=== PATIENT | male | born 1965 | race Caucasian/White ===

== ENCOUNTER 2016-10-11 07:23 | Inpatient (IN) ==
[2016-10-11] MEDS ORDERED: IOPAMIDOL 100 ML BOTTLE IV ONE (07:24)
[2016-10-11] MEDS ORDERED: PROCHLORPERAZINE 10 MG/2 ML VIAL IV ONE (07:51)
[2016-10-11] MEDS ORDERED: 0.9 % SODIUM CHLORIDE 1,000 ML IV ONE ×3 (07:51→12:50)
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
[2016-10-11] MEDS: HYDROmorphone 2 MG/ML SYRINGE IV PRN ×6 (08:05→19:59)
[2016-10-11 08:25] LABS: Basophils # (Auto) 0.1 K/mcL (0.0-0.3); Basophils % (Auto) 0.6 % (0.0-2.0); Eosinophils # (Auto) 0.2 K/mcL (0.0-0.7); Eosinophils % (Auto) 1.4 % (0.0-7.0); Granulocytes % (Auto) 80.7 % (38.0-78.0); Lymphocytes # (Auto) 1.9 K/mcL (1.5-4.8); Mean Cell Volume 94.9 fL (80.0-100.0); Mean Corpuscular HGB Conc 32.8 g/dL (31.0-36.0); Mean Corpuscular Hemoglobin 31.1 pg (26.0-34.0); Monocytes # (Auto) 1.1 K/mcL (0.1-0.9); Monocytes % (Auto) 6.3 % (1.0-12.0); Platelet Count 352 K/mcL (140-440); RBC 5.25 M/mcL (4.50-5.90); Red Cell Distribution Width 15.2 % (11.5-14.5)
[2016-10-11 08:56] LABS: ALT/SGPT 73 U/l (0-40); Albumin 3.7 gm/dL (3.2-5.2); Albumin/Globulin Ratio 0.9 (1.0-2.3); Alkaline Phosphatase 152 U/L (39-117); Amylase 18 U/L (28-100); Blood Urea Nitrogen 5 mg/dl (6-20); Lipase 14 U/L (7-60)
[2016-10-11] MEDS ORDERED: ceFAZolin 1 GM VIAL IV ONE (09:32)
--- NOTE | 2016-10-11 09:39 | Cat Scan Report ---
CLINICAL INFORMATION: Reason for Exam:severe epigastric pain COMPARISON: 12/21/07 TECHNIQUE: Following injection of intravenous contrast the patient was scanned during the portal venous phase from the diaphragm through the symphysis pubis. Sagittal and coronal reformats were created.. FINDINGS: The liver is normal in size. There is mild fatty infiltration. No mass is present. The gallbladder and bile ducts are normal. The spleen and pancreas are normal in size and homogeneous. The adrenals and kidneys are normal. There are few scattered plaques along the escalona of normal caliber abdominal aorta, renal arteries and iliac arteries. There are several scattered diverticula in the descending and sigmoid colon. In the midportion of the sigmoid colon there is an acute inflammation and perforation. There is extraluminal collection of gas anterior to the sigmoid colon surrounded by inflamed fat. No abscess is present and there is no free fluid within the peritoneum. The pocket of air measures 1.5 x 5.3 cm. The perforation is a new finding since 2007. There are few more diverticula in the colon today than there were previously. There is no evidence of bowel obstruction or ileus. The appendix is noninflamed. The urinary bladder and prostate appear normal. IMPRESSION: Perforated mid sigmoid colon. This is probably due to acute diverticulitis. Dr. Almodovar was called with results at 9:30 AM Interpreted and Authenticated by: Serg Merritt 10/11/16
[2016-10-11] MEDS ORDERED: ONDANSETRON 4 MG/2 ML VIAL IV PRN ×2 (09:40→16:33)
[2016-10-11] MEDS ORDERED: PROMETHAZINE 25 MG/ML VIAL IM PRN ×2 (09:40→16:33)
[2016-10-11] MEDS ORDERED: NALOXONE HCL 0.4 MG/ML VIAL IV PRN (09:40)
[2016-10-11] MEDS: 0.9 % SODIUM CHLORIDE 1,000 ML IV SCH ×2 (11:06→16:00)
[2016-10-11] MEDS ORDERED: metroNIDAZOLE 500 MG/100 ML BAG IV SCH ×2 (12:00→18:00)
[2016-10-11] MEDS ORDERED: PIPERACILLIN SODIUM/TAZOBACTAM 3.375 GM in DEXTROSE 5% IN WATER 50 ML IV SCH ×2 (13:00→18:00)
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
--- NOTE | 2016-10-11 13:15 | XRay Report ---
HISTORY: Reason for Exam:preop evaluation , perforated sigmoid colon FINDINGS: The lungs are clear. The heart, mediastinum, jordana and pleura are normal. No free intra-abdominal air is seen beneath the diaphragms IMPRESSION: Normal chest. Interpreted and Authenticated by: Serg Merritt 10/11/16
[2016-10-11] MEDS ORDERED: LIDOCAINE HCL/PF 100 MG/5 ML SYRINGE IV ONE (14:00)
[2016-10-11] MEDS ORDERED: PROPOFOL 200 MG/20 ML VIAL IV ONE (14:00)
[2016-10-11] MEDS ORDERED: ROCURONIUM 10 MG/ML ML IV ONE (14:00)
[2016-10-11] MEDS ORDERED: fentaNYL 250 MCG/5 ML VIAL IV ONE (14:00)
[2016-10-11] MEDS ORDERED: KETAMINE 100 MG/ML ML IV ONE (14:00)
[2016-10-11] MEDS ORDERED: MIDAZOLAM 5 MG/5 ML VIAL IV ONE (14:00)
[2016-10-11] MEDS ORDERED: HYDROmorphone 2 MG/ML SYRINGE IV ONE (14:00)
[2016-10-11] MEDS ORDERED: GLYCOPYRROLATE 0.2 MG/ML VIAL IV ONE (14:00)
--- NOTE | 2016-10-11 16:08 | Brief Operative Note ---
Date of procedure: 10/11/16 Pre-op diagnosis: perforated sigmoid colon with peritonitis Post-op diagnosis: other (severely ischemic small bowel and colon with perforated sigmoid colon and diffuse peritonitis) Procedure: damage control laparotomy with sigmoid resection ; peritoneal washout and 4 quadrant drainage;abdomen left open Grafts/Implants: No Anesthesia: GETA Findings: diffuse peritonitis with large sigmoid perforation; severely ischemic bowel with waite omentum,purplish waite distal small bowel and right colon and transverse colon; ischemic but viable distal jejunum extending to ileum;;stomach ,liver and gallbladder looked normal Complications: none Surgeon: Susanne Dang Estimated blood loss (cc): 25 Specimens Removed/Pathology: other (sigmoid colon) Condition: critical Disposition: ICU
[2016-10-11] MEDS ORDERED: 0.9 % SODIUM CHLORIDE 10 ML SYRINGE IV PRN (16:21)
[2016-10-11] MEDS ORDERED: PROPOFOL 1,000 MG in PREMIX 1 BAG IV ONE (16:21)
[2016-10-11] MEDS ORDERED: 0.9 % SODIUM CHLORIDE 1,000 ML IV SCH ×3 (16:33→18:30)
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
[2016-10-11] MEDS ORDERED: PANTOPRAZOLE 40 MG VIAL IV SCH ×2 (17:00)
--- NOTE | 2016-10-11 17:03 | XRay Report ---
HISTORY: Reason for Exam:Central Line Placement FINDINGS: Endotracheal tube is well-positioned. There is a right subclavian catheter with the tip in the right atrial of the heart. Nasogastric tube passes through the esophagus into the stomach. There is no pneumothorax or abnormal widening of the mediastinum. Patient has developed alveolar opacities throughout both lungs. These are new compared with the preoperative chest x-ray done on the same date. The heart is borderline enlarged but magnified by portable technique. The heart appears larger than on the preoperative x-ray. Right costophrenic sulcus is outside of the field of view. There is no evidence of a pleural effusion on either side. IMPRESSION: Well-positioned support tubes and no pneumothorax. Bilateral alveolar opacities which may be due to fluid overload, congestive heart failure with pulmonary edema or respiratory distress syndrome. Interpreted and Authenticated by: Serg Merritt 10/11/16
[2016-10-11] MEDS ORDERED: PIPERACILLIN SODIUM/TAZOBACTAM 3.375 GM VIAL IV ONE (17:04)
[2016-10-11 17:15] LABS: Mean Cell Volume 95.1 fL (80.0-100.0); Mean Corpuscular HGB Conc 31.9 g/dL (31.0-36.0); Mean Corpuscular Hemoglobin 30.3 pg (26.0-34.0); Platelet Count 316 K/mcL (140-440); RBC 4.84 M/mcL (4.50-5.90); Red Cell Distribution Width 15.8 % (11.5-14.5)
[2016-10-11 17:26] LABS: Blood Urea Nitrogen 6 mg/dl (6-20)
[2016-10-11] MEDS ORDERED: DILTIAZEM 25 MG/5 ML VIAL IV PRN (17:26)
[2016-10-11] MEDS ORDERED: ALBUTEROL SULFATE 2.5 MG/3 ML NEBULIZER NEB PRN (17:26)
[2016-10-11] MEDS ORDERED: LORazepam 2 MG/ML VIAL IV PRN (17:28)
[2016-10-11] MEDS ORDERED: HEPARIN/NS 500 ML IV SCH (17:30)
[2016-10-11] MEDS ORDERED: ACETAMINOPHEN 650 MG SUPP.RECT PR PRN (17:36)
[2016-10-11] MEDS ORDERED: METOPROLOL TARTRATE 5 MG/5 ML VIAL IV PRN (17:38)
[2016-10-11] MEDS ORDERED: DEXTROSE 50% 50 ML VIAL IV PRN (17:41)
[2016-10-11] MEDS ORDERED: ACETAMINOPHEN 1,000 MG/100 ML BOTTLE IV PRN (17:56)
[2016-10-11 17:57] LABS: Band Neutrophils % 29 % (0-10); Lymphocytes % 13 % (15-49); Monocytes % (Manual) 3 % (1-12); Platelet Estimate NORMAL (NORMAL); RBC Morphology NORMAL (NORMAL); Segmented Neutrophils % 52 % (38-78)
[2016-10-11] MEDS ORDERED: INSULIN LISPRO 1 UNIT/0.01 ML UNIT SQ SCH (18:00)
[2016-10-11] MEDS ORDERED: CALCIUM GLUCONATE 4.65 MEQ in DEXTROSE 5% IN WATER 50 ML IV ONE (18:00)
[2016-10-11] MEDS ORDERED: PROPOFOL 100 ML IV ONE (18:17)
[2016-10-11 18:34] LABS: Ionized Calcium 0.99 mmol/L (1.16-1.32)
--- NOTE | 2016-10-11 18:50 | Discharge Summary ---
Providers - Providers Patient information: Note initiated : 10/11/16 at 6:40 pm Service Date, if different from initiated Date: [] Patient: Earle Magdaleno 51 y/o M admitted on 10/11/16 for Abd Pain. Chief Complaint: [] Date of admission: 10/11/16 Discharge date: 10/11/16 Attending physician: Susanne Dang hospitalist Hospitalization Hospital course: 51-year-old male admitted early this morning with acute abdominal pain with nausea and vomitiing.. The patient has been symptomatic for at least 3 days with severe pain. He finally came to the emergency room where he was noted to have a rigid abdomen with hypoactive bowel sounds. He also had leukocytosis. CT of the abdomen revealed perforated sigmoid colon with free air and associated fluid but no formed abscess. The patient was taken to the operating room where he was noted to have diffuse peritonitis with evidence of ischemic bowel and omentum. While he was being explored the small bowel regained good vascularity. The liver stomach duodenum and proximal jejunum had normal vascularity.a segmental sigmoidectomy was done and the bowel was left in discontinuity. Because of the difficulty with diffuse ischemia it was decided that he would need a second look procedure and if this bowel is viable a stoma could be done at that time. Thorough washout was done and the abdomen was drained and bilateral subphrenic areas and bilateral pelvis. The bowel was covered with moist towels and then they were covered with large sterile Vi- Drape. The patient was left paralyzed and transferred to the ICU in critical condition. In discussion with the radioogist there is concern about the ostium of the SMA. His AMAN is very small. This CT study however was suboptimal. It is felt that he needs to have more aggressive therapy and interventional radiology or vascular surgery to do a study of his mesenteric vesselsto determine if his bowel is going to be salvageable. None of this can be done at our facility and we are presently trying to transfer him to a higher level of care. This was discussed with his girlfriend who is his closest mash filter cloth changer. He gave us permission to discuss this with her. His vital signs are stablt the present time but he is in critical condition. Discharge diagnosis: perforated sigmoid colon with peritonitis Secondary discharge diagnosis: mesenteric ischemia with midgut hypoperfusion Reason for admission: recurrent abdominal pain nausea and vomiting Procedures: exploratory laparotomy with segmental sigmoid colectomy with bowel left in discontinuity Thorough peritoneal washout and drainage Pertinent studies/significant findings: contrast CT of abdomen and pelvis Complications: none Exam Temp Pulse Resp BP Pulse Ox 101.7 F H 132 H 12 162/83 100 10/11/16 17:29 10/11/16 18:32 10/11/16 17:04 10/11/16 18:31 10/11/16 18:32 - General physical appearance well developed, well nourished, severe distress, other (patient is ventila paralyzed) - Eyes PERRL, normal ocular movement - ENT normal pinna, normal nares, normal mucosa, no hearing loss, no congestion - Head Head exam IM: Present: atraumatic, normocephalic - Neck no masses, no bruits, trachea midline, no lymphadectomy, no venous distension - Cardiovascular Cardiovascular exam IM: Present: normal rate and rhythm - Respiratory normal expansion, other (ventilated with decreased breath sounds bilaterally) - Abdomen Abdomen: Present: distended (open abdomen with temporary occlusive dressing; left colon in discontinuity) Hernia: Present: none - Genitourinary Present: normal penis with no external lesions, other (Cook catheter in place) - Rectum Rectum: Present: no tenderness - Integumentary Present: no rash, no growths, no abnormal pigmentation - Neurologic Present: other (sedated and paralyzed) - Musculoskeletal Present: normal posture - Psychiatric Present: other (sedated on ventilator) Discharge Plan - Patient/Caregiver Discharge Instructions Activity: other (ventilated) Diet: NPO (nasogastric tube) - Follow up Plan Follow up with: Susanne Dang MD [Physician] - Kerry Williamson MD [Primary Care Provider] - Disposition: Xfer Other Prognosis: Critical Rehab Potential: Critical I certify that the patient requires SNF services.: No Overall status at discharge: patient is not back to baseline Pending Studies Resuscitation Status Full Code Diet NPO Diet (NOW) Start MonOctober 11 Breakfast Diagnostic Test (Pha) (Accu-Chek) 1 each FS Q6 [facility] Last Admin: 10/11/16 18:19 Dose: Hydromorphone HCl (Dilaudid) 1 mg IV Q2HP PRN PRN Reason: Pain Last Admin: 10/11/16 18:20 Dose: 1 mg Metronidazole (Flagyl) 500 mg in 100 mls @ 100 mls/hr IV Q6H [facility] Last Admin: 10/11/16 17:30 Dose: 100 mls/hr Piperacillin Sod/Tazobactam (Sod 3.375 gm/ Dextrose) 50 mls @ 100 mls/hr IV Q6H [facility] Last Admin: 10/11/16 18:20 Dose: Pantoprazole Sodium (Protonix) 40 mg IV BIDAC [facility] Last Admin: 10/11/16 17:00 Dose: 40 mg Shift Summary 10/11/16 15:07 Shift Summary by Smitha Benavidez pt was admitted with a ruptured sigmoid colon. Pt went to surgery around 1330 should be a two hour surgery. optical instrument assembly supervisor was called by anesthesia at 1430 , pt is worse than expected there is some necrotic bowel, a significant amount of infection and irritation. Pt will be intubated when her returns from surgery. Prior to surgery Dr. Dang spoke with the patient informed him that he most likely will have a temporary colostomy that might be reversed in six to eight weeks. Then Marisela Keller the anesthesiologist spoke with the patient also talked about a colostomy and that it might even have to be permanent. Dr. Flores also talked to the patient about having to stay sedated and on the ventilator for a day or more to allow the bowels to heal up some. The patient is a daily smoker , he has bad lungs and Dr. Flores just stated that he just might need more time on the vent than other patients do. Per the patient his last surgery he had to be on the ventilator a little longer than most people. Patient is aware of all of the risks and complications and is agreeable. Dr. Dang explained that this is a life saving surgery. Pt verbalizes that he understands. asked the patient who could have information. he stated his Aunt Cinthia and his girlfriend Liza Taveras could have any information they wanted. His daughters would also know that he is here and he is sick. Pt's older daughter lamar called and knows that her father is here he is having bowel surgery and he is sick and it is serious. the younger daughter is 11 and in elementary school. This engineering technical writer recommended that the younger daughter not come in to see the patient until he is off the ventilator. will update verbally as more information is available. Initialized on 10/11/16 15:07 - END OF NOTE
[2016-10-11 18:53] LABS: Magnesium 1.3 mg/dL (1.6-2.5)
[2016-10-11] MEDS ORDERED: IPRATROPIUM/ALBUTEROL 3 ML AMPUL.NEB NEB SCH (19:00)
[2016-10-11] MEDS ORDERED: PROPOFOL 1,000 MG in PREMIX 1 BAG IV SCH (19:15)
--- NOTE | 2016-10-11 19:20 | Procedure Note ---
Procedures - Central Line Placement Right SC Consent obtained: written consent (global surgery/anesthesia consent) Time out performed: Yes Patient placed on monitor/pulse ox: Yes (during anesthesia following surgery in OR) MD prep: mask, sterile gown, sterile gloves, cap Central line prep: 2% Chlorhexidine scrub, large sterile drapes applied, proper hand hygiene Local anesthesia used: other anesthetic Ultrasound used for placement: No Central line lumen inserted: quad, 20 cm Post procedure: sutured in place, good blood return, all ports aspirated, flushed, capped, sterile dressing applied Post procedure x-ray: tip of catheter in good position, no pneumothorax seen Patient tolerated procedure: well, no complications Complications: none Additional comments: ex lap abort completion for damage control procedure, pt left open in discontinuity CVC medically necessary, placed without problem.
[2016-10-11] MEDS ORDERED: CHLORHEXIDINE GLUCONATE 1 ML ORAL.SOL SWABMOUTH SCH (21:00)
[2016-10-11] MEDS ORDERED: FAMOTIDINE/PF 20 MG/2 ML VIAL IV SCH (21:00)
[2016-10-11] MEDS ORDERED: 0.9 % SODIUM CHLORIDE 10 ML SYRINGE IV SCH ×2 (22:00)
--- NOTE | 2016-10-12 09:07 | Operative Note ---
DATE OF OPERATION: 10/11/2016 PREOPERATIVE DIAGNOSIS: Perforated sigmoid colon with peritonitis. POSTOPERATIVE DIAGNOSIS: Severely ischemic small bowel and colon with perforated sigmoid colon and diffuse peritonitis. PROCEDURE: Damage control laparotomy with sigmoid resection, peritoneal washout and four-quadrant drainage, peritoneal and abdominal wall left open and covered. SURGEON: Susanne Dang MD. FINDINGS: Diffuse peritonitis with a large sigmoid perforation with fecal drainage in the pelvis. Severely ischemic bowel with waite omentum. A purplish-waite distal small bowel, right colon and transverse colon extending to the descending colon. Viable descending and sigmoid colon. Normal proximal jejunum with ischemic small bowel extending from mid jejunum to the terminal ileum with the most ischemia being prominent in the terminal ileum. Liver and stomach appeared to be unremarkable. Spleen appeared to be unremarkable. DESCRIPTION OF PROCEDURE: Under general anesthesia, the patient's abdomen was prepped and draped in the sterile field. A timeout procedure was carried out as per protocol. Midline incision was made. Upon entering the abdomen, there was free exudation of a large volume of pus. This was cultured and irrigated. The incision was extended, and it was unfortunately apparent that his omentum was very, very waite. The bowel was pulled from the peritoneal cavity. The proximal jejunum appeared to be unremarkable. However, from distal jejunum down to the terminal ileum the bowel was very ischemic, almost flaccid, but it appeared that it became more viable as the procedure progressed. The terminal ileum was dark and thickened. The cecum was reddish-waite, as well as the ascending and transverse colon. The descending colon appeared to be viable though it too appeared to be ischemic. The area of the perforation appeared to be viable as was the rectal sigmoid. Copious irrigation was carried out, after which the sigmoid colon was divided proximal and distal to the perforation with a Contour stapler. The mesocolon was serially clamped and that segment of bowel was removed. No attempt was made to try to bring out a stoma because of the severity of his condition. Further irrigation was carried out, after which СВЕТЛАНА drains were placed in each quadrant. The bowel was then covered with two moist sponges and the subcutaneous fat was closed with moist sponge. His abdomen was covered with two large Vi-drapes. The СВЕТЛАНА drains were hooked to suction. After this was completed, the drains were secured with 2-[address] Ly, the anesthesiologist, placed a central line. The patient was left intubated and transferred to the intensive care unit in critical condition. LCS:august Job ID: [id number] Doc ID: [id number] Susanne Dang M.D.
--- NOTE | 2016-10-13 12:06 | Surgical Pathology Report ---
HISTOLOGY SPECIMEN MICROSCOPIC DIAGNOSIS COLON, SIGMOID, SEGMENTAL RESECTION: -- MARKED DIVERTICULAR DISEASE WITH ACUTE/CHRONIC DIVERTICULITIS, COLONIC PERFORATION, PARACOLONIC ABSCESS AND ACUTE PERITONITIS. -- SURGICAL MARGINS APPEAR VIABLE. -- NO NEOPLASIA OR MALIGNANCY IDENTIFIED. (ACP:irina) PROCEDURAL IMPRESSION Perforated sigmoid. GROSS DESCRIPTION Received in formalin labeled sigmoid colon section, is a segmental resection of large intestine which measures 14.0 cm long with a mid point diameter of 3.7 cm. Attached fat is up to 6.0 cm wide. Both margins are stapled. There is indurated fat in the mid point portion of the specimen with a small, thin layer of waite-avina exudate. Cut sections show a perforation into a necrotic cavity which is irregular in shape and measures 1.5 x 4.2 x 1.5 cm. This cavity appears to be entirely contained within the attached adipose tissue. Several unremarkable diverticula are also identified within the specimen. Lymph nodes are not found in the attached fat. Sections submitted: A1 - margins; A2 - area of perforation; A3 - apparent hemorrhagic diverticulium; A4 - additional diverticulum; A5 - necrotic cavity. (RAD:sln) Electronically Signed by: Pedro Merritt M.D.
== END 2016-10-11 20:10 | disposition other institution (70) | DRG 329 ==
LOC: ED 07:23 → ICU 10:35 → UNDODISIN 20:10
PROVIDERS: ADMIT Family Medicine Adult Medicine; ATTEND Family Medicine Adult Medicine

== ENCOUNTER 2016-12-06 08:33 | Inpatient (IN) ==
[2016-12-06] MEDS ORDERED: ONDANSETRON 4 MG/2 ML VIAL IV ONE (08:54)
[2016-12-06] MEDS: HYDROmorphone 2 MG/ML SYRINGE IV PRN ×8 (09:08→23:21)
--- NOTE | 2016-12-06 09:31 | Emergency Department Note ---
Abdominal Pain HPI - General Chief Complaint: Abdominal Pain Stated Complaint: Abd pain, nausea and vomiting Time Seen by Provider: 12/06/16 09:12 Source: patient Mode of arrival: ambulatory - History of Present Illness HPI Narrative: Patient complains of abdominal pain off and on for the last week. He is Very little down as far as food, fluids he's been sipping on water, sipping on Gatorade and any little bit of seems to come up. Water also tends to come up if he drinks too much. He states anytime he eats or drinks something it immediately goes through to the ostomy bag in. Denies any fever denies any chills, did have major bowel surgery about 2 months ago and is still recovering from that. Had ischemic bowel and lost a large part of his colon he cannot recall how much. History of cryo-globulin anemia, history of hepatitis C, smoke or use one half to one pack a day but he denies any chest pain denies any shortness of breath, he does tell me that they're planning on doing some stenting to his bowel arteries, has a history of ischemic bowel. Pain is mainly in the right upper quadrant of the abdomen, also left lower quadrant, exacerbated by food. MD Complaint: abdominal pain - Related Data Home Medications Medication Instructions Recorded Confirmed HYDROmorphone HCL [Hydromorphone 4 mg PO Q4H PRN 11/04/16 11/04/16 HCl] Lisinopril [Zestril] 10 mg PO DAILY 11/04/16 11/04/16 Previous Rx's Medication Instructions Recorded amlodipine 5 mg tablet 5 mg PO QDAY #180 tab 10/21/16 amoxicillin 875 mg-potassium 1 tab PO BID #20 tab 10/21/16 clavulanate 125 mg tablet Wound vac dressing change #1 each 10/25/16 ostomy supplies powder See Dose Instructions .ROUTE 10/25/16 .MEDSUPPLY #28.3 g hydromorphone 2 mg tablet 2 mg PO Q4H PRN #50 tab 11/11/16 Allergies Allergy/AdvReac Type Severity Reaction Status Date / Time topiramate Allergy Mild Rash Verified 12/06/16 08:38 hydrocodone AdvReac Severe Rash Verified 12/06/16 08:38 gabapentin AdvReac Intermediate Dizziness Verified 12/06/16 08:38 morphine AdvReac Intermediate Rash Verified 12/06/16 08:38 Oxycodone AdvReac Intermediate leg hives Verified 12/06/16 08:38 tramadol AdvReac Mild Unknown Verified 12/06/16 08:38 Review of Systems Constitutional: Denies: fever, chills Eyes: Denies: eye pain ENT ED: Denies: throat pain Cardiovascular: Reports: dyspnea on exertion. Denies: chest pain Respiratory: Denies: cough Gastrointestinal: Reports: abdominal pain, nausea, vomiting, other (small amount of liquid in the ostomy bagin the last 24 hours.) Genitourinary: Reports: other (Positive urinary output this morning). Denies: dysuria Musculoskeletal: Denies: back pain Integumentary: Denies: rash Neurological: Reports: weakness. Denies: headache Endocrine: Reports: fatigue Hematological/Lymphatic: Denies: easy bleeding Allergic/Immunologic: Denies: facial swelling, urticaria Abdominal Pain PMH - Past Medical History Attestation: Yes: The following information was validated with the patient. Medical history: Reports: arthritis, hypertension, other (rare form of anemia, RA, Hepatitis C, ischemic bowel/perforated bowel) Surgical history ED: Reports: colectomy, colostomy Family history: Reports: other (both parents young, unknown cause) - Social History Smoking status: Current every day smoker Alcohol use: Reports: Unknown Drug use: Reports: marijuana Physical Exam - General Limitations: no limitations General appearance: alert, in no apparent distress - Head Head exam: atraumatic, normocephalic, normal inspection - Eye Eye exam: Present: normal appearance, PERRL, EOMI. Absent: conjunctival injection - ENT ENT exam: normal exam, normal oropharynx, mucous membranes moist, TM's normal bilaterally, normal external ear exam, other (Few carious teeth) - Neck Neck exam: Present: normal inspection, full ROM, trachea midline. Absent: tenderness, meningismus, lymphadenopathy, thyromegaly - Chest Chest inspection: Present: normal inspection, symmetric chest wall rise - Respiratory Respiratory exam: Present: wheezes, prolonged expiratory phase. Absent: respiratory distress, accessory muscle use - Cardiovascular Cardiovascular exam: Present: regular rate, normal rhythm, tachycardia, normal heart sounds - Abdominal Exam Abdominal exam: Present: soft, distention, tenderness, guarding, rebound, hypoactive bowel sounds. Absent: rigidity Abdominal tenderness: Present: RUQ, epigastrium, moderate - Rectal Exam Rectal exam: Present: deferred, other (Green and yellow fluid in the ostomy bag. ) - exam: Present: normal inspection, normal testicular lie - Extremities Exam Extremities exam: Present: normal inspection, full ROM, normal capillary refill. Absent: tenderness - Back Exam Back exam: Present: normal inspection, full ROM. Absent: tenderness, CVA tenderness (R), CVA tenderness (L), vertebral tenderness - Neurological Exam Neurological exam: Present: alert, oriented X3, CN II-XII intact. Absent: motor sensory deficit - Psychiatric Psychiatric exam: Present: normal affect - Skin Skin exam: Present: warm, dry, intact, normal color. Absent: rash Course Vital Signs Temperature 97.5 F 12/06/16 08:34 Pulse Rate 122 H 12/06/16 08:34 Respiratory Rate 16 12/06/16 08:34 Blood Pressure 135/97 12/06/16 08:34 Pulse Oximetry (%) 100 12/06/16 08:34 Temperature 97.5 F 12/06/16 08:34 Pulse Rate 117 H 12/06/16 10:30 Respiratory Rate 23 H 12/06/16 11:01 Blood Pressure 176/87 12/06/16 11:01 Pulse Oximetry (%) 87 L 12/06/16 10:30 Abdominal Pain - MDM Narrative Medical decision making narrative: his CBC was normal, however his potassium was low at this point I spoke with Dr. Dang, he will be admitted for abdominal pain, nausea and vomiting of undetermined etiology, hypokalemia. - Lab Data Result diagrams: 12/06/16 09:40 12/06/16 09:40 Lab Results 12/06/16 12/06/16 12/06/16 Range/Units 09:40 09:40 09:40 WBC 10.5 (4.5-11.0) K/mcL RBC 4.34 L (4.50-5.90) M/mcL Hgb 12.7 L (13.5-16.5) g/dL Hct 38.0 L (41.0-55.0) % MCV 87.5 (80.0-100.0) fL MCH 29.4 (26.0-34.0) pg MCHC 33.5 (31.0-36.0) g/dL RDW 15.8 H (11.5-14.5) % Plt Count 448 H (140-440) K/mcL MPV 7.4 (7.4-10.4) fL Gran % 82.8 H (38.0-78.0) % Lymph % (Auto) 11.5 L (15.5-49.0) % [place] % (Auto) 5.0 (1.0-12.0) % Eos % (Auto) 0.2 (0.0-7.0) % Baso % (Auto) 0.5 (0.0-2.0) % Gran # 8.7 H (1.8-8.0) K/mcL Lymph # (Auto) 1.2 L (1.5-4.8) K/mcL [place] # (Auto) 0.5 (0.1-0.9) K/mcL Eos # (Auto) 0 (0.0-0.7) K/mcL Baso # (Auto) 0.1 (0.0-0.3) K/mcL ESR 105 H (0-15) mm/hr VBG Lactic Acid 2.4 H (0.5-2.2) mmol/L Sodium 122 L (133-145) mmol/L Potassium 2.9 L* (3.3-5.1) mmol/L Chloride 69 L (96-108) mmol/L Carbon Dioxide 37 H (22-30) mmol/L Anion Gap 16.0 (8-16) BUN 26 H (6-20) mg/dl Creatinine 1.9 H (0.7-1.2) mg/dl GFR Calculation 40 Glucose 126 H (70-105) mg/dL Calcium 11.3 H (8.6-10.4) mg/dl Total Bilirubin 1.1 H (0.0-1.0) mg/dL AST 14 (0-37) U/l ALT 17 (0-40) U/l Alkaline Phosphatase 110 (39-117) U/L C-Reactive Protein 21.8 H (0.0-0.8) mg/dl Total Protein 8.5 H (5.9-8.4) gm/dL Albumin 3.9 (3.2-5.2) gm/dL Globulin 4.6 H (2.2-3.7) gm/dL Albumin/Globulin Ratio 0.8 L (1.0-2.3) Disposition Pt seen by PROPERTY CLAIMS MANAGER/PA only: No Clinical Impression: Abdominal pain, Abdominal pain Disposition: Xfer As Inpt ([facility]) Condition: Undetermined Referrals: Kerry Williamson MD [Primary Care Provider] -
[2016-12-06] MEDS ORDERED: LACTATED RINGERS 1,000 ML IV ONE (09:36)
[2016-12-06 10:11] LABS: Basophils # (Auto) 0.1 K/mcL (0.0-0.3); Basophils % (Auto) 0.5 % (0.0-2.0); Eosinophils # (Auto) 0 K/mcL (0.0-0.7); Eosinophils % (Auto) 0.2 % (0.0-7.0); Granulocytes % (Auto) 82.8 % (38.0-78.0); Lymphocytes # (Auto) 1.2 K/mcL (1.5-4.8); Lymphocytes % (Auto) 11.5 % (15.5-49.0); Mean Cell Volume 87.5 fL (80.0-100.0); Mean Corpuscular HGB Conc 33.5 g/dL (31.0-36.0); Mean Corpuscular Hemoglobin 29.4 pg (26.0-34.0); Monocytes # (Auto) 0.5 K/mcL (0.1-0.9); Platelet Count 448 K/mcL (140-440); RBC 4.34 M/mcL (4.50-5.90); Red Cell Distribution Width 15.8 % (11.5-14.5)
--- NOTE | 2016-12-06 10:17 | XRay Report ---
HISTORY: Reason for Exam:vomiting FINDINGS: The stomach is decompressed. The large and small bowel are also decompressed and there are no air-fluid levels or free intra-abdominal air. No mass is identified. There are vascular calcifications in the pelvis. IMPRESSION: Normal exam Interpreted and Authenticated by: Serg Merritt 12/06/16
[2016-12-06] MEDS ORDERED: PROMETHAZINE 50 MG/ML AMPUL IM ONE ×3 (10:26→12:54)
[2016-12-06] MEDS ORDERED: IPRATROPIUM/ALBUTEROL 3 ML AMPUL.NEB NEB ONE (10:27)
[2016-12-06 10:34] LABS: ALT/SGPT 17 U/l (0-40); Albumin 3.9 gm/dL (3.2-5.2); Albumin/Globulin Ratio 0.8 (1.0-2.3); Alkaline Phosphatase 110 U/L (39-117); Blood Urea Nitrogen 26 mg/dl (6-20); C-Reactive Protein 21.8 mg/dl (0.0-0.8)
[2016-12-06] MEDS ORDERED: POTASSIUM CHLORIDE 20 MEQ in DEXTROSE 5% IN WATER 250 ML IV ONE (10:34)
[2016-12-06 10:57] LABS: Erythrocyte Sedimentation Rate 105 mm/hr (0-15)
[2016-12-06] MEDS ORDERED: ONDANSETRON 4 MG/2 ML VIAL IV PRN ×2 (12:41→12:54)
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
[2016-12-06 13:14] LABS: Amylase 16 U/L (28-100); Lipase 13 U/L (7-60)
--- NOTE | 2016-12-06 13:25 | XRay Report ---
HISTORY: Reason for Exam:hypoxemia FINDINGS: The lungs are clear and well expanded. The heart size is normal. The cardiomegaly and congestive heart failure seen on 10/11/16 have resolved. There is no pleural effusion or adenopathy. IMPRESSION: Normal chest Interpreted and Authenticated by: Serg Merritt 12/06/16
[2016-12-06] MEDS: IPRATROPIUM/ALBUTEROL 3 ML AMPUL.NEB NEB SCH ×2 (13:53→19:05)
[2016-12-06] MEDS: PIPERACILLIN SODIUM/TAZOBACTAM 3.375 GM in DEXTROSE 5% IN WATER 50 ML IV SCH ×2 (14:16→19:22)
[2016-12-06] MEDS: 0.9 % SODIUM CHLORIDE 1,000 ML IV SCH ×2 (14:16→21:13)
[2016-12-06] MEDS: metroNIDAZOLE 500 MG/100 ML BAG IV SCH ×3 (14:20→23:51)
[2016-12-06 14:29] LABS: ALT/SGPT 21 U/l (0-40); Albumin 3.9 gm/dL (3.2-5.2); Albumin/Globulin Ratio 0.8 (1.0-2.3); Alkaline Phosphatase 110 U/L (39-117); Bilirubin,Direct < 0.2 mg/dL (0.0-0.3); Blood Urea Nitrogen 26 mg/dl (6-20); Gamma Glutamyl Transpeptidase 51 U/L (8-61); Magnesium 1.2 mg/dL (1.6-2.5)
[2016-12-06] MEDS: 0.9 % SODIUM CHLORIDE 10 ML SYRINGE IV SCH ×2 (14:51→22:55)
[2016-12-06] MEDS: ONDANSETRON 4 MG/2 ML VIAL IV PRN ×2 (14:56→19:09)
--- NOTE | 2016-12-06 15:00 | Ultrasound Report ---
History: Hepatitis C with Right upper quadrant pain, nausea and vomiting Findings: The liver is normal in size and homogeneous. There is no evidence of cirrhosis or malignancy. Doppler shows normal blood flow in the hepatic and portal veins. The gallbladder contains no stones or sludge. The wall is 3 mm in thickness which is upper limits of normal. No para cholecystic fluid collection is present. The common bile duct is 4.7 mm which is borderline dilated. The pancreas is normal in size and homogeneous. Patient is extremely tender in the midline extending to the right side of the abdomen. In this region there is a large fluid-filled loop of bowel. I cannot identify if this is large or small intestine. This loop of bowel had no air within it on the preceding abdominal x-ray and therefore could not be seen. No ascites is present Impression: Normal liver Dilated fluid-filled loop of bowel in the right mid abdomen where the patient complains of pain. This could be due to a bowel obstruction. Borderline dilated common bile duct and borderline thickened wall of the gallbladder but with no gallstones Interpreted and Authenticated by: Serg Merritt 12/06/16
[2016-12-06] MEDS ORDERED: POTASSIUM CHLORIDE 40 MEQ in DEXTROSE 5% IN WATER 500 ML IV ONE (18:06)
[2016-12-06] MEDS ORDERED: POTASSIUM CHLORIDE 20 MEQ/10 ML VIAL IV ONE ×2 (19:08)
[2016-12-06] MEDS ORDERED: MAGNESIUM SULFATE 8.12 MEQ/2 ML VIAL ONE (19:47)
[2016-12-06] MEDS: MAGNESIUM SULFATE 32.48 MEQ in DEXTROSE 5% IN WATER 50 ML IV SCH (19:53)
[2016-12-06 23:40] LABS: ALT/SGPT 14 U/l (0-40); Albumin 3.2 gm/dL (3.2-5.2); Albumin/Globulin Ratio 0.9 (1.0-2.3); Alkaline Phosphatase 85 U/L (39-117); Bilirubin,Direct 0.5 mg/dL (0.0-0.3); Blood Urea Nitrogen 30 mg/dl (6-20); Gamma Glutamyl Transpeptidase 38 U/L (8-61); Magnesium 2.2 mg/dL (1.6-2.5); Uric Acid 10.2 mg/dL (2.5-8.0)
[2016-12-07] MEDS: MAGNESIUM SULFATE 32.48 MEQ in DEXTROSE 5% IN WATER 50 ML IV SCH (00:09)
[2016-12-07] MEDS ORDERED: PIPERACILLIN SODIUM/TAZOBACTAM 3.375 GM VIAL IV ONE (00:50)
[2016-12-07] MEDS: PIPERACILLIN SODIUM/TAZOBACTAM 3.375 GM in DEXTROSE 5% IN WATER 50 ML IV SCH ×4 (00:53→20:39)
[2016-12-07] MEDS: IPRATROPIUM/ALBUTEROL 3 ML AMPUL.NEB NEB SCH ×4 (00:55→19:09)
[2016-12-07] MEDS: ONDANSETRON 4 MG/2 ML VIAL IV PRN ×2 (01:50→05:59)
[2016-12-07] MEDS: HYDROmorphone 2 MG/ML SYRINGE IV PRN ×5 (01:51→08:37)
[2016-12-07] MEDS ORDERED: ACETAMINOPHEN 1,000 MG/100 ML BOTTLE IV PRN ×2 (02:17→15:49)
[2016-12-07] MEDS: 0.9 % SODIUM CHLORIDE 1,000 ML IV SCH ×6 (03:52→22:08)
[2016-12-07 05:04] LABS: Mean Cell Volume 89.1 fL (80.0-100.0); Mean Corpuscular HGB Conc 33.4 g/dL (31.0-36.0); Mean Corpuscular Hemoglobin 29.7 pg (26.0-34.0); Platelet Count 385 K/mcL (140-440); RBC 3.82 M/mcL (4.50-5.90)
[2016-12-07 05:23] LABS: ALT/SGPT 13 U/l (0-40); Albumin 2.9 gm/dL (3.2-5.2); Albumin/Globulin Ratio 0.8 (1.0-2.3); Alkaline Phosphatase 86 U/L (39-117); Bilirubin,Direct 0.9 mg/dL (0.0-0.3); Blood Urea Nitrogen 30 mg/dl (6-20); Gamma Glutamyl Transpeptidase 38 U/L (8-61); Magnesium 1.9 mg/dL (1.6-2.5); Uric Acid 9.2 mg/dL (2.5-8.0)
[2016-12-07] MEDS: metroNIDAZOLE 500 MG/100 ML BAG IV SCH ×3 (05:26→16:25)
[2016-12-07] MEDS: 0.9 % SODIUM CHLORIDE 10 ML SYRINGE IV SCH ×3 (05:26→22:09)
--- NOTE | 2016-12-07 07:52 | Cat Scan Report ---
CLINICAL INFORMATION: Reason for Exam:RUQ pain , nausea, vomiting and prior partial colectomy with creation of an ileostomy COMPARISON: 11/04/16 TECHNIQUE: The abdomen was imaged without oral or IV contrast, scanning from the diaphragm to the symphysis pubis. Sagittal and coronal reformats were created. FINDINGS: Mild dependent atelectasis is present in the posterior basal segments of both lower lobes. No pleural effusion is present. Evaluation of the abdominal organs without contrast is limited. No abnormality is seen within the liver, spleen, gallbladder, pancreas or adrenals. Anteriorly in the middle third of the right kidney there is a 2.5 mm calcification. This could be a calcified plaque in the interlobar renal artery or a cortical calculus. There are several atherosclerotic calcified plaques in the interlobar arteries in both kidneys and in the main renal arteries. There is no hydronephrosis in either kidney. Patient has an ileostomy in the right anterior mid abdomen, lateral to the umbilicus. This contains loops of nondistended and noninflamed ilium. The proximal third of the sigmoid colon is surgically absent. There are surgical clips and sutures at both ends of the resection. Proximal to the resection, the remaining colon is distended with fluid. It measures up to 7.6 cm. There is moderate inflammation of the pericolonic fat at the hepatic flexure. At this level there is also small amount of free fluid along the undersurface of the right lobe of the liver. No free intraperitoneal air is present and there is no evidence of an abscess. Comparison with the prior exam shows increased distention of the colon and the inflammation around the hepatic flexure is new. The small bowel is nondilated on the current exam. Urinary bladder is decompressed by Cook catheter. IMPRESSION: Increasing distention of the colon with fluid. This is probably due to bypass of intestinal contents, beyond the ileostomy and through the terminal ileum into the colon. Moderate inflammation around the hepatic flexure Dr. Dang was called with results Interpreted and Authenticated by: Serg Merritt 12/07/16
[2016-12-07 08:22] LABS: Anisocytosis 1+ (NONE SEEN); Band Neutrophils % 54 % (0-10); Lymphocytes % 8 % (15-49); Monocytes % (Manual) 2 % (1-12); Platelet Estimate NORMAL (NORMAL); RBC Morphology ABNORM (NORMAL); Segmented Neutrophils % 36 % (38-78)
[2016-12-07] MEDS ORDERED: ENOXAPARIN 30 MG/0.3 ML SYRINGE SQ SCH (09:00)
[2016-12-07] MEDS ORDERED: ROCURONIUM 10 MG/ML ML IV ONE (09:45)
[2016-12-07] MEDS ORDERED: DEXAMETHASONE 10 MG/ML VIAL IV ONE (09:45)
[2016-12-07] MEDS ORDERED: KETAMINE 100 MG/ML ML IV ONE (09:45)
[2016-12-07] MEDS ORDERED: LIDOCAINE HCL/PF 100 MG/5 ML SYRINGE IV ONE (09:45)
[2016-12-07] MEDS ORDERED: ALBUMIN HUMAN 25 GM/100 ML BAG IV ONE ×3 (09:45→15:49)
[2016-12-07] MEDS ORDERED: METOPROLOL TARTRATE 5 MG/5 ML VIAL IV ONE (09:45)
[2016-12-07] MEDS ORDERED: MIDAZOLAM 5 MG/5 ML VIAL IV ONE (09:45)
[2016-12-07] MEDS ORDERED: PROPOFOL 200 MG/20 ML VIAL IV ONE (09:45)
[2016-12-07] MEDS ORDERED: fentaNYL 250 MCG/5 ML VIAL IV ONE (09:45)
[2016-12-07] MEDS ORDERED: HYDROmorphone 2 MG/ML SYRINGE IV ONE (09:45)
[2016-12-07] MEDS ORDERED: PHENYLEPHRINE 10 MG/ML VIAL IV ONE (09:45)
[2016-12-07] MEDS ORDERED: HEPARIN/NS 500 ML IV ONE (11:24)
[2016-12-07] MEDS ORDERED: BACITRACIN 50,000 UNIT VIAL IR ONE (13:55)
--- NOTE | 2016-12-07 15:44 | XRay Report ---
HISTORY: Reason for Exam:for central line position FINDINGS: The endotracheal tube is well-positioned with the tip at the level of the top of the manubrium. There is a right internal jugular catheter with the tip in the upper third of the right atrium. A nasogastric tube passes through the esophagus into the stomach. There is no pneumothorax, widening in the mediastinum or pleural effusion. There are small bibasilar infiltrates. The heart size is within normal limits. The infiltrates are new since 12/06/16. IMPRESSION: No complication following intubation and insertion of a central venous line. New onset bibasilar infiltrates The ICU was called with results Interpreted and Authenticated by: Serg Merritt 12/07/16
[2016-12-07] MEDS ORDERED: ONDANSETRON 4 MG/2 ML VIAL IV PRN (15:49)
--- NOTE | 2016-12-07 16:37 | Brief Operative Note ---
Date of procedure: 12/07/16 Pre-op diagnosis: acute abdomen with free fluid Post-op diagnosis: other (severe ischemic necrosis of colonand terminal ileum) Procedure: total colectomy with ileostomy Grafts/Implants: No Anesthesia: GETA Findings: flaccid ischemic necrosis of right ,transverse and descending colon with perforation of cecum,ascending and proximal transverse colon; ischemia of terminal ileum Complications: none Surgeon: Susanne Dang Estimated blood loss (cc): 50 Specimens Removed/Pathology: other (terminal ileum;with loop ileostomy;cecum, ascending,transversedescending and sigmoid colon) Condition: critical Disposition: ICU
[2016-12-07] MEDS ORDERED: 0.9 % SODIUM CHLORIDE 1,000 ML IV ONE ×3 (16:41→21:49)
[2016-12-07] MEDS ORDERED: VANCOMYCIN PER PHARMACY IV SCH (16:42)
[2016-12-07 16:47] LABS: Basophils # (Auto) 0 K/mcL (0.0-0.3); Basophils % (Auto) 0 % (0.0-2.0); Eosinophils # (Auto) 0 K/mcL (0.0-0.7); Eosinophils % (Auto) 0.1 % (0.0-7.0); Granulocytes % (Auto) 94.3 % (38.0-78.0); Lymphocytes # (Auto) 0.5 K/mcL (1.5-4.8); Lymphocytes % (Auto) 4.9 % (15.5-49.0); Mean Cell Volume 89.7 fL (80.0-100.0); Mean Corpuscular HGB Conc 33.2 g/dL (31.0-36.0); Mean Corpuscular Hemoglobin 29.8 pg (26.0-34.0); Monocytes # (Auto) 0.1 K/mcL (0.1-0.9); Monocytes % (Auto) 0.7 % (1.0-12.0); Platelet Count 266 K/mcL (140-440); RBC 3.42 M/mcL (4.50-5.90); Red Cell Distribution Width 16.1 % (11.5-14.5)
[2016-12-07] MEDS: 0.9 % SODIUM CHLORIDE 1,000 ML IV ONE ×2 (17:03→17:32)
--- NOTE | 2016-12-07 17:10 | Internal Medicine Consult Note ---
Medical - CN: HPI - Data of Consult Requesting Physician: Susanne Dang MD Primary Care Provider: Kerry Williamson [facility] Provider: Kerry Williamson - Consult Narrative Reason for consult: Acute hypoxic Respiratory Failure, Severe sepsis, Renal Failure. History of present illness: Mr. 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 In the ER he was noted to be dehydrated, hyponatremic, hypokalemic and in renal failure. He also had belly pain. He was admitted by surgery. USG GB was negative. CT Scan showed dilated colon distal to the ileostomy. The patient was taken to the OR today and he underwent a total colectomy. The patient in the post op remains intubated and sedated. Medicine was consulted for vent management and management of sepsis and other medical issues. Patient has had h/o bowel resection done recently, had a loop ileostomy done in [facility]. CT angio there showed significant narrowing of the blood vessels in the mesenteric and renal vessels. No stenting was done. see surgery HPI for details on surgery procedures. The patient is sedated and ventilated via ET tube, unable to provide history, history was through chart review. 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) Inflammatory arthritis (Chronic) Rash (Chronic) Right arm cellulitis (Chronic) Hepatitis C (Chronic) Numbness in feet (Chronic) Arthritis (Chronic) History of MRSA infection (Chronic) Radiculopathy, cervical region (Chronic) Radiculopathy of lumbar region (Chronic) Extrinsic asthma (Chronic) Hepatitis C, acute (Chronic) Essential hypertension (Chronic) Cryofibrinogenemia (Chronic) Raynaud's syndrome (Chronic) Surgical history: Past Surgical History (Last Reviewed 10/27/16 @ 11:05 by Lizette Estes CMA) H/O exploratory laparotomy (Chronic) Status post scar revision (Chronic) History of liver biopsy (Chronic) History of brain surgery (Chronic) History of arthroscopy of knee (Chronic) History of ileostomy (Acute) Pertinent family history: Family History (Last Reviewed 10/27/16 @ 11:05 by Lizette Estes CMA) Mother Cardiac disease Malignant neoplasm Myocardial Infarction Coronary artery disease Medical - CN: Meds Home Medications Medication Instructions Recorded Confirmed Type amlodipine 5 mg tablet 5 mg PO QDAY #180 tab 10/21/16 10/27/16 Rx amoxicillin 875 mg-potassium 1 tab PO BID #20 tab 10/21/16 10/27/16 Rx clavulanate 125 mg tablet Wound vac dressing change #1 each 10/25/16 10/27/16 Rx ostomy supplies powder See Dose Instructions .ROUTE 10/25/16 10/27/16 Rx .MEDSUPPLY #28.3 g HYDROmorphone HCL [Hydromorphone 4 mg PO Q4H PRN 11/04/16 11/04/16 History HCl] Lisinopril [Zestril] 10 mg PO DAILY 11/04/16 11/04/16 History hydromorphone 2 mg tablet 2 mg PO Q4H PRN #50 tab 11/11/16 Rx Allergies Allergy/AdvReac Type Severity Reaction Status Date / Time topiramate Allergy Mild Rash Verified 12/06/16 08:38 hydrocodone AdvReac Severe Rash Verified 12/06/16 08:38 gabapentin AdvReac Intermediate Dizziness Verified 12/06/16 08:38 morphine AdvReac Intermediate Rash Verified 12/06/16 08:38 Oxycodone AdvReac Intermediate leg hives Verified 12/06/16 08:38 tramadol AdvReac Mild Unknown Verified 12/06/16 08:38 Medical - CN: Exam - Constitutional Vitals: Temp Pulse Resp BP Pulse Ox 98.0 F 102 H 14 108/61 97 12/07/16 07:02 12/07/16 17:02 12/07/16 17:02 12/07/16 16:12/07/16 17:02 Exam: GENERAL: The patient is a well-developed, well-nourished in no apparent distress. Is drowys, but opens eyes to verbal commands. VITAL SIGNS: Reviewed and as noted elsewhere. HEENT: Head is normocephalic and atraumatic. Extraocular muscles are intact. Pupils are equal, round, and reactive to light. Nares appeared normal. Mouth appears any without lesions. Mucous membranes are moist. ET tube in place. NECK: Normal to inspection, Supple, No lymphadenopathy or thyromegaly. LUNGS: Air entry equal on both sides, no wheezing, crackles or rhonchi noted. No accessory muscles of respiration, alexandro conducted sounds. HEART: Regular rate tachycardic and rhythm is regular, S1 and S2 heard, no Gallop, S3 or Rub Noted, No Gross murmur heard. ABDOMEN:long midline incision noted, ileostomy in place. EXTREMITIES: No cyanosis, clubbing, rash, lesions or edema. Pedal pulses present. NEUROLOGIC: Cranial nerves II through XII are grossly intact. does move his hands PSYCHIATRIC: unable to assess. SKIN: No jaundice, No rash noted. Medical - CN: Result - Labs CBC & Chem 7: 12/07/16 15:55 12/07/16 03:51 Labs: Short CBC 12/07/16 12/07/16 Range/Units 03:51 15:55 WBC 17.6 H 9.8 (4.5-11.0) K/mcL Hgb 11.4 L 10.2 L (13.5-16.5) g/dL Hct 34.0 L 30.7 L (41.0-55.0) % Plt Count 385 266 (140-440) K/mcL [facility] 12/06/16 12/07/16 22:30 03:51 Sodium 123 L 125 L Potassium 3.2 L 3.2 L Chloride 75 L 78 L Carbon Dioxide 33 H 30 BUN 30 H 30 H Creatinine 2.1 H 2.2 H Glucose 135 H 147 H Calcium 9.4 9.0 Liver Function 12/06/16 12/07/16 Range/Units 22:30 03:51 Total Bilirubin 1.3 H 1.8 H (0.0-1.0) mg/dL Direct Bilirubin 0.5 H 0.9 H (0.0-0.3) mg/dL GGT 38 38 (8-61) U/L AST 10 11 (0-37) U/l ALT 14 13 (0-40) U/l Alkaline Phosphatase 85 86 (39-117) U/L Albumin 3.2 2.9 L (3.2-5.2) gm/dL - ABG Interpretation Interpretation: respiratory acidosis, metabolic acidosis, metabolic alkalosis Medical - CN: A/P - Narrative A/P Narrative: A/P Bowel Ischemia/ perforation: s/p total colectomy by surgery, they are following , Surgery done today. Severe Sepsis: due to GI source as well as pna, IV fluids, antibiotics. manage as per protocol Acute hypoxic Respiratory failure: On Vent post op, TV 550, RR 16, PEEP 5 AC mode, Fio2 50%, PPeak 17, Pplat 15, ABG on present settings 7.39/42/93, Pt was significantly alkalotic on previous ABG. Continue vent support NPO status for now Fentanyl drip for sedation. HCAP Pna: Noted on CXR, on zosyn and flagyl by surgery for abdominal issues, Add vancomycin, cultures pending Acute renal failure: Patient making some urine, Creatinine worsening, likely due to dehydration, workup sent, CT does not show any obstruction. MOnitor Urine output. If urine output decline, will consult nephrology. High anion gap acidosis/ lactic acidosis: Due to bowel ischemia, poor perfusion , renal failure, Aggresive fluids for now, bp is stiable, A line in place. Monitor urine output and trend lactic acid Metabolic alkalosis: due to volume deplection. IV fluids Hep C with cryoglobulin: h/o untreated hep c, Check viscosity, cryoglobulins ,c3 , c4, DVT enoxaparin. Diet npo Full code I spent > 75 mins critical care time, reviewing chart, managing vent, coordinating care for this patient. Social History - Social History marital status: occupational status: employed - Exercise physical activity: none - Tobacco smoking status: Current every day smoker - Tobacco Type tobacco type: cigarettes - Cigarette Details per day: 20 - Alcohol alcohol intake frequency: 2+ drinks per day - Substance use substance use type: marijuana
[2016-12-07 17:25] LABS: ALT/SGPT 17 U/l (0-40); Albumin 2.1 gm/dL (3.2-5.2); Albumin/Globulin Ratio 0.6 (1.0-2.3); Alkaline Phosphatase 55 U/L (39-117); Blood Urea Nitrogen 31 mg/dl (6-20)
[2016-12-07] MEDS: fentaNYL 2,500 MCG in 0.9 % SODIUM CHLORIDE 200 ML IV SCH (17:47)
[2016-12-07 18:00] LABS: Appearance,Urine HAZY; Bacteria,Urine FEW /hpf (0); Bilirubin,Urine NEG (NEG); Color,Urine AMBER; Glucose,Urine (UA) NEGATIVE (NEG); Leukocyte Esterase,Urine 25 /uL (NEG); Mucus,Urine FEW /hpf (0); Nitrate,Urine NEG (NEG); Protein,Urine 30 mg/dL (NEG); Specific Gravity,Urine 1.016 (1.000-1.035); Urine Blood 0.2 mg/dL (<0.03); Urine Granular Cast 7 /lpf (0); Urine Hyaline Cast 13 /lpf (0-2); Urine RBC 8 /hpf (0-1); Urine Squamous Epithelial Cell 0 /hpf (0-4); Urine Transitional Epi Cells < 1 /hpf (0-2); Urine WBC 3 /hpf (0-4); Urobilinogen,Urine NEG (NEG)
[2016-12-07] MEDS: VANCOMYCIN 1,500 MG in 0.9 % SODIUM CHLORIDE 500 ML IV SCH (19:00)
[2016-12-07 21:27] LABS: Blood Urea Nitrogen 28 mg/dl (6-20)
[2016-12-07] MEDS ORDERED: POTASSIUM CHLORIDE 40 MEQ in DEXTROSE 5% IN WATER 250 ML IV ONE (21:53)
[2016-12-07] MEDS ORDERED: POTASSIUM CHLORIDE 20 MEQ/10 ML VIAL IV ONE (22:35)
[2016-12-08] MEDS: metroNIDAZOLE 500 MG/100 ML BAG IV SCH ×4 (00:30→17:48)
[2016-12-08] MEDS: 0.9 % SODIUM CHLORIDE 1,000 ML IV SCH ×7 (00:31→21:16)
[2016-12-08] MEDS: IPRATROPIUM/ALBUTEROL 3 ML AMPUL.NEB NEB SCH ×4 (01:03→19:29)
[2016-12-08] MEDS: PIPERACILLIN SODIUM/TAZOBACTAM 3.375 GM in DEXTROSE 5% IN WATER 50 ML IV SCH ×4 (01:46→19:17)
[2016-12-08] MEDS ORDERED: ALBUMIN HUMAN 25 GM/100 ML BAG IV ONE (05:35)
[2016-12-08] MEDS: ALBUMIN HUMAN 25 GM/100 ML BAG IV SCH ×3 (05:43→21:54)
[2016-12-08 05:48] LABS: Mean Cell Volume 90.3 fL (80.0-100.0); Mean Corpuscular HGB Conc 32.7 g/dL (31.0-36.0); Mean Corpuscular Hemoglobin 29.5 pg (26.0-34.0); Platelet Count 226 K/mcL (140-440); RBC 2.79 M/mcL (4.50-5.90); Red Cell Distribution Width 16.1 % (11.5-14.5)
[2016-12-08] MEDS: 0.9 % SODIUM CHLORIDE 10 ML SYRINGE IV SCH ×3 (05:58→21:54)
[2016-12-08 06:39] LABS: ALT/SGPT 17 U/l (0-40); Albumin 1.7 gm/dL (3.2-5.2); Albumin/Globulin Ratio 0.6 (1.0-2.3); Alkaline Phosphatase 58 U/L (39-117); Bilirubin,Direct 0.5 mg/dL (0.0-0.3); Blood Urea Nitrogen 26 mg/dl (6-20); Gamma Glutamyl Transpeptidase 22 U/L (8-61); Magnesium 1.7 mg/dL (1.6-2.5); Uric Acid 5.4 mg/dL (2.5-8.0)
[2016-12-08 06:49] LABS: Complement C3 77.5 mg/dl (90-180)
[2016-12-08] MEDS: ENOXAPARIN 30 MG/0.3 ML SYRINGE SQ SCH (07:27)
[2016-12-08] MEDS ORDERED: POTASSIUM CHLORIDE 40 MEQ in DEXTROSE 5% IN WATER 250 ML IV ONE (07:42)
[2016-12-08] MEDS ORDERED: POTASSIUM PHOSPHATE 20 MEQ in DEXTROSE 5% IN WATER 250 ML IV ONE (07:42)
[2016-12-08 08:02] LABS: Anisocytosis 1+ (NONE SEEN); Band Neutrophils % 34 % (0-10); Lymphocytes % 8 % (15-49); Monocytes % (Manual) 5 % (1-12); Platelet Estimate NORMAL (NORMAL); RBC Morphology ABNORM (NORMAL); Segmented Neutrophils % 53 % (38-78)
--- NOTE | 2016-12-08 08:24 | XRay Report ---
HISTORY: Reason for Exam:Respiratory failure FINDINGS: Small infiltrate is present at the left lung base with superimposed bands of discoid atelectasis. This has remained stable since 12/07/16. The small infiltrate seen above the right diaphragm on the prior exam has now nearly but not completely resolved. The upper lung martinez are clear. The heart size and pulmonary vasculature are normal. The endotracheal tube, right internal jugular catheter and nasogastric tubes are well-positioned. There is no pneumothorax. IMPRESSION: Small bibasilar infiltrates with improvement on the right side Interpreted and Authenticated by: Serg Merritt 12/08/16
[2016-12-08] MEDS: HYDROmorphone 2 MG/ML SYRINGE IV PRN ×4 (08:35→21:26)
[2016-12-08] MEDS: VANCOMYCIN 1,500 MG in 0.9 % SODIUM CHLORIDE 500 ML IV SCH ×2 (08:53→21:16)
[2016-12-08] MEDS ORDERED: IPRATROPIUM/ALBUTEROL 3 ML AMPUL.NEB NEB ONE (09:42)
--- NOTE | 2016-12-08 10:28 | Internal Med Progress Note ---
Medical - PN: Subj Patient information: Note initiated : 12/08/16 at 10:15 am Service Date, if different from initiated Date: [] Patient: Earle Magdaleno a 51 y/o M admitted on 12/06/16 for Abd Pain, N/V, Sepsis , Dehydration. Chief Complaint: [] Interval history: Mr. 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 In the ER he was noted to be dehydrated, hyponatremic, hypokalemic and in renal failure. He also had belly pain. He was admitted by surgery. USG GB was negative. CT Scan showed dilated colon distal to the ileostomy. The patient was taken to the OR today and he underwent a total colectomy. The patient in the post op remains intubated and sedated. Medicine was consulted for vent management and management of sepsis and other medical issues. Patient has had h/o bowel resection done recently, had a loop ileostomy done in [facility]. CT angio there showed significant narrowing of the blood vessels in the mesenteric and renal vessels. No stenting was done. see surgery HPI for details on surgery procedures. 12/07: Pt seen examined, overnight issues reviewed, he was awake last night, wanting the ET tube to come out, it seems the RT / Nurse thought he would be extubated yesterday. It was around 9PM, patient CXR had shown a new alexandro infiltrate, and the patient had worsening lactic acidosis. I did not believe it was safe for the patient to be extubated under such conditions. This AM the patient lactic acidosis is resolved, CXR is better. Patients ABG was reviewed, hew as on PS all night with 30% fiow saturation 100%, He wake and cooperative. RSBI 45 Decision was made to extubated the patient. Air leak was present, and patient successfully extubated to nasal canula. Pertinent ROS: Denies headache, dizziness Denies chest pain, palpitations some cough present, no sob. prsent abdominal pain, no nausea or vomiting. - Constitutional Vitals: Vital Signs Temp Pulse Resp BP Pulse Ox 89.0 F L 95 H 25 H 103/43 98 12/08/16 08:20 07/27/17 09:59 12/08/16 09:59 12/08/16 07:21 12/08/16 09:16 Period Temp Pulse Resp BP Sys/[place] Pulse Ox Last 24 Hr 89.0 F 95-110 0-35 103-129/35-64 91-100 Intake and Output 12/07/16 12/08/16 12/08/16 21:59 05:59 13:59 Intake Total 1159 / 1159 4706 / 4706 50 / 50 Output Total 460 / 460 1960 / 1960 260 / 260 Balance 699 / 699 2746 / 2746 -210 / -210 Weight 255 lb 8 oz Intake & Output: Intake & Output 12/07/16 12/08/16 12/08/16 21:59 05:59 13:59 Intake Total 1159 / 1159 4706 / 4706 50 / 50 Output Total 460 / 460 1960 / 1960 260 / 260 Balance 699 / 699 2746 / 2746 -210 / -210 Weight 255 lb 8 oz Intake: IV 1159 / 1159 4706 / 4706 50 / 50 Sodium Chloride 0.9% 1, 1000 / 1000 3000 / 3000 000 ml @ 250 mls/hr IV . Q4H [facility] Rx#:[id number] Zosyn 3.375 gm In 50 / 50 50 / 50 50 / 50 Dextrose 5% in Water 50 ml @ 100 mls/hr IV Q6H [facility] Rx#:[id number] Vancomycin 1,500 mg In 500 / 500 Sodium Chloride 0.9% 500 ml @ 333.3 mls/hr IV Q12H [facility] Rx#:[id number] fentaNYL 2,500 MCG In 56 / 56 Sodium Chloride 0.9% 200 ml @ 25 MCG/HR 2.5 mls/hr IV Q24H [facility] Rx#: [id number] Output: Gastric Drainage 500 / 500 Right Nare 500 / 500 Urine Catheter Amount 460 / 460 1360 / 1360 170 / 170 Void Amount 90 / 90 Other 100 / 100 Exam: Constitutional; Afebrile, cooperative, alert, not in distress. Eyes- No icterus, , No periorbital swelling Ears- Ext ear normal, hearing normal to conversation. Neck- Midline trachea, supple Respiratory system: Air Entry equal on both sides, No crackles or wheezing, no rhonchi. CVS- Rate rhythm regular, S1,S2 heard, no gallop, no rub. Abdomen- midline incision made, savannah in place, ileostomy draining. [employer]- AOOx3, moving all extremities, no gross focal deficit noted. Medical - PN: Obj Da - Labs CBC & Chem 7: 12/08/16 03:53 12/08/16 03:54 Labs: Abnormal Lab Results 12/08/16 12/08/16 12/08/16 03:54 03:53 03:53 WBC RBC 2.79 L Hgb 8.3 L Hct 25.2 L RDW 16.1 H Gran % Lymph % (Auto) [place] % (Auto) Gran # Lymph # (Auto) Seg Neutrophils % Band Neutrophils % 34 H Lymphocytes % 8 L RBC Morphology Abnorm A Anisocytosis 1+ A VBG Lactic Acid Sodium Potassium Chloride Carbon Dioxide Anion Gap BUN 26 H Creatinine 1.5 H Glucose 126 H Uric Acid Calcium 7.0 L Phosphorus 1.8 L Total Bilirubin Direct Bilirubin 0.5 H Total Protein 4.7 L Albumin 1.7 L Globulin Albumin/Globulin Ratio 0.6 L Urine Protein Urine Occult Blood Ur Leukocyte Esterase Urine RBC Urine Bacteria Hyaline Casts Granular Casts U [place] Prot/Creat Ratio Complement C3 77.5 L Complement C4 13.8 L 12/08/16 12/07/16 12/07/16 03:52 20:23 20:23 WBC RBC Hgb Hct RDW Gran % Lymph % (Auto) [place] % (Auto) Gran # Lymph # (Auto) Seg Neutrophils % Band Neutrophils % Lymphocytes % RBC Morphology Anisocytosis VBG Lactic Acid 2.6 H 5.6 H* Sodium 131 L Potassium Chloride 92 L Carbon Dioxide Anion Gap 17.0 H BUN 28 H Creatinine 1.8 H Glucose 154 H Uric Acid Calcium 7.1 L Phosphorus Total Bilirubin Direct Bilirubin Total Protein Albumin Globulin Albumin/Globulin Ratio Urine Protein Urine Occult Blood Ur Leukocyte Esterase Urine RBC Urine Bacteria Hyaline Casts Granular Casts U [place] Prot/Creat Ratio Complement C3 Complement C4 12/07/16 12/07/16 12/07/16 17:25 17:24 15:55 WBC RBC Hgb Hct RDW Gran % Lymph % (Auto) [place] % (Auto) Gran # Lymph # (Auto) Seg Neutrophils % Band Neutrophils % Lymphocytes % RBC Morphology Anisocytosis VBG Lactic Acid 5.9 H* Sodium Potassium Chloride Carbon Dioxide Anion Gap BUN Creatinine Glucose Uric Acid Calcium Phosphorus Total Bilirubin Direct Bilirubin Total Protein Albumin Globulin Albumin/Globulin Ratio Urine Protein 30 A Urine Occult Blood 0.2 A Ur Leukocyte Esterase 25 A Urine RBC 8 H Urine Bacteria Few A Hyaline Casts 13 H Granular Casts 7 H U [place] Prot/Creat Ratio 0.74 H Complement C3 Complement C4 12/07/16 12/07/16 12/07/16 15:55 15:55 03:51 WBC RBC 3.42 L Hgb 10.2 L Hct 30.7 L RDW 16.1 H Gran % 94.3 H Lymph % (Auto) 4.9 L [place] % (Auto) 0.7 L Gran # 9.2 H Lymph # (Auto) 0.5 L Seg Neutrophils % Band Neutrophils % Lymphocytes % RBC Morphology Anisocytosis VBG Lactic Acid Sodium 130 L 125 L Potassium 3.2 L Chloride 88 L 78 L Carbon Dioxide 21 L Anion Gap 21.0 H 17.0 H BUN 31 H 30 H Creatinine 2.1 H 2.2 H Glucose 144 H 147 H Uric Acid 9.2 H Calcium 7.6 L Phosphorus Total Bilirubin 2.2 H 1.8 H Direct Bilirubin 0.9 H Total Protein 5.4 L Albumin 2.1 L 2.9 L Globulin 3.8 H Albumin/Globulin Ratio 0.6 L 0.8 L Urine Protein Urine Occult Blood Ur Leukocyte Esterase Urine RBC Urine Bacteria Hyaline Casts Granular Casts U [place] Prot/Creat Ratio Complement C3 Complement C4 12/07/16 12/07/16 12/06/16 03:51 03:51 22:30 WBC 17.6 H RBC 3.82 L Hgb 11.4 L Hct 34.0 L RDW 16.0 H Gran % Lymph % (Auto) [place] % (Auto) Gran # Lymph # (Auto) Seg Neutrophils % 36 L Band Neutrophils % 54 H Lymphocytes % 8 L RBC Morphology Abnorm A Anisocytosis 1+ A VBG Lactic Acid 4.1 H* Sodium 123 L Potassium 3.2 L Chloride 75 L Carbon Dioxide 33 H Anion Gap BUN 30 H Creatinine 2.1 H Glucose 135 H Uric Acid 10.2 H Calcium Phosphorus 4.8 H Total Bilirubin 1.3 H Direct Bilirubin 0.5 H Total Protein Albumin Globulin Albumin/Globulin Ratio 0.9 L Urine Protein Urine Occult Blood Ur Leukocyte Esterase Urine RBC Urine Bacteria Hyaline Casts Granular Casts U [place] Prot/Creat Ratio Complement C3 Complement C4 Meds: Medications Albuterol/Ipratropium (Duoneb) 3 ml NEB Q6HRT [facility] Last Admin: 12/08/16 06:56 Dose: 3 ml Enoxaparin Sodium (Lovenox) 30 mg SQ DAILY [facility] Last Admin: 12/08/16 07:27 Dose: 30 mg Hydromorphone HCl (Dilaudid) 1 mg IV Q2HP PRN PRN Reason: Pain Last Admin: 12/08/16 08:35 Dose: 1 gm Sodium Chloride (Sodium Chloride 0.9%) 1,000 mls @ 250 mls/hr IV .Q4H [facility] Last Admin: 12/08/16 07:29 Dose: 250 mls/hr Acetaminophen (Ofirmev) 1,000 mg in 100 mls @ 200 mls/hr IV Q6HP PRN PRN Reason: PAIN/FEVER > 101 Metronidazole (Flagyl) 500 mg in 100 mls @ 100 mls/hr IV Q6H [facility] Last Admin: 12/08/16 05:44 Dose: 100 mls/hr Piperacillin Sod/Tazobactam (Sod 3.375 gm/ Dextrose) 50 mls @ 100 mls/hr IV Q6H [facility] Last Infusion: 12/08/16 08:55 Dose: Infused Fentanyl 2,500 mcg/ Sodium (Chloride) 250 mls @ 2.5 mls/hr IV Q24H [facility]; 25 MCG/ HR PRN Reason: Protocol Last Titration: 12/08/16 03:09 Dose: 100 mcg/hr, 10 mls/hr Vancomycin HCl 1,500 mg/ (Sodium Chloride) 500 mls @ 333.3 mls/hr IV Q12H [facility] Last Admin: 12/08/16 08:53 Dose: 333.3 mls/hr Albumin Human (Buminate) 25 gm in 100 mls @ 200 mls/hr IV Q8 [facility] Last Admin: 12/08/16 05:43 Dose: Not Given Potassium Chloride 40 meq/ (Dextrose) 270 mls @ 67.5 mls/hr IV ONCE ONE Stop: 12/08/16 11:41 Last Admin: 12/08/16 08:53 Dose: 67.5 mls/hr Ondansetron HCl (Zofran) 4 mg IV Q4HP PRN PRN Reason: Nausea And Vomiting Sodium Chloride (Saline Flush) 10 ml IV Q8 [facility] Last Admin: 12/08/16 05:58 Dose: 10 ml Vancomycin HCl (Vancomycin Per Pharmacy) 1 order IV UD [facility] Medical - PN: A/P - Time Spent With Patient Total time spent is greater than 50% in coordination of care (as documented) at patient's floor/unit and/or counseling patient: - Narrative A/P Narrative: A/P Bowel Ischemia/ perforation: s/p total colectomy by surgery, they are following , post op day 1 Severe Sepsis: much improved. due to GI source as well as pna, IV fluids, antibiotics. manage as per protocol Acute hypoxic Respiratory failure: successfully extubated today. On nasal canula for now. HCAP Pna: Noted on CXR, on zosyn and flagyl by surgery for abdominal issues, Plus vancomycin day2. Continue Same, repeat CXR shows improvement. Acute renal failure: due to volume depletion, pre renal. IV fluids ongoing, Renal function improving Creat 1.5 today, patient makeing adequate urine Hypokalemia_ replace IV Hypophosphatemia: replace IV High anion gap acidosis/ lactic acidosis: resolved, was multifactorial, bowel ischemia, bowel infection, PNA., renal failure. Metabolic alkalosis: due to volume deplection. IV fluids Hep C with cryoglobulin: low c3, and c4 in presence of low albumin indicated poor liver synthetic function, will consider consulting rheumatology to evaluate if cryoglobulins is positive. DVT enoxaparin. Diet npo Full code d/c A line today I spent > 60 mins critical care time for the patient, managing vent, fluids, gabby review and care coordination. Medical - PN: Qual - VTE Deep Vein Thrombosis/Pulmonary Embolism Present on Admission: No
--- NOTE | 2016-12-08 12:15 | General Surgery Progress Note ---
Subjective Patient reports: feels better, flatus, bowel movement, afebrile Narrative: Note initiated : 12/08/16 at 12:10 pm Service Date, if different from initiated Date: [] Patient: Earle Magdaleno 51 y/o M admitted on 12/06/16 for Abd Pain, N/V, Sepsis , Dehydration. Chief Complaint: [Patient has done remarkably well. He was easily weaned from the ventilator and has been extubated without any respiratory distress. His oxygen saturations are very good. He has no labored respirations. His vital signs have gradually returned to normal and he is clinically stable with regards to his sepsis. His abdominal exam is benign and his ileostomy is functioning nicely for the first postoperative day. His ileostomy is pink and viable.] Objective Temp Pulse Resp BP Pulse Ox 89.0 F L 101 H 12 103/43 100 12/08/16 08:20 12/08/16 10:27 12/08/16 11:12 12/08/16 07:21 12/08/16 10:27 - Additional Data Intake & Output - Last 24 hours: Intake & Output 12/06/16 12/07/16 12/08/16 12/09/16 05:59 05:59 05:59 05:59 Intake Total 2726 / 3928 6065 / 6065 50 / 50 Output Total 1020 / 1020 2650 / 2650 520 / 520 Balance 1706 / 2908 3415 / 3415 -470 / -470 Weight 253 lb 9.6 oz 255 lb 8 oz - General physical appearance moderate distress, moderate pain, chronically ill - Eyes PERRL - ENT no congestion - Neck no venous distension - Respiratory clear to auscultation, other (No rales rhonchi or wheezes) - Cardiovascular Cardiovascular exam: Present: normal rate and rhythm, RRR, +S1, +S2. Absent: JVD - Abdomen soft, tender, bowel sounds (Hypoactive bowel sounds without major distention; stoma is pink and functioning; incision looks good.) - Genitourinary normal penis with no external lesions - Integumentary no rash, no growths, no abnormal pigmentation - Neurologic normal coordination, normal sensation - Musculoskeletal normal gait, normal posture - Psychiatric oriented to time, oriented to person, oriented to place, speech is normal, memory intact - Labs 12/08/16 03:53 12/08/16 03:54 Diabetes panel 12/07/16 12/07/16 12/08/16 Range/Units 15:55 20:23 03:54 Sodium 130 L 131 L 135 (133-145) mmol/L Potassium 3.9 3.7 3.4 (3.3-5.1) mmol/L Chloride 88 L 92 L 97 (96-108) mmol/L Carbon Dioxide 21 L 22 23 (22-30) mmol/L BUN 31 H 28 H 26 H (6-20) mg/dl Creatinine 2.1 H 1.8 H 1.5 H (0.7-1.2) mg/dl Glucose 144 H 154 H 126 H (70-105) mg/dL Calcium 7.6 L 7.1 L 7.0 L (8.6-10.4) mg/dl AST 24 34 (0-37) U/l ALT 17 17 (0-40) U/l Alkaline Phosphatase 55 58 (39-117) U/L Total Protein 5.4 L 4.7 L (5.9-8.4) gm/dL Albumin 2.1 L 1.7 L (3.2-5.2) gm/dL Triglycerides 82 (<150) mg/dl Calcium panel 12/07/16 12/07/16 12/08/16 Range/Units 15:55 20:23 03:54 Calcium 7.6 L 7.1 L 7.0 L (8.6-10.4) mg/dl Phosphorus 1.8 L (2.7-4.5) mg/dL Albumin 2.1 L 1.7 L (3.2-5.2) gm/dL Pituitary panel 12/07/16 12/07/16 12/08/16 Range/Units 15:55 20:23 03:54 Sodium 130 L 131 L 135 (133-145) mmol/L Potassium 3.9 3.7 3.4 (3.3-5.1) mmol/L Chloride 88 L 92 L 97 (96-108) mmol/L Carbon Dioxide 21 L 22 23 (22-30) mmol/L BUN 31 H 28 H 26 H (6-20) mg/dl Creatinine 2.1 H 1.8 H 1.5 H (0.7-1.2) mg/dl Glucose 144 H 154 H 126 H (70-105) mg/dL Calcium 7.6 L 7.1 L 7.0 L (8.6-10.4) mg/dl Adrenal panel 12/07/16 12/07/16 12/08/16 Range/Units 15:55 20:23 03:54 Sodium 130 L 131 L 135 (133-145) mmol/L Potassium 3.9 3.7 3.4 (3.3-5.1) mmol/L Chloride 88 L 92 L 97 (96-108) mmol/L Carbon Dioxide 21 L 22 23 (22-30) mmol/L BUN 31 H 28 H 26 H (6-20) mg/dl Creatinine 2.1 H 1.8 H 1.5 H (0.7-1.2) mg/dl Glucose 144 H 154 H 126 H (70-105) mg/dL Calcium 7.6 L 7.1 L 7.0 L (8.6-10.4) mg/dl Total Bilirubin 2.2 H 1.0 (0.0-1.0) mg/dL AST 24 34 (0-37) U/l ALT 17 17 (0-40) U/l Alkaline Phosphatase 55 58 (39-117) U/L Total Protein 5.4 L 4.7 L (5.9-8.4) gm/dL Albumin 2.1 L 1.7 L (3.2-5.2) gm/dL Assessment and Plan (1) Acute abdominal pain in right upper quadrant Status: Resolved Current Visit: Yes (2) Sepsis syndrome Status: Acute Assessment and plan: Significantly improved overnight with near complete resolution of lactic acid elevation. Tachycardia and hypotension is resolving Current Visit: Yes (3) Dehydration Status: Resolved Current Visit: No (4) Hyponatremia Status: Acute Current Visit: No (5) COPD (chronic obstructive pulmonary disease) Status: Chronic Current Visit: No (6) Essential hypertension Status: Chronic Current Visit: No (7) Hepatitis C Problem details: from tattoos in half-way [id number] Status: Chronic Current Visit: No (8) Inflammatory arthritis Status: Chronic Current Visit: No (9) Raynaud's syndrome Status: Chronic Current Visit: No - Time Spent With Patient Total time spent is greater than 50% in coordination of care (as documented) at patient's floor/unit and/or counseling patient:
[2016-12-08] MEDS: 0.9 % SODIUM CHLORIDE 250 ML IV SCH ×2 (14:47→15:19)
[2016-12-08] MEDS: fentaNYL 2,500 MCG in 0.9 % SODIUM CHLORIDE 200 ML IV SCH (18:10)
[2016-12-09] MEDS: 0.9 % SODIUM CHLORIDE 1,000 ML IV SCH ×6 (00:27→18:41)
[2016-12-09] MEDS: HYDROmorphone 2 MG/ML SYRINGE IV PRN ×8 (00:33→21:50)
[2016-12-09] MEDS: metroNIDAZOLE 500 MG/100 ML BAG IV SCH ×4 (00:33→16:52)
[2016-12-09] MEDS: IPRATROPIUM/ALBUTEROL 3 ML AMPUL.NEB NEB SCH ×4 (01:06→19:46)
[2016-12-09] MEDS: PIPERACILLIN SODIUM/TAZOBACTAM 3.375 GM in DEXTROSE 5% IN WATER 50 ML IV SCH ×4 (01:07→19:38)
[2016-12-09] MEDS: ALBUMIN HUMAN 25 GM/100 ML BAG IV SCH ×3 (05:39→21:53)
[2016-12-09] MEDS: 0.9 % SODIUM CHLORIDE 10 ML SYRINGE IV SCH ×3 (05:40→22:01)
[2016-12-09 05:44] LABS: Mean Cell Volume 90.4 fL (80.0-100.0); Mean Corpuscular HGB Conc 33.9 g/dL (31.0-36.0); Mean Corpuscular Hemoglobin 30.7 pg (26.0-34.0); Platelet Count 232 K/mcL (140-440); RBC 2.86 M/mcL (4.50-5.90); Red Cell Distribution Width 15.7 % (11.5-14.5)
[2016-12-09 06:12] LABS: Band Neutrophils % 17 % (0-10); Lymphocytes % 7 % (15-49); Monocytes % (Manual) 3 % (1-12); Myelocytes % 2 % (0-0); Platelet Estimate NORMAL (NORMAL); RBC Morphology ABNORM (NORMAL); Segmented Neutrophils % 71 % (38-78)
[2016-12-09 06:24] LABS: ALT/SGPT 15 U/l (0-40); Albumin 2.6 gm/dL (3.2-5.2); Alkaline Phosphatase 56 U/L (39-117); Bilirubin,Direct 0.7 mg/dL (0.0-0.3); Blood Urea Nitrogen 16 mg/dl (6-20); Gamma Glutamyl Transpeptidase 27 U/L (8-61); Magnesium 1.8 mg/dL (1.6-2.5); Uric Acid 3.5 mg/dL (2.5-8.0)
[2016-12-09] MEDS: ENOXAPARIN 30 MG/0.3 ML SYRINGE SQ SCH (09:40)
--- NOTE | 2016-12-09 10:09 | General Surgery Progress Note ---
Subjective Patient reports: feels better, pain is less, flatus, bowel movement, diarrhea, afebrile Narrative: Note initiated : 12/09/16 at 10:04 am Service Date, if different from initiated Date: [] Patient: Earle Magdaleno 51 y/o M admitted on 12/06/16 for Abd Pain, N/V, Sepsis , Dehydration. Chief Complaint: [Patient is doing well. He has had an uneventful night and morning. He has stable vital signs with minimal tachycardia. He denies chest pain or shortness of breath. He denies nausea. His stoma is working nicely with good output throughout the night. There is no difficulty with his incision. His acidosis has resolved.] Objective Temp Pulse Resp BP Pulse Ox 98.2 F 95 H 15 122/90 95 12/09/16 08:01 12/09/16 07:29 12/09/16 08:01 12/09/16 08:01 12/09/16 07:29 - Additional Data Intake & Output - Last 24 hours: Intake & Output 12/07/16 12/08/16 12/09/16 12/10/16 05:59 05:59 05:59 05:59 Intake Total 2726 / 3928 6065 / 6065 5866 / 5866 1105 / 1105 Output Total 1020 / 1020 2650 / 2650 5400 / 5400 120 / 120 Balance 1706 / 2908 3415 / 3415 466 / 466 985 / 985 Weight 253 lb 9.6 oz 255 lb 8 oz 268 lb 11.2 oz - General physical appearance no distress, moderate pain - Eyes PERRL - ENT no congestion - Neck no venous distension - Respiratory normal expansion, normal respiratory effort, clear to auscultation - Cardiovascular Cardiovascular exam: Present: normal rate and rhythm, RRR, +S1, +S2. Absent: JVD - Abdomen soft, tender, bowel sounds (Minimal abdominal distention with good active bowel sounds incision looks good. Stoma is pink and functioning appropriately) - Genitourinary normal penis with no external lesions - Integumentary no rash, no growths, no abnormal pigmentation - Musculoskeletal normal posture - Psychiatric oriented to time, oriented to person, oriented to place, speech is normal, memory intact - Labs 12/09/16 04:02 12/09/16 04:00 Diabetes panel 12/09/16 Range/Units 04:00 Sodium 137 (133-145) mmol/L Potassium 3.3 (3.3-5.1) mmol/L Chloride 101 (96-108) mmol/L Carbon Dioxide 24 (22-30) mmol/L BUN 16 (6-20) mg/dl Creatinine 1.1 (0.7-1.2) mg/dl Glucose 94 (70-105) mg/dL Calcium 7.1 L (8.6-10.4) mg/dl AST 27 (0-37) U/l ALT 15 (0-40) U/l Alkaline Phosphatase 56 (39-117) U/L Total Protein 5.2 L (5.9-8.4) gm/dL Albumin 2.6 L (3.2-5.2) gm/dL Triglycerides 118 (<150) mg/dl Calcium panel 12/09/16 Range/Units 04:00 Calcium 7.1 L (8.6-10.4) mg/dl Phosphorus 2.1 L (2.7-4.5) mg/dL Albumin 2.6 L (3.2-5.2) gm/dL Pituitary panel 12/09/16 Range/Units 04:00 Sodium 137 (133-145) mmol/L Potassium 3.3 (3.3-5.1) mmol/L Chloride 101 (96-108) mmol/L Carbon Dioxide 24 (22-30) mmol/L BUN 16 (6-20) mg/dl Creatinine 1.1 (0.7-1.2) mg/dl Glucose 94 (70-105) mg/dL Calcium 7.1 L (8.6-10.4) mg/dl Adrenal panel 12/09/16 Range/Units 04:00 Sodium 137 (133-145) mmol/L Potassium 3.3 (3.3-5.1) mmol/L Chloride 101 (96-108) mmol/L Carbon Dioxide 24 (22-30) mmol/L BUN 16 (6-20) mg/dl Creatinine 1.1 (0.7-1.2) mg/dl Glucose 94 (70-105) mg/dL Calcium 7.1 L (8.6-10.4) mg/dl Total Bilirubin 1.4 H (0.0-1.0) mg/dL AST 27 (0-37) U/l ALT 15 (0-40) U/l Alkaline Phosphatase 56 (39-117) U/L Total Protein 5.2 L (5.9-8.4) gm/dL Albumin 2.6 L (3.2-5.2) gm/dL Assessment and Plan (1) Acute abdominal pain in right upper quadrant Status: Resolved Current Visit: Yes (2) Sepsis syndrome Status: Acute Assessment and plan: Major improvement with stable vital signs, afebrile, resolved leukocytosis, resolved acidosis, resolved tachycardia. Current Visit: Yes (3) Hyponatremia Status: Resolved Current Visit: No (4) COPD (chronic obstructive pulmonary disease) Status: Chronic Current Visit: No (5) Essential hypertension Status: Chronic Current Visit: No (6) Hepatitis C Problem details: from tattoos in [facility] [id number] Status: Chronic Current Visit: No (7) Inflammatory arthritis Status: Chronic Current Visit: No (8) Raynaud's syndrome Status: Chronic Current Visit: No - Time Spent With Patient Total time spent is greater than 50% in coordination of care (as documented) at patient's floor/unit and/or counseling patient:
[2016-12-09] MEDS ORDERED: VANCOMYCIN PER PHARMACY IV SCH (10:22)
[2016-12-09] MEDS ORDERED: ACETAMINOPHEN 1,000 MG/100 ML BOTTLE IV PRN (10:22)
[2016-12-09] MEDS: METOPROLOL TARTRATE 5 MG/5 ML VIAL IV SCH (11:20)
--- NOTE | 2016-12-09 13:51 | Internal Med Progress Note ---
Medical - PN: Subj Patient information: Note initiated : 12/09/16 at 1:51 pm Service Date, if different from initiated Date: [] Patient: Earle Magdaleno a 51 y/o M admitted on 12/06/16 for Abd Pain, N/V, Sepsis , Dehydration. Chief Complaint: [] Interval history: December 07, 2016: History of present illness: Mr. 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 In the ER he was noted to be dehydrated, hyponatremic, hypokalemic and in renal failure. He also had belly pain. He was admitted by surgery. USG GB was negative. CT Scan showed dilated colon distal to the ileostomy. The patient was taken to the OR today and he underwent a total colectomy. The patient in the post op remains intubated and sedated. Medicine was consulted for vent management and management of sepsis and other medical issues. Patient has had h/o bowel resection done recently, had a loop ileostomy done in [facility]. CT angio there showed significant narrowing of the blood vessels in the mesenteric and renal vessels. No stenting was done. see surgery HPI for details on surgery procedures. 12/08: Pt seen examined, overnight issues reviewed, he was awake last night, wanting the ET tube to come out, it seems the RT / Nurse thought he would be extubated yesterday. It was around 9PM, patient CXR had shown a new alexandro infiltrate, and the patient had worsening lactic acidosis. I did not believe it was safe for the patient to be extubated under such conditions. This AM the patient lactic acidosis is resolved, CXR is better. Patients ABG was reviewed, hew as on PS all night with 30% fiow saturation 100%, He wake and cooperative. RSBI 45 Decision was made to extubated the patient. Air leak was present, and patient successfully extubated to nasal canula. December 09: Today, the patient reports he is feeling pretty well. He is very much wanting to eat. Dr. Dang pulled his NG tube this morning. He is having some output through his ileostomy. Signs of sepsis have resolved. He denies significant pain, fever chills, chest pain or shortness of breath, nausea or vomiting, dysuria. -The patient admits he had resumed smoking as an outpatient. He says he understands that he absolutely should not anymore, regarding his diffuse vascular disease and bowel ischemia. -He denies significant cough or shortness of breath or other signs of pneumonia. He has done well since extubation. - Constitutional Vitals: Vital Signs Temp Pulse Resp BP Pulse Ox 97.6 F 85 22 156/81 100 12/09/16 12:00 12/09/16 12:00 12/09/16 12:00 12/09/16 12:00 12/09/16 12:00 Period Temp Pulse Resp BP Sys/Lovlel Pulse Ox Last 24 Hr 97.6 F-98.2 F 85-104 11-31 87-157/45-107 93-100 Intake and Output 12/08/16 12/09/16 12/09/16 21:59 05:59 13:59 Intake Total 3116 / 3116 1600 / 1600 1482 / 1482 Output Total 1870 / 1870 2750 / 2750 1120 / 1120 Balance 1246 / 1246 -1150 / -1150 362 / 362 Weight 268 lb 11.2 oz Intake & Output: Intake & Output 12/08/16 12/09/16 12/09/16 21:59 05:59 13:59 Intake Total 3116 / 3116 1600 / 1600 1482 / 1482 Output Total 1870 / 1870 2750 / 2750 1120 / 1120 Balance 1246 / 1246 -1150 / -1150 362 / 362 Weight 268 lb 11.2 oz Intake: IV 2069 / 2069 1200 / 1200 1002 / 1002 Sodium Chloride 0.9% 1, 1000 / 1000 1000 / 1000 195 / 195 000 ml @ 250 mls/hr IV . Q4H [facility] Rx#:[id number] Sodium Chloride 0.9% 250 11 / 11 ml @ 20 mls/hr IV . [id number] [facility] Rx#:[id number] Zosyn 3.375 gm In 100 / 100 50 / 50 Dextrose 5% in Water 50 ml @ 100 mls/hr IV Q6H [facility] Rx#:[id number] Vancomycin 1,500 mg In 500 / 500 500 / 500 Sodium Chloride 0.9% 500 ml @ 333.3 mls/hr IV Q12H [facility] Rx#:[id number] fentaNYL 2,500 MCG In 158 / 158 Sodium Chloride 0.9% 200 ml @ 25 MCG/HR 2.5 mls/hr IV Q24H [facility] Rx#: [id number] Oral 400 / 400 480 / 480 Blood Product 686 / 686 Packed Cells 361 / 361 Output: Gastric Drainage 950 / 950 1700 / 1700 800 / 800 Right Nare 950 / 950 1700 / 1700 800 / 800 Urine Catheter Amount 920 / 920 1050 / 1050 320 / 320 Other: Meal popscicle Percent of Meal Consumed 100% Feeding Ability Independent On intake and output, he is about 7 L ahead on fluids. On exam, he is awake and alert, lying in bed. He is using swabs to moisturize his mouth. He appears comfortable. Neck is supple without obvious lymphadenopathy or JVD. Cardiac exam shows regular rate and rhythm. Lungs are essentially clear to auscultation. There is no accessory muscle use. Abdomen: He has a large midline incision that is healing very nicely. There is a left-sided ostomy that appears pink and healthy, and there is a small amount of brownish liquid stool in the bag. There is no significant tenderness. Bowel sounds are active. Extremities: Show mild pitting edema of the lower extremities. Medical - PN: Obj Da - Labs CBC & Chem 7: 12/09/16 04:02 12/09/16 04:00 Labs: Abnormal Lab Results 12/09/16 12/09/16 12/09/16 08:05 04:02 04:00 WBC RBC 2.86 L Hgb 8.8 L Hct 25.8 L RDW 15.7 H MPV 7.2 L Gran % Lymph % (Auto) [place] % (Auto) Gran # Lymph # (Auto) Seg Neutrophils % Band Neutrophils % 17 H Lymphocytes % 7 L Myelocytes % 2 H Nucleated RBCs 1 H RBC Morphology Abnorm A Poikilocytosis 2+ A Anisocytosis VBG Lactic Acid Sodium Potassium Chloride Carbon Dioxide Anion Gap BUN Creatinine Glucose Uric Acid Calcium 7.1 L Phosphorus 2.1 L Total Bilirubin 1.4 H Direct Bilirubin 0.7 H Total Protein 5.2 L Albumin 2.6 L Globulin Albumin/Globulin Ratio Urine Protein Urine Occult Blood Ur Leukocyte Esterase Urine RBC Urine Bacteria Hyaline Casts Granular Casts U [place] Prot/Creat Ratio Vancomycin Trough 19.8 H Complement C3 Complement C4 12/08/16 12/08/16 12/08/16 03:54 03:53 03:53 WBC RBC 2.79 L Hgb 8.3 L Hct 25.2 L RDW 16.1 H MPV Gran % Lymph % (Auto) [place] % (Auto) Gran # Lymph # (Auto) Seg Neutrophils % Band Neutrophils % 34 H Lymphocytes % 8 L Myelocytes % Nucleated RBCs RBC Morphology Abnorm A Poikilocytosis Anisocytosis 1+ A VBG Lactic Acid Sodium Potassium Chloride Carbon Dioxide Anion Gap BUN 26 H Creatinine 1.5 H Glucose 126 H Uric Acid Calcium 7.0 L Phosphorus 1.8 L Total Bilirubin Direct Bilirubin 0.5 H Total Protein 4.7 L Albumin 1.7 L Globulin Albumin/Globulin Ratio 0.6 L Urine Protein Urine Occult Blood Ur Leukocyte Esterase Urine RBC Urine Bacteria Hyaline Casts Granular Casts U [place] Prot/Creat Ratio Vancomycin Trough Complement C3 77.5 L Complement C4 13.8 L 12/08/16 12/07/16 12/07/16 03:52 20:23 20:23 WBC RBC Hgb Hct RDW MPV Gran % Lymph % (Auto) [place] % (Auto) Gran # Lymph # (Auto) Seg Neutrophils % Band Neutrophils % Lymphocytes % Myelocytes % Nucleated RBCs RBC Morphology Poikilocytosis Anisocytosis VBG Lactic Acid 2.6 H 5.6 H* Sodium 131 L Potassium Chloride 92 L Carbon Dioxide Anion Gap 17.0 H BUN 28 H Creatinine 1.8 H Glucose 154 H Uric Acid Calcium 7.1 L Phosphorus Total Bilirubin Direct Bilirubin Total Protein Albumin Globulin Albumin/Globulin Ratio Urine Protein Urine Occult Blood Ur Leukocyte Esterase Urine RBC Urine Bacteria Hyaline Casts Granular Casts U [place] Prot/Creat Ratio Vancomycin Trough Complement C3 Complement C4 12/07/16 12/07/16 12/07/16 17:25 17:24 15:55 WBC RBC Hgb Hct RDW MPV Gran % Lymph % (Auto) [place] % (Auto) Gran # Lymph # (Auto) Seg Neutrophils % Band Neutrophils % Lymphocytes % Myelocytes % Nucleated RBCs RBC Morphology Poikilocytosis Anisocytosis VBG Lactic Acid 5.9 H* Sodium Potassium Chloride Carbon Dioxide Anion Gap BUN Creatinine Glucose Uric Acid Calcium Phosphorus Total Bilirubin Direct Bilirubin Total Protein Albumin Globulin Albumin/Globulin Ratio Urine Protein 30 A Urine Occult Blood 0.2 A Ur Leukocyte Esterase 25 A Urine RBC 8 H Urine Bacteria Few A Hyaline Casts 13 H Granular Casts 7 H U [place] Prot/Creat Ratio 0.74 H Vancomycin Trough Complement C3 Complement C4 12/07/16 12/07/16 12/07/16 15:55 15:55 03:51 WBC RBC 3.42 L Hgb 10.2 L Hct 30.7 L RDW 16.1 H MPV Gran % 94.3 H Lymph % (Auto) 4.9 L [place] % (Auto) 0.7 L Gran # 9.2 H Lymph # (Auto) 0.5 L Seg Neutrophils % Band Neutrophils % Lymphocytes % Myelocytes % Nucleated RBCs RBC Morphology Poikilocytosis Anisocytosis VBG Lactic Acid Sodium 130 L 125 L Potassium 3.2 L Chloride 88 L 78 L Carbon Dioxide 21 L Anion Gap 21.0 H 17.0 H BUN 31 H 30 H Creatinine 2.1 H 2.2 H Glucose 144 H 147 H Uric Acid 9.2 H Calcium 7.6 L Phosphorus Total Bilirubin 2.2 H 1.8 H Direct Bilirubin 0.9 H Total Protein 5.4 L Albumin 2.1 L 2.9 L Globulin 3.8 H Albumin/Globulin Ratio 0.6 L 0.8 L Urine Protein Urine Occult Blood Ur Leukocyte Esterase Urine RBC Urine Bacteria Hyaline Casts Granular Casts U [place] Prot/Creat Ratio Vancomycin Trough Complement C3 Complement C4 12/07/16 12/07/16 12/06/16 03:51 03:51 22:30 WBC 17.6 H RBC 3.82 L Hgb 11.4 L Hct 34.0 L RDW 16.0 H MPV Gran % Lymph % (Auto) [place] % (Auto) Gran # Lymph # (Auto) Seg Neutrophils % 36 L Band Neutrophils % 54 H Lymphocytes % 8 L Myelocytes % Nucleated RBCs RBC Morphology Abnorm A Poikilocytosis Anisocytosis 1+ A VBG Lactic Acid 4.1 H* Sodium 123 L Potassium 3.2 L Chloride 75 L Carbon Dioxide 33 H Anion Gap BUN 30 H Creatinine 2.1 H Glucose 135 H Uric Acid 10.2 H Calcium Phosphorus 4.8 H Total Bilirubin 1.3 H Direct Bilirubin 0.5 H Total Protein Albumin Globulin Albumin/Globulin Ratio 0.9 L Urine Protein Urine Occult Blood Ur Leukocyte Esterase Urine RBC Urine Bacteria Hyaline Casts Granular Casts U [place] Prot/Creat Ratio Vancomycin Trough Complement C3 Complement C4 December 08: ABG on the ventilator, FiO2 30%: PH 7.49, PCO2 38, PO2 71, bicarb 29, O2 saturation 99% Chest x-ray: Small bibasilar infiltrates with improvement on the right side. December 07: Urine culture negative so far Peritoneal fluid culture: Is growing E. coli, 2 strains. Stream #1 has intermediate resistance to cefoxitin, and is otherwise pansensitive. Strain #2 is pansensitive. Next Blood cultures are negative so far December 06: CT of the abdomen: Is increasing distention of the colon with fluid, moderate inflammation around the hepatic flexure. Ileostomy in the right anterior mid abdomen. Several atherosclerotic plaques are noted in the renal arteries. Meds: Medications Albuterol/Ipratropium (Duoneb) 3 ml NEB Q6HRT [facility] Enoxaparin Sodium (Lovenox) 30 mg SQ DAILY [facility] Hydromorphone HCl (Dilaudid) 1 mg IV Q2HP PRN PRN Reason: Pain Last Admin: 12/09/16 11:55 Dose: 1 mg Albumin Human (Buminate) 25 gm in 100 mls @ 200 mls/hr IV Q8 [facility] Stop: 12/10/16 22:29 Fentanyl 2,500 mcg/ Sodium (Chloride) 250 mls @ 2.5 mls/hr IV Q24H [facility]; 25 MCG/ HR PRN Reason: Protocol Metronidazole (Flagyl) 500 mg in 100 mls @ 100 mls/hr IV Q6H [facility] Last Infusion: 12/09/16 12:03 Dose: 0 mls/hr Sodium Chloride (Sodium Chloride 0.9%) 1,000 mls @ 250 mls/hr IV .Q4H [facility] Last Admin: 12/09/16 12:41 Dose: Not Given Acetaminophen (Ofirmev) 1,000 mg in 100 mls @ 200 mls/hr IV Q6HP PRN PRN Reason: PAIN/FEVER > 101 Piperacillin Sod/Tazobactam (Sod 3.375 gm/ Dextrose) 50 mls @ 100 mls/hr IV Q6H [facility] Last Admin: 12/09/16 11:53 Dose: 100 mls/hr Vancomycin HCl 1,000 mg/ (Sodium Chloride) 250 mls @ 250 mls/hr IV Q12H [facility] Ondansetron HCl (Zofran) 4 mg IV Q4HP PRN PRN Reason: Nausea And Vomiting Sodium Chloride (Saline Flush) 10 ml IV Q8 [facility] Vancomycin HCl (Vancomycin Per Pharmacy) 1 order IV UD [facility] Medical - PN: A/P - Time Spent With Patient Total time spent is greater than 50% in coordination of care (as documented) at patient's floor/unit and/or counseling patient: 25 - 35 minutes - Narrative A/P Narrative: A/P #1. GI. - Bowel Ischemia/ perforation: s/p total colectomy by surgery, they are following, post op day 2. He appears to be doing very well, and NG tube was pulled today. -N.p.o. except ice chips #2. Severe Sepsis: much improved. due to GI source as well as pna, -IV fluids, antibiotics. manage as per protocol #3. Pulmonary. -Acute hypoxic Respiratory failure: successfully extubated . On nasal canula for now. -HCAP Pna: Noted on CXR, on zosyn and flagyl by surgery for abdominal issues, Plus vancomycin day 3. Continue Same, repeat CXR shows improvement. #4. Renal. Acute renal failure: due to volume depletion, -Improved with hydration. -Hypokalemia_ replace IV -Hypophosphatemia: replace IV -High anion gap acidosis/ lactic acidosis: resolved, was multifactorial, bowel ischemia, bowel infection, PNA., renal failure. #5. Infectious disease. - Hep C with cryoglobulin: low c3, and c4 in presence of low albumin indicated poor liver synthetic function, will consider consulting rheumatology to evaluate if cryoglobulins is positive. #6. DVT enoxaparin. #7. Full code 8. History of tobacco abuse. I reiterated to him today that he absolutely needs to stop smoking, due to his underlying vascular disease. 9. History of hypertension. Blood pressure somewhat labile, but within reasonable range. Approximately 35 minutes was spent today, reviewing the patient's chart and test results, reviewing his case with staff, as well as Dr. Dang, interviewing and examining the patient, and writing orders. Medical - PN: Qual - VTE Deep Vein Thrombosis/Pulmonary Embolism Present on Admission: No
[2016-12-09] MEDS: ONDANSETRON 4 MG/2 ML VIAL IV PRN (15:34)
[2016-12-09] MEDS ORDERED: fentaNYL 2,500 MCG in 0.9 % SODIUM CHLORIDE 200 ML IV SCH (17:00)
[2016-12-09] MEDS ORDERED: POTASSIUM PHOSPHATE 40 MEQ in DEXTROSE 5% IN WATER 500 ML IV ONE (19:15)
[2016-12-09] MEDS ORDERED: VANCOMYCIN 1,000 MG in 0.9 % SODIUM CHLORIDE 250 ML IV SCH (21:00)
[2016-12-09] MEDS: VANCOMYCIN 1,000 MG in 0.9 % SODIUM CHLORIDE 250 ML IV SCH (21:05)
[2016-12-09] MEDS ORDERED: POTASSIUM PHOSPHATE 66 MEQ/15 ML VIAL IV ONE (21:19)
[2016-12-09] MEDS ORDERED: ALBUMIN HUMAN 25 GM/100 ML BAG IV ONE (21:29)
[2016-12-10] MEDS: metroNIDAZOLE 500 MG/100 ML BAG IV SCH ×2 (00:39→05:36)
[2016-12-10] MEDS: HYDROmorphone 2 MG/ML SYRINGE IV PRN ×4 (00:47→10:36)
[2016-12-10] MEDS: IPRATROPIUM/ALBUTEROL 3 ML AMPUL.NEB NEB SCH ×2 (01:54→07:50)
[2016-12-10] MEDS: PIPERACILLIN SODIUM/TAZOBACTAM 3.375 GM in DEXTROSE 5% IN WATER 50 ML IV SCH ×2 (01:54→06:57)
[2016-12-10] MEDS: 0.9 % SODIUM CHLORIDE 1,000 ML IV SCH ×4 (01:55→09:33)
[2016-12-10] MEDS: ONDANSETRON 4 MG/2 ML VIAL IV PRN ×2 (04:52→10:55)
[2016-12-10] MEDS: 0.9 % SODIUM CHLORIDE 10 ML SYRINGE IV SCH ×3 (05:36→12:06)
[2016-12-10] MEDS ORDERED: ALBUMIN HUMAN 25 GM/100 ML BAG IV ONE (05:40)
[2016-12-10] MEDS: ALBUMIN HUMAN 25 GM/100 ML BAG IV SCH (05:53)
[2016-12-10 07:01] LABS: Mean Cell Volume 90.7 fL (80.0-100.0); Mean Corpuscular HGB Conc 32.7 g/dL (31.0-36.0); Mean Corpuscular Hemoglobin 29.6 pg (26.0-34.0); Platelet Count 271 K/mcL (140-440); RBC 3.21 M/mcL (4.50-5.90); Red Cell Distribution Width 16.2 % (11.5-14.5)
[2016-12-10] MEDS ORDERED: FUROSEMIDE 40 MG/4 ML VIAL IV ONE (07:14)
[2016-12-10 07:41] LABS: ALT/SGPT 14 U/l (0-40); Albumin 3.1 gm/dL (3.2-5.2); Albumin/Globulin Ratio 1.1 (1.0-2.3); Alkaline Phosphatase 110 U/L (39-117); Bilirubin,Direct 0.8 mg/dL (0.0-0.3); Blood Urea Nitrogen 9 mg/dl (6-20); Gamma Glutamyl Transpeptidase 72 U/L (8-61); Magnesium 1.7 mg/dL (1.6-2.5); Uric Acid 2.7 mg/dL (2.5-8.0)
[2016-12-10 08:09] LABS: Anisocytosis 1+ (NONE SEEN); Band Neutrophils % 7 % (0-10); Lymphocytes % 11 % (15-49); Monocytes % (Manual) 11 % (1-12); Platelet Estimate NORMAL (NORMAL); RBC Morphology ABNORM (NORMAL); Segmented Neutrophils % 71 % (38-78)
--- NOTE | 2016-12-10 08:23 | XRay Report ---
HISTORY: Reason for Exam:desaturation, increased heartrate , sepsis and pulmonary infiltrates FINDINGS: Patient is developing bilateral alveolar infiltrates. They are surrounding both jordana and extend inferiorly into both lower lobes. The right side is worse than the left. These infiltrates have become significantly worse since 12/08/16. There is a tiny right-sided pleural effusion. The heart size is normal. Endotracheal tube and nasogastric tube have been removed. Right internal jugular catheter is in the right atrium. IMPRESSION: Worsening bilateral pneumonia Interpreted and Authenticated by: Serg Merritt 12/10/16
[2016-12-10] MEDS ORDERED: ENOXAPARIN 30 MG/0.3 ML SYRINGE SQ SCH (09:00)
--- NOTE | 2016-12-10 09:01 | XRay Report ---
HISTORY: Reason for Exam:abdominal pain FINDINGS: The patient is very large which makes penetration limited. There are multiple surgical skin [place] in the abdomen. There are several loops of dilated small intestine in the midabdomen which measure up to 4.3 cm. No gross free intra-abdominal air seen on this supine study. There is relatively little air and stool in the colon. There is some air in nondistended stomach. IMPRESSION: Dilated small intestine which could be a postoperative ileus or small bowel obstruction. Interpreted and Authenticated by: Serg Merritt 12/10/16
[2016-12-10] MEDS ORDERED: POTASSIUM CHLORIDE 40 MEQ in DEXTROSE 5% IN WATER 250 ML IV ONE (09:15)
[2016-12-10] MEDS: VANCOMYCIN 1,000 MG in 0.9 % SODIUM CHLORIDE 250 ML IV SCH (09:24)
[2016-12-10] MEDS ORDERED: NITROGLYCERIN 0.4 MG/HR PATCH TD ONE (09:32)
[2016-12-10] MEDS ORDERED: METOPROLOL TARTRATE 25 MG TABLET PO ONE (09:45)
[2016-12-10] MEDS ORDERED: ASPIRIN 325 MG ENTERIC COATED TABLET PO ONE (09:45)
[2016-12-10] MEDS ORDERED: DEXTROSE 5%-1/2NS W/40MEQ KCL 1,000 ML IV SCH ×3 (10:30→11:03)
[2016-12-10] MEDS ORDERED: ALBUTEROL SULFATE 2.5 MG/3 ML NEBULIZER NEB PRN ×2 (10:43→11:03)
[2016-12-10] MEDS ORDERED: ALBUTEROL SULFATE 2.5 MG/3 ML NEBULIZER NEB SCH ×2 (10:45→18:45)
[2016-12-10] MEDS ORDERED: ONDANSETRON 4 MG/2 ML VIAL IV PRN (11:03)
[2016-12-10] MEDS ORDERED: ACETAMINOPHEN 1,000 MG/100 ML BOTTLE IV PRN (11:03)
[2016-12-10] MEDS ORDERED: VANCOMYCIN PER PHARMACY IV SCH (11:03)
[2016-12-10] MEDS ORDERED: HYDROmorphone 2 MG/ML SYRINGE IV PRN (11:03)
[2016-12-10] MEDS: METOPROLOL TARTRATE 5 MG/5 ML VIAL IV SCH ×4 (11:46→17:14)
[2016-12-10] MEDS ORDERED: ENALAPRILAT 1.25 MG/ML VIAL IV SCH ×2 (12:00)
[2016-12-10] MEDS ORDERED: METOCLOPRAMIDE 10 MG/2 ML VIAL IV SCH (12:00)
[2016-12-10] MEDS ORDERED: metroNIDAZOLE 500 MG/100 ML BAG IV SCH (12:00)
--- NOTE | 2016-12-10 12:09 | General Surgery Progress Note ---
Subjective Patient reports: pain is less, flatus, bowel movement, nausea, vomiting, shortness of breath, afebrile Narrative: Note initiated : 12/10/16 at 12:04 pm Service Date, if different from initiated Date: [] Patient: Earle Magdaleno 51 y/o M admitted on 12/06/16 for Abd Pain, N/V, Sepsis , Dehydration. Chief Complaint: [Patient developed shortness of breath with irritability and hypoxemia earlier this morning. He was started on 5 L of O2 and PaO2 was only 56. Labs were drawn and he was given 40 of Lasix IV. His troponin is 0.11 and his proBNP is elevated above 16,000. EKG shows ST-T wave changes and echocardiogram preliminary report suggests ejection fraction about 35% with wall abnormalities. Dr. Jones has discussed evaluation with his mixing pan tender who will not accept him in transfer until we verify worsening cardiac function. The patient has extreme risk for major cardiac event and it is anticipated that he should be either accepted at [facility] for cardiac cath or transferred to a tertiary center for more aggressive cardiac evaluation. This was discussed with the patient and his father and he is agreeable. The patient has developed some nausea with retching and vomiting. His abdominal exam is unchanged but abdominal x-ray shows dilated loops of small bowel compatible with ileus. He continues to put out moderate volume of liquid small bowel contents. His white blood count is elevated and this may be related to a stress reaction. His chest x-ray shows infiltrates but his fluffy pattern is more compatible with interstitial edema. He remains on appropriate antibiotics at this time.] Objective Temp Pulse Resp BP Pulse Ox 98.9 F 124 H 22 175/104 94 12/10/16 07:10 12/10/16 10:11 12/10/16 09:35 12/10/16 10:11 12/10/16 10:11 - Additional Data Intake & Output - Last 24 hours: Intake & Output 12/08/16 12/09/16 12/10/16 12/11/16 05:59 05:59 05:59 05:59 Intake Total 6065 / 6065 5866 / 5866 3512 / 3512 400 / 400 Output Total 2650 / 2650 5400 / 5400 2620 / 2620 2750 / 2750 Balance 3415 / 3415 466 / 466 892 / 892 -2350 / -2350 Weight 255 lb 8 oz 268 lb 11.2 oz 277 lb 8 oz - General physical appearance moderate distress, no pain - Eyes PERRL - ENT no congestion - Neck no venous distension - Respiratory other (Diminished breath sounds bilaterally with rhonchi on deep inspiration) - Cardiovascular Cardiovascular exam: Present: irregular rhythm, +S1, +S2, tachycardia - Abdomen soft, tender, bowel sounds (Active bowel sounds with mild distention; incision looks good and stoma in left lower quadrant looks good) - Integumentary no rash, no growths, no abnormal pigmentation - Neurologic normal coordination, normal sensation - Psychiatric oriented to time, oriented to person, oriented to place, speech is normal, memory intact - Labs 12/10/16 04:40 12/10/16 04:40 Diabetes panel 12/10/16 Range/Units 04:40 Sodium 140 (133-145) mmol/L Potassium 3.1 L (3.3-5.1) mmol/L Chloride 100 (96-108) mmol/L Carbon Dioxide 23 (22-30) mmol/L BUN 9 (6-20) mg/dl Creatinine 0.9 (0.7-1.2) mg/dl Glucose 96 (70-105) mg/dL Calcium 7.9 L (8.6-10.4) mg/dl AST 18 (0-37) U/l ALT 14 (0-40) U/l Alkaline Phosphatase 110 (39-117) U/L Total Protein 5.9 (5.9-8.4) gm/dL Albumin 3.1 L (3.2-5.2) gm/dL Triglycerides 96 (<150) mg/dl Calcium panel 12/10/16 Range/Units 04:40 Calcium 7.9 L (8.6-10.4) mg/dl Phosphorus 2.3 L (2.7-4.5) mg/dL Albumin 3.1 L (3.2-5.2) gm/dL Pituitary panel 12/10/16 Range/Units 04:40 Sodium 140 (133-145) mmol/L Potassium 3.1 L (3.3-5.1) mmol/L Chloride 100 (96-108) mmol/L Carbon Dioxide 23 (22-30) mmol/L BUN 9 (6-20) mg/dl Creatinine 0.9 (0.7-1.2) mg/dl Glucose 96 (70-105) mg/dL Calcium 7.9 L (8.6-10.4) mg/dl Adrenal panel 12/10/16 Range/Units 04:40 Sodium 140 (133-145) mmol/L Potassium 3.1 L (3.3-5.1) mmol/L Chloride 100 (96-108) mmol/L Carbon Dioxide 23 (22-30) mmol/L BUN 9 (6-20) mg/dl Creatinine 0.9 (0.7-1.2) mg/dl Glucose 96 (70-105) mg/dL Calcium 7.9 L (8.6-10.4) mg/dl Total Bilirubin 1.6 H (0.0-1.0) mg/dL AST 18 (0-37) U/l ALT 14 (0-40) U/l Alkaline Phosphatase 110 (39-117) U/L Total Protein 5.9 (5.9-8.4) gm/dL Albumin 3.1 L (3.2-5.2) gm/dL Assessment and Plan (1) Acute abdominal pain in right upper quadrant Status: Resolved Current Visit: Yes (2) Sepsis syndrome Status: Acute Assessment and plan: Major improvement with stable vital signs, afebrile, resolved leukocytosis, resolved acidosis, resolved tachycardia. Current Visit: Yes (3) Hyponatremia Status: Resolved Current Visit: No (4) COPD (chronic obstructive pulmonary disease) Status: Chronic Current Visit: No (5) Essential hypertension Status: Chronic Current Visit: No (6) Hepatitis C Problem details: from tattoos in [facility] [id number] Status: Chronic Current Visit: No (7) Inflammatory arthritis Status: Chronic Current Visit: No (8) Raynaud's syndrome Status: Chronic Current Visit: No (9) At risk for acute ischemic cardiac event Status: Acute Assessment and plan: Patient is on Lovenox, metoprolol, aspirin and will be started on Plavix. Based on preliminary echocardiogram results he needs to have major cardiac intervention. Current Visit: Yes - Time Spent With Patient Total time spent is greater than 50% in coordination of care (as documented) at patient's floor/unit and/or counseling patient:
[2016-12-10] MEDS ORDERED: MAGNESIUM SULFATE 2 GM/50 ML BAG IV ONE (12:16)
[2016-12-10] MEDS ORDERED: PIPERACILLIN SODIUM/TAZOBACTAM 3.375 GM in DEXTROSE 5% IN WATER 50 ML IV SCH (13:00)
[2016-12-10] MEDS ORDERED: ALBUMIN HUMAN 25 GM/100 ML BAG IV SCH (14:00)
[2016-12-10] MEDS ORDERED: LORazepam 2 MG/ML VIAL ONE (15:14)
[2016-12-10] MEDS ORDERED: LORazepam 2 MG/ML VIAL IV ONE (15:25)
--- NOTE | 2016-12-10 15:35 | Discharge Summary ---
Medical - DS: Prov Patient information: Note initiated : 12/10/16 at 3:32 pm Service Date, if different from initiated Date: [] Patient: Earle Magdaleno 51 y/o M admitted on 12/06/16 for Abd Pain, N/V, Sepsis , Dehydration. Chief Complaint: [] Date of admission: 12/06/16 12:51 Discharge date: 12/10/16 Primary care physician: Kerry Williamson, phone number [phone] formerly [facility], [facility] Local general surgeon: Dr. Susanne Dang, phone #[phone] Admitting clinician: Susanne Dang Consults: 12/07/16 14:51 Consult to Physician [CONS] Stat Comment: Consulting Provider: Mariajose Bledsoe Reason For Exam: Physician to Consult Haven Partida, hospitalist Attending physician on discharge: Susanne Dang Discharging clinician: Haven Vitale Medical - DS: Meds - Discharge Medications Prescriptions: LORazepam [Ativan] 0.5 mg IV Q1-2HP PRN #1 vial PRN Reason: Anxiety Active and Home Medications: Discharge medications: Albumin 25 g IV every 8 hours 5 doses, last dose today. Albuterol nebulizers every 8 hours, plus every 3 hours as needed Aspirin 325 mg p.o. once, today. Aspirin 81 mg p.o. daily Lipitor 20 mg p.o. nightly IV fluids D5 half-normal saline +40 mEq of potassium chloride, at 50 mL/h Enalapril 1.25 mg IV every 6 hours Lovenox 40 mg subcu every morning Famotidine 20 mg IV every 12 hours Lasix 20 mg IV daily Heparin drip, to start at 14 U/kg/h Dilaudid 1 mg IV every 2 hours as needed Lorazepam 0.5 mg IV every 1-2 hours as needed anxiety, regarding PTSD Magnesium 2 g IV 1 Reglan 10 mg IV every 6 hours, for postop ileus Metoprolol 5 mg IV every 6 hours Flagyl 500 mg IV every 6 hours Nitroglycerin patch 0.4 mg topically every morning Tylenol 1000 mg IV every 6 hours as needed Zofran 4 mg IV every 4 hours as needed Zosyn 3.375 g IV every 6 hours Vancomycin 1000 mg IV every 12 hours, per pharmacy Previous home Medications: amlodipine 5 mg tablet 5 mg PO QDAY #180 tab 10/21/16 [Rx Confirmed 10/27/16 Last Taken Unknown] amoxicillin 875 mg-potassium clavulanate 125 mg tablet 1 tab PO BID #20 tab 01/29 [Rx Confirmed 10/27/16 Last Taken Unknown] Wound vac dressing change #1 each 10/25/16 [Rx Confirmed 10/27/16 Last Taken Unknown] ostomy supplies powder See Dose Instructions .ROUTE .MEDSUPPLY #28.3 g 10/25/16 [Rx Confirmed 10/27/16 Last Taken Unknown] HYDROmorphone HCL [Hydromorphone HCl] 4 mg PO Q4H PRN 11/04/16 [History Confirmed 11/04/16 Last Taken Unknown] Lisinopril [Zestril] 10 mg PO DAILY 11/04/16 [History Confirmed 11/04/16 Last Taken Unknown] hydromorphone 2 mg tablet 2 mg PO Q4H PRN #50 tab 11/11/16 [Rx Last Taken Unknown] Medical - DS: Hosp Hospital course: Mr. Magdaleno is a 51 year old M December 07, 2016: History of present illness: Mr. 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 In the ER he was noted to be dehydrated, hyponatremic, hypokalemic and in renal failure. He also had belly pain. He was admitted by surgery. USG GB was negative. CT Scan showed dilated colon distal to the ileostomy. The patient was taken to the OR today and he underwent a total colectomy. The patient in the post op remains intubated and sedated. Medicine was consulted for vent management and management of sepsis and other medical issues. Patient has had h/o bowel resection done recently, had a loop ileostomy done in [facility]. CT angio there showed significant narrowing of the blood vessels in the mesenteric and renal vessels. No stenting was done. see surgery HPI for details on surgery procedures. 12/08: Pt seen examined, overnight issues reviewed, he was awake last night, wanting the ET tube to come out, it seems the RT / Nurse thought he would be extubated yesterday. It was around 9PM, patient CXR had shown a new alexandro infiltrate, and the patient had worsening lactic acidosis. I did not believe it was safe for the patient to be extubated under such conditions. This AM the patient lactic acidosis is resolved, CXR is better. Patients ABG was reviewed, hew as on PS all night with 30% fiow saturation 100%, He wake and cooperative. RSBI 45 Decision was made to extubated the patient. Air leak was present, and patient successfully extubated to nasal canula. December 09: Today, the patient reports he is feeling pretty well. He is very much wanting to eat. Dr. Dang pulled his NG tube this morning. He is having some output through his ileostomy. Signs of sepsis have resolved. He denies significant pain, fever chills, chest pain or shortness of breath, nausea or vomiting, dysuria. -The patient admits he had resumed smoking as an outpatient. He says he understands that he absolutely should not anymore, regarding his diffuse vascular disease and bowel ischemia. -He denies significant cough or shortness of breath or other signs of pneumonia. He has done well since extubation. December 10: Hospital course: This patient is a 51-year-old man with a known history of ischemic bowel disease , who initially presented in September 2016 with abdominal pain, perforated sigmoid colon, and sepsis. At that time he had a partial sigmoid resection, and then was sent to [facility] for further care, regarding his diffuse vascular disease. CT angiography reportedly showed diffuse atherosclerosis involving the celiac axis, superior mesenteric and inferior mesenteric arteries, bilateral renal arteries, bilateral iliac arteries. The patient subsequently had a follow-up exploration with loop ileostomy and placement of a wound VAC after closure of his fascia. In October he presented with recurrent abdominal pain and sepsis. On December 06, he presented back to the emergency room with several days of ongoing abdominal pain, and was found to have a beer dehydration, sepsis, electrolyte abnormalities and acute renal failure. He was ultimately taken to the OR for exploratory laparotomy, and found to have severe ischemic necrosis of the colon and terminal ileum. He underwent a total colectomy with ileostomy. His postop recovery was uneventful until today. This morning, he reported to the nurses that he had been having abdominal bloating and discomfort during the night. They found his O2 saturations to be in the 70s. Workup this morning showed chest x-ray consistent with bilateral infiltrates, pneumonia with or without CHF. Troponin had bumped to 0.11. BNP was greater than 16,000. EKG showed minimal ST depression in leads V5 V6. Stat echocardiogram was done, which shows mild septal wall hypokinesis, ejection fraction 50%, mildly dilated left ventricle and concentric LVH. Left atrium is mildly dilated. Dilated inferior vena cava suggests increased right atrial pressure. Small pericardial effusion was noted along the posterior surface. Study was considered technically difficult. The patient was given topical nitroglycerin, IV Lasix, and has diuresed over 2 L. He continues to have mild shortness of breath. He has become quite anxious. We discussed transfer back to [facility] with him, regarding his very high risk for coronary ischemia. Initially he declined saying he really wanted to stay local, as it is so hard and his family to go to [place]. However after discussing his case with both cardiology and the clerical administrator over at [facility] in [place], we all agreed that it would be safer to send him back to [facility]. He is now agreeable to transfer. Currently, he denies chest pain or palpitations. He does feel mildly short of breath, but is also very anxious about being transferred again. He has had some abdominal bloating, but denies overt pain. He currently has a Cook catheter in place, at his request. Exam: Temperature is 98.9, heart rate 111, blood pressure 153/106, O2 saturation 93% on 5 L nasal cannula, respiratory rate 22 The patient is awake and alert. Does appear anxious. Neck is supple without obvious lymphadenopathy or JVD. Cardiac exam shows regular rate and rhythm with normal S1 and S2. Lungs: Have generally decreased breath sounds, with crackles at the bases. Abdomen: He has a large midline incision that is healing very nicely. There is a left-sided ostomy that appears pink and healthy, and there is a small amount of brownish liquid stool in the bag. There is no significant tenderness. Bowel sounds are active. Extremities: Show mild pitting edema of the lower extremities. Neurologic exam: The patient is alert and oriented, but quite anxious. Motor exam is grossly nonfocal. A/P #1. Cardiac. This patient with known severe peripheral vascular disease, developed shortness of breath, CHF, elevated troponin and BNP today. Echocardiogram is suspicious for septal wall ischemia. He also has risk factors of tobacco use and obesity. -His case was reviewed with cardiology, Dr. Martinez, at [facility], as well as their internal medicine hospitalist. His case was then reviewed with Dr. Lincoln, from [facility] in [place]. We all agree, that the patient would be better served to be at a larger center where he has access to interventional cardiology, in case he does develop ST elevation PR. Dr. Lincoln has graciously accepted him in transfer, to [facility] in [place]. -The patient was given Lasix and topical nitrates this morning. He has diuresed over 2 L. -Oxygen is being titrated to keep saturations above 94%. -Heparin drip is being started. -Patient was given aspirin p.o. this morning. -He is being loaded with both IV Lopressor and IV Enalapril. -Lipitor p.o. was ordered for tonight. He has not yet been taking nutrition by mouth, but surgery says he can take medications by mouth at this time. #1.5 GI. - Bowel Ischemia/ perforation: s/p total colectomy by surgery, they are following, post op day 2. He has in general done quite well postop. Abdominal x-ray today did show probable ileus. -N.p.o. except ice chips . After Dang added IV Reglan today. -History of chronic hepatitis C and cryoglobulinemia. #2. Infectious disease. Severe Sepsis: much improved. due to GI source as well as pna, -IV fluids, antibiotics. manage as per protocol Hep C with cryoglobulin: low c3, and c4 in presence of low albumin indicated poor liver synthetic function, will consider consulting rheumatology to evaluate if cryoglobulins is positive. #3. Pulmonary. -Acute hypoxic Respiratory failure: successfully extubated December 08.. On nasal canula for now. -HCAP Pna: Noted on CXR, on zosyn and flagyl by surgery for abdominal issues, Plus vancomycin day 4. Continue Same, repeat CXR shows improvement. #4. Renal. Acute renal failure: due to volume depletion, -Improved with hydration. -Hypokalemia_ replace IV -Hypophosphatemia: replace IV -High anion gap acidosis/ lactic acidosis: resolved, was multifactorial, bowel ischemia, bowel infection, PNA., renal failure. #6. DVT prophylaxis--enoxaparin. #7. Full code 8. History of tobacco abuse. I reiterated to him that he absolutely needs to stop smoking, due to his underlying vascular disease. 9. History of hypertension. Blood pressure somewhat labile, but within reasonable range. #10. Psychiatric. This is a very anxious patient, with a reported history of PTSD and traumatic brain injury. IV Ativan was ordered as needed, for both here and for during transport. Because he is postop, rather uncomfortable, and quite anxious, we have elected to transport him via air, rather than ground. Certainly getting him to his destination hospital would be safer for him overall. #11. Rheumatology. Reported history of inflammatory arthritis, Raynaud's syndrome. Approximately 40 minutes was spent today reviewing patient's test results, and examining him. Approximately an additional 70 minutes was spent in prolonged service, providing acute care for CHF, managing transferred to the ICU, reviewing his case with cardiology and internal medicine at [facility], and then again with internal medicine at [facility], and writing orders. Discharge diagnosis: Ischemic colon, status post colectomy. Elevated troponin, acute CHF. PVD - Time Spent with Patient Total time spent providing and/or coordinating discharge services: Greater than 30 minutes Medical - DS: Exam - Constitutional Vitals: Vital Signs Temp Pulse Pulse Resp BP BP BP 12/10/16 14:33 111 H 12/10/16 14:01 153/106 12/10/16 13:30 156/101 12/10/16 13:29 154/96 12/10/16 13:01 160/96 12/10/16 12:19 160/101 12/10/16 12:00 99 H 144/81 12/10/16 11:33 103 H 137/85 12/10/16 11:01 167/99 12/10/16 10:11 124 H 175/104 12/10/16 09:35 117 H 22 12/10/16 08:43 12/10/16 07:15 120 H 20 12/10/16 07:10 98.9 F 127 H 28 H 180/100 12/10/16 04:00 98.6 F 110 H 20 173/82 12/10/16 00:00 97.6 F 90 20 155/62 12/09/16 19:47 90 20 12/09/16 19:26 97.5 F 97 H 20 177/60 12/09/16 16:00 98.5 F 18 159/64 Pulse Ox 12/10/16 14:33 93 12/10/16 14:01 12/10/16 13:30 12/10/16 13:29 12/10/16 13:01 12/10/16 12:19 12/10/16 12:00 92 12/10/16 11:33 93 12/10/16 11:01 12/10/16 10:11 94 12/10/16 09:35 96 12/10/16 08:43 92 12/10/16 07:15 95 12/10/16 07:10 78 L 12/10/16 04:00 90 12/10/16 00:00 94 12/09/16 19:47 12/09/16 19:26 93 12/09/16 16:00 99 Intake and Output 12/10/16 12/10/16 12/10/16 05:59 13:59 21:59 Intake Total 1470 / 1470 3011.5455 / 3011.5455 2300 / 2300 Output Total 650 / 650 2750 / 2750 Balance 820 / 549 522.0262 / 261.5455 2300 / 2300 Intake: IV 1400 / 1400 3011.5455 / 3011.5455 2300 / 2300 Sodium Chloride 0.9% 1, 1000 / 1000 000 ml @ 250 mls/hr IV . Q4H [facility] Rx#:[id number] Zosyn 3.375 gm In 50 / 50 87 / 87 Dextrose 5% in Water 50 ml @ 100 mls/hr IV Q6H [facility] Rx#:[id number] Vancomycin 1,000 mg In 250 / 250 250 / 250 Sodium Chloride 0.9% 250 ml @ 250 mls/hr IV Q12H [facility] Rx#:[id number] Oral 70 / 70 Output: Void Amount 650 / 650 1925 / 1925 Stool 825 / 825 Other: # Voids 1 Weight 277 lb 8 oz Patient Weight 12/11/16 05:59 Weight 277 lb 8 oz Medical - DS: Data Labs on day of discharge: Labs from last 24 hours 12/10/16 12/10/16 12/10/16 12:29 07:57 07:57 WBC RBC Hgb Hct MCV MCH MCHC RDW Plt Count MPV Total Counted Seg Neutrophils % Band Neutrophils % Lymphocytes % Monocytes % (Manual) Platelet Estimate RBC Morphology Anisocytosis D-Dimer 5.85 H Sodium Potassium Chloride Carbon Dioxide Anion Gap BUN Creatinine GFR Calculation Glucose Uric Acid Calcium Phosphorus Magnesium Total Bilirubin Direct Bilirubin GGT AST ALT Alkaline Phosphatase Lactate Dehydrogenase Troponin T 0.17 H* NT-Pro-B Natriuret Pep 23050.0 H Total Protein Albumin Globulin Albumin/Globulin Ratio Triglycerides 12/10/16 12/10/16 12/10/16 07:56 04:40 04:40 WBC 13.8 H RBC 3.21 L Hgb 9.5 L Hct 29.1 L MCV 90.7 MCH 29.6 MCHC 32.7 RDW 16.2 H Plt Count 271 MPV 7.2 L Total Counted 100 Seg Neutrophils % 71 Band Neutrophils % 7 Lymphocytes % 11 L Monocytes % (Manual) 11 Platelet Estimate Normal RBC Morphology Abnorm A Anisocytosis 1+ A D-Dimer Sodium 140 Potassium 3.1 L Chloride 100 Carbon Dioxide 23 Anion Gap 17.0 H BUN 9 Creatinine 0.9 GFR Calculation 100 Glucose 96 Uric Acid 2.7 Calcium 7.9 L Phosphorus 2.3 L Magnesium 1.7 Total Bilirubin 1.6 H Direct Bilirubin 0.8 H GGT 72 H AST 18 ALT 14 Alkaline Phosphatase 110 Lactate Dehydrogenase 201 Troponin T 0.11 H* NT-Pro-B Natriuret Pep Total Protein 5.9 Albumin 3.1 L Globulin 2.8 Albumin/Globulin Ratio 1.1 Triglycerides 96 Preliminary micro results at discharge 12/06/16 14:13 Blood Culture - Preliminary Blood 12/06/16 14:20 Blood Culture - Preliminary Blood 12/07/16 15:07 Anaerobic Culture - Preliminary Abdominal Fluid December 10: Echocardiogram: Mildly dilated left atrium. Mild concentric LVH. Ejection fraction 50%. Septal wall hypokinesis. Mildly dilated left atrium. Dilated inferior vena cava, suggestive of increased right atrial pressure. Small pericardial effusion posterior surface. Difficult study. ABG, on 5 L mask: PH 7.46, PCO2 39, PO2 56, bicarb 27, 90% saturated EKG shows sinus tachycardia, with minimal ST depression noted in leads V5 V6. Abdominal x-ray: Shows dilated small intestine consistent with possible postop ileus. Chest x-ray: Shows bilateral developing alveolar infiltrates, in both jordana and extending into both lower lobes. Worsened December 08. Small right-sided pleural effusion. Right IJ catheter in place. Consistent with possible bilateral pneumonia. December 08: ABG on the ventilator, FiO2 30%: PH 7.49, PCO2 38, PO2 71, bicarb 29, O2 saturation 99% Chest x-ray: Small bibasilar infiltrates with improvement on the right side. December 07: Urine culture negative so far Peritoneal fluid culture: Is growing E. coli, 2 strains. Strain #1 has intermediate resistance to cefoxitin, and is otherwise pansensitive. Strain #2 is pansensitive. Blood cultures are negative so far December 06: CT of the abdomen: Is increasing distention of the colon with fluid, moderate inflammation around the hepatic flexure. Ileostomy in the right anterior mid abdomen. Several atherosclerotic plaques are noted in the renal arteries. Medical - DS: A/P - Patient/Caregiver Discharge Instructions Diet: NPO Prescriptions: LORazepam [Ativan] 0.5 mg IV Q1-2HP PRN #1 vial PRN Reason: Anxiety - Follow up Plan Follow up with: Kerry Williamson MD [Primary Care Provider] - Disposition: [facility] Prognosis: Serious Rehab Potential: Serious I certify that the patient requires SNF services: No Overall status at discharge: patient is not back to baseline Medical - DS: Qual - VTE Deep Vein Thrombosis/Pulmonary Embolism Present on Admission: No
[2016-12-10] MEDS ORDERED: HEPARIN/D5W 25,000 UNIT in PREMIX 1 BAG IV SCH (15:45)
--- NOTE | 2016-12-10 16:22 | Discharge Summary ---
Providers - Providers Patient information: Note initiated : 12/10/16 at 4:11 pm Service Date, if different from initiated Date: [] Patient: Earle Magdaleno 51 y/o M admitted on 12/06/16 for Abd Pain, N/V, Sepsis , Dehydration. Chief Complaint: [] Date of admission: 12/06/16 Discharge date: 12/10/16 Attending physician: Susanne JHA --HOSPITALIST Hospitalization Hospital course: For more detailed note see history and physical dated 06 December 2016 51-year-old male admitted on 06 December 2016 with severe metabolic acidosis and alkalosis with an acute abdomen and pain in the right upper quadrant and epigastrium. He had mild leukocytosis but serum lactate above 3. CT of the abdomen revealed a fluid collection in the right upper quadrant but no free air. He was also moderately severely dehydrated. He was rehydrated, stabilized and taken to the OR on 07 December. He was noted to have ischemic necrosis of his entire right and proximal transverse colon. He had 3 punctate perforations in the ascending colon the proximal transverse and mid transverse colon. There was 450 cc of measured pus collected from 2 major areas of perforation. He had extensive adhesions from his previous surgery. He will underwent a 5 hour operative procedure which included extensive adhesiolysis and removal of the terminal ileum, and all of his residual COLON down to the mid sigmoid where it was stapled off. The rectal stump was unremarkable. The ischemia stopped at the different loOP of the loop ileostomy. A new ileostomy was created in the left lower quadrant and copious irrigation of the peritoneal cavity was carried out. The stomach, liver, pancreas, spleen and residual small bowel were all viable. And cutting across the mesentery of the colon there were many vessels which were densely calcified with old clot noted on the venous end. He tolerated the operative procedure well and cleared his severe acidosis within 24 hours. He did require short-term vasopressors but did not need it after about 12 hours. He had function of his ileostomy within the first 18 hours and it has continued to function well since then. He does have mild ileus but has been able to tolerate some clear liquids. It was noted earlier this morning that he was hypoxic and his SaO2 was as low as 70%. He was given supplemental oxygen, chest x-ray was ordered and labs were ordered. His serum troponin was 0.11 and his pro BNP was over 16,000. He was diuresed and has had a vigorous diuresis since about 8 AM. Echocardiogram was done and it showed ejection fraction about 50% with septal wall Abnormalities. Follow- up troponin has increased to 0.17. The patient is at extreme risk for major cardiac event and we try to make arrangements to have him seen by cardiology at [facility] but they refused to accept him. He is therefore being transferred to a tertiary center for probable cardiac intervention. Since it is known that he has major celiac and SMA stenosis it would be prudent for the interventionalists to consider stenting of these vessels if possible. This will potentially delay him from having the necessity of having a repeat procedure in the near future. At the present time his GI tract is stable. Discharge diagnosis: Severe mesenteric ischemia with total colon ischemia with necrosis Secondary discharge diagnosis: Perforated right and proximal transverse colon with peritonitis Cryoglobulinemia Hepatitis C Inflammatory arthritis Hypertension Raynaud's syndrome Posttraumatic stress disorder Acute septicemia with dehydration and severe acidosis Reason for admission: Acute abdomen with metabolic acidosis and dehydration Procedures: Exploratory laparotomy with extensive total peritoneal adhesio lysis Total colectomy with end ileostomy left lower quadrant Pertinent studies/significant findings: CT of abdomen and pelvis without contrast Complications: Postoperative myocardial ischemia with elevated troponins and decreased left ventricular ejection fraction with wall abnormalities Congestive heart failure postoperative related to ischemia and volume overload Exam Temp Pulse Resp BP Pulse Ox 98.9 F 111 H 22 157/100 93 12/10/16 07:10 12/10/16 14:33 12/10/16 09:35 12/10/16 15:01 12/10/16 14:33 - General physical appearance well developed, well nourished, moderate distress, moderate pain, chronically ill - Eyes PERRL, normal ocular movement - ENT normal pinna, normal nares, normal mucosa, no hearing loss, no congestion - Head Head exam IM: Present: atraumatic, normocephalic - Neck no masses, no bruits, trachea midline, no lymphadectomy, no venous distension - Cardiovascular Cardiovascular exam IM: Present: normal rate and rhythm, +S1, +S2, tachycardia - Respiratory normal expansion, normal respiratory effort, other (Decreased breath sounds bilaterally with coarse rhonchi and scattered wheezes; positive for rales) - Abdomen Abdomen: Present: soft, tender, bowel sounds, distended (Mild distention with active bowel sounds; healing midline incision; viable pink stoma in left lower quadrant) Hernia: Present: none - Genitourinary Present: normal penis with no external lesions - Integumentary Present: no rash, no growths, other (Chronic stasis changes of both lower extremities) - Neurologic Present: normal coordination, normal sensation - Musculoskeletal Present: normal gait, normal posture - Psychiatric Present: oriented to time, oriented to person, oriented to place, speech is normal, memory intact, other (Mild situational depression with flat affect) Discharge Plan - Patient/Caregiver Discharge Instructions Activity: other (Patient is being transferred to [facility] in [facility] for cardiac evaluation and intervention) Diet: NPO Prescriptions: LORazepam [Ativan] 0.5 mg IV Q1-2HP PRN #1 vial PRN Reason: Anxiety - Follow up Plan Follow up with: Kerry Williamson MD [Primary Care Provider] - Disposition: [facility] Prognosis: Critical Rehab Potential: Critical I certify that the patient requires SNF services.: No Overall status at discharge: patient is not back to baseline Pending Studies Resuscitation Status Full Code Diet NPO Diet (NOW) Start MonDec 08 Dinner Enalaprilat (Vasotec) 1.25 mg IV Q6 [facility] Last Admin: 12/10/16 13:20 Dose: 1.25 mg Hydromorphone HCl (Dilaudid) 1 mg IV Q2HP PRN PRN Reason: Pain Last Admin: 12/10/16 15:30 Dose: 1 mg Albumin Human (Buminate) 25 gm in 100 mls @ 200 mls/hr IV Q8 [facility] Stop: 12/10/16 22:29 Last Infusion: 12/10/16 14:40 Dose: 0 mls/hr Admin: 12/10/16 14:08 Dose: 200 mls/hr Potassium Chloride/Dextrose/Sod Cl (Dextrose 5%-1/2ns W/40meq Kcl) 1,000 mls @ 50 mls/hr IV .Q20H [facility] Last Admin: 12/10/16 15:31 Dose: 50 mls/hr Metronidazole (Flagyl) 500 mg in 100 mls @ 100 mls/hr IV Q6H [facility] Last Infusion: 12/10/16 13:21 Dose: 0 mls/hr Admin: 12/10/16 12:08 Dose: 100 mls/hr Piperacillin Sod/Tazobactam (Sod 3.375 gm/ Dextrose) 50 mls @ 100 mls/hr IV Q6H [facility] Last Infusion: 12/10/16 15:44 Dose: 0 mls/hr Infusion: 12/10/16 13:38 Dose: 0 mls/hr Admin: 12/10/16 13:16 Dose: 100 mls/hr Heparin Sodium/Dextrose 25,000 (unit/ Premix) 500 mls @ 35.24 mls/hr IV .[id number] [facility]; 14 UNIT/KG/HR PRN Reason: Protocol Last Admin: 12/10/16 15:44 Dose: 14 unit/kg/hr, 35.24 mls/hr Metoclopramide HCl (Reglan) 10 mg IV Q6 [facility] Last Admin: 12/10/16 12:00 Dose: 10 mg Metoprolol Tartrate (Lopressor) 5 mg IV Q6H [facility] Last Admin: 12/10/16 11:57 Dose: Sodium Chloride (Saline Flush) 10 ml IV Q8 [facility] Last Admin: 12/10/16 12:06 Dose: 10 ml Admin: 12/10/16 11:46 Dose: 10 ml Shift Summary 12/10/16 03:16 Shift Summary by Regla Vines Patient is A&Ox4. VSS. NPO with ice chips and popsicles. Central line to Right IJ. [address], but one is not working and is taped off. NS is running at 150/hr. Controlling pain with 1mg IV Dilaudid. Dressing was changed in ICU yesterday. Midline incision to abdomen with savannah and Tegaderm in place. Gauze and adhesive dressing to lower abdomen with shadow drainage present. Patient has permanent ileostomy to left side of abdomen that is putting out dark brown, liquid stool. Ileostomy bag was changed this evening. Bowel tones are active and patient is now passing gas and his pain is decreasing. Patient has an appointment with Dr. Hummel on Monday at 0900. He has expressed that he has to make it to this appointment. Initialized on 12/10/16 03:16 - END OF NOTE
--- NOTE | 2016-12-10 16:25 | Discharge Summary ---
Providers - Providers Patient information: Note initiated : 12/10/16 at 3:41 pm Service Date, if different from initiated Date: [] Patient: Earle Magdaleno 51 y/o M admitted on 12/06/16 for Abd Pain, N/V, Sepsis , Dehydration. Chief Complaint: [] Date of admission: 12/06/16 Discharge date: 12/10/16 Attending physician: Susanne Dang hospitalist for medical management and critical care Exam Temp Pulse Resp BP Pulse Ox 98.9 F 111 H 22 153/106 93 12/10/16 07:10 12/10/16 14:33 12/10/16 09:35 12/10/16 14:01 12/10/16 14:33 Discharge Plan - Patient/Caregiver Discharge Instructions Prescriptions: LORazepam [Ativan] 0.5 mg IV Q1-2HP PRN #1 vial PRN Reason: Anxiety - Follow up Plan Follow up with: Kerry Williamson MD [Primary Care Provider] - Prognosis: Undetermined Pending Studies Resuscitation Status Full Code Diet NPO Diet (NOW) Start MonDec 08 Dinner Enalaprilat (Vasotec) 1.25 mg IV Q6 [facility] Last Admin: 12/10/16 13:20 Dose: 1.25 mg Hydromorphone HCl (Dilaudid) 1 mg IV Q2HP PRN PRN Reason: Pain Last Admin: 12/10/16 15:30 Dose: 1 mg Albumin Human (Buminate) 25 gm in 100 mls @ 200 mls/hr IV Q8 [facility] Stop: 12/10/16 22:29 Last Admin: 12/10/16 14:08 Dose: 200 mls/hr Potassium Chloride/Dextrose/Sod Cl (Dextrose 5%-1/2ns W/40meq Kcl) 1,000 mls @ 50 mls/hr IV .Q20H [facility] Last Admin: 12/10/16 15:31 Dose: 50 mls/hr Metronidazole (Flagyl) 500 mg in 100 mls @ 100 mls/hr IV Q6H [facility] Last Infusion: 12/10/16 13:21 Dose: 0 mls/hr Admin: 12/10/16 12:08 Dose: 100 mls/hr Piperacillin Sod/Tazobactam (Sod 3.375 gm/ Dextrose) 50 mls @ 100 mls/hr IV Q6H [facility] Last Infusion: 12/10/16 13:38 Dose: 0 mls/hr Admin: 12/10/16 13:16 Dose: 100 mls/hr Metoclopramide HCl (Reglan) 10 mg IV Q6 [facility] Last Admin: 12/10/16 12:00 Dose: 10 mg Metoprolol Tartrate (Lopressor) 5 mg IV Q6H [facility] Last Admin: 12/10/16 11:57 Dose: Sodium Chloride (Saline Flush) 10 ml IV Q8 [facility] Last Admin: 12/10/16 12:06 Dose: 10 ml Admin: 12/10/16 11:46 Dose: 10 ml Shift Summary 12/10/16 03:16 Shift Summary by Regla Vines Patient is A&Ox4. VSS. NPO with ice chips and popsicles. Central line to Right IJ. [address], but one is not working and is taped off. NS is running at 150/hr. Controlling pain with 1mg IV Dilaudid. Dressing was changed in ICU yesterday. Midline incision to abdomen with savannah and Tegaderm in place. Gauze and adhesive dressing to lower abdomen with shadow drainage present. Patient has permanent ileostomy to left side of abdomen that is putting out dark brown, liquid stool. Ileostomy bag was changed this evening. Bowel tones are active and patient is now passing gas and his pain is decreasing. Patient has an appointment with Dr. Hummel on Monday at 0900. He has expressed that he has to make it to this appointment. Initialized on 12/10/16 03:16 - END OF NOTE
--- NOTE | 2016-12-10 16:37 | Discharge Summary ---
Providers - Providers Patient information: Note initiated : 12/10/16 at 4:10 pm Service Date, if different from initiated Date: [] Patient: Earle Magdaleno 51 y/o M admitted on 12/06/16 for Abd Pain, N/V, Sepsis , Dehydration. Chief Complaint: [] Date of admission: 12/06/16 Discharge date: 12/10/16 Exam Temp Pulse Resp BP Pulse Ox 98.9 F 111 H 22 157/100 93 12/10/16 07:10 12/10/16 14:33 12/10/16 09:35 12/10/16 15:01 12/10/16 14:33 Discharge Plan - Patient/Caregiver Discharge Instructions Prescriptions: LORazepam [Ativan] 0.5 mg IV Q1-2HP PRN #1 vial PRN Reason: Anxiety - Follow up Plan Follow up with: Kerry Williamson MD [Primary Care Provider] - Prognosis: Undetermined Pending Studies Resuscitation Status Full Code Diet NPO Diet (NOW) Start MonDec 08 Dinner Enalaprilat (Vasotec) 1.25 mg IV Q6 [facility] Last Admin: 12/10/16 13:20 Dose: 1.25 mg Hydromorphone HCl (Dilaudid) 1 mg IV Q2HP PRN PRN Reason: Pain Last Admin: 12/10/16 15:30 Dose: 1 mg Albumin Human (Buminate) 25 gm in 100 mls @ 200 mls/hr IV Q8 [facility] Stop: 12/10/16 22:29 Last Infusion: 12/10/16 14:40 Dose: 0 mls/hr Admin: 12/10/16 14:08 Dose: 200 mls/hr Potassium Chloride/Dextrose/Sod Cl (Dextrose 5%-1/2ns W/40meq Kcl) 1,000 mls @ 50 mls/hr IV .Q20H [facility] Last Admin: 12/10/16 15:31 Dose: 50 mls/hr Metronidazole (Flagyl) 500 mg in 100 mls @ 100 mls/hr IV Q6H [facility] Last Infusion: 12/10/16 13:21 Dose: 0 mls/hr Admin: 12/10/16 12:08 Dose: 100 mls/hr Piperacillin Sod/Tazobactam (Sod 3.375 gm/ Dextrose) 50 mls @ 100 mls/hr IV Q6H [facility] Last Infusion: 12/10/16 15:44 Dose: 0 mls/hr Infusion: 12/10/16 13:38 Dose: 0 mls/hr Admin: 12/10/16 13:16 Dose: 100 mls/hr Heparin Sodium/Dextrose 25,000 (unit/ Premix) 500 mls @ 35.24 mls/hr IV .[id number] [facility]; 14 UNIT/KG/HR PRN Reason: Protocol Last Admin: 12/10/16 15:44 Dose: 14 unit/kg/hr, 35.24 mls/hr Metoclopramide HCl (Reglan) 10 mg IV Q6 [facility] Last Admin: 12/10/16 12:00 Dose: 10 mg Metoprolol Tartrate (Lopressor) 5 mg IV Q6H [facility] Last Admin: 12/10/16 11:57 Dose: Sodium Chloride (Saline Flush) 10 ml IV Q8 [facility] Last Admin: 12/10/16 12:06 Dose: 10 ml Admin: 12/10/16 11:46 Dose: 10 ml Shift Summary 12/10/16 03:16 Shift Summary by Regla Vines Patient is A&Ox4. VSS. NPO with ice chips and popsicles. Central line to Right IJ. [address], but one is not working and is taped off. NS is running at 150/hr. Controlling pain with 1mg IV Dilaudid. Dressing was changed in ICU yesterday. Midline incision to abdomen with savannah and Tegaderm in place. Gauze and adhesive dressing to lower abdomen with shadow drainage present. Patient has permanent ileostomy to left side of abdomen that is putting out dark brown, liquid stool. Ileostomy bag was changed this evening. Bowel tones are active and patient is now passing gas and his pain is decreasing. Patient has an appointment with Dr. Hummel on Monday at 0900. He has expressed that he has to make it to this appointment. Initialized on 12/10/16 03:16 - END OF NOTE
[2016-12-10] MEDS ORDERED: fentaNYL 2,500 MCG in 0.9 % SODIUM CHLORIDE 200 ML IV SCH (17:00)
[2016-12-10] MEDS ORDERED: FAMOTIDINE/PF 20 MG/2 ML VIAL IV SCH ×2 (21:00)
[2016-12-10] MEDS ORDERED: VANCOMYCIN 1,000 MG in 0.9 % SODIUM CHLORIDE 250 ML IV SCH (21:00)
[2016-12-10] MEDS ORDERED: ATORVASTATIN 20 MG TABLET PO SCH ×2 (21:00)
[2016-12-11 08:25] LABS: Cryoglobulin NEGATIVE (NEGATIVE)
[2016-12-11] MEDS ORDERED: FUROSEMIDE 20 MG/2 ML VIAL IV SCH ×2 (09:00)
[2016-12-11] MEDS ORDERED: ASPIRIN 81 MG TAB.CHEW PO SCH ×2 (09:00)
[2016-12-11] MEDS ORDERED: ENOXAPARIN 30 MG/0.3 ML SYRINGE SQ SCH (09:00)
--- NOTE | 2016-12-14 14:22 | Surgical Pathology Report ---
HISTOLOGY SPECIMEN MICROSCOPIC DIAGNOSIS COLON AND ILEUM, TOTAL COLECTOMY WITH ILEOSTOMY TAKEDOWN AND REVISION: -- COLON WITH FEATURES OF ISCHEMIC INJURY INCLUDING: - PATCHY MUCOSAL ULCERATION AND NECROSIS. - MUCOSAL AND SUBMUCOSAL VESSELS WITH FIBRIN THROMBI. - SUBMUCOSAL FIBROSIS AND EDEMA. - MUCOSAL HEMORRHAGE AND VASCULAR CONGESTION. - CECUM WITH FOCAL TRANSMURAL INFLAMMATION AND NECROSIS CONSISTENT WITH PERFORATION. -- ACUTE APPENDICITIS. -- MESENTERIC ADIPOSE TISSUE WITH EXTENSIVE FAT NECROSIS, VASCULAR THROMBOSIS WITH RECANALIZATION, AND FIBROSIS. -- ILEOSTOMY WITH FOCAL ACUTE ABSCESS, FIBROSIS, AND FOREIGN BODY GIANT CELL REACTION. -- SEROSAL ADHESIONS AND ACUTE SEROSITIS/PERITONITIS. -- TWO REACTIVE PERICOLONIC LYMPH NODES. -- VIABLE MUCOSAL MARGINS. -- NO EVIDENCE OF DYSPLASIA OR MALIGNANCY. (SE;) CLINICAL HISTORY Abdominal pain; nausea/vomiting. PROCEDURAL IMPRESSION Acute sepsis, evaluate vascular supply. GROSS DESCRIPTION Received in formalin labeled with the patient information, is a resection of terminal ileum and colon which extends from the cecum to the sigmoid. The terminal ileum segment is 23.0 cm long with an average diameter of 2.8 cm. The appendix is crescent and enveloped in fat and is 5.0 cm long and up to 1.0 cm in diameter. The cecum to the sigmoid measures 102.0 cm. The proximal ascending colon is up to 7.0 cm in diameter. The transverse colon is up to 5.5 cm in diameter and the sigmoid colon narrows down to 3.8 cm in diameter. An irregularly shaped flap of omentum is attached. This is up to 21.5 cm wide and 58.0 cm long with some areas of 2.5 cm thick. On the anterior side of the cecum is a suture incision which is 4.5 cm long. On the serosa underlying this sutured area is a waite-avina ischemic appearing mucosa. The ileal and sigmoid margins are stapled. There are multiple areas of dark red-brown mucosa with an ischemic appearance. There are also multiple irregularly shaped, shallow apparent ulcers on the mucosa. No macroscopic perforations identified. The ischemic/ulcerative area is within the cecum and measures approximately 4.0 x 4.0 cm and is in the mid to distal portion of the ascending colon and extends most of the length of the transverse colon, with an estimated overall length of 50.0 cm. There are several areas of thickened fat which on cross section are suspicious for fat necrosis. Some these areas have waite-avina exudate on the surface. The attached fat and omentum are examined. Most of the vessels encountered are very tiny. No macroscopic thrombi are identified. Also within the container is a loop ileostomy takedown specimen. The ileum portion measures 20.0 cm long with a diameter of 2.5 cm. The loop is connected together in the middle with some membranous tissue. There is skin which is sutured closed, and when closed together measures 1.2 x 7.5 cm. Both margins are stapled. No masses or other lesions are identified in this ileostomy portion. Sections submitted: A1 - ileosigmoid margins of large specimen; A2 - appendix; A3 - cecum at the sutured area; A4 - ascending colon; A5-A6 - transverse colon; A7 - ileocecal valve; A8 - sigmoid colon; A9 - fat at cecum; A10 - fat at mid transverse; A11-A16 - fat with blood vessels; A17 - ileostomy margins; A18 - ileostomy skin at ileum; A19 - random sections from each side of loop of ileum; A20-A22 - remaining appendix; A23 - transvere ulcers; A24-A25 - cecal ulcer and perforation site. (RAD:[id number]) Electronically Signed by: Angeline Masterson D.O.
== END 2016-12-10 17:15 | disposition short-term general hospital (02) | DRG 853 ==
LOC: ED 08:33 → SUATTDRO 12:51 → ICU 12:51 → MEDSUR 12-09 15:15 → ICU 12-10 10:45
PROVIDERS: ADMIT Family Medicine Adult Medicine; ATTEND Internal Medicine

== ENCOUNTER 2016-12-26 11:01 | Inpatient (IN) ==
[2016-12-26] MEDS ORDERED: ONDANSETRON 4 MG/2 ML VIAL IV ONE (11:28)
--- NOTE | 2016-12-26 11:50 | Emergency Department Note ---
Recheck HPI - General Chief Complaint: Recheck/Abnormal Lab/Rx Stated Complaint: Told to come in per lab results Time Seen by Provider: 12/26/16 11:06 Source: patient Mode of arrival: ambulatory Limitations: no limitations - History of Present Illness HPI Narrative: 51-year-old male presents with nausea and some vomiting. He has had surgery at the end on November for mesenteric ischemia. He has had bowel removed. He has a colostomy bag. He also had an NE while recovering from the surgery and congestive heart failure. He states last night he vomited and has increasing back pain and RLQ pain. No swelling in the feet. Some shortness of breath. No fever or chills. He is still smoking. He states he has a lot of heart burn and it nauseated from it. He has decreased renal function and is suppose to follow up about that. He does not know much about his healthcare or what has happened. Dr. Dang's office states he called saying he was nauseated and vomiting and having increasing pain so they told him to come here. - Related Data Home Medications Medication Instructions Recorded Confirmed Lisinopril [Zestril] 10 mg PO DAILY 11/04/16 12/22/16 Previous Rx's Medication Instructions Recorded Wound vac dressing change #1 each 10/25/16 ostomy supplies powder See Dose Instructions .ROUTE 10/25/16 .MEDSUPPLY #28.3 g 0.9 % Sodium Chloride [Saline 10 ml IV Q8 12/10/16 Flush] Albuterol Sulfate [Ventolin] 2.5 mg NEB Q3HP PRN 12/10/16 Albuterol Sulfate [Ventolin] 2.5 mg NEB Q8H 12/10/16 Aspirin 81 mg PO DAILY 12/10/16 Atorvastatin [Lipitor] 20 mg PO HS tab 12/10/16 Famotidine/Pf [Pepcid] 20 mg IV Q12 vial 12/10/16 Furosemide [Lasix] 20 mg IV DAILY vial 12/10/16 HYDROmorphone [Dilaudid] 1 mg IV Q2HP PRN 12/10/16 Heparin/D5w 25,000 unit IV .Q0M bag 12/10/16 LORazepam [Ativan] 0.5 mg IV Q1-2HP PRN #1 vial 12/10/16 Metoclopramide [Reglan] 10 mg IV Q6 vial 12/10/16 Metoprolol Tartrate [Lopressor] 5 mg IV Q6H vial 12/10/16 Ondansetron [Zofran] 4 mg IV Q4HP PRN vial 12/10/16 Piperacillin Sodium/Tazobactam 3.375 gm IV Q6H vial 12/10/16 [Zosyn] Vancomycin 1,000 mg IV Q12H vial 12/10/16 amoxicillin 875 mg-potassium 1 tab PO BID #20 tab 12/22/16 clavulanate 125 mg tablet loperamide 2 mg capsule 2 mg PO Q2-4H PRN #100 cap 12/22/16 Allergies Allergy/AdvReac Type Severity Reaction Status Date / Time topiramate Allergy Mild Rash Verified 12/22/16 08:30 hydrocodone AdvReac Severe Rash Verified 12/22/16 08:30 gabapentin AdvReac Intermediate Dizziness Verified 12/22/16 08:30 morphine AdvReac Intermediate Rash Verified 12/22/16 08:30 Oxycodone AdvReac Intermediate leg hives Verified 12/22/16 08:30 tramadol AdvReac Mild Unknown Verified 12/22/16 08:30 Review of Systems All systems ED: reviewed and negative except as stated. Past Medical History - Past Medical History Medical history: Reports: arthritis, CHF, hypertension, myocardial infarction, other (rare form of anemia, RA, Hepatitis C, ischemic bowel/perforated bowel) Surgical history ED: Reports: other (bowel resection due to mesenteric ischemia) Family history: Reports: no significant family history - Social History smoking status: Current every day smoker Alcohol use: Reports: Unknown Drug use: Reports: marijuana Physical Exam - General Limitations: no limitations General appearance: alert, in no apparent distress - Head Head exam: atraumatic - Eye Eye exam: Present: normal appearance. Absent: conjunctival injection - Neck Neck exam: Present: normal inspection, full ROM - Chest Chest inspection: Present: normal inspection, symmetric chest wall rise - Respiratory Respiratory exam: Present: normal lung sounds bilaterally - Cardiovascular Cardiovascular exam: Present: regular rate, normal heart sounds - Abdominal Exam Abdominal exam: Present: soft, tenderness, normal bowel sounds, incision ( vertical incision with steri strips, LLQ incision is horizontal with mild serosanguinous discharge. [place] in that incision. LLQ shows colostopmy bag with dark liquid stool. ). Absent: distention, guarding, rebound, rigidity Abdominal tenderness: Present: RLQ, moderate - Extremities Exam Extremities exam: Present: normal inspection, full ROM, normal capillary refill. Absent: pedal edema - Neurological Exam Neurological exam: Present: alert, oriented X3 - Psychiatric Psychiatric exam: Present: normal affect, normal mood - Skin Skin exam: Present: warm, dry, intact Course Vital Signs Temperature 97.2 F 12/26/16 11:02 Pulse Rate 82 12/26/16 11:02 Respiratory Rate 16 12/26/16 11:02 Blood Pressure 140/90 12/26/16 11:02 Pulse Oximetry (%) 100 12/26/16 11:02 Temperature 97.2 F 12/26/16 11:02 Pulse Rate 103 H 12/26/16 14:46 Respiratory Rate 17 12/26/16 15:02 Blood Pressure 131/82 12/26/16 15:02 Pulse Oximetry (%) 100 12/26/16 14:46 Recheck/Abnormal Lab/Rx - MDM Narrative Medical decision making narrative: Creatinine was 3.5 which is significantly elevated from 2 weeks ago. He is also acidotic. He will be kept inpatient and Dr. Nettles will continue care - Lab Data Lab results reviewed: Yes I reviewed the patient's lab results. Result diagrams: 12/26/16 11:41 12/26/16 11:41 Lab Results 12/26/16 12/26/16 12/26/16 Range/Units 11:41 11:41 11:41 WBC 12.0 H (4.5-11.0) K/mcL RBC 3.94 L (4.50-5.90) M/mcL Hgb 11.2 L (13.5-16.5) g/dL Hct 33.8 L (41.0-55.0) % MCV 85.8 (80.0-100.0) fL MCH 28.5 (26.0-34.0) pg MCHC 33.2 (31.0-36.0) g/dL RDW 16.1 H (11.5-14.5) % Plt Count 654 H (140-440) K/mcL MPV 7.9 (7.4-10.4) fL Gran % 73.4 (38.0-78.0) % Lymph % (Auto) 20.2 (15.5-49.0) % Door % (Auto) 4.5 (1.0-12.0) % Eos % (Auto) 1.2 (0.0-7.0) % Baso % (Auto) 0.7 (0.0-2.0) % Gran # 8.8 H (1.8-8.0) K/mcL Lymph # (Auto) 2.4 (1.5-4.8) K/mcL Door # (Auto) 0.5 (0.1-0.9) K/mcL Eos # (Auto) 0.1 (0.0-0.7) K/mcL Baso # (Auto) 0.1 (0.0-0.3) K/mcL PT 14.0 (11.9-14.5) sec INR 1.1 (0.9-1.1) VBG Lactic Acid (0.5-2.2) mmol/L Sodium 126 L (133-145) mmol/L Potassium 4.6 (3.3-5.1) mmol/L Chloride 83 L (96-108) mmol/L Carbon Dioxide 19 L (22-30) mmol/L Anion Gap 24.0 H (8-16) BUN 59 H (6-20) mg/dl Creatinine 3.5 H (0.7-1.2) mg/dl GFR Calculation 19 Glucose 106 H (70-105) mg/dL Calcium 10.1 (8.6-10.4) mg/dl Magnesium 1.2 L (1.6-2.5) mg/dL Total Bilirubin 0.5 (0.0-1.0) mg/dL AST 84 H (0-37) U/l ALT 92 H (0-40) U/l Alkaline Phosphatase 215 H (39-117) U/L Total Protein 9.7 H (5.9-8.4) gm/dL Albumin 4.0 (3.2-5.2) gm/dL Globulin 5.7 H (2.2-3.7) gm/dL Albumin/Globulin Ratio 0.7 L (1.0-2.3) Prealbumin 23.9 (20-40) mg/dl 12/26/16 Range/Units 11:41 WBC (4.5-11.0) K/mcL RBC (4.50-5.90) M/mcL Hgb (13.5-16.5) g/dL Hct (41.0-55.0) % MCV (80.0-100.0) fL MCH (26.0-34.0) pg MCHC (31.0-36.0) g/dL RDW (11.5-14.5) % Plt Count (140-440) K/mcL MPV (7.4-10.4) fL Gran % (38.0-78.0) % Lymph % (Auto) (15.5-49.0) % Door % (Auto) (1.0-12.0) % Eos % (Auto) (0.0-7.0) % Baso % (Auto) (0.0-2.0) % Gran # (1.8-8.0) K/mcL Lymph # (Auto) (1.5-4.8) K/mcL Door # (Auto) (0.1-0.9) K/mcL Eos # (Auto) (0.0-0.7) K/mcL Baso # (Auto) (0.0-0.3) K/mcL PT (11.9-14.5) sec INR (0.9-1.1) VBG Lactic Acid 2.0 (0.5-2.2) mmol/L Sodium (133-145) mmol/L Potassium (3.3-5.1) mmol/L Chloride (96-108) mmol/L Carbon Dioxide (22-30) mmol/L Anion Gap (8-16) BUN (6-20) mg/dl Creatinine (0.7-1.2) mg/dl GFR Calculation Glucose (70-105) mg/dL Calcium (8.6-10.4) mg/dl Magnesium (1.6-2.5) mg/dL Total Bilirubin (0.0-1.0) mg/dL AST (0-37) U/l ALT (0-40) U/l Alkaline Phosphatase (39-117) U/L Total Protein (5.9-8.4) gm/dL Albumin (3.2-5.2) gm/dL Globulin (2.2-3.7) gm/dL Albumin/Globulin Ratio (1.0-2.3) Prealbumin (20-40) mg/dl - Radiology Data Radiology results reviewed: Yes I reviewed the patient's radiology results. Disposition Pt seen by CRACK OFF PERSON/PA only: No Clinical Impression: Renal failure Disposition: Xfer As Inpt ([facility]) Condition: Fair Referrals: Kerry Williamson MD [Primary Care Provider] -
[2016-12-26] MEDS ORDERED: MAG HYDROX/AL HYDROX/SIMETH 30 ML ORAL.SUSP PO ONE (11:53)
[2016-12-26] MEDS ORDERED: FAMOTIDINE/PF 20 MG/2 ML VIAL IV ONE (11:55)
[2016-12-26 12:26] LABS: Basophils # (Auto) 0.1 K/mcL (0.0-0.3); Basophils % (Auto) 0.7 % (0.0-2.0); Eosinophils # (Auto) 0.1 K/mcL (0.0-0.7); Eosinophils % (Auto) 1.2 % (0.0-7.0); Granulocytes % (Auto) 73.4 % (38.0-78.0); Lymphocytes # (Auto) 2.4 K/mcL (1.5-4.8); Lymphocytes % (Auto) 20.2 % (15.5-49.0); Mean Cell Volume 85.8 fL (80.0-100.0); Mean Corpuscular HGB Conc 33.2 g/dL (31.0-36.0); Mean Corpuscular Hemoglobin 28.5 pg (26.0-34.0); Monocytes # (Auto) 0.5 K/mcL (0.1-0.9); Monocytes % (Auto) 4.5 % (1.0-12.0); Platelet Count 654 K/mcL (140-440); RBC 3.94 M/mcL (4.50-5.90); Red Cell Distribution Width 16.1 % (11.5-14.5)
[2016-12-26 12:49] LABS: ALT/SGPT 92 U/l (0-40); Albumin/Globulin Ratio 0.7 (1.0-2.3); Alkaline Phosphatase 215 U/L (39-117); Blood Urea Nitrogen 59 mg/dl (6-20); Magnesium 1.2 mg/dL (1.6-2.5); Prealbumin 23.9 mg/dl (20-40)
[2016-12-26] MEDS ORDERED: HYDROmorphone 2 MG/ML SYRINGE IV PRN ×2 (13:16→16:33)
[2016-12-26] MEDS ORDERED: HYDROmorphone 2 MG/ML SYRINGE ONE (13:23)
[2016-12-26] MEDS ORDERED: 0.9 % SODIUM CHLORIDE 1,000 ML IV SCH (14:15)
--- NOTE | 2016-12-26 14:36 | Cat Scan Report ---
CLINICAL INFORMATION: Reason for Exam:possible peritoneal abscess COMPARISON: 12/06/16 TECHNIQUE: The abdomen was imaged without oral or IV contrast, scanning from the diaphragm to the symphysis pubis. Sagittal and coronal reformats were created. FINDINGS: Postoperative changes are present following a recent partial colectomy. The descending, transverse and descending colon as well as the proximal sigmoid have been resected. The distal sigmoid and rectum are still present and contains some residual dense barium. There is an ileostomy in the left mid abdominal wall. The ostomy site appears normal without evidence of inflammation, hemorrhage or hernia. There are loculated pockets of fluid in the lateral gutters on each side. The left side measures 3.8 x 7.2 x 10.2 cm and the one on the right is 3.7 x 4.0 x 9.8 cm. These fluid collections were not present preoperatively. Without the use of IV contrast I cannot determine whether not there are enhancing capsules around them. There is some stranding of the adjacent fat inferior to the left side fluid collection. There are loops of adjacent normal small intestine. There is no evidence of ileus or small bowel obstruction. There is significant stranding of the subcutaneous fat anteriorly in the right mid abdomen and to lesser extent around the umbilicus consistent with recent laparoscopic surgery. No clearly defined abscess is seen within the abdomen or pelvis. There is no free intra-abdominal air. No abnormality is seen within the liver, spleen, pancreas or adrenals. The gallbladder is contracted but there are no stones. There are couple small calcifications in both kidneys. Most of these appear to be vascular. There may be a nonobstructing calyceal stone in the right kidney. There is no hydronephrosis in either kidney. IMPRESSION: Moderate size loculated fluid collections in the lateral gutters in the midabdomen bilaterally. These could be postoperative seromas or hematomas. However, an infected seroma or hematoma cannot be excluded. Normal postoperative changes following partial colectomy with an ileostomy Interpreted and Authenticated by: Serg Merritt 12/26/16
[2016-12-26] MEDS: 0.9 % SODIUM CHLORIDE 1,000 ML IV SCH ×3 (14:45→23:03)
[2016-12-26] MEDS ORDERED: ACETAMINOPHEN 325 MG TABLET PO PRN (16:21)
[2016-12-26] MEDS ORDERED: ALBUTEROL SULFATE 2.5 MG/3 ML NEBULIZER NEB PRN (16:21)
[2016-12-26] MEDS ORDERED: ONDANSETRON 4 MG/2 ML VIAL IV PRN (16:32)
[2016-12-26] MEDS ORDERED: MAGNESIUM SULFATE 32.48 MEQ in DEXTROSE 5% IN WATER 50 ML IV ONE (16:32)
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
[2016-12-26 17:46] LABS: Blood Urea Nitrogen 59 mg/dl (6-20)
[2016-12-26] MEDS: HYDROmorphone 2 MG/ML SYRINGE IV PRN ×2 (18:32→22:34)
[2016-12-26 19:57] LABS: Appearance,Urine HAZY; Bacteria,Urine 0 /hpf (0); Bilirubin,Urine NEG (NEG); Color,Urine YELLOW; Glucose,Urine (UA) NEGATIVE (NEG); Leukocyte Esterase,Urine NEG /uL (NEG); Mucus,Urine FEW /hpf (0); Nitrate,Urine NEG (NEG); Protein,Urine 30 mg/dL (NEG); Specific Gravity,Urine 1.014 (1.000-1.035); Urine Blood NEG mg/dL (<0.03); Urine Hyaline Cast 4 /lpf (0-2); Urine RBC 3 /hpf (0-1); Urine Squamous Epithelial Cell 0 /hpf (0-4); Urine WBC 13 /hpf (0-4); Urobilinogen,Urine NEG (NEG)
[2016-12-26] MEDS ORDERED: LOPERAMIDE 2 MG CAPSULE PO PRN (20:08)
[2016-12-26] MEDS ORDERED: ATORVASTATIN 20 MG TABLET PO SCH (21:00)
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
[2016-12-26] MEDS: METOPROLOL TARTRATE 50 MG TABLET PO SCH (22:34)
[2016-12-26] MEDS: FAMOTIDINE/PF 20 MG/2 ML VIAL IV SCH (22:34)
[2016-12-26 23:22] LABS: Blood Urea Nitrogen 62 mg/dl (6-20)
[2016-12-27] MEDS: HYDROmorphone 2 MG/ML SYRINGE IV PRN ×9 (02:16→23:37)
[2016-12-27] MEDS: 0.9 % SODIUM CHLORIDE 1,000 ML IV SCH ×5 (02:46→20:10)
[2016-12-27 06:49] LABS: ALT/SGPT 65 U/l (0-40); Albumin 3.4 gm/dL (3.2-5.2); Albumin/Globulin Ratio 0.7 (1.0-2.3); Alkaline Phosphatase 170 U/L (39-117); Bilirubin,Direct < 0.2 mg/dL (0.0-0.3); Blood Urea Nitrogen 64 mg/dl (6-20); Gamma Glutamyl Transpeptidase 76 U/L (8-61); Magnesium 2.4 mg/dL (1.6-2.5)
[2016-12-27] MEDS: PANTOPRAZOLE 40 MG TABLET PO SCH (06:58)
[2016-12-27] MEDS: HYDROmorphone 2 MG TABLET PO PRN ×2 (06:59→20:34)
[2016-12-27] MEDS: ASPIRIN 81 MG TAB.CHEW PO SCH (10:00)
[2016-12-27 10:01] LABS: Mean Cell Volume 85.4 fL (80.0-100.0); Mean Corpuscular HGB Conc 33.7 g/dL (31.0-36.0); Mean Corpuscular Hemoglobin 28.8 pg (26.0-34.0); Platelet Count 450 K/mcL (140-440); RBC 3.03 M/mcL (4.50-5.90); Red Cell Distribution Width 16.2 % (11.5-14.5)
[2016-12-27] MEDS: ENOXAPARIN 40 MG/0.4 ML SYRINGE SQ SCH (10:01)
[2016-12-27] MEDS: METOPROLOL TARTRATE 50 MG TABLET PO SCH ×2 (10:01→20:34)
[2016-12-27 10:54] LABS: Anisocytosis 1+ (NONE SEEN); Band Neutrophils % 3 % (0-10); Eosinophils % (Manual) 2 % (0-7); Lymphocytes % 24 % (15-49); Metamyelocytes % 1 % (0-0); Monocytes % (Manual) 3 % (1-12); Myelocytes % 4 % (0-0); Platelet Estimate NORMAL (NORMAL); RBC Morphology ABNORM (NORMAL); Segmented Neutrophils % 63 % (38-78)
[2016-12-27] MEDS: OCTREOTIDE ACETATE 100 MCG/ML VIAL SQ SCH ×2 (17:15→20:36)
--- NOTE | 2016-12-27 17:56 | Internal Med Progress Note ---
Medical - PN: Subj Patient information: Note initiated : 12/27/16 at 5:53 pm Service Date, if different from initiated Date: [] Patient: Earle Magdaleno 51 y/o M admitted on 12/26/16 for Told to come in per lab results/Renal Failure. Chief Complaint: [f/u ARF] Interval history: 12/27: Feeling better today. No nausea. Appetite is better. Notes ostomy output seems to be firming up some. No fevers chills. No dyspnea, no orthopnea , no edema. Tolerating IV fluids. Case discussed with nephrology. - Constitutional Vitals: Vital Signs Temp Pulse Resp BP Pulse Ox 98.0 F 73 20 126/62 99 12/27/16 16:00 12/27/16 04:00 12/27/16 16:00 12/27/16 16:00 12/27/16 16:00 Period Temp Pulse Resp BP Sys/Lovell Pulse Ox Last 24 Hr 97.2 F-98.1 F 73-88 16-22 117-140/44-71 95-100 Intake and Output 12/27/16 12/27/16 12/27/16 05:59 13:59 21:59 Intake Total 1000 / 1000 2975 / 2975 1300 / 1300 Output Total 350 / 350 1200 / 1200 400 / 400 Balance 650 / 650 1775 / 1775 900 / 900 Weight 230 lb Patient Weight 12/28/16 05:59 Weight 230 lb Intake & Output: Intake & Output 12/27/16 12/27/16 12/27/16 05:59 13:59 21:59 Intake Total 1000 / 1000 2975 / 2975 1300 / 1300 Output Total 350 / 350 1200 / 1200 400 / 400 Balance 650 / 650 1775 / 1775 900 / 900 Weight 230 lb Intake: IV 1000 / 1000 2000 / 2000 1000 / 1000 Sodium Chloride 0.9% 1, 1000 / 1000 2000 / 2000 1000 / 1000 000 ml @ 250 mls/hr IV . Q4H [facility] Rx#:[id number] Oral 975 / 975 300 / 300 Output: Void Amount 900 / 900 200 / 200 Stool 350 / 350 300 / 300 200 / 200 Other: Meal Lunch Percent of Meal Consumed 75% Feeding Ability Independent - Additional findings Additional findings: General: Awake, no distress Chest: Clear to auscultation no rales, respirations are unlabored Cardiovascular: Regular, no peripheral edema Abdomen: Soft, some serosanguineous drainage from midline wound, some yellowish drainage from right lower quadrant wound, dressings in place. Ostomy output are slightly thicker. Active bowel sounds. Neuro: Alert, oriented 3, moves all extremities, nonfocal Medical - PN: Obj Da - Labs CBC & Chem 7: 12/27/16 08:45 12/27/16 03:45 Labs: Abnormal Lab Results 12/27/16 12/27/16 12/26/16 08:45 03:45 21:55 RBC 3.03 L Hgb 8.7 L Hct 25.9 L RDW 16.2 H Plt Count 450 H Metamyelocytes % 1 H Myelocytes % 4 H RBC Morphology Abnorm A Anisocytosis 1+ A Sodium 127 L 127 L Chloride 87 L 84 L Carbon Dioxide 21 L 21 L Anion Gap 19.0 H 22.0 H BUN 64 H 62 H Creatinine 3.8 H 3.9 H Uric Acid 10.0 H Phosphorus 7.3 H* GGT 76 H AST 49 H ALT 65 H Alkaline Phosphatase 170 H Globulin 4.7 H Albumin/Globulin Ratio 0.7 L Triglycerides 176 H Urine Protein Urine RBC Urine WBC Hyaline Casts 12/26/16 12/26/16 12/26/16 18:57 16:43 16:43 RBC Hgb Hct RDW Plt Count Metamyelocytes % Myelocytes % RBC Morphology Anisocytosis Sodium 128 L Chloride 85 L Carbon Dioxide Anion Gap 21.0 H BUN 59 H Creatinine 3.6 H Uric Acid Phosphorus 6.6 H* GGT AST ALT Alkaline Phosphatase Globulin Albumin/Globulin Ratio Triglycerides Urine Protein 30 A Urine RBC 3 H Urine WBC 13 H Hyaline Casts 4 H Meds: Medications Acetaminophen (Tylenol) 650 mg PO Q6HP PRN PRN Reason: PAIN/FEVER > 101 Albuterol Sulfate (Ventolin) 2.5 mg NEB Q2HP PRN PRN Reason: Dyspnea Aspirin (Aspirin) 81 mg PO DAILY [facility] Last Admin: 12/27/16 10:00 Dose: 81 mg Atorvastatin Calcium (Lipitor) 80 mg PO HS [facility] Enoxaparin Sodium (Lovenox) 40 mg SQ DAILY [facility] Last Admin: 12/27/16 10:01 Dose: 40 mg Famotidine (Pepcid) 20 mg IV HS [facility] Last Admin: 12/26/16 22:34 Dose: 20 mg Hydromorphone HCl (Dilaudid) 2 mg IV Q2HP PRN PRN Reason: Pain Last Admin: 12/27/16 15:49 Dose: 2 mg Hydromorphone HCl (Dilaudid) 2 mg PO Q4HP PRN PRN Reason: Pain Last Admin: 12/27/16 06:59 Dose: 2 mg Sodium Chloride (Sodium Chloride 0.9%) 1,000 mls @ 250 mls/hr IV .Q4H [facility] Last Admin: 12/27/16 15:49 Dose: 250 mls/hr Loperamide HCl (Imodium) 2 mg PO Q2-4H PRN PRN Reason: loose stool Metoprolol Tartrate (Lopressor) 50 mg PO BID [facility] Last Admin: 12/27/16 10:01 Dose: 50 mg Octreotide Acetate (Sandostatin) 100 mcg SQ BID [facility] Last Admin: 12/27/16 17:15 Dose: 100 mcg Ondansetron HCl (Zofran) 4 mg IV Q4HP PRN PRN Reason: Nausea And Vomiting Pantoprazole Sodium (Protonix) 40 mg PO QAMAC [facility] Last Admin: 12/27/16 06:58 Dose: 40 mg Medical - PN: A/P - Time Spent With Patient Total time spent is greater than 50% in coordination of care (as documented) at patient's floor/unit and/or counseling patient: Greater than 35 minutes - Narrative A/P Narrative: 51-year-old male with history of extensive peripheral vascular disease, including mesenteric stenoses that led to mesenteric ischemia, bouts of perforation and abdominal sepsis, 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 Acute renal failure. Creatinine essentailly stable. FeNa 0.5%, suggesting pre- renal causes with high ostomy output, nausea and vomiting. DDx also includes ATN or renovascular causes. ACEi may have worsened renal function as well. Tolerating fluids w/o volume overload. -Continue with IVF -Appreciate nephrology input -No hyperkalemia, no volume overload, no indication for dialysis -Avoid nephrotoxins, renally dose any needed medications as appropriate High olstomy output. Output firming up today. Will try octreotide to see if it slows down ostomy output. Plan: Trial of octreotide 100 mcg SQ BID Peripheral vascular disease with celiac stenosis, renovascular stenoses. If the patient were to have further mesenteric ischemia due to compromise of the celiac axis, likely would not survive such an insult to the remainder of his gut. The goal would be to optimize renal function so that he might be able to have an intervention. -Continue with aspirin -Intensify statin-increase atorvastatin to 80 mg at HS Coronary artery disease, status post NSTEMI. Currently no chest symptoms, EKG without injury -Continue aspirin and statin Hypertension, possible renovascular component. BP controlled currently. -Continue metoprolol. Holding MARIA L inhibitor due to renal function. Hyponatremia, likely secondary to renal failure. Not critical. Stable. -Continue to monitor with fluid resuscitation Anion gap acidosis. Likely related to renal failure. Slowly improving. -Continue to monitor labs with recovery of renal function Diet: Cardiac/renal DVT prophylaxis: Subcutaneous unfractionated heparin CODE STATUS is full code Medical - PN: Qual - Stroke Symptom Onset Unknown: No - VTE Deep Vein Thrombosis/Pulmonary Embolism Present on Admission: No
--- NOTE | 2016-12-27 19:06 | Nephrology Progress Note ---
Subjective Patient information: Note initiated : 12/27/16 at 7:02 pm Service Date, if different from initiated Date: [] Patient: Earle Magdaleno 51 y/o M admitted on 12/26/16 for Told to come in per lab results/Renal Failure. Chief Complaint: [] Principal diagnosis: FRAN /ARF Interval history: Earle reported feeling better. Reports improved urine output, better tolerance of oral fluid intake and decreased secretions through ostomy. Objective - Vital Signs Vital signs: Vital Signs Temp Pulse Resp BP Pulse Ox 12/27/16 16:00 98.0 F 20 126/62 99 12/27/16 12:00 98.0 F 20 127/44 97 12/27/16 07:00 97.8 F 16 140/71 100 12/27/16 04:00 97.2 F 73 18 125/60 100 12/27/16 00:00 88 22 95 12/26/16 20:00 98 12/26/16 19:39 98.1 F 20 117/48 98 Intake and Output 12/27/16 12/27/16 12/27/16 05:59 13:59 21:59 Intake Total 1000 / 1000 2975 / 2975 1300 / 1300 Output Total 350 / 350 1200 / 1200 900 / 900 Balance 650 / 650 1775 / 1775 400 / 400 Intake: IV 1000 / 1000 2000 / 2000 1000 / 1000 Sodium Chloride 0.9% 1, 1000 / 1000 2000 / 2000 1000 / 1000 000 ml @ 250 mls/hr IV . Q4H [facility] Rx#:[id number] Oral 975 / 975 300 / 300 Output: Void Amount 900 / 900 500 / 500 Stool 350 / 350 300 / 300 400 / 400 Other: Meal Lunch Percent of Meal Consumed 75% Feeding Ability Independent Weight 230 lb Patient Weight 12/28/16 05:59 Weight 230 lb Intake & Output: Intake & Output 12/27/16 12/27/16 12/27/16 05:59 13:59 21:59 Intake Total 1000 / 1000 2975 / 2975 1300 / 1300 Output Total 350 / 350 1200 / 1200 900 / 900 Balance 650 / 650 1775 / 1775 400 / 400 Weight 230 lb Intake: IV 1000 / 1000 2000 / 2000 1000 / 1000 Sodium Chloride 0.9% 1, 1000 / 1000 2000 / 2000 1000 / 1000 000 ml @ 250 mls/hr IV . Q4H [facility] Rx#:[id number] Oral 975 / 975 300 / 300 Output: Void Amount 900 / 900 500 / 500 Stool 350 / 350 300 / 300 400 / 400 Other: Meal Lunch Percent of Meal Consumed 75% Feeding Ability Independent - Lab 12/27/16 08:45 12/27/16 03:45 Most recent lab results Calcium 9.0 mg/dl (8.6-10.4) 12/27/16 03:45 Phosphorus 7.3 mg/dL (2.7-4.5) H* 12/27/16 03:45 Magnesium 2.4 mg/dL (1.6-2.5) 12/27/16 03:45 Assessment and Plan (1) ARF (acute renal failure) SCr has stabilized around 3.9 (12/26/16) and 3.8 today. Improved urine output is encouraging sign. Continues to receive iv NS infusion. Hyperphosphatemia due to renal failure - hold off on phos binders at present. Moderate hyponatremia likely dilutional. Follow intake / output, BMP. At present, no indication for dialysis Status: Acute Qualifiers: Acute renal failure type: unspecified Qualified Code(s): N17.9 - Acute kidney failure, unspecified
[2016-12-27] MEDS: FAMOTIDINE/PF 20 MG/2 ML VIAL IV SCH (20:35)
[2016-12-27] MEDS: ATORVASTATIN 20 MG TABLET PO SCH (20:38)
[2016-12-28] MEDS: 0.9 % SODIUM CHLORIDE 1,000 ML IV SCH ×6 (00:09→22:53)
[2016-12-28] MEDS: HYDROmorphone 2 MG/ML SYRINGE IV PRN ×9 (01:59→19:18)
[2016-12-28 06:48] LABS: Mean Cell Volume 87.4 fL (80.0-100.0); Mean Corpuscular HGB Conc 32.6 g/dL (31.0-36.0); Mean Corpuscular Hemoglobin 28.5 pg (26.0-34.0); Platelet Count 450 K/mcL (140-440); RBC 3.24 M/mcL (4.50-5.90); Red Cell Distribution Width 16.5 % (11.5-14.5)
[2016-12-28 07:20] LABS: ALT/SGPT 44 U/l (0-40); Albumin 2.9 gm/dL (3.2-5.2); Albumin/Globulin Ratio 0.6 (1.0-2.3); Alkaline Phosphatase 131 U/L (39-117); Bilirubin,Direct < 0.2 mg/dL (0.0-0.3); Blood Urea Nitrogen 53 mg/dl (6-20); Gamma Glutamyl Transpeptidase 61 U/L (8-61); Magnesium 1.9 mg/dL (1.6-2.5)
[2016-12-28] MEDS: PANTOPRAZOLE 40 MG TABLET PO SCH (07:56)
[2016-12-28] MEDS: ASPIRIN 81 MG TAB.CHEW PO SCH (08:11)
[2016-12-28] MEDS: OCTREOTIDE ACETATE 100 MCG/ML VIAL SQ SCH ×2 (08:11→21:17)
[2016-12-28] MEDS: ENOXAPARIN 40 MG/0.4 ML SYRINGE SQ SCH (08:11)
[2016-12-28] MEDS: METOPROLOL TARTRATE 50 MG TABLET PO SCH ×2 (08:12→21:18)
[2016-12-28 08:59] LABS: Anisocytosis 1+ (NONE SEEN); Band Neutrophils % 7 % (0-10); Basophils % (Manual) 1 % (0-2); Eosinophils % (Manual) 3 % (0-7); Lymphocytes % 27 % (15-49); Metamyelocytes % 1 % (0-0); Monocytes % (Manual) 5 % (1-12); Myelocytes % 1 % (0-0); Platelet Estimate INCREASED (NORMAL); RBC Morphology ABNORM (NORMAL); Segmented Neutrophils % 54 % (38-78)
[2016-12-28] MEDS ORDERED: 0.9 % SODIUM CHLORIDE 1,000 ML BAG IV SCH (14:15)
--- NOTE | 2016-12-28 14:26 | Internal Med Progress Note ---
Medical - PN: Subj Patient information: Note initiated : 12/28/16 at 2:23 pm Service Date, if different from initiated Date: [] Patient: Earle Magdaleno 51 y/o M admitted on 12/26/16 for Told to come in per lab results/Renal Failure. Chief Complaint: [f/u ARF] Interval history: 12/27: Feeling better today. No nausea. Appetite is better. Notes ostomy output seems to be firming up some. No fevers chills. No dyspnea, no orthopnea , no edema. Tolerating IV fluids. Case discussed with nephrology. 12/28: Started octreotide yesterday, to see if that would decrease ostomy output , it does seem to be decreasing. Also notes that when he has good by mouth intake, ostomy output is not as loose. Became quite stressed his afternoon, has history of PTSD, was feeling confined in hospital room. Had urticaria breakout on his lower extremities, which happens with stress at times. Tolerating fluids, no dyspnea, no evidence of volume overload. Good urine output. Creatinine improved to 2.7. - Constitutional Vitals: Vital Signs Temp Pulse Resp BP Pulse Ox 98.3 F 67 18 138/59 100 12/28/16 12:00 12/28/16 12:00 12/28/16 12:00 12/28/16 12:00 12/28/16 12:00 Period Temp Pulse Resp BP Sys/Lovell Pulse Ox Last 24 Hr 96.6 F-98.3 F 67-80 16-20 125-156/59-80 93-100 Intake and Output 12/28/16 12/28/16 12/28/16 05:59 13:59 21:59 Intake Total 2392 / 2392 2019 1000 / 1000 Output Total 1800 / 1800 1875 / 1875 Balance 592 / 592 145 / 145 1000 / 1000 Intake & Output: Intake & Output 12/28/16 12/28/16 12/28/16 05:59 13:59 21:59 Intake Total 2392 / 2392 2019 1000 / 1000 Output Total 1800 / 1800 1875 / 1875 Balance 592 / 592 145 / 145 1000 / 1000 Intake: IV 1941 1000 / 1000 1000 / 1000 Sodium Chloride 0.9% , 1941 1000 / 1000 1000 / 1000 000 ml @ 250 mls/hr IV . Q4H [facility] Rx#:[id number] Oral 450 / 450 1020 / 1020 Output: Void Amount 1500 / 1500 1725 / 1725 Stool 300 / 300 150 / 150 Other: Meal Breakfast Percent of Meal Consumed 75% # Voids 1 - Additional findings Additional findings: General: Laying in bed, a bit anxious Chest: Clear, no rales, nonlabored Cardiovascular: Regular, no murmur, no edema Abdomen: Soft, diminished bowel sounds of my exam. Wounds similar Skin: Patchy areas of urticarial reaction on bilateral eyes and proximal legs. Neuro: Alert, oriented, nonfocal Medical - PN: Obj Da - Labs CBC & Chem 7: 12/28/16 03:54 12/28/16 03:54 Labs: Abnormal Lab Results 12/28/16 12/28/16 12/27/16 03:54 03:54 08:45 RBC 3.24 L 3.03 L Hgb 9.2 L 8.7 L Hct 28.3 L 25.9 L RDW 16.5 H 16.2 H Plt Count 450 H 450 H Metamyelocytes % 1 H 1 H Myelocytes % 1 H 4 H Platelet Estimate Increased A RBC Morphology Abnorm A Abnorm A Anisocytosis 1+ A 1+ A Sodium 131 L Potassium 5.4 H Chloride Carbon Dioxide 19 L Anion Gap BUN 53 H Creatinine 2.7 H Uric Acid Calcium 8.3 L Phosphorus 6.1 H* GGT AST ALT 44 H Alkaline Phosphatase 131 H Albumin 2.9 L Globulin 4.5 H Albumin/Globulin Ratio 0.6 L Triglycerides 166 H Urine Protein Urine RBC Urine WBC Hyaline Casts 12/27/16 12/26/16 12/26/16 03:45 21:55 18:57 RBC Hgb Hct RDW Plt Count Metamyelocytes % Myelocytes % Platelet Estimate RBC Morphology Anisocytosis Sodium 127 L 127 L Potassium Chloride 87 L 84 L Carbon Dioxide 21 L 21 L Anion Gap 19.0 H 22.0 H BUN 64 H 62 H Creatinine 3.8 H 3.9 H Uric Acid 10.0 H Calcium Phosphorus 7.3 H* GGT 76 H AST 49 H ALT 65 H Alkaline Phosphatase 170 H Albumin Globulin 4.7 H Albumin/Globulin Ratio 0.7 L Triglycerides 176 H Urine Protein 30 A Urine RBC 3 H Urine WBC 13 H Hyaline Casts 4 H 12/26/16 12/26/16 16:43 16:43 RBC Hgb Hct RDW Plt Count Metamyelocytes % Myelocytes % Platelet Estimate RBC Morphology Anisocytosis Sodium 128 L Potassium Chloride 85 L Carbon Dioxide Anion Gap 21.0 H BUN 59 H Creatinine 3.6 H Uric Acid Calcium Phosphorus 6.6 H* GGT AST ALT Alkaline Phosphatase Albumin Globulin Albumin/Globulin Ratio Triglycerides Urine Protein Urine RBC Urine WBC Hyaline Casts Microbiology 12/26/16 18:57 Urine Culture - Final Urine - Clean Void Mid-Stream Yeast 12/26/16 11:41 Blood Culture - Preliminary Blood 12/26/16 11:50 Blood Culture - Preliminary Blood Meds: Medications Acetaminophen (Tylenol) 650 mg PO Q6HP PRN PRN Reason: PAIN/FEVER > 101 Albuterol Sulfate (Ventolin) 2.5 mg NEB Q2HP PRN PRN Reason: Dyspnea Aspirin (Aspirin) 81 mg PO DAILY [facility] Last Admin: 12/28/16 08:11 Dose: 81 mg Atorvastatin Calcium (Lipitor) 80 mg PO HS [facility] Last Admin: 12/27/16 20:38 Dose: 80 mg Enoxaparin Sodium (Lovenox) 40 mg SQ DAILY [facility] Last Admin: 12/28/16 08:11 Dose: 40 mg Famotidine (Pepcid) 20 mg IV HS [facility] Last Admin: 12/27/16 20:35 Dose: 20 mg Hydromorphone HCl (Dilaudid) 2 mg IV Q2HP PRN PRN Reason: Pain Last Admin: 12/28/16 13:25 Dose: 2 mg Hydromorphone HCl (Dilaudid) 2 mg PO Q4HP PRN PRN Reason: Pain Last Admin: 12/27/16 06:59 Dose: 2 mg Sodium Chloride (Sodium Chloride 0.9%) 1,000 mls @ 125 mls/hr IV .Q8H [facility] Last Admin: 12/28/16 14:12 Dose: 125 mls/hr Loperamide HCl (Imodium) 2 mg PO Q2-4H PRN PRN Reason: loose stool Metoprolol Tartrate (Lopressor) 50 mg PO BID [facility] Last Admin: 12/28/16 08:12 Dose: 50 mg Octreotide Acetate (Sandostatin) 100 mcg SQ BID [facility] Last Admin: 12/28/16 08:11 Dose: 100 mcg Ondansetron HCl (Zofran) 4 mg IV Q4HP PRN PRN Reason: Nausea And Vomiting Pantoprazole Sodium (Protonix) 40 mg PO QAMAC [facility] Last Admin: 12/28/16 07:56 Dose: 40 mg Medical - PN: A/P - Time Spent With Patient Total time spent is greater than 50% in coordination of care (as documented) at patient's floor/unit and/or counseling patient: - Narrative A/P Narrative: 51-year-old male with history of extensive peripheral vascular disease, including mesenteric stenoses that led to mesenteric ischemia, bouts of perforation and abdominal sepsis, 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 Acute renal failure. Creatinine improved today, fluids at 125 ml/hr. Good urine output. Probable pre-renal causes with high ostomy output, nausea and vomiting, thought those are improving. DDx also includes ATN or renovascular causes. ACEi may have worsened renal function as well. K 5.4 this am, but no volume overload. Hyperphosphatemia, improved, no need for HD or binders currently. -Continue with IVF at 125/hr -Recheck K+ this afternoon -No indication for dialysis -Avoid nephrotoxins, renally dose any needed medications as appropriate High olstomy output. Output firming up/decreased in past 24 hrs; octreotide seemed to help. Plan: Continue trial of octreotide 100 mcg SQ BID Peripheral vascular disease with celiac stenosis, renovascular stenoses. If the patient were to have further mesenteric ischemia due to compromise of the celiac axis, likely would not survive such an insult to the remainder of his gut. The goal would be to optimize renal function so that he might be able to have an intervention. -Continue with aspirin -Continue increased dose atorvastatin at 80 mg QHS Coronary artery disease, status post NSTEMI. Currently no chest symptoms, EKG without injury -Continue aspirin and statin Hypertension, possible renovascular component. BP controlled currently. -Continue metoprolol. Holding MARIA L inhibitor due to renal function. Hyponatremia, likely secondary to renal failure. Not critical. Improved. -Continue to monitor with fluid resuscitation Anion gap acidosis. Likely related to renal failure. Stable. -Continue to monitor labs with recovery of renal function Diet: Cardiac/renal DVT prophylaxis: Subcutaneous unfractionated heparin CODE STATUS is full code Medical - PN: Qual - Stroke Symptom Onset Unknown: No - VTE Deep Vein Thrombosis/Pulmonary Embolism Present on Admission: No
[2016-12-28 14:58] LABS: Blood Urea Nitrogen 48 mg/dl (6-20)
--- NOTE | 2016-12-28 15:51 | Nephrology Progress Note ---
Subjective Patient information: Note initiated : 12/28/16 at 3:47 pm Service Date, if different from initiated Date: [] Patient: Earle Magdaleno 51 y/o M admitted on 12/26/16 for Told to come in per lab results/Renal Failure. Chief Complaint: [] Principal diagnosis: FRAN /ARF Interval history: Earle reported feeling better. No c/o dyspnea, notes increased urine out put. Less output through ostomy. Objective - Vital Signs Vital signs: Vital Signs Temp Pulse Pulse Resp BP Pulse Ox 12/28/16 12:00 98.3 F 67 18 138/59 100 12/28/16 08:00 97.3 F 16 156/66 93 12/28/16 07:25 99 12/28/16 07:24 77 19 12/28/16 04:00 96.6 F L 80 18 128/80 100 12/28/16 00:00 96.8 F L 72 18 100 12/27/16 20:00 100 12/27/16 19:53 97.2 F 20 125/72 99 12/27/16 16:00 98.0 F 20 126/62 99 Intake and Output 12/28/16 12/28/16 12/28/16 05:59 13:59 21:59 Intake Total 2392 / 2392 2019 1000 / 1000 Output Total 1800 / 1800 1874 / 1874 Balance 592 / 592 145 / 145 1000 / 1000 Intake: IV 1941 1000 / 1000 1000 / 1000 Sodium Chloride 0.9% 1941 1000 / 1000 1000 / 1000 000 ml @ 250 mls/hr IV . Q4H [facility] Rx#:[id number] Oral 450 / 450 1020 / 1020 Output: Void Amount 1500 / 1500 1725 / 1725 Stool 300 / 300 150 / 150 Other: Meal Breakfast Percent of Meal Consumed 75% # Voids 1 Intake & Output: Intake & Output 12/28/16 12/28/16 12/28/16 05:59 13:59 21:59 Intake Total 2392 / 2392 2019 1000 / 1000 Output Total 1800 / 1800 187 / 1875 Balance 592 / 592 145 / 145 1000 / 1000 Intake: IV 1941 1000 / 1000 1000 / 1000 Sodium Chloride 0.9% 1941 1000 / 1000 1000 / 1000 000 ml @ 250 mls/hr IV . Q4H [facility] Rx#:[id number] Oral 450 / 450 1020 / 1020 Output: Void Amount 1500 / 1500 1725 / 1725 Stool 300 / 300 150 / 150 Other: Meal Breakfast Percent of Meal Consumed 75% # Voids 1 - Lab 12/28/16 03:54 12/28/16 14:02 Most recent lab results Calcium 8.7 mg/dl (8.6-10.4) 12/28/16 14:02 Phosphorus 6.1 mg/dL (2.7-4.5) H* 12/28/16 03:54 Magnesium 1.9 mg/dL (1.6-2.5) 12/28/16 03:54 Assessment and Plan (1) ARF (acute renal failure) FRAN / ARF - likely pre renal, renal function is improving, high urine out put likely driven by high iv NS infusion rate, decrease to 125 ml/hr, encouraged po fluid / water intake, mild hyperkalemia expect to improve as renal function improves, hyponatremia is mild as well, hyperphosphatemia should resolve with improvement in renal function, follow I/O, BMP. Maintain renal diet Status: Acute Qualifiers: Acute renal failure type: unspecified Qualified Code(s): N17.9 - Acute kidney failure, unspecified
[2016-12-28] MEDS: FAMOTIDINE/PF 20 MG/2 ML VIAL IV SCH (21:18)
[2016-12-28] MEDS: ATORVASTATIN 20 MG TABLET PO SCH (21:18)
[2016-12-29] MEDS: HYDROmorphone 2 MG/ML SYRINGE IV PRN ×4 (04:25→20:28)
[2016-12-29 05:16] LABS: Mean Cell Volume 86.6 fL (80.0-100.0); Mean Corpuscular HGB Conc 33.7 g/dL (31.0-36.0); Mean Corpuscular Hemoglobin 29.2 pg (26.0-34.0); Platelet Count 397 K/mcL (140-440); RBC 2.98 M/mcL (4.50-5.90); Red Cell Distribution Width 16.2 % (11.5-14.5)
[2016-12-29 05:37] LABS: ALT/SGPT 33 U/l (0-40); Albumin 2.9 gm/dL (3.2-5.2); Albumin/Globulin Ratio 0.7 (1.0-2.3); Alkaline Phosphatase 117 U/L (39-117); Bilirubin,Direct < 0.2 mg/dL (0.0-0.3); Blood Urea Nitrogen 41 mg/dl (6-20); Gamma Glutamyl Transpeptidase 52 U/L (8-61); Magnesium 1.6 mg/dL (1.6-2.5)
[2016-12-29 06:19] LABS: Anisocytosis 1+ (NONE SEEN); Band Neutrophils % 6 % (0-10); Eosinophils % (Manual) 2 % (0-7); Lymphocytes % 19 % (15-49); Metamyelocytes % 4 % (0-0); Monocytes % (Manual) 4 % (1-12); Myelocytes % 2 % (0-0); Platelet Estimate NORMAL (NORMAL); RBC Morphology ABNORM (NORMAL); Rouleaux PRESENT (NONE SEEN); Segmented Neutrophils % 63 % (38-78)
[2016-12-29] MEDS: 0.9 % SODIUM CHLORIDE 1,000 ML IV SCH ×4 (07:05→23:28)
[2016-12-29] MEDS: PANTOPRAZOLE 40 MG TABLET PO SCH (07:06)
[2016-12-29] MEDS ORDERED: LOPERAMIDE 2 MG CAPSULE PO PRN (08:13)
[2016-12-29] MEDS ORDERED: HYDROmorphone 2 MG TABLET PO PRN (08:13)
[2016-12-29] MEDS ORDERED: ACETAMINOPHEN 325 MG TABLET PO PRN (08:13)
[2016-12-29] MEDS ORDERED: ONDANSETRON 4 MG/2 ML VIAL IV PRN (08:13)
[2016-12-29] MEDS: METOPROLOL TARTRATE 50 MG TABLET PO SCH ×2 (09:14→20:14)
[2016-12-29] MEDS: ENOXAPARIN 40 MG/0.4 ML SYRINGE SQ SCH (09:14)
[2016-12-29] MEDS: ASPIRIN 81 MG TAB.CHEW PO SCH (09:14)
[2016-12-29] MEDS: amLODIPine 5 MG TABLET PO SCH (09:15)
[2016-12-29] MEDS: OCTREOTIDE ACETATE 100 MCG/ML VIAL SQ SCH ×2 (09:15→20:27)
--- NOTE | 2016-12-29 09:35 | Internal Med Progress Note ---
Medical - PN: Subj Patient information: Note initiated : 12/29/16 at 9:33 am Service Date, if different from initiated Date: [] Patient: Earle Magdaleno 51 y/o M admitted on 12/26/16 for Told to come in per lab results/Renal Failure. Chief Complaint: [f/u ARF] Interval history: 12/27: Feeling better today. No nausea. Appetite is better. Notes ostomy output seems to be firming up some. No fevers chills. No dyspnea, no orthopnea , no edema. Tolerating IV fluids. Case discussed with nephrology. 12/28: Started octreotide yesterday, to see if that would decrease ostomy output , it does seem to be decreasing. Also notes that when he has good by mouth intake, ostomy output is not as loose. Became quite stressed his afternoon, has history of PTSD, was feeling confined in hospital room. Had urticaria breakout on his lower extremities, which happens with stress at times. Tolerating fluids, no dyspnea, no evidence of volume overload. Good urine output. Creatinine improved to 2.7. 12/29: Bit of a bad mood this morning, wanting regular milk (had to explain he could not have milk due to potassium and phosphorous issues). Wanting IV Dilaudid not PO Dilaudid for abdominal pain. States does not take the by mouth he has at home, just lives with abdominal discomfort, and that oral Dilaudid causes a rash. Has been tolerating the IV however.. Discussed with him the life-threatening nature of his renal failure as well as his vascular disease, the need to follow renal diet, maintain hydration. Explained that he is continuing to improve. He is wondering when he will be able to get out of the hospital. Explained that it would be a day by day decision based on his renal function. Does have PTSD related to his illnesses. Ostomy output has decreased in the last day and a half. - Constitutional Vitals: Vital Signs Temp Pulse Resp BP Pulse Ox 98.4 F 80 16 178/68 94 12/29/16 06:52 12/29/16 07:15 12/29/16 07:15 12/29/16 06:52 12/29/16 07:16 Period Temp Pulse Resp BP Sys/Lovell Pulse Ox Last 24 Hr 97.0 F-98.4 F 67-84 16-20 130-178/55-73 94-100 Intake and Output 12/28/16 12/29/16 12/29/16 21:59 05:59 13:59 Intake Total 1839 / 1839 Output Total 1175 / 1175 1800 / 1800 100 / 100 Balance 665 / 665 210 / 210 1860 / 1860 Weight 245 lb Intake & Output: Intake & Output 12/28/16 12/29/16 12/29/16 21:59 05:59 13:59 Intake Total 0 / 1839 Output Total 1175 / 1175 1800 / 1800 100 / 100 Balance 665 / 665 210 / 210 1860 / 1860 Weight 245 lb Intake: IV 1000 / 1000 1000 / 1000 1000 / 1000 Sodium Chloride 0.9% 1, 1000 / 1000 1000 / 1000 1000 / 1000 000 ml @ 125 mls/hr IV . Q8H [facility] Rx#:[id number] Oral 840 / 840 1010 / 1010 960 / 960 Output: Void Amount 800 / 800 1500 / 1500 100 / 100 Stool 375 / 375 300 / 300 Other: Meal Dinner Percent of Meal Consumed 100% Feeding Ability Independent - Additional findings Additional findings: General: Sitting in bed, frustrated Chest: Clear, no rales Cardio vascular: Regular, no edema Abdomen: Active bowel sounds, ostomy with firmer output. Skin: Urticarial reaction lower extremities about the same as yesterday Neuro: Alert, oriented, nonfocal Medical - PN: Obj Da - Labs CBC & Chem 7: 12/29/16 03:45 12/29/16 03:45 Labs: Abnormal Lab Results 12/29/16 12/29/16 12/28/16 03:45 03:45 14:02 RBC 2.98 L Hgb 8.7 L Hct 25.8 L RDW 16.2 H Plt Count Metamyelocytes % 4 H Myelocytes % 2 H Platelet Estimate RBC Morphology Abnorm A Anisocytosis 1+ A Rouleaux Present A Sodium 131 L Potassium 5.2 H 5.2 H Chloride Carbon Dioxide 18 L 17 L Anion Gap BUN 41 H 48 H Creatinine 2.2 H 2.4 H Glucose 111 H Uric Acid Calcium Phosphorus 5.0 H GGT AST ALT Alkaline Phosphatase Albumin 2.9 L Globulin 3.9 H Albumin/Globulin Ratio 0.7 L Triglycerides 158 H Urine Protein Urine RBC Urine WBC Hyaline Casts 12/28/16 12/28/16 12/27/16 03:54 03:54 08:45 RBC 3.24 L 3.03 L Hgb 9.2 L 8.7 L Hct 28.3 L 25.9 L RDW 16.5 H 16.2 H Plt Count 450 H 450 H Metamyelocytes % 1 H 1 H Myelocytes % 1 H 4 H Platelet Estimate Increased A RBC Morphology Abnorm A Abnorm A Anisocytosis 1+ A 1+ A Rouleaux Sodium 131 L Potassium 5.4 H Chloride Carbon Dioxide 19 L Anion Gap BUN 53 H Creatinine 2.7 H Glucose Uric Acid Calcium 8.3 L Phosphorus 6.1 H* GGT AST ALT 44 H Alkaline Phosphatase 131 H Albumin 2.9 L Globulin 4.5 H Albumin/Globulin Ratio 0.6 L Triglycerides 166 H Urine Protein Urine RBC Urine WBC Hyaline Casts 12/27/16 12/26/16 12/26/16 03:45 21:55 18:57 RBC Hgb Hct RDW Plt Count Metamyelocytes % Myelocytes % Platelet Estimate RBC Morphology Anisocytosis Rouleaux Sodium 127 L 127 L Potassium Chloride 87 L 84 L Carbon Dioxide 21 L 21 L Anion Gap 19.0 H 22.0 H BUN 64 H 62 H Creatinine 3.8 H 3.9 H Glucose Uric Acid 10.0 H Calcium Phosphorus 7.3 H* GGT 76 H AST 49 H ALT 65 H Alkaline Phosphatase 170 H Albumin Globulin 4.7 H Albumin/Globulin Ratio 0.7 L Triglycerides 176 H Urine Protein 30 A Urine RBC 3 H Urine WBC 13 H Hyaline Casts 4 H 12/26/16 12/26/16 16:43 16:43 RBC Hgb Hct RDW Plt Count Metamyelocytes % Myelocytes % Platelet Estimate RBC Morphology Anisocytosis Rouleaux Sodium 128 L Potassium Chloride 85 L Carbon Dioxide Anion Gap 21.0 H BUN 59 H Creatinine 3.6 H Glucose Uric Acid Calcium Phosphorus 6.6 H* GGT AST ALT Alkaline Phosphatase Albumin Globulin Albumin/Globulin Ratio Triglycerides Urine Protein Urine RBC Urine WBC Hyaline Casts Meds: Medications Acetaminophen (Tylenol) 650 mg PO Q6HP PRN PRN Reason: PAIN/FEVER > 101 Amlodipine Besylate (Norvasc) 2.5 mg PO DAILY [facility] Last Admin: 12/29/16 09:15 Dose: 2.5 mg Aspirin (Aspirin) 81 mg PO DAILY [facility] Last Admin: 12/29/16 09:14 Dose: 81 mg Atorvastatin Calcium (Lipitor) 80 mg PO HS [facility] Enoxaparin Sodium (Lovenox) 40 mg SQ DAILY [facility] Last Admin: 12/29/16 09:14 Dose: 40 mg Famotidine (Pepcid) 20 mg IV HS [facility] Hydromorphone HCl (Dilaudid) 2 mg IV Q2HP PRN PRN Reason: Pain Hydromorphone HCl (Dilaudid) 2 mg PO Q4HP PRN PRN Reason: Pain Sodium Chloride (Sodium Chloride 0.9%) 1,000 mls @ 125 mls/hr IV .Q8H [facility] Last Admin: 12/29/16 08:24 Dose: 125 mls/hr Loperamide HCl (Imodium) 2 mg PO Q2-4H PRN PRN Reason: loose stool Metoprolol Tartrate (Lopressor) 50 mg PO BID [facility] Last Admin: 12/29/16 09:14 Dose: 50 mg Octreotide Acetate (Sandostatin) 100 mcg SQ BID [facility] Last Admin: 12/29/16 09:15 Dose: 100 mcg Ondansetron HCl (Zofran) 4 mg IV Q4HP PRN PRN Reason: Nausea And Vomiting Pantoprazole Sodium (Protonix) 40 mg PO QAMAC [facility] Medical - PN: A/P - Narrative A/P Narrative: 51-year-old male with history of extensive peripheral vascular disease, including mesenteric stenoses that led to mesenteric ischemia, bouts of perforation and abdominal sepsis, 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 Acute renal failure. Creatinine continues to improve, continues on fluids at 125 ml/hr. Good urine output. Probable pre-renal causes with high ostomy output, nausea and vomiting, thought those are improving/resolved. DDx also includes ATN or renovascular causes. ACEi may have worsened renal function as well. K 5.2, but no volume overload. Hyperphosphatemia, improved, no need for HD or binders currently. -Continue with IVF at 125/hr, consider stopping fluids and monitoring renal function on oral intake in the next day. -No indication for dialysis -Avoid nephrotoxins, renally dose any needed medications as appropriate High olstomy output. Output firming up/decreased in past 24 hrs; octreotide seemed to help. Plan: Continue trial of octreotide 100 mcg SQ BID Peripheral vascular disease with celiac stenosis, renovascular stenoses. If the patient were to have further mesenteric ischemia due to compromise of the celiac axis, likely would not survive such an insult to the remainder of his gut. The goal would be to optimize renal function so that he might be able to have an intervention. Patient was contacted by interventional radiology at [facility], they are aware he is in the hospital, but were calling to try to arrange intervention. Given his renal function this may not be the optimal time. -Continue with aspirin -Continue increased dose atorvastatin at 80 mg QHS -As renal function improves, we'll need to coordinate with Dr. Dang and Dr. Lara as to timing of any intervention on the celiac artery. Coronary artery disease, status post NSTEMI. Currently no chest symptoms, EKG without injury -Continue aspirin and statin Hypertension, possible renovascular component. BP controlled currently. -Continue metoprolol. Holding MARIA L inhibitor due to renal function. Hyponatremia, likely secondary to renal failure. Not critical. Improved. -Continue to monitor with fluid resuscitation Anion gap acidosis. Likely related to renal failure. Stable. -Continue to monitor labs with recovery of renal function Urticaria, bilateral lower extremities. Patient states he gets this reaction at times of stress. Started yesterday afternoon, appears bit improved today. -Monitor History of hepatitis C with cryoglobulinemia Diet: Cardiac/renal DVT prophylaxis: Subcutaneous unfractionated heparin CODE STATUS is full code Medical - PN: Qual - Stroke Symptom Onset Unknown: No - VTE Deep Vein Thrombosis/Pulmonary Embolism Present on Admission: No
--- NOTE | 2016-12-29 12:51 | Nephrology Progress Note ---
Subjective Patient information: Note initiated : 12/29/16 at 12:49 pm Service Date, if different from initiated Date: [] Patient: Earle Magdaleno a 51 y/o M admitted on 12/26/16 for Told to come in per lab results/Renal Failure. Chief Complaint: [] Principal diagnosis: FRAN /ARF Interval history: Earle reported feeling well. He wanted to know if he can have coffee with milk. No c/o dyspnea, reports increased urine output, semi-solid discharge via ostomy. Objective - Vital Signs Vital signs: Vital Signs Temp Pulse Pulse Pulse Resp BP Pulse Ox 12/29/16 11:48 98.3 F 73 18 141/66 100 12/29/16 07:16 94 12/29/16 07:15 80 16 12/29/16 06:52 98.4 F 84 16 178/68 98 12/29/16 04:00 97.6 F 18 163/71 100 12/28/16 23:00 97.5 F 18 136/70 99 12/28/16 20:00 97.0 F 82 18 148/73 100 12/28/16 15:59 97.6 F 76 20 130/55 99 Intake and Output 12/28/16 12/29/16 12/29/16 21:59 05:59 13:59 Intake Total 1839 2500 / 2500 Output Total 1175 / 1175 1800 / 1800 350 / 350 Balance 665 / 665 210 / 210 2150 / 2150 Intake: IV 1000 / 1000 1000 / 1000 1000 / 1000 Sodium Chloride 0.9% 1, 1000 / 1000 1000 / 1000 1000 / 1000 000 ml @ 125 mls/hr IV . Q8H [facility] Rx#:[id number] Oral 840 / 840 1010 / 1010 1500 / 1500 Output: Void Amount 800 / 800 1500 / 1500 350 / 350 Stool 375 / 375 300 / 300 Other: Meal Dinner Nourishment/Supplement Percent of Meal Consumed 100% 100% Feeding Ability Independent Independent Weight 245 lb Intake & Output: Intake & Output 12/28/16 12/29/16 12/29/16 21:59 05:59 13:59 Intake Total 1839 2500 / 2500 Output Total 1175 / 1175 1800 / 1800 350 / 350 Balance 665 / 665 210 / 210 2150 / 2150 Weight 245 lb Intake: IV 1000 / 1000 1000 / 1000 1000 / 1000 Sodium Chloride 0.9% 1, 1000 / 1000 1000 / 1000 1000 / 1000 000 ml @ 125 mls/hr IV . Q8H [facility] Rx#:[id number] Oral 840 / 840 1010 / 1010 1500 / 1500 Output: Void Amount 800 / 800 1500 / 1500 350 / 350 Stool 375 / 375 300 / 300 Other: Meal Dinner Nourishment/Supplement Percent of Meal Consumed 100% 100% Feeding Ability Independent Independent - Lab 12/29/16 03:45 12/29/16 03:45 Most recent lab results Calcium 8.6 mg/dl (8.6-10.4) 12/29/16 03:45 Phosphorus 5.0 mg/dL (2.7-4.5) H 12/29/16 03:45 Magnesium 1.6 mg/dL (1.6-2.5) 12/29/16 03:45 Assessment and Plan (1) ARF (acute renal failure) FRAN / ARF - likely pre renal, renal function is improving, high urine out put likely driven by high iv NS infusion rate, decreased to 125 ml/hr, encouraged po fluid / water intake, mild hyperkalemia expect to improve as renal function improves, hyponatremia resolved. SCr improved to 2.2 today Start low dose Amlodipine 2.5 mg po daily for uncontrolled hypertension, continue Metoprolol. Follow BMP. Maintain renal diet Baseline SCr 0.9 on 12-10-16 Status: Acute Qualifiers: Acute renal failure type: unspecified Qualified Code(s): N17.9 - Acute kidney failure, unspecified
[2016-12-29] MEDS ORDERED: ATORVASTATIN 20 MG TABLET PO SCH (21:00)
[2016-12-29] MEDS ORDERED: FAMOTIDINE/PF 20 MG/2 ML VIAL IV SCH (21:00)
[2016-12-30] MEDS: HYDROmorphone 2 MG/ML SYRINGE IV PRN ×4 (01:05→12:46)
[2016-12-30 05:43] LABS: Mean Cell Volume 87.3 fL (80.0-100.0); Mean Corpuscular HGB Conc 32.8 g/dL (31.0-36.0); Mean Corpuscular Hemoglobin 28.6 pg (26.0-34.0); Platelet Count 390 K/mcL (140-440); RBC 2.91 M/mcL (4.50-5.90); Red Cell Distribution Width 15.9 % (11.5-14.5)
[2016-12-30 06:04] LABS: ALT/SGPT 31 U/l (0-40); Albumin/Globulin Ratio 0.8 (1.0-2.3); Alkaline Phosphatase 126 U/L (39-117); Bilirubin,Direct < 0.2 mg/dL (0.0-0.3); Blood Urea Nitrogen 29 mg/dl (6-20); Gamma Glutamyl Transpeptidase 50 U/L (8-61); Magnesium 1.4 mg/dL (1.6-2.5); Uric Acid 7.3 mg/dL (2.5-8.0)
[2016-12-30] MEDS ORDERED: PANTOPRAZOLE 40 MG TABLET PO SCH (07:30)
[2016-12-30] MEDS: ENOXAPARIN 40 MG/0.4 ML SYRINGE SQ SCH (09:41)
[2016-12-30] MEDS: METOPROLOL TARTRATE 50 MG TABLET PO SCH (09:41)
[2016-12-30] MEDS: ASPIRIN 81 MG TAB.CHEW PO SCH (09:41)
[2016-12-30] MEDS: amLODIPine 5 MG TABLET PO SCH (09:42)
[2016-12-30] MEDS: OCTREOTIDE ACETATE 100 MCG/ML VIAL SQ SCH (10:00)
--- NOTE | 2016-12-30 10:16 | Discharge Summary ---
Medical - DS: Prov Patient information: Note initiated : 12/30/16 at 10:12 am Patient: Earle Magdaleno 51 y/o M admitted on 12/26/16 for Told to come in per lab results/Renal Failure. Date of admission: 12/26/16 15:36 Discharge date: 12/30/16 Primary care physician: Kerry Williamson Admitting clinician: Patsy Georges Consults: Dr. Hunt, nephrology. Dr. Hummel, interventional radiology Dr. Dang, general surgery Attending physician on discharge: Haven Vitale Medical - DS: Meds - Discharge Medications Prescriptions: Octreotide Acetate [Sandostatin] 100 mcg SQ BID #60 vial Active and Home Medications: Discharge medications: Tylenol 650 mg every 6 hours as needed Amlodipine 2.5 mg daily Aspirin 81 mg daily Lipitor 80 mg nightly Dilaudid 2 mg every 4 hours p.o. as needed uncontrolled back or abdominal pain Imodium 2 mg every 2-4 hours as needed diarrhea Metoprolol 50 mg p.o. twice daily Octreotide 100 mcg subcu twice daily Omeprazole 20 mg daily Zofran as needed Previous home Medications: ostomy supplies powder See Dose Instructions .ROUTE .MEDSUPPLY #28.3 g 10/25/16 [Rx Confirmed 12/22/16 Last Taken Unknown] Lisinopril [Zestril] 10 mg PO DAILY 11/04/16 [History Confirmed 12/22/16 Last Taken Unknown] Aspirin 81 mg PO DAILY 12/10/16 [Rx Confirmed 12/26/16 Last Taken 12/25/16] amoxicillin 875 mg-potassium clavulanate 125 mg tablet 1 tab PO BID #20 tab 02/28 [Rx Confirmed 12/26/16 Last Taken 12/25/16] loperamide 2 mg capsule 2 mg PO Q2-4H PRN #100 cap 12/22/16 [Rx Confirmed Last Taken 12/25/16] Atorvastatin [Lipitor] 40 mg PO HS 12/26/16 [History Confirmed 12/26/16 Last Taken 12/25/16] Furosemide [Lasix] 20 mg PO DAILY 12/26/16 [History Confirmed 12/26/16 Last Taken 12/25/16] HYDROmorphone HCL [Dilaudid] 2 mg PO PRN PRN 12/26/16 [History Confirmed Last Taken 12/25/16] Metoprolol Tartrate 50 mg PO BID 12/26/16 [History Confirmed 12/26/16 Last Taken 12/25/16] Omeprazole [Omeprazole] 20 mg PO DAILY 12/26/16 [History Confirmed 12/26/16 Last Taken 12/25/16] Potassium Chloride [Klor-Con Sprinkle] 10 meq PO DAILY 12/26/16 [History Confirmed 12/26/16 Last Taken 12/25/16] Medical - DS: Hosp Hospital course: Mr. Magdaleno is a 51 year old M December 26, 2016: History of present illness: Mr. Magdaleno is a 51 year old M with an extensive past medical history including acute renal failure, severe mesenteric ischemia, now status post colectomy and distal ileectomy, hepatitis C with history of cryoglobulinemia, hypertension, coronary disease who presents to the emergency department with complaints of abdominal pain and laboratory abnormalities. Patient's abdominal history dates back to September 2016 when he presented with peritonitis and sepsis. Renal functin was normal, with creatnine 0.9-1.2. He was found to have diffuse bowel ischemia as well as calcific mesenteric arteries on exploratory laparotomy. He also had ischemic perforation in the sigmoid which was resected. Patient was stabilized, subsequently transferred to [facility] in [place]. He had a loop ileostomy placed at that time. Imaging revealed significant calcific stenosis of the celiac, SMA and AMAN trunks. Notation of renal artery stenosis was also made. The patient suffered from high ostomy output, presented here in October with acute kidney injury, and significant electrolyte abnormalities, presented with a serum sodium of 111, BP 153 and creatinine 3.2. He was also hypotensive at that time. He received initial resuscitation in the emergency department, was transferred to [facility]. I do not believe he received any surgical intervention, and was treated medically. On December 06 he re-presented to this facility with abdominal pain. Electrolyte abnormalities included sodium of 122, potassium of 2.9, the UN 26 and creatinine 1.9. Creatinine peaked at 2.2 the following day. He is found to have peritonitis with intra-abdominal sepsis from 3 different perforations of the colon, underwent total colectomy with distal ileal resection proximal to the loop ileostomy. He subsequently developed chest pain during that hospitalization, was ruled in for non-ST elevation FL and transferred to [facility]. Apparently he had no intervention, either to his coronaries or to his mesenteric arteries. Subsequent to that he has been followed by Dr. Dang for his postoperative course here locally. His wounds up and healing. He has significant ostomy output constantly, does struggle to maintain fluid balance. On December 10, he did have labs checked, his creatinine was 0.9 at that time. He had labs done last Monday, I do not have those results immediately available however. Over the weekend he became quite nauseated, was unable to keep down any food or any of his medications. He had persistent emesis, without hematemesis. He continued to have significant ostomy output, the volume not changing. He noticed decreased urine output. Last night he also felt like something "ripped" in his abdomen. Because of this , as well as a call with abnormal lab results he presents emergency department. In the ED is found to have recurrent acute renal failure with BUNs and 59 and creatinine 3.5. Mild acidosis with a bicarbonate 19, negative lactate. December 30, 2016: Hospital course: The patient's renal function has continued to gradually improve. We believe that he had acute renal failure due to dehydration caused by high colostomy output. This has continued to improve with IV hydration and slowing down of the ostomy output. He was started on subcu twice daily octreotide, and this has been effective. -The patient continues to have ongoing vascular disease, with severe mesenteric ischemia. Dr. Dang has been in touch with Dr. Hummel of interventional radiology, and Dr. Hummel was willing to proceed with mesenteric artery stents, once the creatinine was less than 2.0. However, Dr. Hunt, of nephrology, would like to see the patient's renal function back to normal, prior to proceeding with a procedure which involves IV dye. The patient is really not willing to stay in the hospital, as he is feeling very anxious and claustrophobic here. He even snuck outside yesterday to smoke a cigarette. He continues to have some chronic low back pain and occasional abdominal discomfort. Otherwise, he denies fever chills, chest pain or shortness of breath, abdominal pain, nausea or vomiting, diarrhea or constipation. On physical exam, he is in no acute distress. Cardiac exam shows regular rate and rhythm. Lungs are clear to auscultation. Abdomen is soft and nontender. Left lower quadrant colostomy is draining semisolid stool. Extremities: Show minimal edema. He does have a moderately pink splotchy rash covering both legs below the knees, which she blames on the oral Dilaudid. Neurologic exam is grossly nonfocal. A/P Narrative: 51-year-old male with history of extensive peripheral vascular disease, including mesenteric stenoses that led to mesenteric ischemia, bouts of perforation and abdominal sepsis, 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 1. Acute renal failure. Creatinine continues to improve. Patient is refusing to stay in the hospital any longer, but he and his friend that is in the room, agreed that he will push fluids very strongly over the next 2 days. He will report to his primary care doctor's office on Monday to have labs rechecked. , #2. GI. High ostomy output. Output firming up/decreased in past 24 hrs; octreotide seemed to help. Plan: Continue trial of octreotide 100 mcg SQ BID #3. Peripheral vascular disease with celiac stenosis, renovascular stenoses. If the patient were to have further mesenteric ischemia due to compromise of the celiac axis, likely would not survive such an insult to the remainder of his gut. The goal would be to optimize renal function so that he might be able to have an intervention. -Once his creatinine is back to normal, he should be referred back to Dr. Hummel immediately to pursue vascular intervention. I did review his case and the plan with Dr. Hummel today, as well as Dr. Hunt of nephrology. -Continue with aspirin -Continue increased dose atorvastatin at 80 mg QHS #4. Coronary artery disease, status post NSTEMI. Currently no chest symptoms, EKG without injury -Continue aspirin and statin #5. Hypertension, possible renovascular component. BP controlled currently. -Continue metoprolol. Holding MARIA L inhibitor due to renal function. 6. Hyponatremia, likely secondary to renal failure. Not critical. Improved. #7. Urticaria, bilateral lower extremities. Patient states he gets this reaction at times of stress. Started yesterday afternoon, appears bit improved today. Also appears linked to oral Dilaudid. Patient limits his intake of Dilaudid because of this. I discussed with him that he could add an oral antihistamine to help blunt this reaction. -Monitor #8. History of hepatitis C with cryoglobulinemia #9. Diet: Cardiac/renal #10. DVT prophylaxis: Subcutaneous unfractionated heparin 11. CODE STATUS is full code Discharge diagnosis: Acute renal failure due to hypovolemia secondary to high ostomy output. Secondary discharge diagnosis: Diffuse vascular disease, with mesenteric ischemia. Ongoing tobacco abuse. History of coronary artery disease. History of PTSD and traumatic brain injury. - Time Spent with Patient Total time spent providing and/or coordinating discharge services: Greater than 30 minutes Medical - DS: Exam - Constitutional Vitals: Vital Signs Temp Pulse Pulse Pulse Pulse Resp BP 12/30/16 08:00 97.9 F 18 152/90 12/30/16 07:14 84 12/30/16 04:00 97.3 F 76 16 158/84 12/30/16 00:00 97.9 F 73 16 144/80 12/29/16 20:00 98.2 F 70 18 142/82 12/29/16 15:43 98.0 F 74 18 12/29/16 11:48 98.3 F 73 18 BP Pulse Ox 12/30/16 08:00 98 12/30/16 07:14 12/30/16 04:00 96 12/30/16 00:00 12/29/16 20:00 94 12/29/16 15:43 151/61 100 12/29/16 11:48 141/66 100 Intake and Output 12/29/16 12/30/16 12/30/16 21:59 05:59 13:59 Intake Total 3097 / 3097 2267 / 2267 480 / 480 Output Total 1250 / 1250 1500 / 1500 Balance 1847 / 1847 767 / 767 480 / 480 Intake: IV 1917 / 1917 967 / 967 Sodium Chloride 0.9% 1, 917 / 917 967 / 967 000 ml @ 125 mls/hr IV . Q8H [facility] Rx#:[id number] Oral 1180 / 1180 1300 / 1300 480 / 480 Output: Void Amount 1050 / 1050 950 / 950 Stool 200 / 200 550 / 550 Other: Meal Dinner Percent of Meal Consumed 100% Feeding Ability Independent Weight 242 lb 8 oz Medical - DS: Data Labs on day of discharge: Labs from last 24 hours 12/30/16 12/30/16 04:12 04:12 WBC 6.1 RBC 2.91 L Hgb 8.3 L Hct 25.4 L MCV 87.3 MCH 28.6 MCHC 32.8 RDW 15.9 H Plt Count 390 MPV 8.0 Sodium 137 Potassium 5.0 Chloride 108 Carbon Dioxide 18 L Anion Gap 11.0 BUN 29 H Creatinine 1.8 H GFR Calculation 43 Glucose 99 Uric Acid 7.3 Calcium 8.7 Phosphorus 3.9 Magnesium 1.4 L Total Bilirubin 0.3 Direct Bilirubin < 0.2 GGT 50 AST 26 ALT 31 Alkaline Phosphatase 126 H Lactate Dehydrogenase 213 Total Protein 7.0 Albumin 3.0 L Globulin 4.0 H Albumin/Globulin Ratio 0.8 L Triglycerides 120 December 26: Urine culture grew less than 10,000 yeast. Blood cultures are negative so far. Next EKG: Shows sinus tachycardia at a rate of 104, with no obvious ischemic changes , and no significant change from December 11, 2016: CT: Moderate sized loculated fluid collections in the lateral colic gutters in the mid abdomen bilaterally, possibly postoperative seromas or hematomas. Normal postop changes following partial colectomy with ileostomy. Medical - DS: A/P - Patient/Caregiver Discharge Instructions Activity: increase activity as tolerated Diet: Low Sodium (2gm), Renal Additional Instructions: 1. Kidney function. Please drink lots of fluids, at least 8 glasses a day, to help your kidney function improved. -Please have your blood drawn on Monday, January 02, to reevaluate the kidney function. If creatinine is back to normal, you can be referred over to Dr. Hummel' s office, to have your stent placed. Dr. Williamson may be out of the office on Monday, but someone else at the office can review the labs. If for some reason she is not available, someone can call me at the hospital with the test results, and then we can call Dr. Hummel to let him know to schedule the procedure. #2. He will be started on a new medication, octreotide injections, to help slow down the diarrhea. This was the underlying cause of your severe dehydration and kidney dysfunction. #3. It is very important that you do not smoke cigarettes. This can stricture blood vessels, and causes your organs to not get enough blood and oxygen, which increases your risk for more bowel ischemia, and also for heart attack and stroke. #4. If you need to take the Dilaudid for pain, I would recommend also taking it with Claritin or Zyrtec, to cut down on the rash that it gives you. Your diet is low sodium (2 gram) renal diet. Increase your activity as tolerated. Return to the Emergency Room if you start a fever greater than 100.5, increase in diarrhea or other symptoms. Prescriptions: Octreotide Acetate [Sandostatin] 100 mcg SQ BID #60 vial - Follow up Plan Follow up with: Kerry Williamson MD [Primary Care Provider] - 01/10/17 12:45 pm (Continue with your previously scheduled follow up appt.) Disposition: Home, Self-Care Prognosis: Fair Rehab Potential: Fair I certify that the patient requires SNF services: No Overall status at discharge: patient is progressing back to baseline Medical - DS: Qual - VTE Deep Vein Thrombosis/Pulmonary Embolism Present on Admission: No
[2016-12-30] MEDS ORDERED: MAGNESIUM SULFATE 8.12 MEQ/2 ML VIAL IV ONE (11:18)
--- NOTE | 2016-12-30 11:37 | Nephrology Progress Note ---
Subjective Patient information: Note initiated : 12/30/16 at 11:33 am Service Date, if different from initiated Date: [] Patient: Earle Magdaleno a 51 y/o M admitted on 12/26/16 for Told to come in per lab results/Renal Failure. Chief Complaint: [] Principal diagnosis: FRAN /ARF Interval history: Earle reported feeling well. No c/o dyspnea, notes good urine output. Says he wants to go home. SCr 1.8 today. BP is better on Amlodipine 2.[address] Hummel at [facility] is planning for celiac angiogram. Objective - Vital Signs Vital signs: Vital Signs Temp Pulse Pulse Pulse Pulse Resp BP 12/30/16 08:00 97.9 F 18 152/90 12/30/16 07:14 84 12/30/16 04:00 97.3 F 76 16 158/84 12/30/16 00:00 97.9 F 73 16 144/80 12/29/16 20:00 98.2 F 70 18 142/82 12/29/16 15:43 98.0 F 74 18 12/29/16 11:48 98.3 F 73 18 BP Pulse Ox 12/30/16 08:00 98 12/30/16 07:14 12/30/16 04:00 96 12/30/16 00:00 12/29/16 20:00 94 12/29/16 15:43 151/61 100 12/29/16 11:48 141/66 100 Intake and Output 12/29/16 12/30/16 12/30/16 21:59 05:59 13:59 Intake Total 3097 / 3097 2267 / 2267 960 / 960 Output Total 1250 / 1250 1500 / 1500 825 / 825 Balance 1847 / 1847 767 / 767 135 / 135 Intake: IV 1917 / 1917 967 / 967 Sodium Chloride 0.9% 1, 917 / 917 967 / 967 000 ml @ 125 mls/hr IV . Q8H [facility] Rx#:[id number] Oral 1180 / 1180 1300 / 1300 960 / 960 Output: Void Amount 1050 / 1050 950 / 950 450 / 450 Stool 200 / 200 550 / 550 375 / 375 Other: Meal Dinner Percent of Meal Consumed 100% Feeding Ability Independent # Voids 1 # Bowel Movements 1 Weight 242 lb 8 oz Intake & Output: Intake & Output 12/29/16 12/30/16 12/30/16 21:59 05:59 13:59 Intake Total 3097 / 3097 2267 / 2267 960 / 960 Output Total 1250 / 1250 1500 / 1500 825 / 825 Balance 1847 / 1847 767 / 767 135 / 135 Weight 242 lb 8 oz Intake: IV 1917 / 1917 967 / 967 Sodium Chloride 0.9% 1, 917 / 917 967 / 967 000 ml @ 125 mls/hr IV . Q8H [facility] Rx#:[id number] Oral 1180 / 1180 1300 / 1300 960 / 960 Output: Void Amount 1050 / 1050 950 / 950 450 / 450 Stool 200 / 200 550 / 550 375 / 375 Other: Meal Dinner Percent of Meal Consumed 100% Feeding Ability Independent # Voids 1 # Bowel Movements 1 - Lab 12/30/16 04:12 12/30/16 04:12 Most recent lab results Calcium 8.7 mg/dl (8.6-10.4) 12/30/16 04:12 Phosphorus 3.9 mg/dL (2.7-4.5) 12/30/16 04:12 Magnesium 1.4 mg/dL (1.6-2.5) L 12/30/16 04:12 Assessment and Plan (1) ARF (acute renal failure) FRAN / ARF - likely pre renal, renal function is improving. Discharged planned today. He should not be ACEI/ARB or diuretics. Preferably, angiogram should be done when his serum creatinine is back to his normal baseline (noted below). I have discussed this with hospitalist Dr. Garg Plan is for him to have BMP next week, he will follow with his PCP. If need arises, he can be referred for out patient nephrology evaluation Continue Amlodipine and Metoprolol as out patient Baseline SCr 0.9 on 12-10-16 Status: Acute Qualifiers: Acute renal failure type: unspecified Qualified Code(s): N17.9 - Acute kidney failure, unspecified
[2016-12-30] MEDS ORDERED: MAGNESIUM SULFATE 8.12 MEQ in DEXTROSE 5% IN WATER 50 ML IV ONE (12:00)
[2016-12-30] MEDS ORDERED: MAGNESIUM SULFATE 2 GM/50 ML BAG IV ONE (12:00)
== END 2016-12-30 13:50 | disposition home or self-care (01) | DRG 683 ==
LOC: ED 11:01 → ICU 15:36 → SUATTDRO 15:36 → ICU 15:40 → MEDSUR 12-29 19:29
PROVIDERS: ADMIT Internal Medicine; ATTEND Internal Medicine

== ENCOUNTER 2017-01-03 11:42 | Inpatient (IN) ==
[2017-01-03] MEDS ORDERED: PROCHLORPERAZINE 10 MG/2 ML VIAL IV ONE (12:00)
--- NOTE | 2017-01-03 12:04 | Emergency Department Note ---
General Adult HPI - General Chief complaint: Nausea/Vomiting/Diarrhea Stated complaint: weakness, vomiting Time Seen by Provider: 01/03/17 11:54 Source: patient Mode of arrival: ambulatory Limitations: no limitations - History of Present Illness HPI Narrative: Patient presents emergently. Brought in by ambulance, nausea vomiting postoperatively. States liquid stool continuously in the ostomy site. Feeling generally weak and diaphoretic. Diffuse abdominal pain. Waves and hot flashes but no clear fever. discharge from December 30 reviewed, extensive history since September of this year due to ongoing ischemic gut with perforations. Developed a high output ostomy, has been admitted twice over with profound volume depletion, hypo-natremia - Related Data Home Medications Medication Instructions Recorded Confirmed Atorvastatin [Lipitor] 40 mg PO HS 12/26/16 12/26/16 HYDROmorphone HCL [Dilaudid] 2 mg PO PRN PRN 12/26/16 12/26/16 Metoprolol Tartrate 50 mg PO BID 12/26/16 12/26/16 Omeprazole 20 mg PO DAILY 12/26/16 12/26/16 Previous Rx's Medication Instructions Recorded ostomy supplies powder See Dose Instructions .ROUTE 10/25/16 .MEDSUPPLY #28.3 g Aspirin 81 mg PO DAILY 12/10/16 loperamide 2 mg capsule 2 mg PO Q2-4H PRN #100 cap 12/22/16 Acetaminophen [Tylenol] 650 mg PO Q6HP PRN tablet 12/30/16 Octreotide Acetate [Sandostatin] 100 mcg SQ BID #60 vial 12/30/16 amLODIPine [Norvasc] 2.5 mg PO DAILY tablet 12/30/16 Allergies Allergy/AdvReac Type Severity Reaction Status Date / Time topiramate Allergy Mild Rash Verified 12/22/16 08:30 hydrocodone AdvReac Severe Rash Verified 12/22/16 08:30 gabapentin AdvReac Intermediate Dizziness Verified 12/22/16 08:30 morphine AdvReac Intermediate Rash Verified 12/22/16 08:30 Oxycodone AdvReac Intermediate leg hives Verified 12/22/16 08:30 tramadol AdvReac Mild Unknown Verified 12/22/16 08:30 Review of Systems Constitutional: Reports: chills, weakness, night sweats ENT ED: Denies: ear pain, throat pain Cardiovascular: Reports: palpitations, syncope. Denies: chest pain Respiratory: Denies: cough, dyspnea Gastrointestinal: Reports: abdominal pain, nausea, vomiting, diarrhea Past Medical History - Past Medical History Attestation: Yes: The following information was validated with the patient. Medical history: Reports: arthritis, CHF, hypertension, myocardial infarction, other (rare form of anemia, RA, Hepatitis C, ischemic bowel/perforated bowel) Surgical history ED: Reports: other (bowel resection due to mesenteric ischemia) Family history: Reports: CAD/SC - Social History smoking status: Former smoker Alcohol use: Reports: Unknown Drug use: Reports: marijuana Physical Exam - General Limitations: no limitations General appearance: alert, in distress - Head Head exam: atraumatic, normocephalic - Eye Eye exam: Present: normal appearance - ENT ENT exam: mucous membranes dry, other (arge-volume retching) - Neck Neck exam: Present: normal inspection - Chest Chest inspection: Present: normal inspection - Respiratory Respiratory exam: Present: normal lung sounds bilaterally. Absent: respiratory distress - Cardiovascular Cardiovascular exam: Present: tachycardia. Absent: systolic murmur - Abdominal Exam Abdominal exam: Present: soft, other (ostomy with very thin liquid, slight red tinge brown; diffuse tendernessbut actively retching; no rebound; healed midline ) - Extremities Exam Extremities exam: Present: normal inspection - Back Exam Back exam: Present: normal inspection - Neurological Exam Neurological exam: Present: alert, oriented X3 - Psychiatric Psychiatric exam: Present: anxious - Skin Skin exam: Present: diaphoresis Course - Reevaluation(s) Reevaluation #1: patient feeling better, no further retching, but anterior abdominal discomfort near the rectus vitals improved, no longer hypotenive less tachycardic discussed with Dr. Dang, surgery; advised octreotide, admission for support Time: 14:09 Vital Signs Temperature 97.2 F 01/03/17 11:43 Respiratory Rate 18 01/03/17 11:43 Blood Pressure 60/47 01/03/17 11:43 Pulse Oximetry (%) 100 01/03/17 11:43 Temperature 97.2 F 01/03/17 11:43 Pulse Rate 108 H 01/03/17 13:31 Respiratory Rate 14 01/03/17 13:31 Blood Pressure 127/93 01/03/17 13:31 Pulse Oximetry (%) 100 01/03/17 13:31 Medical Decision Making - Medical Records Medical records reviewed: Yes I reviewed the patient's medical records. - Lab Data Lab results reviewed: Yes I reviewed the patient's lab results. Result diagrams: 01/03/17 11:55 01/03/17 11:55 Lab Results 01/03/17 01/03/17 01/03/17 Range/Units 11:55 11:55 11:55 WBC 20.8 H (4.5-11.0) K/mcL RBC 4.43 L (4.50-5.90) M/mcL Hgb 12.4 L (13.5-16.5) g/dL Hct 38.0 L (41.0-55.0) % POC Hct 41.0 (41.0-55.0) % MCV 85.8 (80.0-100.0) fL MCH 28.1 (26.0-34.0) pg MCHC 32.7 (31.0-36.0) g/dL RDW 16.7 H (11.5-14.5) % Plt Count 675 H (140-440) K/mcL MPV 8.3 (7.4-10.4) fL Gran % 78.4 H (38.0-78.0) % Lymph % (Auto) 16.5 (15.5-49.0) % [place] % (Auto) 4.3 (1.0-12.0) % Eos % (Auto) 0.5 (0.0-7.0) % Baso % (Auto) 0.3 (0.0-2.0) % Gran # 16.3 H (1.8-8.0) K/mcL Lymph # (Auto) 3.4 (1.5-4.8) K/mcL [place] # (Auto) 0.9 (0.1-0.9) K/mcL Eos # (Auto) 0.1 (0.0-0.7) K/mcL Baso # (Auto) 0.1 (0.0-0.3) K/mcL ABG Methemoglobin (0.4-1.5) % VBG pH (7.32-7.42) U VBG pCO2 (41.0-51.0) mmHg VBG pO2 (25-40) mmHg VBG HCO3 (24.0-28.0) mmol/L VBG Total CO2 (25.0-29.0) mmol/L VBG O2 Saturation (40.0-70.0) % VBG Base Excess (-2.0-2.0) VBG Lactic Acid 4.4 H* (0.5-2.2) mmol/L Carboxyhemoglobin (0.0-1.5) % THgb Total Hemoglobin (13.5-16.5) gm/dL O2 Delivery Level POC Sodium 129 L (133-145) mmol/L Sodium 128 L (133-145) mmol/L POC Potassium 4.2 (3.3-5.1) mmol/L Potassium 4.4 (3.3-5.1) mmol/L POC Chloride 92 L (96-108) mmol/L Chloride 85 L (96-108) mmol/L Carbon Dioxide 18 L (22-30) mmol/L POC Total CO2 23 (22-30) mmol/L Anion Gap 25.0 H (8-16) POC BUN 29 H (6-20) mg/dl BUN 23 H (6-20) mg/dl Creatinine 2.7 H (0.7-1.2) mg/dl POC Creatinine 2.8 H (0.7-1.2) mg/dl GFR Calculation 26 Glucose 127 H (70-105) mg/dL POC Glucose 139 H (70-105) mg/dL Calcium 11.1 H (8.6-10.4) mg/dl POC WB Ioniz Calcium 1.16 (1.16-1.32) mmol/L Total Bilirubin 0.7 (0.0-1.0) mg/dL AST 62 H (0-37) U/l ALT 72 H (0-40) U/l Alkaline Phosphatase 159 H (39-117) U/L Troponin T (0-0.03) ng/ml Total Protein 10.1 H (5.9-8.4) gm/dL Albumin 4.5 (3.2-5.2) gm/dL Globulin 5.6 H (2.2-3.7) gm/dL Albumin/Globulin Ratio 0.8 L (1.0-2.3) Amylase 69 (28-100) U/L 01/03/17 01/03/17 Range/Units 11:55 11:55 WBC (4.5-11.0) K/mcL RBC (4.50-5.90) M/mcL Hgb (13.5-16.5) g/dL Hct (41.0-55.0) % POC Hct (41.0-55.0) % MCV (80.0-100.0) fL MCH (26.0-34.0) pg MCHC (31.0-36.0) g/dL RDW (11.5-14.5) % Plt Count (140-440) K/mcL MPV (7.4-10.4) fL Gran % (38.0-78.0) % Lymph % (Auto) (15.5-49.0) % [place] % (Auto) (1.0-12.0) % Eos % (Auto) (0.0-7.0) % Baso % (Auto) (0.0-2.0) % Gran # (1.8-8.0) K/mcL Lymph # (Auto) (1.5-4.8) K/mcL [place] # (Auto) (0.1-0.9) K/mcL Eos # (Auto) (0.0-0.7) K/mcL Baso # (Auto) (0.0-0.3) K/mcL ABG Methemoglobin 0.3 L (0.4-1.5) % VBG pH 7.44 H (7.32-7.42) U VBG pCO2 28.5 L (41.0-51.0) mmHg VBG pO2 106 H (25-40) mmHg VBG HCO3 18.7 L (24.0-28.0) mmol/L VBG Total CO2 19.6 L (25.0-29.0) mmol/L VBG O2 Saturation 91.8 H (40.0-70.0) % VBG Base Excess -4.3 L (-2.0-2.0) VBG Lactic Acid (0.5-2.2) mmol/L Carboxyhemoglobin 6.2 H (0.0-1.5) % THgb Total Hemoglobin 12.2 L (13.5-16.5) gm/dL O2 Delivery Level Not Reportable POC Sodium (133-145) mmol/L Sodium (133-145) mmol/L POC Potassium (3.3-5.1) mmol/L Potassium (3.3-5.1) mmol/L POC Chloride (96-108) mmol/L Chloride (96-108) mmol/L Carbon Dioxide (22-30) mmol/L POC Total CO2 (22-30) mmol/L Anion Gap (8-16) POC BUN (6-20) mg/dl BUN (6-20) mg/dl Creatinine (0.7-1.2) mg/dl POC Creatinine (0.7-1.2) mg/dl GFR Calculation Glucose (70-105) mg/dL POC Glucose (70-105) mg/dL Calcium (8.6-10.4) mg/dl POC WB Ioniz Calcium (1.16-1.32) mmol/L Total Bilirubin (0.0-1.0) mg/dL AST (0-37) U/l ALT (0-40) U/l Alkaline Phosphatase (39-117) U/L Troponin T 0.07 H* (0-0.03) ng/ml Total Protein (5.9-8.4) gm/dL Albumin (3.2-5.2) gm/dL Globulin (2.2-3.7) gm/dL Albumin/Globulin Ratio (1.0-2.3) Amylase (28-100) U/L - Radiology Data Radiology results reviewed: Yes I reviewed the patient's radiology results. imaging suggests complete GI collapse, nothing in the tract; no free air Critical Care Time Critical Care Time: Yes Total Critical Care Time: 30 Attestation: ypotensive, systolic 60s Disposition Pt seen by HAND I TUBE BENDER/PA only: No Clinical Impression: Complication of ostomy, Hypovolemic shock, Nausea vomiting and diarrhea, Acute kidney injury superimposed on chronic kidney disease Disposition: Xfer As Inpt ([facility]) Condition: Fair Referrals: Kerry Williamson MD [Primary Care Provider] -
[2017-01-03] MEDS: HYDROmorphone 2 MG/ML SYRINGE IV PRN ×5 (12:20→22:39)
--- NOTE | 2017-01-03 12:27 | XRay Report ---
CLINICAL INFORMATION: Abdominal pain - postop COMPARISON: 12/10/2016 preoperative abdomen film FINDINGS: The GI tract is gasless typically seen with decreased oral intake and/or diarrhea. There is no free air, soft tissue mass or pathologic calcification IMPRESSION: Gasless abdomen typically indicative of severely decompressed GI tract. Interpreted and Authenticated by: Carl Quinn 01/03/17
[2017-01-03] MEDS ORDERED: PHENobarb/HYOSCY/ATROPINE/SCOP 1 DOSE BOTTLE PO ONE (12:36)
[2017-01-03 12:54] LABS: ABG Methemoglobin 0.3 % (0.4-1.5); VBG Base Excess -4.3 (-2.0-2.0); VBG HCO3 18.7 mmol/L (24.0-28.0); VBG Oxygen Saturation 91.8 % (40.0-70.0); VBG PCO2 28.5 mmHg (41.0-51.0); VBG PH 7.44 U (7.32-7.42); VBG PO2 106 mmHg (25-40); VBG Total CO2 19.6 mmol/L (25.0-29.0)
[2017-01-03 13:01] LABS: Basophils # (Auto) 0.1 K/mcL (0.0-0.3); Basophils % (Auto) 0.3 % (0.0-2.0); Eosinophils # (Auto) 0.1 K/mcL (0.0-0.7); Eosinophils % (Auto) 0.5 % (0.0-7.0); Granulocytes % (Auto) 78.4 % (38.0-78.0); Lymphocytes # (Auto) 3.4 K/mcL (1.5-4.8); Lymphocytes % (Auto) 16.5 % (15.5-49.0); Mean Cell Volume 85.8 fL (80.0-100.0); Mean Corpuscular HGB Conc 32.7 g/dL (31.0-36.0); Mean Corpuscular Hemoglobin 28.1 pg (26.0-34.0); Monocytes # (Auto) 0.9 K/mcL (0.1-0.9); Monocytes % (Auto) 4.3 % (1.0-12.0); Platelet Count 675 K/mcL (140-440); RBC 4.43 M/mcL (4.50-5.90); Red Cell Distribution Width 16.7 % (11.5-14.5)
[2017-01-03 13:20] LABS: ALT/SGPT 72 U/l (0-40); Albumin 4.5 gm/dL (3.2-5.2); Albumin/Globulin Ratio 0.8 (1.0-2.3); Alkaline Phosphatase 159 U/L (39-117); Amylase 69 U/L (28-100); Blood Urea Nitrogen 23 mg/dl (6-20)
[2017-01-03] MEDS ORDERED: OCTREOTIDE ACETATE 1,000 MCG/ML VIAL IV ONE (14:08)
[2017-01-03] MEDS ORDERED: DIPHENOXYLATE HCL/ATROPINE 1 TABLET PO ONE (14:10)
[2017-01-03] MEDS ORDERED: ACETAMINOPHEN 325 MG TABLET PO PRN (16:10)
[2017-01-03] MEDS ORDERED: ALBUTEROL SULFATE 2.5 MG/3 ML NEBULIZER NEB PRN (16:10)
[2017-01-03] MEDS ORDERED: ONDANSETRON 4 MG/2 ML VIAL IV PRN (16:10)
[2017-01-03] MEDS ORDERED: NALOXONE HCL 0.4 MG/ML VIAL IV PRN (16:10)
[2017-01-03] MEDS: NACL 0.9% W/KCL 20MEQ 1,000 ML IV SCH ×2 (16:17→22:39)
[2017-01-03] MEDS: NICOTINE 14 MG PATCH TOPICAL SCH (16:34)
[2017-01-03] MEDS ORDERED: HYDROmorphone 2 MG TABLET PO PRN (18:50)
[2017-01-03] MEDS ORDERED: LOPERAMIDE 2 MG CAPSULE PO PRN (18:50)
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
[2017-01-03] MEDS ORDERED: LORazepam 2 MG/ML VIAL IV PRN (19:07)
[2017-01-03] MEDS: ATORVASTATIN 20 MG TABLET PO SCH (21:02)
[2017-01-03] MEDS: METOPROLOL TARTRATE 50 MG TABLET PO SCH (21:03)
[2017-01-03] MEDS: OCTREOTIDE ACETATE 100 MCG/ML VIAL SQ SCH (21:03)
[2017-01-04] MEDS: HYDROmorphone 2 MG/ML SYRINGE IV PRN ×7 (02:00→21:11)
[2017-01-04] MEDS: NACL 0.9% W/KCL 20MEQ 1,000 ML IV SCH (05:13)
[2017-01-04 06:03] LABS: Basophils # (Auto) 0 K/mcL (0.0-0.3); Basophils % (Auto) 0.4 % (0.0-2.0); Eosinophils # (Auto) 0.3 K/mcL (0.0-0.7); Eosinophils % (Auto) 2.2 % (0.0-7.0); Granulocytes % (Auto) 68.2 % (38.0-78.0); Lymphocytes # (Auto) 2.8 K/mcL (1.5-4.8); Lymphocytes % (Auto) 24.2 % (15.5-49.0); Mean Cell Volume 86.5 fL (80.0-100.0); Mean Corpuscular HGB Conc 32.7 g/dL (31.0-36.0); Mean Corpuscular Hemoglobin 28.3 pg (26.0-34.0); Monocytes # (Auto) 0.6 K/mcL (0.1-0.9); Platelet Count 408 K/mcL (140-440); RBC 3.38 M/mcL (4.50-5.90); Red Cell Distribution Width 16.6 % (11.5-14.5)
[2017-01-04 06:26] LABS: ALT/SGPT 44 U/l (0-40); Albumin 3.3 gm/dL (3.2-5.2); Albumin/Globulin Ratio 0.8 (1.0-2.3); Alkaline Phosphatase 111 U/L (39-117); Bilirubin,Direct < 0.2 mg/dL (0.0-0.3); Blood Urea Nitrogen 27 mg/dl (6-20); Gamma Glutamyl Transpeptidase 49 U/L (8-61); Magnesium 1.1 mg/dL (1.6-2.5); Uric Acid 7.8 mg/dL (2.5-8.0)
[2017-01-04] MEDS: ASPIRIN 81 MG TAB.CHEW PO SCH (07:32)
[2017-01-04] MEDS: OCTREOTIDE ACETATE 100 MCG/ML VIAL SQ SCH ×2 (07:33→21:10)
[2017-01-04] MEDS: METOPROLOL TARTRATE 50 MG TABLET PO SCH ×2 (07:33→21:10)
[2017-01-04] MEDS: amLODIPine 5 MG TABLET PO SCH (07:33)
[2017-01-04] MEDS: OMEPRAZOLE 20 MG CAPSULE PO SCH (07:33)
[2017-01-04] MEDS: PANTOPRAZOLE 40 MG TABLET PO SCH (07:35)
[2017-01-04] MEDS: ENOXAPARIN 40 MG/0.4 ML SYRINGE SQ SCH (07:35)
[2017-01-04] MEDS ORDERED: MAGNESIUM SULFATE 32.48 MEQ in DEXTROSE 5% IN WATER 50 ML IV ONE (07:49)
[2017-01-04] MEDS: NICOTINE 14 MG PATCH TOPICAL SCH (12:10)
[2017-01-04] MEDS: 0.9 % SODIUM CHLORIDE 1,000 ML IV SCH ×2 (12:51→22:05)
--- NOTE | 2017-01-04 16:58 | Internal Med Progress Note ---
Medical - PN: Subj Patient information: Note initiated : 01/04/17 at 4:56 pm Patient: Earle Magdaleno 51 y/o M admitted on 01/03/17 for Weakness, Vomiting/ Hypovolemic Shock. Interval history: January 03, 2017: History of present illness: Mr. Magdaleno is a 51 year old who was just discharged from here on December 30, 2016, after admission for acute renal failure due to dehydration, due to severely high ostomy output. Renal failure gradually improved with IV fluid rehydration. The patient has severe mesenteric ischemia, and the plan was to have him see Dr. Hummel yesterday, after his renal function was documented to have returned to normal. The patient demanded to leave the hospital last Monday, as he was feeling a little stir crazy being stuck in the hospital. He was doing well when he left the hospital, as his frequent loose stools were controlled with subcu octreotide and p.o. loperamide. Unfortunately, when he left the hospital, he was unable to get the octreotide at his pharmacy. Apparently he had to go through a preauthorization process, and that has not yet been accomplished. Over the weekend, he started to have severely high ostomy output , associated with nausea and vomiting. He says anything he ate seem to come back up and he was having profuse watery diarrhea and his ostomy bag. He has had some mild abdominal pain along his abdominal incision and around the ostomy site, but this has not been severe. He was hoping that he could hold out until the medication would be okayed today, but this morning felt quite dizzy. When his father arrived to check on him, he appeared to be having shaking chills, so his father called 911. In the ER, he was found to have a systolic blood pressure in the 60s, and lactic acid elevated to greater than 4. Sodium was low at 129, creatinine was back up to 2.8. Blood cell count is elevated at 20,000. Otherwise, he denies recent fever chills, headache, new eye or ear symptoms, sore throat or cough, chest pain or palpitations, shortness of breath or wheezing. He has not seen any blood in his vomitus or in his stool. He has noticed some decreased urine output. January 04: Today, the patient notes he is feeling much better. He is no longer having dizziness. He has decreased pain in his abdomen around the ostomy site and his midline incision. He has not had further nausea or vomiting. He denies fever chills, chest pain or shortness of breath. His stool is just a little bit more formed this morning, and much less in volume. He denies dysuria. - Constitutional Vitals: Vital Signs Temp Pulse Resp BP Pulse Ox 97.0 F 75 18 133/72 95 01/04/17 16:00 01/04/17 04:00 01/04/17 16:00 01/04/17 16:00 01/04/17 16:00 Period Temp Pulse Resp BP Sys/Lovell Pulse Ox Last 24 Hr 96.8 F-98.6 F 75-82 16-20 116-133/37-76 95-100 Intake and Output 01/04/17 01/04/17 01/04/17 05:59 13:59 21:59 Intake Total 2360 / 2360 1138 / 1138 Output Total 750 / 750 1575 / 1575 700 / 700 Balance 1610 / 1610 -437 / -437 -700 / -700 Intake & Output: Intake & Output 01/04/17 01/04/17 01/04/17 05:59 13:59 21:59 Intake Total 2360 / 2360 1138 / 1138 Output Total 750 / 750 1575 / 1575 700 / 700 Balance 1610 / 1610 -437 / -437 -700 / -700 Intake: IV 1940 / 1940 58 / 58 NaCl 0.9% W/KCl 20Meq 194 / 1940 1000ML 1,000 ml @ 150 mls /hr IV .Q6H40M [facility] Rx#: [id number] Oral 420 / 420 1080 / 1080 Output: Void Amount 1300 / 1300 600 / 600 Stool 750 / 750 275 / 275 100 / 100 Other: Meal Lunch Percent of Meal Consumed 100% Feeding Ability Independent On exam, he is awake and alert, and smiling. He is sitting on the side of his bed without problems. Neck shows no obvious lymphadenopathy or JVD. Cardiac exam shows regular rate and rhythm. Lungs are clear to auscultation. Abdomen is soft and only minimally tender around the ostomy site. Ostomy bag has loose, almost formed stool. Extremities show no edema. Neurologic exam is grossly nonfocal Medical - PN: Obj Da - Labs CBC & Chem 7: 01/04/17 04:03 01/04/17 04:03 Labs: Abnormal Lab Results 01/04/17 01/04/17 04:03 04:03 WBC 11.5 H RBC 3.38 L Hgb 9.6 L Hct 29.3 L RDW 16.6 H Sodium 127 L Potassium 5.8 H Chloride 90 L BUN 27 H Creatinine 2.8 H Phosphorus 5.1 H Magnesium 1.1 L ALT 44 H Globulin 4.3 H Albumin/Globulin Ratio 0.8 L Triglycerides 204 H Labs: January 03: CBC shows white blood cell count of 20,800, hemoglobin 12, hematocrit 38, platelets 675,000 differential shows granulocyte count of 16,300 Chemistry panel shows sodium 128, potassium 4.2, chloride 92, CO2 18, anion gap 25, BUN 23, creatinine 2.7, glucose 127 Calcium 11.1, AST 62, ALT 72, alk phos 159 Venous blood gas shows a pH of 7.44, CO2 28, PO2 106 next Lactic acid is elevated at 4.4, follow-up lactic acid is normal at 1.3 Calcium is elevated at 11.1, AST elevated at 62, ALT 72, alk phos 159 Troponin T is elevated at 0.07 (this was 0.17 on December 10, 2016) Abdominal x-ray shows no gas in the GI tract. Decompressed. Meds: Medications Acetaminophen (Tylenol) 650 mg PO Q6HP PRN PRN Reason: PAIN/FEVER > 101 Albuterol Sulfate (Ventolin) 2.5 mg NEB Q4HRT PRN PRN Reason: Shortness Of Breath Or Wheezing Amlodipine Besylate (Norvasc) 2.5 mg PO DAILY [facility] Last Admin: 01/04/17 07:33 Dose: 2.5 mg Aspirin (Aspirin) 81 mg PO DAILY [facility] Last Admin: 01/04/17 07:32 Dose: 81 mg Atorvastatin Calcium (Lipitor) 40 mg PO HS [facility] Last Admin: 01/03/17 21:02 Dose: 40 mg Enoxaparin Sodium (Lovenox) 40 mg SQ DAILY [facility] Last Admin: 01/04/17 07:35 Dose: 40 mg Hydromorphone HCl (Dilaudid) 2 mg PO Q4 PRN PRN Reason: Pain Hydromorphone HCl (Dilaudid) 2 mg IV Q2HP PRN PRN Reason: Pain Last Admin: 01/04/17 12:52 Dose: 2 mg Sodium Chloride (Sodium Chloride 0.9%) 1,000 mls @ 100 mls/hr IV .Q10H [facility] Last Admin: 01/04/17 12:51 Dose: 100 mls/hr Loperamide HCl (Imodium) 2 mg PO Q2-4H PRN PRN Reason: loose stool Lorazepam (Ativan) 0.5 mg IV Q2-4HP PRN PRN Reason: ANXIETY/SEDATION Metoprolol Tartrate (Lopressor) 50 mg PO BID [facility] Last Admin: 01/04/17 07:33 Dose: 50 mg Naloxone HCl (Narcan) 0.1 mg IV Q2MIN PRN PRN Reason: Opiate Reversal Nicotine (Nicoderm) 14 mg TOPICAL DAILY@1000 [facility] Last Admin: 01/04/17 12:10 Dose: 14 mg Octreotide Acetate (Sandostatin) 100 mcg SQ BID [facility] Last Admin: 01/04/17 07:33 Dose: 100 mcg Omeprazole (Prilosec) 20 mg PO ACB [facility] Last Admin: 01/04/17 07:33 Dose: 20 mg Ondansetron HCl (Zofran) 4 mg IV Q4HP PRN PRN Reason: Nausea And Vomiting Pantoprazole Sodium (Protonix) 40 mg PO QAMAC [facility] Last Admin: 01/04/17 07:35 Dose: 40 mg Medical - PN: A/P - Time Spent With Patient Total time spent is greater than 50% in coordination of care (as documented) at patient's floor/unit and/or counseling patient: 25 - 35 minutes (1) Acute kidney injury superimposed on chronic kidney disease Status: Acute Current Visit: Yes (2) Hypovolemic shock Status: Acute Current Visit: Yes (3) Nausea vomiting and diarrhea Status: Acute Current Visit: Yes (4) COPD (chronic obstructive pulmonary disease) Status: Chronic Current Visit: No - Narrative A/P Narrative: #1. Hypovolemic shock. This patient has very high ostomy output, which is caused subacute hypovolemia, leading to aggravation of previous acute renal failure. He presented with the same thing last week, and volume loss was controlled with subcu octreotide. Unfortunately he was unable to get this when he left here on Monday, so is back with the same problem. -Monitored on telemetry overnight, without incident. He is much better hydrated , and is feeling much better this morning. Lactic acidosis has resolved. Continue twice daily octreotide to decrease ostomy output. 2. Renal. Acute renal failure. Patient presents with recurrent acute renal failure, again due to hypotension. -Improving. Continue aggressive rehydration. Potassium is elevated today, so IV fluids were changed. Creatinine is a bit higher today at 2.8. Continue to monitor closely. Magnesium was low, and this was replaced IV. 3. Vascular. Severe mesenteric ischemia. History of celiac stenosis, renovascular stenoses. We are awaiting return of normal renal function, so that he can be referred over to Dr. Hummel to complete likely mesenteric artery stents. Continue aspirin, statin. 4. History of tobacco abuse. Patient is trying very hard to quit smoking. NicoDerm patch 5. CODE STATUS:: Full code. #6. GI. Patient with high ostomy output. Resume octreotide. Asked casework supervisor to work on getting this prescription filled for him . History of hepatitis C with cryoglobulinemia. 7. Cardiac. History of coronary disease, status post non-ST segment elevation [place]. Troponin is mildly elevated today, but it is unclear how to interpret that in view of his renal failure. Continue to follow. Monitor on telemetry. 8. History of hypertension. continue metoprolol as tolerated. 9. History of urticaria in response to oral, but not IV, Dilaudid. Resume IV Dilaudid for now. 10. DVT prophylaxis: Subcu heparin. 11. Neurologic. History of traumatic brain injury. This does seem to affect his overall judgment. Approximately 30 minutes was spent today, reviewing patient's test results, interviewing and examining the patient, reviewing plan of care with our multidisciplinary team, and writing orders. Medical - PN: Qual - Stroke Symptom Onset Unknown: No - VTE Deep Vein Thrombosis/Pulmonary Embolism Present on Admission: No
[2017-01-04] MEDS: ATORVASTATIN 20 MG TABLET PO SCH (21:13)
[2017-01-05] MEDS: HYDROmorphone 2 MG/ML SYRINGE IV PRN ×6 (00:12→12:38)
[2017-01-05] MEDS: 0.9 % SODIUM CHLORIDE 1,000 ML IV SCH (04:25)
[2017-01-05 05:02] LABS: Basophils # (Auto) 0 K/mcL (0.0-0.3); Basophils % (Auto) 0.4 % (0.0-2.0); Eosinophils # (Auto) 0.2 K/mcL (0.0-0.7); Eosinophils % (Auto) 2.4 % (0.0-7.0); Granulocytes % (Auto) 70.8 % (38.0-78.0); Lymphocytes # (Auto) 2.3 K/mcL (1.5-4.8); Lymphocytes % (Auto) 23.3 % (15.5-49.0); Mean Cell Volume 86.6 fL (80.0-100.0); Mean Corpuscular HGB Conc 32.4 g/dL (31.0-36.0); Monocytes # (Auto) 0.3 K/mcL (0.1-0.9); Monocytes % (Auto) 3.1 % (1.0-12.0); Platelet Count 415 K/mcL (140-440); RBC 3.46 M/mcL (4.50-5.90); Red Cell Distribution Width 16.7 % (11.5-14.5)
[2017-01-05 05:24] LABS: ALT/SGPT 36 U/l (0-40); Albumin 3.5 gm/dL (3.2-5.2); Albumin/Globulin Ratio 0.9 (1.0-2.3); Alkaline Phosphatase 103 U/L (39-117); Bilirubin,Direct < 0.2 mg/dL (0.0-0.3); Blood Urea Nitrogen 26 mg/dl (6-20); Gamma Glutamyl Transpeptidase 45 U/L (8-61); Magnesium 1.7 mg/dL (1.6-2.5); Uric Acid 6.7 mg/dL (2.5-8.0)
[2017-01-05] MEDS: PANTOPRAZOLE 40 MG TABLET PO SCH (07:02)
[2017-01-05] MEDS: OMEPRAZOLE 20 MG CAPSULE PO SCH (07:02)
[2017-01-05] MEDS ORDERED: 0.9 % SODIUM CHLORIDE 1,000 ML IV SCH (07:58)
[2017-01-05] MEDS: OCTREOTIDE ACETATE 100 MCG/ML VIAL SQ SCH (08:46)
[2017-01-05] MEDS: ASPIRIN 81 MG TAB.CHEW PO SCH (08:46)
[2017-01-05] MEDS: METOPROLOL TARTRATE 50 MG TABLET PO SCH (08:46)
[2017-01-05] MEDS: amLODIPine 5 MG TABLET PO SCH (08:47)
[2017-01-05] MEDS: NICOTINE 14 MG PATCH TOPICAL SCH (08:48)
[2017-01-05] MEDS: ENOXAPARIN 40 MG/0.4 ML SYRINGE SQ SCH (08:48)
--- NOTE | 2017-01-05 10:57 | Discharge Summary ---
Medical - DS: Prov Patient information: Note initiated : 01/05/17 at 10:57 am Patient: Earle Magdaleno 51 y/o M admitted on 01/03/17 for Weakness, Vomiting/ Hypovolemic Shock. Date of admission: 01/03/17 15:55 Discharge date: 01/05/17 Primary care physician: Kerry Williamson, phone number [phone] Admitting clinician: Haven Vitale Attending physician on discharge: Haven Vitale Medical - DS: Meds - Discharge Medications Prescriptions: Octreotide Acetate 100 mcg IJ BID #60 ampul Active and Home Medications: Discharge medications: Please hold furosemide/Lasix for now, until blood pressure is running greater than 140/80. Tylenol 650 mg Octreotide 100 mcg subcu twice a day Amlodipine 2.5 mg daily Aspirin 81 mg daily Lipitor 40 mg nightly Dilaudid 2 mg every 4 hours as needed uncontrolled pain Imodium/loperamide 2 mg every 2-4 hours as needed diarrhea or loose stools Metoprolol 50 mg every 12 hours Nicotine patch 14 mg topically daily, and remain abstinent from smoking Omeprazole 20 mg daily p.o. Previous home Medications: ostomy supplies powder See Dose Instructions .ROUTE .MEDSUPPLY #28.3 g 10/25/16 [Rx Confirmed 12/22/16 Last Taken Unknown] Aspirin 81 mg PO DAILY 12/10/16 [Rx Confirmed 01/03/17 Last Taken 12/25/16] loperamide 2 mg capsule 2 mg PO Q2-4H PRN #100 cap MDD 8 caps 12/22/16 [Rx Confirmed 01/03/17 Last Taken 12/25/16] Atorvastatin [Lipitor] 40 mg PO HS 12/26/16 [History Confirmed 01/03/17 Last Taken 12/25/16] HYDROmorphone HCL [Dilaudid] 2 mg PO Q4 PRN 12/26/16 [History Confirmed Last Taken 12/25/16] Metoprolol Tartrate 50 mg PO BID 12/26/16 [History Confirmed 01/03/17 Last Taken 12/25/16] Omeprazole 10 mg PO DAILY 12/26/16 [History Confirmed 01/03/17 Last Taken ] Acetaminophen [Tylenol] 650 mg PO Q6HP PRN tablet 12/30/16 [Rx Last Taken Unknown] Octreotide Acetate [Sandostatin] 100 mcg SQ BID #60 vial 12/30/16 [Rx Last Taken Unknown] amLODIPine [Norvasc] 2.5 mg PO DAILY tablet 12/30/16 [Rx Last Taken Unknown] Furosemide [Lasix] 20 mg PO DAILY 01/03/17 [History Confirmed 01/03/17 Last Taken Unknown] Octreotide Acetate 100 mcg IJ BID #60 ampul 01/04/17 [Rx Last Taken Unknown] Medical - DS: Hosp Hospital course: Mr. Magdaleno is a 51 year old M January 03, 2017: History of present illness: Mr. Magdaleno is a 51 year old who was just discharged from here on December 30, 2016, after admission for acute renal failure due to dehydration, due to severely high ostomy output. Renal failure gradually improved with IV fluid rehydration. The patient has severe mesenteric ischemia, and the plan was to have him see Dr. Hummel yesterday, after his renal function was documented to have returned to normal. The patient demanded to leave the hospital last Monday, as he was feeling a little stir crazy being stuck in the hospital. He was doing well when he left the hospital, as his frequent loose stools were controlled with subcu octreotide and p.o. loperamide. Unfortunately, when he left the hospital, he was unable to get the octreotide at his pharmacy. Apparently he had to go through a preauthorization process, and that has not yet been accomplished. Over the weekend, he started to have severely high ostomy output , associated with nausea and vomiting. He says anything he ate seem to come back up and he was having profuse watery diarrhea and his ostomy bag. He has had some mild abdominal pain along his abdominal incision and around the ostomy site, but this has not been severe. He was hoping that he could hold out until the medication would be okayed today, but this morning felt quite dizzy. When his father arrived to check on him, he appeared to be having shaking chills, so his father called 911. In the ER, he was found to have a systolic blood pressure in the 60s, and lactic acid elevated to greater than 4. Sodium was low at 129, creatinine was back up to 2.8. Blood cell count is elevated at 20,000. Otherwise, he denies recent fever chills, headache, new eye or ear symptoms, sore throat or cough, chest pain or palpitations, shortness of breath or wheezing. He has not seen any blood in his vomitus or in his stool. He has noticed some decreased urine output. January 04: Today, the patient notes he is feeling much better. He is no longer having dizziness. He has decreased pain in his abdomen around the ostomy site and his midline incision. He has not had further nausea or vomiting. He denies fever chills, chest pain or shortness of breath. His stool is just a little bit more formed this morning, and much less in volume. He denies dysuria. January 05: Hospital course: The patient has continued to improve. Renal function looks even better today, though still not back to normal. Last night without authorization from his insurance company to fill the octreotide prescription. He received training last night and this morning on how to give himself injections. He feels that he will be able to handle this fine. Labs today show continued low sodium, but improved. Potassium continues to run high, but also improved. Creatinine has dropped from 2.8 down to 1.8. Hemoglobin dropped to 9.7 and 29, but has stabilized there. Globulin levels continue to run high, for uncertain reasons, but looks like it was normal as recently as December 10, 2016. Today he is feeling better. He is tolerating food and liquids just fine. He is having much less abdominal pain, though still occasionally requires Dilaudid for relief. Nursing staff notes that when he presented he had some old embedded savannah still in, because he missed his follow-up appointment to have this removed. Those were removed while he was here. Today, he denies fever chills, chest pain or shortness of breath. He has only mild abdominal pain, intermittent. He denies nausea or vomiting. Stool in ostomy bag is mostly soft and at least partially formed. He denies dysuria. Took some time today, to apologize and say that he was very sorry if he had ever been rude or abrupt with any of the staff over the last couple of admissions. He says he has just been feeling terrible and has been very frustrated with his inability to get better, but he did want to apologize if he offended anyone. On exam, he is awake and alert. Neck is supple without obvious JVD or lymphadenopathy. Cardiac exam shows regular rate and rhythm. Lungs are clear to auscultation. abdomen is soft and does not appear tender. Bowel sounds are active. Ostomy bag has partially formed stool. Extremities show no edema. A/P Narrative: #1. Hypovolemic shock. This patient has very high ostomy output, which is caused subacute hypovolemia, leading to aggravation of previous acute renal failure. He presented with the same thing last week, and volume loss was controlled with subcu octreotide. Unfortunately he was unable to get this when he left here on Monday, so is back with the same problem. -Hydration status appears back to normal. Renal function is slowly improving. He appears stable for discharge at this time. He will need to continue to push fluids over the next few days to see if we can get his renal function back to normal. His insurance did approve his octreotide prescription, and he should be able to pick that up today at while symptoms. I believe future prescriptions will be done by mail . 2. Renal. Acute renal failure. Patient presents with recurrent acute renal failure, again due to hypotension. -Improving. Continue aggressive rehydration. Hyperkalemia is improving, hyponatremia is also improving, as his creatinine. He needs to continue to push fluids. Recheck labs early next week. Magnesium was low, and this was replaced IV. 3. Vascular. Severe mesenteric ischemia. History of celiac stenosis, renovascular stenoses. We are awaiting return of normal renal function, so that he can be referred over to Dr. Hummel to complete likely mesenteric artery stents. Continue aspirin, statin. He tells us that he now has an appointment to see Dr. Hummel on January 10 at 3:00. 4. History of tobacco abuse. Patient is trying very hard to quit smoking. NicoDerm patch 5. CODE STATUS:: Full code. #6. GI. Patient with high ostomy output. Resumed octreotide. History of hepatitis C with cryoglobulinemia. 7. Cardiac. History of coronary disease, status post non-ST segment elevation [place]. Troponin is mildly elevated but it is unclear how to interpret that in view of his renal failure. He remained stable on telemetry. 8. History of hypertension. continue metoprolol as tolerated. 9. History of urticaria in response to oral, but not IV, Dilaudid. He still occasionally will take oral Dilaudid. He is encouraged to take that with an antihistamine, to avoid the itching. 10. DVT prophylaxis: Subcu heparin. 11. Neurologic. History of traumatic brain injury. This does seem to affect his overall judgment. It sounds like he has led a difficult life. He was imprisoned at a very young age, and got out of senior care about 13 years ago. He reports that he knows that his previous brain injury has caused his thinking cannot always work as well as he would like. He does say that he has tried very hard and done a pretty good job over the last 10 years or so of staying out of trouble completely. He has numerous interesting tattoos, many of which he designed, around what it felt like to be kept in a cage. Approximately 35 minutes was spent today, reviewing patient's test results, reviewing his case in our team meeting, interviewing and examining him, and writing orders. Discharge diagnosis: Hypovolemic shock. High ostomy output. Mesenteric ischemia. Time spent discussing smoking cessation with patient: 3 to 10 minutes - Time Spent with Patient Total time spent providing and/or coordinating discharge services: Greater than 30 minutes Medical - DS: Exam - Constitutional Vitals: Vital Signs Temp Pulse Resp BP Pulse Ox 01/05/17 07:43 97.6 F 18 116/74 95 01/05/17 04:00 97.6 F 81 18 123/80 95 01/05/17 00:00 97.8 F 81 18 124/49 91 01/04/17 20:00 96.8 F L 79 18 100 01/04/17 16:00 97.0 F 18 133/72 95 01/04/17 12:00 97.0 F 18 121/54 100 Intake and Output 01/04/17 01/05/17 01/05/17 21:59 05:59 13:59 Intake Total 480 / 480 1600 / 1600 800 / 800 Output Total 700 / 700 2900 / 2900 1400 / 1400 Balance -220 / -220 -1300 / -1300 -600 / -600 Intake: IV 1000 / 1000 Sodium Chloride 0.9% 1, 1000 / 1000 000 ml @ 100 mls/hr IV . Q10H [facility] Rx#:[id number] Oral 480 / 480 600 / 600 800 / 800 Output: Void Amount 600 / 600 2050 / 2049 1300 / 1300 Stool 100 / 100 850 / 850 100 / 100 Other: Weight 226 lb 8 oz Medical - DS: Data Labs on day of discharge: Labs from last 24 hours 01/05/17 01/05/17 03:37 03:37 WBC 10.0 RBC 3.46 L Hgb 9.7 L Hct 29.9 L MCV 86.6 MCH 28.0 MCHC 32.4 RDW 16.7 H Plt Count 415 MPV 8.4 Gran % 70.8 Lymph % (Auto) 23.3 [place] % (Auto) 3.1 Eos % (Auto) 2.4 Baso % (Auto) 0.4 Gran # 7.1 Lymph # (Auto) 2.3 [place] # (Auto) 0.3 Eos # (Auto) 0.2 Baso # (Auto) 0 Sodium 131 L Potassium 5.3 H Chloride 98 Carbon Dioxide 19 L Anion Gap 14.0 BUN 26 H Creatinine 1.8 H GFR Calculation 43 Glucose 100 Uric Acid 6.7 Calcium 8.7 Phosphorus 4.0 Magnesium 1.7 Total Bilirubin 0.4 Direct Bilirubin < 0.2 GGT 45 AST 28 ALT 36 Alkaline Phosphatase 103 Lactate Dehydrogenase 165 Total Protein 7.4 Albumin 3.5 Globulin 3.9 H Albumin/Globulin Ratio 0.9 L Triglycerides 246 H January 05: Blood cultures are negative so far January 03: CBC shows white blood cell count of 20,800, hemoglobin 12, hematocrit 38, platelets 675,000 differential shows granulocyte count of 16,300 Chemistry panel shows sodium 128, potassium 4.2, chloride 92, CO2 18, anion gap 25, BUN 23, creatinine 2.7, glucose 127 Calcium 11.1, AST 62, ALT 72, alk phos 159 Venous blood gas shows a pH of 7.44, CO2 28, PO2 106 next Lactic acid is elevated at 4.4, follow-up lactic acid is normal at 1.3 Calcium is elevated at 11.1, AST elevated at 62, ALT 72, alk phos 159 Troponin T is elevated at 0.07 (this was 0.17 on December 10, 2016) Abdominal x-ray shows no gas in the GI tract. Decompressed. Medical - DS: A/P - Patient/Caregiver Discharge Instructions Activity: increase activity as tolerated Diet: Low Sodium (2gm), Renal Additional Instructions: #1. Hypovolemic shock, due to volume loss, diarrhea. Please fill your prescription for octreotide, and take this twice a day, every day Please continue to push fluids, drinking at least 8 glasses of fluid per day, to see if we can get your kidney function to continue to improve. Please hold your furosemide for now, until your blood pressure is running greater than 140/80 again. Recheck this every few days if possible. 2. Diffuse vascular disease, mesenteric ischemia. Please avoid smoking until you follow-up with Dr. Hummel. Please follow-up with Dr. Hummel on January 10, at 3:00, as scheduled You can use a NicoDerm patch 14-20 mg each day. 3. You can take Claritin, Zyrtec, or other antihistamine, with any dose of Dilaudid, to help prevent itching. Discharge medications: Please hold furosemide/Lasix for now, until blood pressure is running greater than 140/80. Tylenol 650 mg Octreotide 100 mcg subcu twice a day Amlodipine 2.5 mg daily Aspirin 81 mg daily Lipitor 40 mg nightly Dilaudid 2 mg every 4 hours as needed uncontrolled pain Imodium/loperamide 2 mg every 2-4 hours as needed diarrhea or loose stools Metoprolol 50 mg every 12 hours Nicotine patch 14 mg topically daily, and remain abstinent from smoking Omeprazole 20 mg daily p.o. Prescriptions: Octreotide Acetate 100 mcg IJ BID #60 ampul - Problem Maintenance (1) Acute kidney injury superimposed on chronic kidney disease Status: Acute (2) Hypovolemic shock Status: Acute (3) Nausea vomiting and diarrhea Status: Acute (4) COPD (chronic obstructive pulmonary disease) Status: Chronic Qualifiers: COPD type: chronic bronchitis Chronic bronchitis type: unspecified Qualified Code(s): J42 - Unspecified chronic bronchitis - Follow up Plan Follow up with: Carl Hummel MD [Physician] - 01/10/17 3:00 pm (Please arrive 15 minutes early) Kerry Williamson MD [Primary Care Provider] - 01/10/17 12:45 pm (Continue with your previously scheduled appointment.) Disposition: Home, Self-Care Prognosis: Good Rehab Potential: Good Overall status at discharge: patient is progressing back to baseline Medical - DS: Qual - VTE Deep Vein Thrombosis/Pulmonary Embolism Present on Admission: No
--- NOTE | 2017-01-06 20:02 | EKG Interpretations ---
[employer] TECH[employer]OLOG[employer] MANAGER: Mt Foster MD DATE OF SERVICE: 01/03/2017 at 12:29 p.m. TODAY: 01/06/2017 FINDINGS: Sinus tachycardia, 108 beats per minute. RSR prime in V1. WLIZBETH: Job ID: [id number] Doc ID: [id number] Mt Foster MD
== END 2017-01-05 12:50 | disposition home or self-care (01) | DRG 872 ==
LOC: ED 11:42 → ICU 15:55
PROVIDERS: ADMIT Internal Medicine; ATTEND Internal Medicine

== ENCOUNTER 2019-10-26 10:16 | Inpatient (IN) ==
[2019-10-26] MEDS ORDERED: VANCOMYCIN 2,000 MG in 0.9 % SODIUM CHLORIDE 500 ML IV ONE (11:20)
[2019-10-26] MEDS ORDERED: 0.9 % SODIUM CHLORIDE 1,000 ML IV ONE (11:20)
--- NOTE | 2019-10-26 11:26 | Emergency Department Note ---
Skin/Abscess/FB HPI - General Chief complaint: Skin/Abscess/Foreign Body Stated complaint: LEft arm pain/ swelling/redness Time Seen by Provider: 10/26/19 10:34 Source: patient, family Mode of arrival: ambulatory Limitations: no limitations - History of Present Illness HPI Narrative: 54-year-old male patient presents to the emergency department with chief complaint of redness, swelling, and drainage to both upper extremities x2 days. The left being worse than the right. Patient tells me he was at his home and had a friend come and apply several tattoos. When questioned if the friend used sterile equipment he tells me "I thought he did". However, within 2 days he noticed considerable redness and swelling to his left arm. She noticed a small area of redness and swelling to the area that was touched up on his right arm. He admits to exquisite pain into his left arm. He denies any paresthesias. ROS: Denies systemic illness, fever, sweats, chills. Denies headaches, tinnitus, or vision changes. Denies runny nose, sinus congestion, or cough. Admits to mild shortness of breath. Denies retrosternal chest pain or palpitations. Denies abdominal pain, nausea, vomiting, or diarrhea. Denies dysuria, hematuria, urinary frequency, or urinary urgency. Admits to generalized fatigue. Denies focal weakness. - Related Data Home Medications Medication Instructions Recorded Confirmed Atorvastatin [Lipitor] 40 mg PO HS 12/26/16 10/26/19 Previous Rx's Medication Instructions Recorded hydromorphone 4 mg tablet 4 mg PO Q4H PRN #180 tab 10/23/18 octreotide acetate 100 mcg/mL See Rx Instructions .ROUTE 08/27/19 injection solution .COMPLEX #60 unknown measurement unit code: not specified Allergies Allergy/AdvReac Type Severity Reaction Status Date / Time gabapentin AdvReac Intermediate Dizziness Verified 10/26/19 10:21 morphine AdvReac Intermediate Rash Verified 10/26/19 10:21 oxycodone [Oxycodone] AdvReac Intermediate leg hives Verified 10/26/19 10:21 hydrocodone AdvReac Mild Rash Verified 10/26/19 10:21 topiramate AdvReac Mild Rash Verified 10/26/19 10:21 tramadol AdvReac Mild Unknown Verified 06/13/20 10:21 Review of Systems All systems ED: reviewed and negative except as stated. 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) Inflammatory arthritis (Chronic) Rash (Chronic) Right arm cellulitis (Chronic) Hepatitis C (Chronic) Numbness in feet (Chronic) Arthritis (Chronic) History of MRSA infection (Chronic) Radiculopathy, cervical region (Chronic) Radiculopathy of lumbar region (Chronic) Alcohol use (Chronic) Extrinsic asthma (Chronic) Hepatitis C, acute (Chronic) Essential hypertension (Chronic) Cryofibrinogenemia (Chronic) Raynaud's syndrome (Chronic) Past Surgical History (Last Reviewed 10/23/18 @ 12:35 by Susanne Dang MD) H/O exploratory laparotomy (Chronic) Status post scar revision (Chronic) History of liver biopsy (Chronic) History of brain surgery (Chronic) History of arthroscopy of knee (Chronic) History of ileostomy (Acute) Family History (Last Reviewed 10/23/18 @ 12:35 by Susanne Dang MD) Mother Cardiac disease Malignant neoplasm Myocardial Infarction Coronary artery disease Medical history: Reports: arthritis, CHF, hypertension, myocardial infarction, other Psychiatric history: Reports: no psych history Surgical history ED: Reports: other - Social History smoking status: Current every day smoker Alcohol use: Reports: Unknown Drug use: Reports: marijuana Physical Exam Limitations: no limitations General appearance: other (Well-developed, well-nourished, obese 54-year-old male patient laying semirecumbent on the emergency room gurney in no acute respiratory distress.) Head: atraumatic, normocephalic Eye: Present: normal appearance, PERRL, EOMI. Absent: scleral icterus, conjunctival injection ENT: Present: normal oropharynx, mucous membranes moist Neck: Present: trachea midline. Absent: lymphadenopathy, thyromegaly Chest: Present: symmetric chest wall rise Respiratory: Present: normal lung sounds bilaterally. Absent: respiratory distress, rales/crackles, wheezes, stridor, accessory muscle use, prolonged expiratory phase Cardiovascular: Present: regular rate, normal rhythm. Absent: systolic murmur, diastolic murmur Abdominal: Present: soft, scar (Large well-healed surgical scar to the midline of his abdomen. He has several smaller scars to either lower quadrant of his abdomen.). Absent: distention, tenderness, guarding, rebound, rigidity, organomegaly, mass Extremities: Present: full ROM, tenderness (Exquisite tenderness to palpation throughout the dorsum of the left hand extending up into the forearm.), normal capillary refill, other (There is a small area of erythema and induration to the right forearm measuring approximately 5 x 4 cm. No fluctuance and no drainage.). Absent: normal inspection (Considerable erythema extending from the dorsum of the left hand up through the forearm just above the elbow. Patient has small area of fluctuance with purulent drainage to the forearm at the place of the new tattoo. No axillary lymphadenopathy. Radial pulses present and bounding. Capillary refill less than 2 seconds. Sensation is grossly intact light touch throughout all areas of both upper extremities.) Back: Absent: CVA tenderness (R), CVA tenderness (L), spinous process tenderness Neurological: Present: alert, oriented X3 Psychiatric: Present: normal affect, normal mood Skin: Present: warm, dry, other (Skin changes to the left upper extremity and right forearm as mentioned.) Course Course Narrative: Patient has evidence of SIRS with a temperature 95.2 heart rate of 115. He is normotensive. His SPO2 is 93% on room air. I I am still very concerned about sepsis. With this in mind, I am going to order laboratory studies including lactic acid and blood cultures. I was able to express scant amount of purulent drainage from an area on his left forearm that was swabbed and sent to the lab for culture and sensitivity. No other area of either extremity warrants imaging. Patient was started on vancomycin 2000 mg IV. He was also be given normal saline at 1000 mL bolus. Upon reevaluation patient is complaining of worsening pain. He has known chronic pain associated with the bowel infarction and subsequent surgical procedures underwent. He is considerable. He has been taking oral Dilaudid up to 8 milligrams several times daily. He is going to be given Dilaudid 0.5 mg IV to see if this helps with some of his pain. Repeat temperature did show an increase of 100.7. He was given acetaminophen 975 mg p.o. A review of his laboratory studies show the following: CBC WBC 19.6, RBC 4.5, hemoglobin 12.7, hematocrit 39.8, platelets 178. Lactic acid 1.7. CMP Sodium 128 (corrected to 129), chloride 89, creatinine 1.4, glucose 180, total bilirubin 1.1, AST 56, all others normal limits. After reviewing all the data, patient certainly meets sepsis criteria due to his abnormal vital signs, leukocytosis, and known source of infection. I ordered Zosyn 3.337 g IV as well. This will be infused after the vancomycin is completed. With the patient meeting sepsis criteria, I reached out to our hospitalist (Dr. Castano) about admitting the patient to our facility for ongoing care. I discussed the case at length with the hospitalist. At this time Dr. Castano has accepted the patient to be admitted to the medical service. All further treatment decisions, modalities, and ultimate patient disposition will be carried out by Dr. Castano. Vital Signs Temperature 95.2 F L 10/26/19 10:18 Pulse Rate 115 H 10/26/19 10:18 Respiratory Rate 17 10/26/19 10:18 Blood Pressure 162/93 10/26/19 10:18 Pulse Oximetry (%) 93 10/26/19 10:18 Temperature 99.7 F H 10/26/19 20:01 Pulse Rate 120 H 10/26/19 21:43 Respiratory Rate 28 H 10/26/19 18:02 Blood Pressure 164/92 10/26/19 21:02 Pulse Oximetry (%) 100 10/26/19 21:43 Skin/Abscess/Foreign Body - Lab Data Result diagrams: 10/26/19 11:35 10/26/19 11:35 Lab Results 10/26/19 10/26/19 10/26/19 Range/Units 11:35 11:35 11:35 WBC 19.6 H (4.50-11.00) K/mcL RBC 4.50 L (4.63-6.08) M/mcL Hgb 12.7 L (13.7-17.5) g/dL Hct 39.8 L (40.1-51.0) % MCV 88.4 (80.0-100.0) fL MCH 28.2 (26.0-34.0) pg MCHC 31.9 (31.0-36.0) g/dL RDW 14.3 (11.5-14.5) % Plt Count 178 (140-440) K/mcL MPV 10.9 H (7.4-10.4) fL Gran % 93.4 H (38.0-78.0) % Lymph % (Auto) 2.9 L (15.5-49.0) % Rolette % (Auto) 3.4 (1.0-12.0) % Eos % (Auto) 0.1 (0.0-7.0) % Baso % (Auto) 0.2 (0.0-2.0) % Gran # 18.35 H (1.80-8.00) K/mcL Lymph # (Auto) 0.56 L (1.50-4.80) K/mcL Rolette # (Auto) 0.66 (0.10-0.90) K/mcL Eos # (Auto) 0.01 (0.00-0.70) K/mcL Baso # (Auto) 0.04 (0.00-0.30) K/mcL VBG Lactic Acid 1.7 (0.5-2.0) mmol/L Sodium 128 L (133-145) mmol/L Potassium 4.3 (3.3-5.1) mmol/L Chloride 89 L (96-108) mmol/L Carbon Dioxide 25 (22-30) mmol/L Anion Gap 14.0 (8-16) BUN 19 (6-20) mg/dl Creatinine 1.4 H (0.7-1.2) mg/dl GFR Calculation 57 Glucose 180 H (70-105) mg/dL Calcium 9.0 (8.6-10.4) mg/dl Total Bilirubin 1.1 H (0.0-1.0) mg/dL AST 56 H (0-37) U/l ALT 32 (0-40) U/l Alkaline Phosphatase 93 (39-117) U/L Total Protein 7.2 (5.9-8.4) gm/dL Albumin 3.7 (3.2-5.2) gm/dL Globulin 3.5 (2.2-3.7) gm/dL Albumin/Globulin Ratio 1.1 (1.0-2.3) Disposition Pt seen by [facility] [employer]/PA only: Yes Clinical Impression: Hyponatremia Sepsis Qualifiers: Sepsis type: sepsis due to unspecified organism Qualified Code(s): A41.9 - Sepsis, unspecified organism; R65.20 - Severe sepsis without septic shock Cellulitis of arm Qualifiers: Laterality: unspecified laterality Qualified Code(s): L03.119 - Cellulitis of unspecified part of limb Disposition: Xfer As Inpt ([facility]) Condition: Fair
[2019-10-26 12:39] LABS: Basophils # (Auto) 0.04 K/mcL (0.00-0.30); Basophils % (Auto) 0.2 % (0.0-2.0); Eosinophils # (Auto) 0.01 K/mcL (0.00-0.70); Eosinophils % (Auto) 0.1 % (0.0-7.0); Granulocytes % (Auto) 93.4 % (38.0-78.0); Hematocrit 39.8 % (40.1-51.0); Hemoglobin 12.7 g/dL (13.7-17.5); Lymphocytes # (Auto) 0.56 K/mcL (1.50-4.80); Lymphocytes % (Auto) 2.9 % (15.5-49.0); Mean Cell Volume 88.4 fL (80.0-100.0); Mean Corpuscular HGB Conc 31.9 g/dL (31.0-36.0); Mean Platelet Volume 10.9 fL (7.4-10.4); Monocytes # (Auto) 0.66 K/mcL (0.10-0.90); Monocytes % (Auto) 3.4 % (1.0-12.0); Platelet Count 178 K/mcL (140-440); Red Cell Distribution Width 14.3 % (11.5-14.5); WBC 19.6 K/mcL (4.50-11.00)
[2019-10-26] MEDS ORDERED: PIPERACILLIN SODIUM/TAZOBACTAM 3.375 GM in DEXTROSE 5% IN WATER 50 ML IV ONE (12:47)
[2019-10-26] MEDS ORDERED: HYDROmorphone 0.5 MG/0.5 ML SYRINGE IV PRN (12:52)
[2019-10-26] MEDS ORDERED: ACETAMINOPHEN 325 MG TABLET PO ONE (12:54)
[2019-10-26 12:56] LABS: ALT/SGPT 32 U/l (0-40); AST/SGOT 56 U/l (0-37); Albumin 3.7 gm/dL (3.2-5.2); Albumin/Globulin Ratio 1.1 (1.0-2.3); Alkaline Phosphatase 93 U/L (39-117); Bilirubin,Total 1.1 mg/dL (0.0-1.0); Blood Urea Nitrogen 19 mg/dl (6-20); Carbon Dioxide 25 mmol/L (22-30); Globulin 3.5 gm/dL (2.2-3.7); Glomerular Filtration Rate 57; Glucose 180 mg/dL (70-105)
[2019-10-26 12:57] LABS: Chloride 89 mmol/L (96-108)
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
[2019-10-26] MEDS ORDERED: ONDANSETRON 4 MG/2 ML VIAL IV PRN (14:43)
[2019-10-26] MEDS ORDERED: VANCOMYCIN PER PHARMACY IV SCH (14:43)
[2019-10-26] MEDS ORDERED: MAGNESIUM SULFATE 2 GM/50 ML BAG IV PRN (14:43)
[2019-10-26] MEDS ORDERED: POLYETHYLENE GLYCOL 3350 17 GM PACKET PO PRN (14:43)
[2019-10-26] MEDS ORDERED: BISACODYL 10 MG SUPP.RECT PR PRN (14:43)
[2019-10-26] MEDS ORDERED: ACETAMINOPHEN 325 MG TABLET PO PRN (14:43)
[2019-10-26] MEDS ORDERED: NOREPINEPHRINE BITARTRATE 16 MG in 0.9 % SODIUM CHLORIDE 234 ML IV PRN (14:43)
[2019-10-26] MEDS ORDERED: traMADol 50 MG TABLET PO PRN (14:43)
[2019-10-26] MEDS ORDERED: ONDANSETRON 4 MG ODT TABLET SL PRN (14:43)
[2019-10-26] MEDS ORDERED: POTASSIUM CHLORIDE 20 MEQ PACKET PO PRN (14:43)
[2019-10-26] MEDS: 0.9 % SODIUM CHLORIDE 1,000 ML IV SCH (14:55)
[2019-10-26] MEDS: ACETAMINOPHEN 650 MG/65 ML BOTTLE IV PRN ×2 (14:58→22:37)
[2019-10-26] MEDS ORDERED: VANCOMYCIN 1,500 MG in 0.9 % SODIUM CHLORIDE 500 ML IV SCH (15:00)
[2019-10-26] MEDS ORDERED: LORazepam 2 MG/ML VIAL ONE (15:26)
[2019-10-26] MEDS: LORazepam 2 MG/ML VIAL IV PRN ×2 (15:28→20:14)
[2019-10-26] MEDS: 0.9 % SODIUM CHLORIDE 10 ML SYRINGE IV SCH ×2 (15:28→20:14)
[2019-10-26] MEDS: cefTRIAXone 2 GM in DEXTROSE 5% IN WATER 50 ML IV SCH (15:55)
[2019-10-26] MEDS: HYDROmorphone 2 MG TABLET PO PRN ×2 (15:55→20:16)
[2019-10-26] MEDS: SENNOSIDES/DOCUSATE SODIUM 1 TAB TABLET PO SCH (20:14)
[2019-10-26] MEDS: DOCUSATE SODIUM 100 MG CAPSULE PO SCH (20:14)
[2019-10-26] MEDS: ATORVASTATIN 20 MG TABLET PO SCH (20:15)
[2019-10-26] MEDS: HEPARIN 5,000 UNIT/ML VIAL SQ SCH (20:15)
[2019-10-26] MEDS: OCTREOTIDE ACETATE 100 MCG/ML VIAL SQ SCH (20:18)
[2019-10-26] MEDS: VANCOMYCIN 1,500 MG in 0.9 % SODIUM CHLORIDE 500 ML IV SCH (20:18)
[2019-10-26] MEDS ORDERED: MELATONIN 3 MG TABLET PO PRN (21:00)
[2019-10-26] MEDS: hydrALAZINE 20 MG/ML VIAL IV PRN (21:57)
[2019-10-27] MEDS: HYDROmorphone 2 MG TABLET PO PRN ×6 (00:05→22:18)
[2019-10-27] MEDS: LORazepam 2 MG/ML VIAL IV PRN ×4 (00:05→23:35)
[2019-10-27] MEDS: hydrALAZINE 20 MG/ML VIAL IV PRN (03:07)
[2019-10-27 06:53] LABS: Hematocrit 42.4 % (40.1-51.0); Hemoglobin 12.9 g/dL (13.7-17.5); Mean Cell Volume 92.4 fL (80.0-100.0); Mean Corpuscular HGB Conc 30.4 g/dL (31.0-36.0); Mean Platelet Volume 11.1 fL (7.4-10.4); Platelet Count 132 K/mcL (140-440); RBC 4.59 M/mcL (4.63-6.08); Red Cell Distribution Width 14.1 % (11.5-14.5); WBC 16.7 K/mcL (4.50-11.00)
[2019-10-27 07:12] LABS: ALT/SGPT 35 U/l (0-40); AST/SGOT 49 U/l (0-37); Albumin 3.2 gm/dL (3.2-5.2); Albumin/Globulin Ratio 0.9 (1.0-2.3); Alkaline Phosphatase 93 U/L (39-117); Bilirubin,Direct 0.7 mg/dL (0.0-0.3); Bilirubin,Total 1.3 mg/dL (0.0-1.0); Blood Urea Nitrogen 14 mg/dl (6-20); Calcium 8.3 mg/dl (8.6-10.4); Carbon Dioxide 23 mmol/L (22-30); Globulin 3.7 gm/dL (2.2-3.7); Glomerular Filtration Rate 69; Glucose 160 mg/dL (70-105); Lactate Dehydrogenase 266 U/L (94-250); Triglycerides 148 mg/dl (<150)
[2019-10-27 07:13] LABS: Chloride 93 mmol/L (96-108); Phosphorous 1.7 mg/dL (2.7-4.5)
[2019-10-27 08:04] LABS: Band Neutrophils % 15 % (0-10); Lymphocytes % 3 % (15-49); Monocytes % (Manual) 1 % (1-12); Platelet Estimate DECREASED (NORMAL); RBC Morphology NORMAL (NORMAL); Segmented Neutrophils % 81 % (38-78)
[2019-10-27] MEDS ORDERED: CYANOCOBALAMIN (VITAMIN B-12) 500 MCG TABLET PO SCH (09:00)
[2019-10-27] MEDS ORDERED: MULTIVIT,THER IRON,CA,FA & MIN 1 TABLET PO SCH (09:00)
[2019-10-27] MEDS ORDERED: FOLIC ACID 1 MG TABLET PO SCH (09:00)
[2019-10-27] MEDS: DOCUSATE SODIUM 100 MG CAPSULE PO SCH ×2 (09:17→20:44)
[2019-10-27] MEDS: HEPARIN 5,000 UNIT/ML VIAL SQ SCH ×2 (09:28→20:09)
[2019-10-27] MEDS: OCTREOTIDE ACETATE 100 MCG/ML VIAL SQ SCH ×2 (09:28→20:10)
[2019-10-27] MEDS: NEUTRA PHOS 1 PACKET PO SCH ×2 (09:28→20:10)
[2019-10-27] MEDS: THIAMINE 100 MG TABLET PO SCH ×3 (09:29→20:10)
[2019-10-27] MEDS: 0.9 % SODIUM CHLORIDE 10 ML SYRINGE IV SCH ×3 (10:19→20:45)
[2019-10-27] MEDS: cefTRIAXone 2 GM in DEXTROSE 5% IN WATER 50 ML IV SCH (10:19)
[2019-10-27] MEDS: VANCOMYCIN 1,500 MG in 0.9 % SODIUM CHLORIDE 500 ML IV SCH ×2 (11:12→20:10)
[2019-10-27 12:54] LABS: Amphetamine Screen,Urine NONE DETECTED (NONDETECTED); Barbiturate Screen,Urine NONE DETECTED (NONDETECTED); Benzodiazepines Screen,Urine NONE DETECTED (NONDETECTED); Cannabinoid Screen,Urine SUSPECT POSITIVE (NONDETECTED); Cocaine Screen,Urine NONE DETECTED (NONDETECTED); Opiate Screen,Urine SUSPECT POSITIVE (NONDETECTED); Oxycodone, Urine Screen NONE DETECTED (NONDETECTED); Phencyclidine Screen,Urine NONE DETECTED (NONDETECTED)
--- NOTE | 2019-10-27 13:46 | Ultrasound Report ---
INDICATION: History of recurrent sores on the forearm bilaterally. TECHNIQUE: Routine soft tissue ultrasound Grayscale and color flow Doppler spectral imaging COMPARISON: Most recent examination dated 10/20/2014 FINDINGS: There is a focal area of abnormality in the subcutaneous tissues of the right forearm. This is volar. This measures approximately 4 cm maximally. This is hypoechoic but not sonolucent. This is not a well-defined fluid collection. This appears somewhat indurated. There are small superficial abnormalities in the subcutaneous soft tissues of the left forearm. No well-defined discrete abscess. There is mild superficial thrombophlebitis. This is dorsal. IMPRESSION: 1. No well-defined discrete abscess 2. Area of induration in the right forearm. This is not simple fluid 3. Superficial thrombophlebitis in the dorsal left forearm Interpreted and Authenticated by: Carl Tan 10/27/19
--- NOTE | 2019-10-27 15:10 | Internal Med Progress Note ---
Medical - PN: Subj Patient information: Note initiated : 10/27/19 at 3:06 pm Service Date, if different from initiated Date: [] Patient: Earle Magdaleno 54 y/o M admitted on 10/26/19 for LEft arm pain/ swelling/redness. Chief Complaint: [] Interval history: Mr. Magdaleno is a 51 year old M with an extensive past medical history including excessive alcoholism, hypertension, severe mesenteric ischemia s/p colectomy and distal ileectomy, hepatitis C with history of cryoglobulinemia, CAD who presents to the emergency department with 24-hour onset of shaking chills fever, bilateral upper extremity redness left more than right, swelling and drainage following application of tattoos on his forearm. Symptoms are dramatically progressed with increasing swelling extending up to the left mid arm. He was evaluated in the ER initial work-up was consistent with severe sepsis with WBC 20,000, mild FRAN/tachycardia tachypnea and a fever of 101.7 and sodium 128. Cultures were drawn and antibiotics were initiated. Hospital service was consulted At the time evaluation patient is very anxious, diaphoretic. He carries a history of PTSD. He endorses history as above. Denies diarrhea, dysuria, headache, photophobia but endorses to myalgia/joint stiffness. 10/26-patient in severe sepsis secondary to bacteremia. Gram-positive cocci 2 out of 2. Surveillance cultures pending. Continue IV antibiotics. Swelling extending to left shoulder and right elbow. Ultrasound does not reveal area of discrete abscess with significant induration along with superficial thrombophlebitis in the dorsal left forearm. Continue limb elevation/local wound care. Starting to withdraw with CIWA score over 14. On benzodiazepine/oral alcohol. - Constitutional Vitals: Vital Signs Temp Pulse Resp BP Pulse Ox 100.4 F H 80 28 H 106/68 90 10/27/19 06:11 10/27/19 02:10 10/26/19 18:02 10/27/19 06:11 10/27/19 06:11 Period Temp Pulse Resp BP Sys/Lovell Pulse Ox Last 24 Hr 97.2 F-102.6 F 80-125 28 106-196/43-92 90-100 Intake and Output 10/27/19 10/27/19 10/27/19 05:59 13:59 21:59 Intake Total 1405 Output Total 401 Balance 1004 Intake & Output: Intake & Output 10/27/19 10/27/19 10/27/19 05:59 13:59 21:59 Intake Total 1405 Output Total 401 Balance 1004 Intake: IV 565 Vancomycin 1,500 mg In Sodium 500 Chloride 0.9% 500 ml @ 333.3 mls/hr IV Q12H [facility] Rx#: [id number] GI Tube Flush 840 Output: Void Amount 400 # of times incontinent of urine 1 Other: Stool Consistency Loose # Voids 1 1 # Bowel Movements 1 # of times incontinent of 1 1 Bowels General appearance: no acute distress Exam: Anxious confused Tremulous Increasing redness erythema and swelling extending up to the left shoulder and right elbow with area of purulent drainage Improved tenderness Nonlabored breathing Medical - PN: Obj Da - Labs CBC & Chem 7: 10/27/19 05:05 10/27/19 05:05 Labs: Abnormal Lab Results 10/27/19 10/27/19 10/26/19 05:05 05:05 23:15 WBC 16.7 H RBC 4.59 L Hgb 12.9 L Hct MCHC 30.4 L Plt Count 132 L MPV 11.1 H Gran % Lymph % (Auto) Gran # Lymph # (Auto) Seg Neutrophils % 81 H Band Neutrophils % 15 H Lymphocytes % 3 L Platelet Estimate Decreased A Sodium Chloride 93 L Anion Gap 17.0 H Creatinine Glucose 160 H Calcium 8.3 L Phosphorus 1.7 L Total Bilirubin 1.3 H Direct Bilirubin 0.7 H GGT 136 H AST 49 H Lactate Dehydrogenase 266 H Albumin/Globulin Ratio 0.9 L Urine Opiates Screen Suspect positive A U Marijuana (THC) Screen Suspect positive A 10/26/19 10/26/19 11:35 11:35 WBC 19.6 H RBC 4.50 L Hgb 12.7 L Hct 39.8 L MCHC Plt Count MPV 10.9 H Gran % 93.4 H Lymph % (Auto) 2.9 L Gran # 18.35 H Lymph # (Auto) 0.56 L Seg Neutrophils % Band Neutrophils % Lymphocytes % Platelet Estimate Sodium 128 L Chloride 89 L Anion Gap Creatinine 1.4 H Glucose 180 H Calcium Phosphorus Total Bilirubin 1.1 H Direct Bilirubin GGT AST 56 H Lactate Dehydrogenase Albumin/Globulin Ratio Urine Opiates Screen U Marijuana (THC) Screen Meds: Medications Acetaminophen (Tylenol) 650 mg PO Q4-6HP PRN; Protocol PRN Reason: Per Pain Protocol/Fever > 101 Last Admin: 10/27/19 09:29 Dose: 650 mg Documented by: Atorvastatin Calcium (Lipitor) 40 mg PO HS [facility] Last Admin: 10/26/19 20:15 Dose: 40 mg Documented by: Bisacodyl (Dulcolax) 10 mg GA Q2-3DAYS PRN PRN Reason: Constipation Cyanocobalamin (Vitamin B-12) 500 mcg PO DAILY [facility] Last Admin: 10/27/19 09:29 Dose: 500 mcg Documented by: Docusate Sodium (Colace) 100 mg PO BID [facility] Last Admin: 10/27/19 09:17 Dose: Not Given Documented by: Folic Acid (Folic Acid) 1 mg PO DAILY [facility] Last Admin: 10/27/19 09:29 Dose: 1 mg Documented by: Heparin Sodium (Porcine) (Heparin) 5,000 unit SQ Q12 [facility] Last Admin: 10/27/19 09:28 Dose: 5,000 unit Documented by: Hydralazine HCl (Apresoline) 20 mg IV Q4-6HP PRN PRN Reason: Hypertension Last Admin: 10/27/19 03:07 Dose: 20 mg Documented by: Hydromorphone HCl (Dilaudid) 4 mg PO Q4HP PRN PRN Reason: Pain Last Admin: 10/27/19 13:35 Dose: 4 mg Documented by: Sodium Chloride (Sodium Chloride 0.9%) 1,000 mls @ 50 mls/hr IV .Q20H [facility] Stop: 10/29/19 02:42 Last Admin: 10/26/19 14:55 Dose: 50 mls/hr Documented by: Acetaminophen (Ofirmev) 650 mg in 65 mls @ 130 mls/hr IV Q6HP PRN; Protocol PRN Reason: Per Pain Protocol/Fever > 101 Last Infusion: 10/26/19 23:20 Dose: Infused Documented by: Magnesium Sulfate (Magnesium Sulfate) 2 gm in 50 mls @ 50 mls/hr IV UD PRN PRN Reason: MG = or < 1.7 Ceftriaxone Sodium 2 gm/ (Dextrose) 50 mls @ 100 mls/hr IV DAILY [facility]; Protocol Last Admin: 10/27/19 10:19 Dose: 100 mls/hr Documented by: Norepinephrine Bitartrate 16 (mg/ Sodium Chloride) 250 mls @ 9.375 mls/hr IV Q24HP PRN; Protocol PRN Reason: TITRATE TO KEEP MAP > 65 Vancomycin HCl 1,500 mg/ (Sodium Chloride) 500 mls @ 333.3 mls/hr IV Q12H [facility] Last Admin: 10/27/19 11:12 Dose: 333.3 mls/hr Documented by: Iron Carb/Multivit/Asphalt Mixer/Folic Acid (Multivitamin W/Minerals) 1 tab PO DAILY [facility] Last Admin: 10/27/19 09:28 Dose: 1 tab Documented by: Lorazepam (Ativan) 1 mg IV Q4HP PRN PRN Reason: ANXIETY/SEDATION Last Admin: 10/27/19 04:07 Dose: 1 mg Documented by: Melatonin (Melatonin 3mg Tablet) 3 mg PO HSP PRN PRN Reason: Insomnia Octreotide Acetate (Sandostatin) 100 mcg SQ BID [facility] Last Admin: 10/27/19 09:28 Dose: 100 mcg Documented by: Ondansetron HCl (Zofran Odt) 4 mg SL Q4-6HP PRN; Protocol PRN Reason: Nausea And Vomiting Ondansetron HCl (Zofran) 4 mg IV Q4-6HP PRN; Protocol PRN Reason: Nausea And Vomiting Last Admin: 10/26/19 20:29 Dose: 4 mg Documented by: Pneumococcal Polyvalent Vaccine (Pneumovax 23) 0.5 ml IM .ONCE ONE Stop: 10/28/19 10:01 Polyethylene Glycol (Miralax) 17 gm PO DAILYP PRN PRN Reason: Constipation Potassium Chloride (Klor-Con) 40 meq PO DAILYP PRN PRN Reason: K+ < 3.5 Potassium/Phosphorus/Sodium (Neutra Phos) 2 packet PO BID [facility] Last Admin: 10/27/19 09:28 Dose: 2 packet Documented by: Senna/Docusate Sodium (Senna Plus Tablet) 1 tab PO HS [facility] Last Admin: 10/26/19 20:14 Dose: Not Given Documented by: Sodium Chloride (Saline Flush) 10 ml IV Q8 [facility] Last Admin: 10/27/19 10:19 Dose: 10 ml Documented by: Thiamine HCl (Vitamin B1) 100 mg PO TID [facility] Stop: 10/29/19 21:01 Last Admin: 10/27/19 09:29 Dose: 100 mg Documented by: Vancomycin HCl (Vancomycin Per Pharmacy) 1 order IV UD [facility]; Protocol Medical - PN: A/P - Time Spent With Patient Total time spent is greater than 50% in coordination of care (as documented) at patient's floor/unit and/or counseling patient: 25 - 35 minutes (1) Severe sepsis with acute organ dysfunction Status: Acute Assessment and plan: * Gram-positive bacteremia secondary to cellulitis. Surveillance cultures pending. Broad antibiotic coverage. Echocardiogram to rule out infection endocarditis * Severe sepsis with acute organ dysfunction including FRAN/elevated bilirubin. White count downtrending now to 16,000. Continue broad antibiotic coverage * Cellulitis with lymphangitis/erysipelas bilateral upper extremity left > right -GPC on cultures. De-escalate based on sensitivities. * Severe alcohol withdrawal with early DTs. Continue CIWA protocol/oral alcohol * FRAN secondary to sepsis endorgan dysfunction. Creatinine improved to 1.2. Avoid nephrotoxins/crystalloids/monitor renal function * Elevated bilirubin secondary sepsis endorgan dysfunction/underlying alcoholism. * History of hep C/cryoglobulinemia * History of CAD on statin * History of alcohol and tobacco dependence. Nicotine patch/monitor for withdrawals * Chronic pain on home dose Dilaudid * History of PTSD/anxiety continue as needed benzodiazepine * Full code * Prophylax Heparin Plan * Service cultures * Antibiotic coverage * DT management per protocol * Sepsis management per guidelines * Localized wound care/limb elevation * PT OT/nutrition support Current Visit: Yes Medical - PN: Qual - VTE Deep Vein Thrombosis/Pulmonary Embolism Present on Admission: No
[2019-10-27 18:19] LABS: Appearance,Urine CLEAR; Bacteria,Urine 0 /hpf (0); Bilirubin,Urine NEG (NEG); Color,Urine YELLOW; Culture Indicated,Urine NO; Glucose,Urine (UA) NEGATIVE (NEG); Ketones,Urine NEG (NEG); Leukocyte Esterase,Urine NEG /uL (NEG); Mucus,Urine FEW /hpf (0); Nitrate,Urine NEG (NEG); Protein,Urine 100 mg/dL (NEG); Specific Gravity,Urine 1.012 (1.000-1.035); Urine Amorphous Crystals FEW /hpf (0); Urine Blood 0.2 mg/dL (<0.03); Urine RBC 5 /hpf (0-1); Urine Squamous Epithelial Cell < 1 /hpf (0-4); Urine WBC 1 /hpf (0-4); Urobilinogen,Urine NEG (NEG)
[2019-10-27] MEDS: 0.9 % SODIUM CHLORIDE 1,000 ML IV SCH ×2 (19:28→20:10)
[2019-10-27] MEDS: ATORVASTATIN 20 MG TABLET PO SCH (20:10)
[2019-10-27] MEDS: SENNOSIDES/DOCUSATE SODIUM 1 TAB TABLET PO SCH (20:45)
--- NOTE | 2019-10-28 08:04 | Internal Med Progress Note ---
Medical - Auxillary Note - Subjective Patient Information: Note initiated : 10/28/19 at 8:03 am Service Date, if different from initiated Date: [] Patient: Earle Magdaleno 54 y/o M admitted on 10/26/19 for LEft arm pain/ swelling/redness. Chief Complaint: [] Vital Signs Notified by nursing staff the patient left AMA early this morning despite his insistence from nursing staff and clearly understanding the risk of worsening bacteremia/sepsis and even . AMA paperwork signed by patient
[2019-10-28] MEDS ORDERED: PNEUMOCOCCAL 23-VAL P-SAC VAC 0.5 ML SYRINGE IM ONE (10:00)
[2019-11-02 09:24] LABS: Cannabinoid Confirmation POSITIVE (N); Opiate Confirmation POSITIVE (N)
== END 2019-10-28 01:55 | disposition left against medical advice (07) | DRG 872 ==
LOC: ED 10:16 → ICU 14:25
PROVIDERS: ADMIT Internal Medicine; ATTEND Internal Medicine

== ENCOUNTER 2019-10-29 22:02 | Inpatient (IN) ==
[2019-10-29] MEDS ORDERED: HYDROmorphone 1 MG/ML SYRINGE IV ONE (22:06)
[2019-10-29] MEDS ORDERED: LORazepam 2 MG/ML VIAL IV ONE (22:06)
--- NOTE | 2019-10-29 22:09 | Emergency Department Note ---
Skin/Abscess/FB HPI - General Chief complaint: Skin/Abscess/Foreign Body Stated complaint: cellulitis Source: patient Mode of arrival: ambulatory Limitations: no limitations - History of Present Illness HPI Narrative: 54-year-old male presents with bilateral upper extremity cellulitis. The left is much worse than the right. He was seen here and placed on antibiotics. He continued to get worse and was septic. He was admitted to the hospital a couple of days ago. He left AMA at 2 AM because he could not stand to be confined in a space. Since then he has come back a couple times and he has been set up for outpatient IV vancomycin therapy. He did attend at both 7 AM and 7 PM today. He is not always compliant. I did go down to outpatient to check on him in the cellulitis in the left upper extremity is getting much worse and the swelling is much worse. Discussed with him that outpatient management of this is very difficult and that he really should be inpatient where we can monitor him closely, give IV antibiotics, consults as needed, and [id number] care. After lengthy discussion he states that if we can help him stay, give him something to stay calm, because he does not do well in confined spaces, that he will stay and receive care. He had a lengthy discussion about the importance of compliance, being patient with staff so that we can work together for his best outcome. He understands that if he goes home and refuses treatment or is not compliant or not consistent he risks getting worse and even . He went home for a couple hours tonight and then just recently came back to the ER stating that he is going to cooperate and be admitted. He has had chills intermittently the last 24 hours. Unknown fever. No nausea, vomiting, or diarrhea. He does admit that the swelling and redness in the left arm has gotten much worse. - Related Data Home Medications Medication Instructions Recorded Confirmed Atorvastatin [Lipitor] 40 mg PO HS 12/26/16 10/29/19 Ipratropium/Albuterol Sulfate 2 puff INH BID 10/28/19 10/29/19 [Combivent] Previous Rx's Medication Instructions Recorded hydromorphone 4 mg tablet 4 mg PO Q4H PRN #180 tab 10/23/18 octreotide acetate 100 mcg/mL See Rx Instructions .ROUTE 08/27/19 injection solution .COMPLEX #60 unknown measurement unit code: not specified Vancomycin Per Pharmacy 1 order IV ONCE 14 Days #14 miscell 10/27/19 Allergies Allergy/AdvReac Type Severity Reaction Status Date / Time gabapentin AdvReac Intermediate Dizziness Verified 10/29/19 22:05 morphine AdvReac Intermediate Rash Verified 10/29/19 22:05 oxycodone [Oxycodone] AdvReac Intermediate leg hives Verified 10/29/19 22:05 hydrocodone AdvReac Mild Rash Verified 10/29/19 22:05 topiramate AdvReac Mild Rash Verified 10/29/19 22:05 tramadol AdvReac Mild Unknown Verified 10/29/19 22:05 Review of Systems All systems ED: reviewed and negative except as stated. 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 (Suspected) Inflammatory arthritis (Chronic) Rash (Chronic) Right arm cellulitis (Chronic) Hepatitis C (Chronic) Numbness in feet (Chronic) Arthritis (Chronic) History of MRSA infection (Chronic) Radiculopathy, cervical region (Chronic) Radiculopathy of lumbar region (Chronic) Alcohol use (Chronic) Extrinsic asthma (Chronic) Hepatitis C, acute (Chronic) Essential hypertension (Chronic) Cryofibrinogenemia (Chronic) Raynaud's syndrome (Chronic) Past Surgical History (Last Reviewed 10/23/18 @ 12:35 by Susanne Dang MD) H/O exploratory laparotomy (Chronic) Status post scar revision (Chronic) History of liver biopsy (Chronic) History of brain surgery (Chronic) History of arthroscopy of knee (Chronic) History of ileostomy (Acute) Medical history: Reports: arthritis, CHF, hypertension, myocardial infarction, other Psychiatric history: Reports: no psych history Surgical history ED: Reports: other - Social History smoking status: Current every day smoker Alcohol use: Reports: Unknown Drug use: Reports: marijuana Physical Exam Limitations: no limitations General appearance: alert, anxious Head: atraumatic, normocephalic, normal inspection Eye: Present: normal appearance. Absent: conjunctival injection ENT: Present: mucous membranes moist Chest: Present: symmetric chest wall rise Respiratory: Present: normal lung sounds bilaterally. Absent: respiratory distress, rales/crackles, accessory muscle use Cardiovascular: Present: regular rate, normal heart sounds Extremities: Present: normal capillary refill. Absent: normal inspection (The left forearm does have an abscess that is slightly improved. The redness extends 9 cm and has receded from the outline by 2 cm. Nonindurated with scant amount of drainage on the dressing. The left upper extremity has diffuse redness and swelling throughout which has progressively gotten worse and now extends into the upper arm, worse from yesterday. It is very tender.) Neurological: Present: alert, oriented X3 Psychiatric: Present: agitated, anxious Skin: Present: warm, dry. Absent: normal color (Please see extremity assessment regarding cellulitis to upper extremities.) Course Course Narrative: At [address] Castano who agrees to accept the patient. Current labs are pending. We are going to give this patient something for anxiety and pain and he states he is going to be compliant he just needs help with his severe anxiety. Also he is requesting pain medication due to pain in the left upper extremity Vital Signs Temperature 98.7 F 10/29/19 22:03 Pulse Rate 102 H 10/29/19 22:03 Respiratory Rate 18 10/29/19 22:03 Blood Pressure 160/91 10/29/19 22:03 Pulse Oximetry (%) 90 10/29/19 22:03 Temperature 98.7 F 10/29/19 22:03 Pulse Rate 102 H 10/29/19 22:03 Respiratory Rate 18 10/29/19 22:03 Blood Pressure 160/91 10/29/19 22:03 Pulse Oximetry (%) 90 10/29/19 22:03 Skin/Abscess/Foreign Body - Medical Records Medical records reviewed: Yes I reviewed the patient's medical records. Disposition Pt seen by TALENT ACQUISITION PROJECT MANAGER/PA only: Yes Clinical Impression: Cellulitis of upper extremity, Non-compliance, Failure of outpatient treatment Disposition: Xfer As Inpt ([facility]) Condition: Fair Referrals: Kerry Williamson MD [Primary Care Provider] - Time of Disposition: 10:12
[2019-10-29] MEDS ORDERED: ONDANSETRON 4 MG/2 ML VIAL IV PRN (22:25)
[2019-10-29] MEDS ORDERED: HYDROcodone/APAP 5/325MG TABLET PO PRN (22:25)
[2019-10-29] MEDS: 0.9 % SODIUM CHLORIDE 1,000 ML IV SCH (22:34)
[2019-10-29] MEDS: ceFAZolin 2 GM in DEXTROSE 5% IN WATER 50 ML IV SCH (22:49)
[2019-10-29 23:34] LABS: Hematocrit 37.9 % (40.1-51.0); Hemoglobin 11.9 g/dL (13.7-17.5); Mean Cell Volume 87.7 fL (80.0-100.0); Mean Corpuscular HGB Conc 31.4 g/dL (31.0-36.0); Mean Platelet Volume 11.2 fL (7.4-10.4); Platelet Count 202 K/mcL (140-440); RBC 4.32 M/mcL (4.63-6.08); Red Cell Distribution Width 14.1 % (11.5-14.5); WBC 15.7 K/mcL (4.50-11.00)
[2019-10-30] MEDS: HYDROmorphone 0.5 MG/0.5 ML SYRINGE IV PRN ×7 (00:02→17:35)
[2019-10-30 00:12] LABS: ALT/SGPT 56 U/l (0-40); AST/SGOT 61 U/l (0-37); Albumin 3.1 gm/dL (3.2-5.2); Albumin/Globulin Ratio 0.8 (1.0-2.3); Alkaline Phosphatase 153 U/L (39-117); Bilirubin,Total 1.3 mg/dL (0.0-1.0); Blood Urea Nitrogen 16 mg/dl (6-20); C-Reactive Protein 21.9 mg/dl (0.0-0.8); Calcium 8.6 mg/dl (8.6-10.4); Carbon Dioxide 25 mmol/L (22-30); Chloride 94 mmol/L (96-108); Globulin 3.9 gm/dL (2.2-3.7); Glomerular Filtration Rate 69; Glucose 98 mg/dL (70-105)
[2019-10-30] MEDS ORDERED: IPRATROPIUM/ALBUTEROL 3 ML AMPUL.NEB NEB PRN (00:26)
[2019-10-30] MEDS ORDERED: HYDROmorphone 2 MG TABLET PO PRN (00:26)
[2019-10-30 00:27] LABS: Eosinophils % (Manual) 2 % (0-7); Lymphocytes % 11 % (15-49); Monocytes % (Manual) 9 % (1-12); Platelet Estimate NORMAL (NORMAL); RBC Morphology NORMAL (NORMAL); Segmented Neutrophils % 78 % (38-78)
[2019-10-30] MEDS ORDERED: NICOTINE 21 MG PATCH ONE (00:32)
[2019-10-30] MEDS: OCTREOTIDE ACETATE 100 MCG/ML VIAL SQ SCH ×2 (00:33→09:28)
[2019-10-30] MEDS ORDERED: HYDROmorphone 2 MG TABLET ONE (00:34)
[2019-10-30] MEDS: NICOTINE 21 MG PATCH TOPICAL SCH ×2 (00:35→09:27)
[2019-10-30] MEDS: 0.9 % SODIUM CHLORIDE 1,000 ML IV SCH (05:28)
[2019-10-30] MEDS ORDERED: ceFAZolin 1 GM VIAL ONE (06:07)
[2019-10-30] MEDS: ceFAZolin 2 GM in DEXTROSE 5% IN WATER 50 ML IV SCH (06:10)
[2019-10-30] MEDS ORDERED: 0.9 % SODIUM CHLORIDE 1,000 ML IV SCH (07:56)
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
[2019-10-30] MEDS ORDERED: ONDANSETRON 4 MG/2 ML VIAL IV PRN (08:06)
[2019-10-30] MEDS ORDERED: BISACODYL 10 MG SUPP.RECT PR PRN (08:06)
[2019-10-30] MEDS ORDERED: MAGNESIUM SULFATE 2 GM/50 ML BAG IV PRN (08:06)
[2019-10-30] MEDS ORDERED: POTASSIUM CHLORIDE 20 MEQ PACKET PO PRN (08:06)
[2019-10-30] MEDS ORDERED: MELATONIN 3 MG TABLET PO PRN (08:06)
[2019-10-30] MEDS ORDERED: ACETAMINOPHEN 325 MG TABLET PO PRN (08:06)
[2019-10-30] MEDS ORDERED: ACETAMINOPHEN 650 MG/65 ML BOTTLE IV PRN (08:06)
[2019-10-30] MEDS ORDERED: POLYETHYLENE GLYCOL 3350 17 GM PACKET PO PRN (08:06)
[2019-10-30] MEDS ORDERED: ONDANSETRON 4 MG ODT TABLET SL PRN (08:06)
[2019-10-30] MEDS ORDERED: POTASSIUM CHLORIDE 20 MEQ, MAGNESIUM SULFATE 16.24 MEQ, THIAMINE 100 MG, MVI, ADULT NO.... IV SCH (08:15)
[2019-10-30] MEDS ORDERED: LORazepam 2 MG/ML VIAL IV PRN (08:21)
[2019-10-30] MEDS ORDERED: methylPREDNISolone SOD SUCC 40 MG/ML VIAL IV ONE (08:22)
[2019-10-30] MEDS: FUROSEMIDE 20 MG/2 ML VIAL IV SCH ×2 (08:34→14:35)
[2019-10-30] MEDS: LORazepam 2 MG/ML ORAL.SOL PO PRN ×2 (08:35→17:36)
[2019-10-30] MEDS ORDERED: CYANOCOBALAMIN (VITAMIN B-12) 500 MCG TABLET PO SCH (09:00)
[2019-10-30] MEDS ORDERED: HEPARIN 5,000 UNIT/ML VIAL SQ SCH (09:00)
[2019-10-30] MEDS ORDERED: THIAMINE 100 MG TABLET PO SCH (09:00)
[2019-10-30] MEDS ORDERED: FOLIC ACID 1 MG TABLET PO SCH (09:00)
[2019-10-30] MEDS ORDERED: ALBUTEROL SULFATE 2.5 MG/3 ML NEBULIZER NEB SCH (09:00)
[2019-10-30] MEDS ORDERED: MULTIVIT,THER IRON,CA,FA & MIN 1 TABLET PO SCH (09:00)
[2019-10-30] MEDS ORDERED: DOCUSATE SODIUM 100 MG CAPSULE PO SCH (09:00)
--- NOTE | 2019-10-30 09:12 | XRay Report ---
INDICATION: sob TECHNIQUE: AP portable upright chest x-ray COMPARISON: Previous chest x-rays dated 11/04/2018, 08/22/2018, 08/19/2018, 12/24/2017. Previous pulmonary CTA dated 08/19/2018 FINDINGS: Lungs:Focal right basilar consolidation. This may be right middle lobe and/or right lower lobe. Appearance is consistent with pneumonia. This is peripherally based there is mild infiltrate more medially at the right lung base. Left lung is negative. Right upper lung is negative. Follow-up radiographs are recommended. Heart, vascular:No significant cardiomegaly. Pulmonary vascularity is normal. No pulmonary edema or pulmonary congestion Mediastinum, jordana:No mediastinal widening. No hilar mass Pleura:No pleural fluid. No pleural-based mass or calcification Skeletal:Negative. IMPRESSION: 1. Right basilar consolidation consistent with pneumonia. 2. Follow-up chest x-ray is recommended. Interpreted and Authenticated by: Carl Tan 10/30/19
[2019-10-30] MEDS: 0.9 % SODIUM CHLORIDE 10 ML SYRINGE IV SCH ×3 (09:44→15:55)
--- NOTE | 2019-10-30 10:05 | Internal Med Progress Note ---
Medical - PN: Subj Patient information: Note initiated : 10/30/19 at 10:00 am Service Date, if different from initiated Date: [] Patient: Earle Magdaleno a 54 y/o M admitted on 10/29/19 for cellulitis. Chief Complaint: [] Interval history: Mr. Magdaleno is a 51 year old M with an extensive past medical history including severe alcoholism, HTN severe mesenteric ischemia s/p colectomy and distal ileectomy, hepatitis C with history of cryoglobulinemia, CAD who was admitted to [facility] with bilateral forearm cellulitis/lymphangitis and staph aureus bacteremia after placement of tattoos a few days ago. Patient was managed in ICU in light of severe sepsis and bacteremia and was empirically managed on broad-spectrum antibiotics until cultures were obtained. However patient within 36 hours hospitalization left AMA. Following cultures grew staph aureus patient was contacted and advised to return to ER for continued antibiotics due to life-threatening bacteremia and high probability complications/. Patient returned to the ER and antibiotics were initiated however ER provider on reviewing cellulitis which clearly has worsened advised for admission and continued hospitalization and inpatient management. Hospitalist service was subsequently consulted for admission At the time evaluation patient is anxious but agrees to stay in the hospital. He has been on vancomycin. Based on cultures antibiotics is changed to cefazolin. Echocardiogram during recent hospitalization showed 55% EF Patient endorses to fever along with pain and swelling and weakness. Left upper extremities a lot worse than the right and has progressed over the last couple of days. 10/29-patient remains anxious. Short of breath. White count 15.7. Surveillance cultures pending. On IV cefazolin. Continue potassium replacement. Right basilar pneumonia. Continue antibiotic coverage. Monitor for alcohol withdrawal. Continue pain management. Nicotine patch - Constitutional Vitals: Vital Signs Temp Pulse Resp BP Pulse Ox 99.3 F H 103 H 24 H 89/53 90 10/30/19 08:00 10/30/19 08:00 10/30/19 08:00 10/30/19 08:00 10/30/19 08:00 Period Temp Pulse Resp BP Sys/Lovell Pulse Ox Last 24 Hr 98.7 F-99.4 F 102-116 18-24 89-160/53-99 90-93 Intake and Output 10/29/19 10/30/19 10/30/19 21:59 05:59 13:59 Intake Total 1994 480 Output Total 1000 1400 Balance 995 -920 Weight 277 lb 14.4 oz Intake & Output: Intake & Output 10/29/19 10/30/19 10/30/19 21:59 05:59 13:59 Intake Total 1994 480 Output Total 1000 1400 Balance 995 -920 Weight 277 lb 14.4 oz Intake: IV 1045 Sodium Chloride 0.9% 1,000 ml @ 1000 150 mls/hr IV .Q6H40M [facility] Rx#: [id number] Ancef 2 gm In Dextrose 5% in 45 Water 50 ml @ 100 mls/hr IV Q8H [facility] Rx#:[id number] Oral 950 480 Output: Void Amount 1000 1400 Other: Meal Breakfast Percent of Meal Consumed 100% Feeding Ability Independent Urine Color Dark Yellow Urine Odor Strong Stool Consistency Liquid # Bowel Movements 1 General appearance: no acute distress Exam: Alert but anxious Labored breathing Midline abdominal incision scar Bilateral arm swelling extending up to the shoulder Medical - PN: Obj Da - Labs CBC & Chem 7: 10/29/19 22:21 10/29/19 22:21 Labs: Abnormal Lab Results 10/29/19 10/29/19 22:21 22:21 WBC 15.7 H RBC 4.32 L Hgb 11.9 L Hct 37.9 L MPV 11.2 H Lymphocytes % 11 L Potassium 3.2 L Chloride 94 L Total Bilirubin 1.3 H AST 61 H ALT 56 H Alkaline Phosphatase 153 H C-Reactive Protein 21.9 H Albumin 3.1 L Globulin 3.9 H Albumin/Globulin Ratio 0.8 L Meds: Medications Acetaminophen (Tylenol) 650 mg PO Q4-6HP PRN; Protocol PRN Reason: Per Pain Protocol/Fever > 101 Albuterol Sulfate (Ventolin) 2.5 mg NEB Q12H [facility] Last Admin: 10/30/19 08:41 Dose: Not Given Documented by: Albuterol/Ipratropium (Duoneb) 3 ml NEB Q4HP PRN PRN Reason: Shortness Of Breath Last Admin: 10/30/19 08:30 Dose: 3 ml Documented by: Atorvastatin Calcium (Lipitor) 40 mg PO HS [facility] Bisacodyl (Dulcolax) 10 mg TN Q2-3DAYS PRN PRN Reason: Constipation Cefazolin Sodium (Ancef) 2 gm IV Q8H [facility] Cyanocobalamin (Vitamin B-12) 1,000 mcg PO BID [facility] Stop: 11/03/19 21:01 Last Admin: 10/30/19 09:27 Dose: 1,000 mcg Documented by: Docusate Sodium (Colace) 100 mg PO BID [facility] Last Admin: 10/30/19 09:27 Dose: 100 mg Documented by: Folic Acid (Folic Acid) 1 mg PO DAILY [facility] Last Admin: 10/30/19 09:27 Dose: 1 mg Documented by: Furosemide (Lasix) 20 mg IV Q8 [facility] Last Admin: 10/30/19 08:34 Dose: 20 mg Documented by: Heparin Sodium (Porcine) (Heparin) 5,000 unit SQ Q12 [facility] Last Admin: 10/30/19 09:27 Dose: 5,000 unit Documented by: Hydromorphone HCl (Dilaudid) 0.5 mg IV Q2HP PRN; Protocol PRN Reason: Per Pain Protocol Last Admin: 10/30/19 09:41 Dose: 0.5 mg Documented by: Hydromorphone HCl (Dilaudid) 4 mg PO Q4HP PRN; Protocol PRN Reason: Per Pain Protocol Last Admin: 10/30/19 08:26 Dose: 4 mg Documented by: Acetaminophen (Ofirmev) 650 mg in 65 mls @ 130 mls/hr IV Q6HP PRN; Protocol PRN Reason: Per Pain Protocol/Fever > 101 Magnesium Sulfate (Magnesium Sulfate) 2 gm in 50 mls @ 50 mls/hr IV UD PRN PRN Reason: MG = or < 1.7 Iron Carb/Multivit/Hatch Boss/Folic Acid (Multivitamin W/Minerals) 1 tab PO DAILY [facility] Last Admin: 10/30/19 09:27 Dose: 1 tab Documented by: Lorazepam (Ativan) 1 mg PO Q4HP PRN PRN Reason: ANXIETY/SEDATION Last Admin: 10/30/19 08:35 Dose: 1 mg Documented by: Lorazepam (Ativan) 0.5 mg IV Q4-6HP PRN PRN Reason: ANXIETY/SEDATION Melatonin (Melatonin 3mg Tablet) 3 mg PO HSP PRN PRN Reason: Insomnia Nicotine (Nicoderm) 21 mg TOPICAL DAILY@1000 [facility] Last Admin: 10/30/19 09:27 Dose: 21 mg Documented by: Octreotide Acetate (Sandostatin) 100 mcg SQ BID [facility] Last Admin: 10/30/19 09:28 Dose: 100 mcg Documented by: Ondansetron HCl (Zofran) 4 mg IV Q4HP PRN PRN Reason: Nausea And Vomiting Ondansetron HCl (Zofran Odt) 4 mg SL Q4-6HP PRN; Protocol PRN Reason: Nausea And Vomiting Ondansetron HCl (Zofran) 4 mg IV Q4-6HP PRN; Protocol PRN Reason: Nausea And Vomiting Polyethylene Glycol (Miralax) 17 gm PO DAILYP PRN PRN Reason: Constipation Potassium Chloride (Klor-Con) 40 meq PO DAILYP PRN PRN Reason: K+ < 3.5 Senna/Docusate Sodium (Senna Plus Tablet) 1 tab PO HS [facility] Sodium Chloride (Saline Flush) 10 ml IV Q8 [facility] Last Admin: 10/30/19 09:44 Dose: 10 ml Documented by: Thiamine HCl (Vitamin B1) 100 mg PO DAILY [facility] Last Admin: 10/30/19 09:26 Dose: 100 mg Documented by: Medical - PN: A/P - Time Spent With Patient Total time spent is greater than 50% in coordination of care (as documented) at patient's floor/unit and/or counseling patient: 25 - 35 minutes (1) Staphylococcus aureus bacteremia with sepsis Status: Acute Assessment and plan: * Staph aureus bacteremia-MSSA on wound culture. Blood culture sensitivity pending. Surveillance cultures ordered. Echocardiogram no evidence of vegetation. Continue IV cefazolin. * Right lower lobe pneumonia-on IV cefazolin. * Severe sepsis with acute organ dysfunction. White count 15,000. On antibiotic coverage. * Staphylococcus cellulitis with lymphangitis/erysipelas bilateral upper extremity left > right -GPC on cultures. De-escalate based on sensitivities. * Severe alcohol use disorder. Monitor for withdrawals. * FRAN secondary to sepsis endorgan dysfunction. Creatinine downtrending * Elevated bilirubin secondary to alcoholism and sepsis endorgan dysfunction * History of hep C/cryoglobulinemia * History of CAD on statin * History of alcohol and tobacco dependence. Nicotine patch/monitor for withdrawals/CIWA protocol * Chronic pain on home dose Dilaudid * History of PTSD/anxiety continue as needed benzodiazepine * Full code * Prophylax Heparin Plan * Continue IV cefazolin * ID consult * Monitor for alcohol withdrawal * Potassium replacement * Avoid nephrotoxins * Wound care consult * PT OT/nutrition support Current Visit: Yes Medical - PN: Qual - VTE Deep Vein Thrombosis/Pulmonary Embolism Present on Admission: Yes
--- NOTE | 2019-10-30 11:54 | Infectious Disease Consult ---
History of Present Illness Patient information: Note initiated : 10/30/19 at 11:49 am Service Date, if different from initiated Date: [] Patient: Earle Magdaleno 54 y/o M admitted on 10/29/19 for cellulitis. Chief Complaint: [] Consult date: 10/30/19 Requesting Physician: Kirt Greene Reason for Consult: MSSA bacteremia Chief complaint: My arms hurt History of present illness: 54 year old man with chronic alcohol use disorder with neuropathy, is readmitted to [facility] after a couple of ED visits in last week, brief admission to [facility] and then leaving AMA. Patient initially presented on 25 October with complaints of redness, swelling and drainage from both upper extremities for last 2 days. His left upper extremity was worse than the right. He mentioned that he had tried to place a tattoo over his left forearm and right upper arm using a [place] made machine. His white cell count was 19,000, lactic acid 1.7 and satting 93% on room air. Blood cultures were sent on . Patient was admitted and started on IV vancomycin and IV Zosyn. Blood cultures came out to be positive for MSSA next day and were repeated on . A TTE was also done. Patient left AMA in a.m. of 27 October citing his PTSD with possible reason for not being able to stay in the hospital. This was despite discussion of risks of worsening bacteremia/sepsis and even . Patient did go to outpatient infusion therapy for getting vancomycin twice daily. Since he was not feeling better and his arm pain and swelling got worse, he was readmitted on October 28 in the evening. After discussion with me he was started on IV cefazolin given diagnosis of MSSA bacteremia. At time of visit today, he reported not feeling well. Endorsed extreme pain in left forearm and right arm and left foot. Confirmed above history. Denied any fever or chills. Denied any joint pain. Endorsed some cough and pain in his upper and middle back. Review of Systems All systems PM: reviewed and no additional remarkable complaints except as stated Constitutional: as per HPI Past History Past family history: Mother Cardiac disease Malignant neoplasm Myocardial Infarction Coronary artery disease Past social history: Smokes three quarters of a pack a day for last many years Drinks 3 or more drinks every day Smokes marijuana Denies any injection drug use Medications and Allergies Home Medications Medication Instructions Recorded Confirmed Type Atorvastatin [Lipitor] 40 mg PO HS 12/26/16 10/30/19 History Vancomycin Per Pharmacy 1 order IV ONCE 14 Days #14 miscell 10/27/19 10/29/19 Rx Ipratropium/Albuterol Sulfate 2 puff INH BID 10/28/19 10/30/19 History [Combivent] HYDROmorphone HCL [Hydromorphone 4 - 8 mg PO Q4H PRN 10/30/19 10/30/19 History HCl] Octreotide Acetate See Rx Instructions SQ BID 10/30/19 10/30/19 History Allergies Allergy/AdvReac Type Severity Reaction Status Date / Time morphine Allergy Severe Anaphylaxis Verified 10/30/19 00:07 gabapentin AdvReac Intermediate Dizziness Verified 10/29/19 22:05 hydrocodone AdvReac Intermediate Hives Verified 10/30/19 00:07 oxycodone [Oxycodone] AdvReac Intermediate leg hives Verified 10/29/19 22:05 topiramate AdvReac Mild Rash Verified 10/29/19 22:05 tramadol AdvReac Mild Unknown Verified 10/29/19 22:05 Physical Examination Vital signs: Temp Pulse Resp BP Pulse Ox 37.4 C H 103 H 24 H 89/53 90 10/30/19 08:00 10/30/19 08:00 10/30/19 08:00 10/30/19 08:00 10/30/19 08:00 General appearance: appears uncomfortable Eyes pulmonary: nonicteric Auscultation: left: egophony, bilateral: diminished breath sounds (crackles at bases b/l) Cardiovascular: irregular rhythm Gastrointestinal: normoactive bowel sounds, soft, non-tender Integumentary: other (has redness, swelling, warmth over left forearm and right arm. Left forearm also has fluid filled vesicles with some pus drainage) Extremities: other (has a single superficial ulcer over left foot dorsum, around 4-5 mm. Pus drainage on pressure. No signs of inflammation) Musculoskeletal: other (has point tenderness over lower cervical and mid thoracic spine. No tenderness over other joints) non-focal exam depressed Results - Laboratory Findings CBC and BMP: 10/29/19 22:21 10/29/19 22:21 Abnormal lab findings: Abnormal Labs 10/29/19 10/29/19 22:21 22:21 WBC 15.7 H RBC 4.32 L Hgb 11.9 L Hct 37.9 L MPV 11.2 H Lymphocytes % 11 L Potassium 3.2 L Chloride 94 L Total Bilirubin 1.3 H AST 61 H ALT 56 H Alkaline Phosphatase 153 H C-Reactive Protein 21.9 H Albumin 3.1 L Globulin 3.9 H Albumin/Globulin Ratio 0.8 L Assessment and Plan - Narrative A/P Narrative: A: 1. Complicated MSSA bacteremia: - blood Cx +ve on 10/25 (2/2 sets) and 10/26 (1/2 sets). Blood Cx from 10/28 so far NGTD - portal of entry: left forearm and right arm tattoo piercing site - risk factors: MSSA colonization, poor hygiene, concerns for inj drug use, obesity, chronic liver ds - Given chronic liver ds and recently delay in antibiotics due to pt leaving AMA: pt is at higher risk for complications 2. SSTI inv left forearm, right arm and left foot - sec to MSSA. isolated from wound Cx left upper extremity on 10/25 3. Chronic alcohol use disorder - has exam findings such as gynecomastia, telangiectasias, spider angiomas, peripheral neuropathy; I think he has chronic liver ds due to alc use 4. CAP: sec to MSSA - on 2L of O2, has clinical findings of egophony on left side, and diminished BS at right side - r/o any parapneumonic effusion Recommendations: - Continue IV Cefazolin 2 gm q8 hrs - CT left forearm and right arm to r/oi any underlying fluid collections or findings which might need surgical debridement - CT chest to r/o any parapneumonic effusion and better characterization of pneumonia. If pleural effusion, tap and send for GS and C/S, pH, Glu, cell count, LDH and total protein. Spoke with DR Luna - Decolonization with intranasal mupirocin 2% bid and once-daily below neck whole body CHG wipes for 5 days - repeat blood Cx every other day - transfer to telemetry bed will follow Eulalio Ye MD Infectious diseases
[2019-10-30] MEDS ORDERED: MUPIROCIN OINT 2% 22GM NARES SCH (13:06)
[2019-10-30] MEDS ORDERED: IOPAMIDOL 100 ML BOTTLE IV ONE (13:32)
--- NOTE | 2019-10-30 13:59 | Cat Scan Report ---
INDICATION: concerns for parapneumonic pleural effusion COMPARISON: Previous chest x-rays dated 10/30/2019, 11/04/2018, 08/22/2018. Previous chest CT scan dated 08/19/[address]. [address] scan dated 02/25/2017 TECHNIQUE: Axial contrast enhanced images through the chest. Sagittally and coronally reformatted images. MIP reformatted images. 90ml Isovue 370 injected intravenously. FINDINGS: Lungs:Previous chest x-ray demonstrates a focal abnormality at the right lung base. There is consolidation in the lateral segment of the right middle lobe consistent with pneumonia. There is mild right lower lobe peripheral parenchymal density which may indicate volume loss or pneumonia. There are multiple pulmonary parenchymal nodules in the central lungs and periphery. Some of these have cavitation. Appearance is consistent with bilateral septic emboli. Mediastinum, vascular:Normal thoracic aorta. No thoracic aortic aneurysm or dissection. No pathologic mediastinal or hilar lymphadenopathy Heart:No cardiomegaly. No pericardial effusion. There is coronary artery calcification Pleura:There is right pleural fluid. This fluid is loculated consistent with empyema. There is a dense right pleural calcification which is chronic. Axilla, supraclavicular regions, chest wall:No pathologic axillary or supraclavicular adenopathy. Musculoskeletal:No thoracic compression fracture or lytic lesion. No sternal or rib lesion. No CT evidence for discitis. No evidence for epidural abscess although chest CT scan is not a sensitive means of evaluating the epidural space. Upper Abdomen:There is splenomegaly. Spleen measures 17 cm in AP dimension. Spleen is not entirely imaged and craniocaudal dimension is not assessed. This is a new finding since 02/25/2017. Upper abdomen is otherwise negative IMPRESSION: 1. Right middle lobe consolidation consistent with pneumonia 2. Multiple nodular densities bilaterally, some with cavitation. Appearance is consistent with multiple septic emboli 3. Loculated right pleural fluid collection consistent with empyema 4. Splenomegaly The exam was performed using radiation dose optimization techniques including, but not limited to, automated exposure control, adjustment of the mA and/or kV according to patient size and use of iterative reconstruction technique. Interpreted and Authenticated by: Carl Tan 10/30/19
[2019-10-30] MEDS ORDERED: ceFAZolin 1 GM VIAL IV SCH (14:00)
--- NOTE | 2019-10-30 16:07 | Transfer Summary ---
Transfer Discharge Sum: Prov Patient information: Note initiated : 10/30/19 at 4:05 pm Service Date, if different from initiated Date: [] Patient: Earle Magdaleno 54 y/o M admitted on 10/29/19 for cellulitis. Chief Complaint: [] Date of admission: 10/29/19 23:12 Discharge Date: 10/30/19 Primary care physician: Kerry Williamson Consults: 10/29/19 Consult to Physician [CONS] Stat Comment: Consulting Provider: Kirt Greene Reason For Exam: Physician to Consult 10/30/19 08:14 Consult to Physician [CONS] Urgent Comment: Consulting Provider: Britton Schmidt Reason For Exam: Physician to Consult 10/30/19 10:04 Consult to Physician [CONS] Routine Comment: Consulting Provider: Eulalio Ye Reason For Exam: Physician to Consult Transfer Discharge Sum: Diag - Discharge Diagnosis (1) Staphylococcus aureus bacteremia with sepsis Status: Acute Transfer Discharge Sum: Med - Medications Active and Home Medications: Home Medications Atorvastatin [Lipitor] 40 mg PO HS 12/26/16 [History Confirmed 10/30/19] Vancomycin Per Pharmacy 1 order IV ONCE 14 Days #14 miscell 10/27/19 [Rx Confirmed 10/29/19] Ipratropium/Albuterol Sulfate [Combivent] 2 puff INH BID 10/28/19 [History Confirmed 10/30/19] HYDROmorphone HCL [Hydromorphone HCl] 4 - 8 mg PO Q4H PRN 10/30/19 [History Confirmed 10/30/19] Octreotide Acetate See Rx Instructions SQ BID 10/30/19 [History Confirmed 10/30/19] Active Medications Acetaminophen (Tylenol) 650 mg PO Q4-6HP PRN; Protocol PRN Reason: Per Pain Protocol/Fever > 101 Albuterol Sulfate (Ventolin) 2.5 mg NEB Q12H [facility] Last Admin: 10/30/19 08:41 Dose: Not Given Documented by: Albuterol/Ipratropium (Duoneb) 3 ml NEB Q4HP PRN PRN Reason: Shortness Of Breath Last Admin: 10/30/19 08:30 Dose: 3 ml Documented by: Atorvastatin Calcium (Lipitor) 40 mg PO HS [facility] Bisacodyl (Dulcolax) 10 mg [place] Q2-3DAYS PRN PRN Reason: Constipation Cefazolin Sodium (Ancef) 2 gm IV Q8H [facility] Last Admin: 10/30/19 15:59 Dose: 2 gm Documented by: Cyanocobalamin (Vitamin B-12) 1,000 mcg PO BID [facility] Stop: 11/03/19 21:01 Last Admin: 10/30/19 09:27 Dose: 1,000 mcg Documented by: Docusate Sodium (Colace) 100 mg PO BID [facility] Last Admin: 10/30/19 09:27 Dose: 100 mg Documented by: Folic Acid (Folic Acid) 1 mg PO DAILY [facility] Last Admin: 10/30/19 09:27 Dose: 1 mg Documented by: Furosemide (Lasix) 20 mg IV Q8 [facility] Last Admin: 10/30/19 14:35 Dose: 20 mg Documented by: Heparin Sodium (Porcine) (Heparin) 5,000 unit SQ Q12 [facility] Last Admin: 10/30/19 09:27 Dose: 5,000 unit Documented by: Hydromorphone HCl (Dilaudid) 0.5 mg IV Q2HP PRN; Protocol PRN Reason: Per Pain Protocol Last Admin: 10/30/19 15:55 Dose: 0.5 mg Documented by: Hydromorphone HCl (Dilaudid) 4 mg PO Q4HP PRN; Protocol PRN Reason: Per Pain Protocol Last Admin: 10/30/19 08:26 Dose: 4 mg Documented by: Acetaminophen (Ofirmev) 650 mg in 65 mls @ 130 mls/hr IV Q6HP PRN; Protocol PRN Reason: Per Pain Protocol/Fever > 101 Magnesium Sulfate (Magnesium Sulfate) 2 gm in 50 mls @ 50 mls/hr IV UD PRN PRN Reason: MG = or < 1.7 Iron Carb/Multivit/Door/Folic Acid (Multivitamin W/Minerals) 1 tab PO DAILY [facility] Last Admin: 10/30/19 09:27 Dose: 1 tab Documented by: Lorazepam (Ativan) 1 mg PO Q4HP PRN PRN Reason: ANXIETY/SEDATION Last Admin: 10/30/19 08:35 Dose: 1 mg Documented by: Lorazepam (Ativan) 0.5 mg IV Q4-6HP PRN PRN Reason: ANXIETY/SEDATION Melatonin (Melatonin 3mg Tablet) 3 mg PO HSP PRN PRN Reason: Insomnia Mupirocin (Bactroban Oint 2%) 1 dose NARES BID [facility] Last Admin: 10/30/19 14:35 Dose: 1 dose Documented by: Nicotine (Nicoderm) 21 mg TOPICAL DAILY@1000 [facility] Last Admin: 10/30/19 09:27 Dose: 21 mg Documented by: Octreotide Acetate (Sandostatin) 100 mcg SQ BID [facility] Last Admin: 10/30/19 09:28 Dose: 100 mcg Documented by: Ondansetron HCl (Zofran Odt) 4 mg SL Q4-6HP PRN; Protocol PRN Reason: Nausea And Vomiting Ondansetron HCl (Zofran) 4 mg IV Q4-6HP PRN; Protocol PRN Reason: Nausea And Vomiting Polyethylene Glycol (Miralax) 17 gm PO DAILYP PRN PRN Reason: Constipation Potassium Chloride (Klor-Con) 40 meq PO DAILYP PRN PRN Reason: K+ < 3.5 Senna/Docusate Sodium (Senna Plus Tablet) 1 tab PO [facility] Sodium Chloride (Saline Flush) 10 ml IV Q8 [facility] Last Admin: 10/30/19 15:55 Dose: 10 ml Documented by: Thiamine HCl (Vitamin B1) 100 mg PO DAILY [facility] Last Admin: 10/30/19 09:26 Dose: 100 mg Documented by: Transfer Discharge Sum: Hosp Hospital course: Transfer diagnosis * Multiple septic emboli lung with cavitation/empyema-Case discussed with tertiary center. Patient be transferred for emergent empyema drainage/CT surgeon consultation * Staph aureus bacteremia-MSSA on blood culture. Surveillance cultures pending. On IV cefazolin. Echocardiogram no evidence of vegetation. However high probability tricuspid endocarditis in the setting of multiple septic emboli lung continue IV cefazolin. Cardiology consultation for transesophageal echocardiogram * Right lower lobe pneumonia-continue IV cefazolin * Severe sepsis with acute organ dysfunction. White count 15,700. . * Cellulitis with lymphangitis/erysipelas bilateral upper extremity left > right following recent tattoo placement. * Severe alcohol use disorder. Monitor for withdrawals. On as needed benzodiazepine * FRAN secondary to sepsis endorgan dysfunction. Creatinine downtrending now at 1.2 * Elevated bilirubin secondary to alcoholism and sepsis endorgan dysfunction * History of hep C/cryoglobulinemia * History of CAD on statin * History of alcohol and tobacco dependence. Nicotine patch/monitor for withdrawals/CIWA protocol * Chronic pain on home dose Dilaudid * History of PTSD/anxiety continue as needed benzodiazepine Brief hospital course Mr. Magdaleno is a 51 year old M with an extensive past medical history including severe alcoholism, HTN severe mesenteric ischemia s/p colectomy and distal ileectomy, hepatitis C with history of cryoglobulinemia, CAD who was admitted to [facility] with bilateral forearm cellulitis/lymphangitis and staph aureus bacteremia after placement of tattoos a few days ago. Patient was managed in ICU in light of severe sepsis and bacteremia and was empirically managed on broad-spectrum antibiotics until cultures were obtained. However patient within 36 hours hospitalization left AMA. Following cultures grew staph aureus patient was contacted and advised to return to ER for continued antibiotics due to life-threatening bacteremia and high probability complications/. Patient returned to the ER and antibiotics were initiated however ER provider on reviewing cellulitis which clearly has worsened advised for admission and continued hospitalization and inpatient management. Hospitalist service was subsequently consulted for admission At the time evaluation patient is anxious but agrees to stay in the hospital. He has been on vancomycin. Based on cultures antibiotics is changed to cefazolin. Echocardiogram during recent hospitalization showed 55% EF Patient endorses to fever along with pain and swelling and weakness. Left upper extremities a lot worse than the right and has progressed over the last couple of days. 10/29-patient remains anxious. Short of breath. White count 15.7. Surveillance cultures pending. On IV cefazolin. Continue potassium replacement. Right basilar pneumonia. Continue antibiotic coverage. Monitor for alcohol withdrawal. Continue pain management. Nicotine patch Addendum CT chest reveals multiple septic emboli with cavitation and empyema. High probability infective endocarditis. Case discussed with infectious specialist. Recommends emergent transfer to tertiary center for cardiothoracic surgery consultation/tube tracheostomy/VATS if indicated. Also will need transesophageal echocardiogram for evaluation and for pericarditis in light of multiple septic emboli suggestive of tricuspid endocarditis. This was discussed with patient and the need for transfer. Patient extremely anxious and does not want to be transferred. Shortly during the conversation patient got up and said I have stuff to do and leave that "s" for somebody else. I explained the progression of empyema/septic emboli infective end ocarditis is life-threatening and he would need emergent transfer and treatment at a tertiary center. He continues to refuse transfer and further treatment. I will attempt to discuss again in the next half an hour. Holding transfer process at this time due to high probability leaving AMA Addendum- Patient agreed to transfer to tertiary center for thoracostomy/further management of probable tricuspid endocarditis. Case discussed with [facility] hospitalist Dr. Antolin Power. Highly appreciate his help in accepting patient for further management. Please call with question at [phone] Time spent on care coordination, discussions with multiple care provider and tertiary center transfer coordination in excess of 75 minutes - Time Spent with Patient Total time spent providing and/or coordinating transfer services: Greater than 30 minutes Transfer Discharge Sum: Exam - Constitutional Vitals: Vital Signs Temp Pulse Pulse Resp BP BP BP 10/30/19 12:00 99.9 F H 95 H 18 115/62 10/30/19 08:00 99.3 F H 103 H 24 H 89/53 10/30/19 03:33 99.4 F H 111 H 24 H 130/99 10/29/19 23:16 99.1 F H 107 H 24 H 129/72 10/29/19 23:12 98.7 F 116 H 18 111/67 10/29/19 22:17 116 H 111/67 10/29/19 22:03 98.7 F 102 H 18 160/91 Pulse Ox 10/30/19 12:00 90 10/30/19 08:00 90 10/30/19 03:33 90 10/29/19 23:16 93 10/29/19 23:12 90 10/29/19 22:17 90 10/29/19 22:03 90 Intake and Output 10/30/19 10/30/19 10/30/19 05:59 13:59 21:59 Intake Total 1994 720 Output Total 1000 1400 600 Balance 995 -680 -600 Intake: IV 1045 Sodium Chloride 0.9% 1,000 ml @ 1000 150 mls/hr IV .Q6H40M [facility] Rx#: [id number] Ancef 2 gm In Dextrose 5% in 45 Water 50 ml @ 100 mls/hr IV Q8H [facility] Rx#:[id number] Oral 950 720 Output: Void Amount 1000 1400 600 Other: Meal Lunch Percent of Meal Consumed 100% Feeding Ability Independent Urine Color Dark Yellow Urine Odor Strong Stool Consistency Liquid # Bowel Movements 1 Weight 277 lb 14.4 oz 277 lb 14.4 oz Patient Weight 10/31/19 05:59 Weight 277 lb 14.4 oz Transfer Discharge Sum: Data Procedures and tests throughout hospitalization: Transfer Discharge Sum: A/P - Problem Maintenance (1) Staphylococcus aureus bacteremia with sepsis Status: Acute - Plan Functional capacity at transfer: independent ambulation Overall status at transfer: patient is not back to baseline Disposition: Xfer [facility] Quality Measure Queries - VTE Deep Vein Thrombosis/Pulmonary Embolism Present on Admission: Yes
[2019-10-30] MEDS ORDERED: LORazepam 2 MG/ML VIAL IV ONE (18:10)
[2019-10-30] MEDS ORDERED: LORazepam 2 MG/ML ORAL.SOL PO ONE (18:10)
[2019-10-30] MEDS ORDERED: SENNOSIDES/DOCUSATE SODIUM 1 TAB TABLET PO SCH (21:00)
[2019-10-30] MEDS ORDERED: ATORVASTATIN 40 MG TABLET PO SCH (21:00)
--- NOTE | 2019-10-31 13:20 | General Surgery Consult Note ---
History of Present Illness Patient information: Note initiated : 10/31/19 at 1:06 pm Service Date, if different from initiated Date: [] Patient: Earle Magdaleno 54 y/o M admitted on 10/29/19 for cellulitis. Chief Complaint: [] Consult date: 10/30/19 Requesting physician: Kirt Greene (WOUND CARE ) History of present illness: EVENT NOTE: I briefly saw this patient on MedSurg floor before he was taken for CT scans to Radiology Department. Discussed his wound care and treatment plans with Phoebe MATAMOROS, In Patient wound care nurse, I know this patient well form his previous treatment at wound care center in past. He has a backfground of multiple preexisting comorbid medical conditions treated appropriately. This time around, he was admitted via ER with sepsis syndrome and CSSSI, Cellulitis of both UE and anterior torso, following recent tattooing. This was being treated with IV antibiotics, local wound care, MIST treatments. He was managed by Dr. Greene, Hospitalist Physician and Dr. Ye, Infectious Disease specialist. CT imaging findings and clinical impressions of treating physicians reveal underlying additional complex issues i.e. Empyema, CAP (Pneumonia) and Septic pulmonary emboli, needing aggressive coordinated care and need for Thoracic Surgical Services. These are NOT available here at this institution. Consequently, he was transferred to another institution where these services and higher level of care is available. I concur with this plan of care. Will see his in future at the hospital or in wound care center as the need prateek ses. Medications and Allergies Home Medications Medication Instructions Recorded Confirmed Type Atorvastatin [Lipitor] 40 mg PO HS 12/26/16 10/30/19 History Vancomycin Per Pharmacy 1 order IV ONCE 14 Days #14 miscell 10/27/19 10/29/19 Rx Ipratropium/Albuterol Sulfate 2 puff INH BID 10/28/19 10/30/19 History [Combivent] HYDROmorphone HCL [Hydromorphone 4 - 8 mg PO Q4H PRN 10/30/19 10/30/19 History HCl] Octreotide Acetate See Rx Instructions SQ BID 10/30/19 10/30/19 History Allergies Allergy/AdvReac Type Severity Reaction Status Date / Time morphine Allergy Severe Anaphylaxis Verified 10/30/19 00:07 gabapentin AdvReac Intermediate Dizziness Verified 10/29/19 22:05 hydrocodone AdvReac Intermediate Hives Verified 10/30/19 00:07 oxycodone [Oxycodone] AdvReac Intermediate leg hives Verified 10/29/19 22:05 topiramate AdvReac Mild Rash Verified 10/29/19 22:05 tramadol AdvReac Mild Unknown Verified 10/29/19 22:05 Exam Temp Pulse Resp BP Pulse Ox 98.1 F 94 H 18 129/88 93 10/30/19 18:23 10/30/19 18:23 10/30/19 18:23 10/30/19 18:23 10/30/19 18:23 Results - Labs 10/29/19 22:21 10/29/19 22:21 All other labs normal.
== END 2019-10-30 18:29 | disposition short-term general hospital (02) | DRG 871 ==
LOC: ED 22:02 → MEDSUR 23:12
PROVIDERS: ADMIT Internal Medicine; ATTEND Internal Medicine

== ENCOUNTER 2022-10-20 20:59 | Inpatient (IN) ==
[2022-10-20] MEDS ORDERED: IOPAMIDOL 100 ML BOTTLE IV ONE (21:00)
[2022-10-20] MEDS ORDERED: 0.9 % SODIUM CHLORIDE 500 ML IV ONE (21:05)
[2022-10-20] MEDS ORDERED: VANCOMYCIN 1,500 MG in 0.9 % SODIUM CHLORIDE 500 ML IV ONE (21:14)
[2022-10-20] MEDS ORDERED: TETANUS,DIPHTHERIA TOXD PED/PF 0.5 ML VIAL IM ONE (21:14)
[2022-10-20 21:28] LABS: POC Calcium, Ionized 1.09 (1.16-1.32); POC Creatinine 1.2 (0.6-1.2); POC Potassium 4.6 (3.3-5.1)
[2022-10-20] MEDS ORDERED: LORazepam 2 MG/ML VIAL IV ONE ×2 (21:44→22:26)
[2022-10-20] MEDS ORDERED: DIPH,PERTUSS(ACELL),TET VAC/PF 0.5 ML SYRINGE IM ONE (21:47)
[2022-10-20 21:51] LABS: Basophils # (Auto) 0.11 K/mcL (0.00-0.30); Basophils % (Auto) 0.4 % (0.0-2.0); Eosinophils # (Auto) 0.25 K/mcL (0.00-0.70); Hematocrit 26.2 % (40.1-51.0); Hemoglobin 7.6 g/dL (13.7-17.5); Lymphocytes # (Auto) 2.06 K/mcL (1.50-4.80); Lymphocytes % (Auto) 8.3 % (15.5-49.0); Mean Cell Volume 71.8 fL (80.0-100.0); Mean Platelet Volume 9.8 fL (8.8-12.5); Monocytes # (Auto) 1.31 K/mcL (0.10-0.90); Monocytes % (Auto) 5.3 % (1.0-12.0); Neutrophils % (Auto) 77.4 % (38.0-78.0); Platelet Count 671 K/mcL (140-440); RBC 3.65 M/mcL (4.63-6.08); Red Cell Distribution Width 16.2 % (11.5-14.5); WBC 24.9 K/mcL (4.5-11.0)
[2022-10-20] MEDS ORDERED: AMPICILLIN SODIUM/SULBACTAM NA 3 GM in 0.9 % SODIUM CHLORIDE 100 ML IV SCH (22:00)
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
[2022-10-20] MEDS ORDERED: cloNIDine HCL 0.1 MG TABLET PO PRN (23:09)
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
[2022-10-20 23:36] LABS: Alcohol, Blood < 10.0 mg/dL; Alcohol,Blood < 0.010 gm/dL (<0.010)
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
[2022-10-20 23:43] LABS: INR 1.1 (0.9-1.1); Partial Thromboplastin Time 36.1 sec (20.0-37.0)
[2022-10-20] MEDS ORDERED: 0.9 % SODIUM CHLORIDE 250 ML IV SCH (23:45)
[2022-10-21] MEDS: CLINDAMYCIN 600 MG/50 ML NS BAG IV SCH ×2 (00:43→06:39)
[2022-10-21] MEDS ORDERED: 0.9 % SODIUM CHLORIDE 250 ML IV SCH (01:00)
[2022-10-21] MEDS ORDERED: HALOPERIDOL LACTATE 5 MG/ML VIAL ONE (01:05)
[2022-10-21] MEDS: HALOPERIDOL LACTATE 5 MG/ML VIAL IM PRN (01:05)
[2022-10-21] MEDS: NICOTINE 14 MG PATCH TOPICAL SCH ×2 (01:42→09:31)
[2022-10-21] MEDS: PIPERACILLIN SODIUM/TAZOBACTAM 4.5 GM in DEXTROSE 5% IN WATER 50 ML IV SCH ×5 (01:43→23:41)
[2022-10-21] MEDS ORDERED: ONDANSETRON 4 MG/2 ML VIAL IV PRN (01:57)
[2022-10-21] MEDS ORDERED: ACETAMINOPHEN 325 MG TABLET PO PRN (01:57)
[2022-10-21] MEDS ORDERED: NALOXONE HCL 0.4 MG/ML VIAL IV PRN (01:57)
[2022-10-21] MEDS ORDERED: LORazepam 2 MG/ML VIAL IV PRN (01:57)
[2022-10-21] MEDS ORDERED: IPRATROPIUM/ALBUTEROL 3 ML AMPUL.NEB NEB PRN (01:57)
[2022-10-21] MEDS ORDERED: SENNOSIDES 1 TABLET PO PRN (01:57)
[2022-10-21] MEDS: INSULIN LISPRO 1 UNIT/0.01 ML UNIT SQ SCH ×5 (03:39→23:57)
[2022-10-21] MEDS: LORazepam 2 MG/ML VIAL IV PRN ×4 (04:19→22:02)
--- NOTE | 2022-10-21 05:09 | Cat Scan Report ---
INDICATION: gangrene TECHNIQUE: Axial images through the left lower extremity. Sagittal and coronal reformatted images. 95 mL contrast material injected and scans were performed during arterial phase. COMPARISON: None. FINDINGS: Examination was initially interpreted by [facility] Opacification of the arterial system is suboptimal. There is intraluminal enhancement of the popliteal artery. There is calcified plaque and probable significant stenosis or stenoses. There is dense calcification of the proximal anterior tibial artery with occlusion. There is calcification of the tibial peroneal trunk. There are segmental occlusions of the posterior tibial artery. Peroneus artery is opacified to the ankle. There is extensive soft tissue abnormality throughout the left lower extremity. There is subcutaneous edema. There is soft tissue gas is identified approximately 15 cm superior to the tibiotalar joint and extends to the right foot. Appearance is consistent with gas gangrene. There is no focal soft tissue mass. There is no focal abscess. Patient has undergone previous transmetatarsal amputation. There is extensive soft tissue gas within the hindfoot and remaining midfoot. There is exposed bone consistent with open, nonhealing wound. Second, third, fourth, fifth metatarsals are exposed. There is bone destruction consistent with osteomyelitis. IMPRESSION: 1. Previous transmetatarsal amputation 2. Nonhealing soft tissues at the amputation site with exposed first through fifth metatarsals. Bone destruction consistent with osteomyelitis 3. Extensive soft tissue gas consistent with gas gangrene. No focal abscess or mass 4. Atherosclerotic calcification of the popliteal artery and runoff vessels. Findings consistent with stenosis of the popliteal artery. Segmental occlusions of the posterior tibial artery and complete occlusion of the anterior tibial artery. Interpreted and Authenticated by: Carl Tan 10/21/22
--- NOTE | 2022-10-21 05:29 | XRay Report ---
INDICATION: septic TECHNIQUE: AP portable semiupright chest x-ray COMPARISON: Previous chest x-rays dated 11/01/2019, 10/31/2019 FINDINGS: Lungs:Interval resolution of bibasilar infiltrate. No new focal pulmonary parenchymal infiltrate. There is no evidence for pneumonia. There is no mass. Heart, vascular:No significant cardiomegaly. Pulmonary vascularity is normal. No pulmonary edema or pulmonary congestion Mediastinum, jordana:No mediastinal widening. No hilar mass Pleura:No pleural fluid. No pleural-based mass or calcification Skeletal:Negative. IMPRESSION: 1. Interval resolution of bibasilar pneumonia 2. No new abnormality Interpreted and Authenticated by: Carl Tan 10/21/22
[2022-10-21] MEDS: 0.9 % SODIUM CHLORIDE 10 ML SYRINGE IV SCH ×9 (06:24→22:12)
[2022-10-21] MEDS ORDERED: DEXTROSE 50% 50 ML SYRINGE IV PRN (06:41)
[2022-10-21] MEDS: 0.9 % SODIUM CHLORIDE 1,000 ML IV SCH ×2 (06:42→19:15)
[2022-10-21 08:01] LABS: Basophils # (Auto) 0.14 K/mcL (0.00-0.30); Basophils % (Auto) 0.7 % (0.0-2.0); Eosinophils # (Auto) 0.18 K/mcL (0.00-0.70); Eosinophils % (Auto) 0.9 % (0.0-7.0); Hematocrit 31.4 % (40.1-51.0); Hemoglobin 9.6 g/dL (13.7-17.5); Lymphocytes # (Auto) 1.19 K/mcL (1.50-4.80); Lymphocytes % (Auto) 5.8 % (15.5-49.0); Mean Cell Volume 76.2 fL (80.0-100.0); Mean Corpuscular HGB Conc 30.6 g/dL (31.0-36.0); Mean Platelet Volume 9.5 fL (8.8-12.5); Monocytes # (Auto) 0.98 K/mcL (0.10-0.90); Monocytes % (Auto) 4.7 % (1.0-12.0); Neutrophils % (Auto) 77.3 % (38.0-78.0); Platelet Count 554 K/mcL (140-440); RBC 4.12 M/mcL (4.63-6.08); WBC 20.7 K/mcL (4.5-11.0)
[2022-10-21 08:12] LABS: ALT/SGPT 48 U/L (<40); AST/SGOT 64 U/L (<40); Albumin 2.2 gm/dL (3.2-5.2); Albumin/Globulin Ratio 0.4 (1.0-2.3); Alkaline Phosphatase 284 U/L (39-117); Bilirubin,Direct 0.5 mg/dL (<0.3); Bilirubin,Total 0.8 mg/dL (0.1-1.0); Blood Urea Nitrogen 26 mg/dL (6-20); Calcium 8.1 mg/dL (8.6-10.4); Carbon Dioxide 17 mmol/L (22-30); Chloride 100 mmol/L (96-108); Globulin 5.8 gm/dL (2.2-3.7); Glomerular Filtration Rate 84; Glucose 117 mg/dL (70-105); Lactate Dehydrogenase 173 U/L (135-225); Triglycerides 110 mg/dL (<150); Uric Acid 4.6 mg/dL (2.5-8.0)
[2022-10-21 08:14] LABS: Estimated Average Glucose(eAG) 140 mg/dL; Hemoglobin A1C 6.5 % Hgb (4.0-6.0)
[2022-10-21] MEDS ORDERED: 0.9 % SODIUM CHLORIDE 10 ML SYRINGE IV PRN (08:44)
--- NOTE | 2022-10-21 09:14 | Internal Med Progress Note ---
SUBJECTIVE Subjective Patient information: Note initiated : 10/21/22 at 9:11 am Service Date, if different from initiated Date: [] Patient: Earle Magdaleno 57 y/o M admitted on 10/21/22 for GANGRENE. Chief Complaint: [] Additional PMFSH (Level 3 Only): Mr. 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 Patient had a chronic left lower extremity wound which had been getting worse so now he has a luis daniel in left lower extremity, his le ft foot does have autoamputated and fallen off. EMS crew noted patient has maggots on his leg and the house was unkempt. On presentation patient patient had tachycardia of 132, temperature of 99.5. Blood pressure stable. CBC showed leukocytosis of 25,000, anemia of 7.6. BUN/creatinine 38 and 1.2 with slightly elevated anion gap. Ortho was consulted by ER. Admission was requested. 10/21 overnight patient was agitated and was given Ativan 1 mg this morning and also Dilaudid, he is now calm and resting. Tmax 99.8F. Leukocytosis down to 20,000 from 24,000, sodium 129, renal function stable, A1c 6.5. Discussed with Dr. Franklin from orthopedics Review of system Patient received Ativan and is resting, review of system limited he was agitated earlier. Physical examination Resting in bed, in no acute distress Normocephalic, atraumatic No scleral icterus, no conjunctival injection Mild end expiratory wheeze, no rhonchi, satting well on room air S1 and S2, sinus tachycardia, no murmurs heard Abdomen is soft and nontender Multiple tattoos. Left lower extremity has erythema just below knee and extending down patient has gangrene from mid calf down to left foot. Distal forefoot and toes have autoamputated, tendons and bones exposed. Patient is status post right BKA, stump has healed Received Ativan and now resting Patient was agitated this morning, currently calm after receiving benzodiazepine Assessment and plan Sepsis, patient with tachycardia of 132, leukocytosis of 25,000 and gangrenous left lower extremity Gangrene left lower extremity, on vancomycin Zosyn and clindamycin. CT left lower extremity with evidence of osteomyelitis, gas gangrene and stenosis of popliteal artery, segmental occlusion of posterior tibial artery and complete occlusion of anterior tibial artery. Cellulitis left lower leg, on empiric antibiotics Peripheral arterial disease status post stenting, CTA LLE with stenosis of popliteal artery, segmental occlusion of posterior tibial artery and complete occlusion of anterior tibial artery. Anemia status post 2 unit PRBC and hemoglobin 9.6 CAD/AK, no acute ischemia on EKG Hyponatremia, mild Polysubstance abuse, urine toxicology only positive for opioids Agitation, secondary to above Opioid dependence and withdrawal, on withdrawal protocol Alcohol dependence disorder and withdrawal, on CIWA protocol, multivitamin, thiamine, folic acid Agitation, as needed Ativan and Haldol COPD, not in exacerbation Ongoing tobacco abuse, nicotine patch Diabetes mellitus 2, on insulin sliding scale, A!C 6.5 Hypertension, stable Hyperlipidemia, statin CKD, stable Previous MRSA infection Noted results of CTA left lower extremity Discussed with surgery, they are concerned about low albumin, patient has overwhelming infection and amputation of infected leg could be lifesaving. Continue empiric antibiotics with vancomycin, Zosyn and clindamycin Follow culture data Give flumazenil and Narcan for reversal of benzodiazepine and opioids per Ortho request CIWA protocol for alcohol withdrawal to continue, thiamine, MVI, folic acid Full code CC time 40 minutes Constitutional Vitals: Vital Signs Temp Pulse Resp BP Pulse Ox O2 Del Method 99.8 F H 117 H 33 H 132/93 97 Room Air 10/21/22 03:00 10/21/22 06:01 10/21/22 06:01 10/21/22 06:01 10/21/22 06:01 10/21/22 06:01 Period Temp Pulse Resp BP Sys/Lovell Pulse Ox O2 Del Method O2 Flow Rate Last 24 Hr 99.2 F-99.8 F 107-132 14-36 115-148/64-134 94-100 Room Air- Room Air Intake and Output 10/20/22 10/21/22 10/21/22 19:59 03:59 11:59 Intake Total 1000 675 Output Total 2 0 Balance 998 675 Weight 92.578 kg Intake & Output: Intake & Output 10/20/22 10/21/22 10/21/22 19:59 03:59 11:59 Intake Total 1000 675 Output Total 2 0 Balance 998 675 Weight 92.578 kg Intake: IV 1000 Sodium Chloride 0.9% 500 ml @ 500 Wide Open IV .Q0M ONE Rx#: [id number] Vancomycin 1,500 mg In Sodium 500 Chloride 0.9% 500 ml @ 333.3 mls/hr IV ONCE ONE Rx#: [id number] Oral 0 Autotransfusion 325 Packed Cells 350 Output: # of times incontinent of urine 2 0 Other: Urine Appearance Clear Urine Color Yellow # Bowel Movements 1 OBJ DATA Labs 10/21/22 07:22 10/21/22 07:23 Labs: Abnormal Lab Results 10/21/22 10/21/22 10/20/22 07:23 07:22 21:23 WBC 20.7 H RBC 4.12 L Hgb 9.6 L Hct 31.4 L POC Hct 28.0 L MCV 76.2 L MCH 23.3 L MCHC 30.6 L RDW 18.0 H Plt Count 554 H Immature Gran % (Auto) 10.6 H Lymph % (Auto) 5.8 L Lymph # (Auto) 1.19 L Patrick # (Auto) 0.98 H Immature Gran # 2.19 H Absolute Neutrophils 16.00 H PT POC VBG pCO2 at Temp POC VBG HCO3 POC VBG Total CO2 POC VBG Base Excess POC Sodium 130 L Sodium 129 L Carbon Dioxide 17 L POC Total CO2 21.0 L POC BUN 38 H BUN 26 H Glucose 117 H POC Glucose 110 H Hemoglobin A1c 6.5 H Calcium 8.1 L POC WB Ioniz Calcium 1.09 L Direct Bilirubin 0.5 H GGT 65 H AST 64 H ALT 48 H Alkaline Phosphatase 284 H Albumin 2.2 L Globulin 5.8 H Albumin/Globulin Ratio 0.4 L 10/20/22 10/20/22 10/20/22 21:23 21:05 21:05 WBC 24.9 H RBC 3.65 L Hgb 7.6 L Hct 26.2 L POC Hct MCV 71.8 L MCH 20.8 L MCHC 29.0 L RDW 16.2 H Plt Count 671 H Immature Gran % (Auto) 7.6 H Lymph % (Auto) 8.3 L Lymph # (Auto) Patrick # (Auto) 1.31 H Immature Gran # 1.90 H Absolute Neutrophils 19.26 H PT 15.0 H POC VBG pCO2 at Temp 33.9 L POC VBG HCO3 21.7 L POC VBG Total CO2 23.0 L POC VBG Base Excess -3.0 L POC Sodium Sodium Carbon Dioxide POC Total CO2 POC BUN BUN Glucose POC Glucose Hemoglobin A1c Calcium POC WB Ioniz Calcium Direct Bilirubin GGT AST ALT Alkaline Phosphatase Albumin Globulin Albumin/Globulin Ratio Meds: Medications Acetaminophen (Acetaminophen 325 Mg Tablet) 650 mg PO Q4-6HP PRN; Protocol PRN Reason: Per Pain Protocol/Fever > 101 Albuterol/Ipratropium (Ipratropium/Albuterol 3 Ml Ampul.Neb) 3 ml NEB Q6HRT PRN PRN Reason: Wheezing Clonidine HCl (Clonidine Hcl 0.1 Mg Tablet) 0.1 mg PO Q4HP PRN PRN Reason: ALC Dextrose (Dextrose 50% 50 Ml Syringe) 0 ml IV UD PRN PRN Reason: Hypoglycemia Diagnostic Test (Pha) (Accu-Chek 1 Each Strip) 1 each FS Q6 [facility] Last Admin: 10/21/22 06:11 Dose: 1 each Folic Acid (Folic Acid 1 Mg Tablet) 1 mg PO DAILY [facility] Haloperidol Lactate (Haloperidol Lactate 5 Mg/Ml Vial) 0.5 mg IM Q2HP PRN PRN Reason: Alcohol Withdrawal/Assess CIWA Last Admin: 10/21/22 01:05 Dose: 0.5 mg Hydromorphone HCl (Hydromorphone 0.5 Mg/0.5 Ml Syringe) 0.5 mg IV Q2HP PRN; Protocol PRN Reason: Per Pain Protocol Piperacillin Sod/Tazobactam (Sod 4.5 gm/ Dextrose) 50 mls @ 100 mls/hr IV Q6H [facility]; Protocol Last Admin: 10/21/22 06:55 Dose: 100 mls/hr Thiamine HCl 100 mg/ Sodium (Chloride) 51 mls @ 50 mls/hr IV DAILY [facility] Sodium Chloride (Sodium Chloride 0.9%) 250 mls @ 20 mls/hr IV .[id number] [facility] Stop: 10/21/22 12:14 Last Admin: 10/21/22 03:34 Dose: Not Given Sodium Chloride (Sodium Chloride 0.9%) 1,000 mls @ 75 mls/hr IV .[id number] [facility] Last Admin: 10/21/22 06:42 Dose: 75 mls/hr Vancomycin HCl 1,500 mg/ (Sodium Chloride) 500 mls @ 333.3 mls/hr IV Q12H [facility] Insulin Human Lispro (Insulin Lispro 1 Unit/0.01 Ml Unit) 0 unit SQ Q6 [facility]; Protocol Last Admin: 10/21/22 06:25 Dose: Not Given Iron Carb/Multivit/Rn Pain Management/Folic Acid (Multivit,Ther Iron,Ca,Fa & Min 1 Tablet) 1 tab PO DAILY [facility] Lorazepam (Lorazepam 2 Mg/Ml Vial) 0 mg IV UD PRN; Protocol PRN Reason: Alcohol Withdrawal/Assess CIWA Last Admin: 10/21/22 04:19 Dose: 1 mg Lorazepam (Lorazepam 2 Mg/Ml Vial) 1 mg IV Q2HP PRN PRN Reason: ANXIETY/SEDATION Naloxone HCl (Naloxone Hcl 0.4 Mg/Ml Vial) 0.1 mg IV Q2MIN PRN PRN Reason: Opiate Reversal Nicotine (Nicotine 14 Mg Patch) 14 mg TOPICAL DAILY@1000 [facility] Last Admin: 10/21/22 01:42 Dose: Not Given Ondansetron HCl (Ondansetron 4 Mg/2 Ml Vial) 4 mg IV Q4-6HP PRN; Protocol PRN Reason: Nausea And Vomiting Senna (Sennosides 1 Tablet) 2 tab PO HSP PRN PRN Reason: Constipation Sodium Chloride (0.9 % Sodium Chloride 10 Ml Syringe) 10 ml IV Q8 [facility] Last Admin: 10/21/22 06:24 Dose: Not Given Sodium Chloride (0.9 % Sodium Chloride 10 Ml Syringe) 10 ml IV Q8 [facility] Last Admin: 10/21/22 06:24 Dose: Not Given Sodium Chloride (0.9 % Sodium Chloride 10 Ml Syringe) 10 ml IV Q12 [facility] Sodium Chloride (0.9 % Sodium Chloride 10 Ml Syringe) 10 ml IV UD PRN PRN Reason: FLUSH Vancomycin HCl (Vancomycin Per Pharmacy) 1 order IV DAILY [facility]; Protocol A/P Time Spent With Patient Time: Total time spent is greater than 50% in coordination of care (as documented) at patient's floor/unit and/or counseling patient: QUALITY Stroke Symptom Onset Unknown: No VTE Deep Vein Thrombosis/Pulmonary Embolism Present on Admission: Yes
[2022-10-21] MEDS: THIAMINE 100 MG in 0.9 % SODIUM CHLORIDE 50 ML IV SCH (09:30)
[2022-10-21] MEDS: VANCOMYCIN 1,500 MG in 0.9 % SODIUM CHLORIDE 500 ML IV SCH ×2 (09:31→21:03)
[2022-10-21] MEDS: VANCOMYCIN PER PHARMACY IV SCH (09:31)
--- NOTE | 2022-10-21 11:31 | Consultation ---
DATE OF CONSULTATION: 10/21/2022 DATE OF CONSULTATION: 10/21/2022 HISTORY OF PRESENT ILLNESS: The patient is fairly obtunded, but he is in the ICU where I see that he is hooked to multiple IVs, EKGs and monitors. His heart rate at the present time is running about 110-115. His blood pressure has increased to about 130/70. He wakes up with a sternal rub, but they have him somewhat sedated. His upper extremities move without difficulty. He is not able to give significant past medical history He has had a prior right oavdu-aei-ovri amputation. He had the left leg that Wound Care has worked on for several months. They last saw him in May of this year where they had done some forefoot procedures and debridement. He arrives today without a significant other. SOCIAL HISTORY: His father is present and gives a history that he has been a chronic drug user as well as alcohol abuse in the past several years. His daughter is not present. She is estranged and does not live locally. PHYSICAL EXAMINATION: GENERAL: He is able to wake up, but does not give a significant history. He opens his eyes and will take a deep breath. VITAL SIGNS: His heart rate is regular, but tachycardic at about 110, blood pressure 136/72. LUNGS: He does have some rales and rhonchi and is shallow breathing. I did a sternal rub, and he woke up and took a deep breath. EXTREMITIES: His lower extremity demonstrates a right below-knee amputation that is well healed. His left shows a mummified foot that extends to about the mid tibia. LABORATORY DATA: Albumin level 2.2, white count is 20 mL. He has a shift and a deficit with a base deficit. ASSESSMENT: Gangrene, left leg, and septic shock. PLAN: The treatment plan is to amputate the left leg. There are high risks, see laboratory data. Also, he is not able to eat or is not eating at the present time. We had a long discussion about whether we should wait on the surgery and give him some parenteral nutrition or should we proceed with the surgery, taking the risk of repeat surgery because of wound problems. The hospitalist and the father are of the opinion that if it is lifesaving that is well worth risk to go ahead and remove the leg, with which I would agree. We will have a second debridement more than likely, given his poor albumin level. They agreed to proceed, understanding the likelihood of being high--the outcome could be poor, given his overall health condition. RBH:luis antonio Job ID: [id number] Doc ID: [id number] Ricardo Lawrence MD
[2022-10-21] MEDS: CLINDAMYCIN IN 0.9 % SOD CHLOR 600 MG/50 ML BAG IV SCH ×3 (12:32→23:49)
[2022-10-21] MEDS ORDERED: ROCURONIUM 10 MG/ML ML IV ONE (14:50)
[2022-10-21] MEDS ORDERED: PROPOFOL 200 MG/20 ML VIAL IV ONE (14:50)
--- NOTE | 2022-10-21 16:41 | Brief Operative Note ---
Brief Operative Note Date of procedure: 10/21/22 Pre-op diagnosis: Left leg gangrene and sepsis and magots Post-op diagnosis: same Procedure: Left leg above knee amputation Grafts/Implants: No Anesthesia: GETA Findings: magots and necrotic muscle to knee Complications: none Surgeon: Ricardo Lawrence Compressor Station Engineer: Lopez Lawson Estimated blood loss (cc): 300 Tourniquet Time (Minutes): 15 Specimens Removed/Pathology: none sent Condition: stable Disposition: PACU
--- NOTE | 2022-10-21 17:28 | XRay Report ---
INDICATION: Central Line Placement TECHNIQUE: Supine chest x-ray COMPARISON: Previous examination dated 10/20/2022 FINDINGS: Right central venous catheter with its tip in the superior vena cava. No pneumothorax The tracheal tube tip 4 cm above the elsy Lungs:There are interstitial infiltrates bilaterally. Pulmonary vascularity is prominent. Appearance suggests developing interstitial edema. Clinical correlation for possible fluid overload recommended. No parenchymal consolidation. No focal mass Heart, vascular:Heart size appears stable. Vascularity is increased interstitial edema is suspected Mediastinum, jordana:No mediastinal widening. No hilar mass Pleura:No pleural fluid. No pleural-based mass or calcification Skeletal:Negative. IMPRESSION: 1. Right central venous catheter tip in the superior vena cava. There is no pneumothorax identified on this supine radiograph 2. Endotracheal tube tip 4 cm above the elsy 3. Findings suspicious for developing pulmonary edema Interpreted and Authenticated by: Carl Tan 10/21/22
[2022-10-21] MEDS ORDERED: FUROSEMIDE 20 MG/2 ML VIAL IV ONE (18:57)
[2022-10-21] MEDS: HYDROmorphone 0.5 MG/0.5 ML SYRINGE IV PRN ×3 (20:06→23:43)
[2022-10-21] MEDS: IPRATROPIUM/ALBUTEROL 3 ML AMPUL.NEB NEB SCH ×2 (21:27→22:08)
[2022-10-22] MEDS: LORazepam 2 MG/ML VIAL IV PRN ×2 (02:47→19:46)
[2022-10-22] MEDS: HYDROmorphone 0.5 MG/0.5 ML SYRINGE IV PRN ×5 (03:57→22:20)
[2022-10-22] MEDS: PIPERACILLIN SODIUM/TAZOBACTAM 4.5 GM in DEXTROSE 5% IN WATER 50 ML IV SCH ×3 (05:12→18:12)
[2022-10-22] MEDS: CLINDAMYCIN IN 0.9 % SOD CHLOR 600 MG/50 ML BAG IV SCH ×3 (05:12→17:51)
[2022-10-22] MEDS: 0.9 % SODIUM CHLORIDE 10 ML SYRINGE IV SCH ×9 (05:13→22:29)
[2022-10-22] MEDS: INSULIN LISPRO 1 UNIT/0.01 ML UNIT SQ SCH ×3 (05:25→18:12)
[2022-10-22 06:35] LABS: Basophils # (Auto) 0.15 K/mcL (0.00-0.30); Basophils % (Auto) 0.7 % (0.0-2.0); Eosinophils # (Auto) 0.14 K/mcL (0.00-0.70); Eosinophils % (Auto) 0.7 % (0.0-7.0); Hematocrit 29.5 % (40.1-51.0); Hemoglobin 8.6 g/dL (13.7-17.5); Lymphocytes # (Auto) 1.11 K/mcL (1.50-4.80); Lymphocytes % (Auto) 5.5 % (15.5-49.0); Mean Corpuscular HGB Conc 29.2 g/dL (31.0-36.0); Mean Platelet Volume 9.5 fL (8.8-12.5); Monocytes # (Auto) 0.86 K/mcL (0.10-0.90); Monocytes % (Auto) 4.3 % (1.0-12.0); Neutrophils % (Auto) 79.2 % (38.0-78.0); Platelet Count 603 K/mcL (140-440); RBC 3.83 M/mcL (4.63-6.08); Red Cell Distribution Width 17.4 % (11.5-14.5)
[2022-10-22 06:56] LABS: ALT/SGPT 33 U/L (<40); AST/SGOT 27 U/L (<40); Albumin 2.1 gm/dL (3.2-5.2); Albumin/Globulin Ratio 0.4 (1.0-2.3); Alkaline Phosphatase 243 U/L (39-117); Bilirubin,Direct 0.5 mg/dL (<0.3); Bilirubin,Total 0.8 mg/dL (0.1-1.0); Blood Urea Nitrogen 18 mg/dL (6-20); Calcium 8.2 mg/dL (8.6-10.4); Carbon Dioxide 23 mmol/L (22-30); Chloride 105 mmol/L (96-108); Globulin 5.8 gm/dL (2.2-3.7); Glomerular Filtration Rate 95; Glucose 112 mg/dL (70-105); Lactate Dehydrogenase 136 U/L (135-225); Phosphorous 3.9 mg/dL (2.5-4.5); Triglycerides 103 mg/dL (<150); Uric Acid 4.2 mg/dL (2.5-8.0)
[2022-10-22] MEDS: IPRATROPIUM/ALBUTEROL 3 ML AMPUL.NEB NEB SCH ×4 (08:09→20:45)
[2022-10-22] MEDS: NICOTINE 14 MG PATCH TOPICAL SCH (09:44)
[2022-10-22] MEDS: VANCOMYCIN 1,500 MG in 0.9 % SODIUM CHLORIDE 500 ML IV SCH ×2 (09:44→22:22)
[2022-10-22] MEDS: THIAMINE 100 MG in 0.9 % SODIUM CHLORIDE 50 ML IV SCH (09:44)
[2022-10-22] MEDS: VANCOMYCIN PER PHARMACY IV SCH (09:44)
--- NOTE | 2022-10-22 12:53 | Internal Med Progress Note ---
SUBJECTIVE Subjective Patient information: Note initiated : 10/22/22 at 12:51 pm Service Date, if different from initiated Date: [] Patient: Earle Magdaleno 57 y/o M admitted on 10/21/22 for GANGRENE. Chief Complaint: [] Additional PMFSH (Level 3 Only): Mr. 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 Patient had a chronic left lower extremity wound which had been getting worse so now he has a luis daniel in left lower extremity, his l eft foot does have autoamputated and fallen off. EMS crew noted patient has maggots on his leg and the house was unkempt. On presentation patient patient had tachycardia of 132, temperature of 99.5. Blood pressure stable. CBC showed leukocytosis of 25,000, anemia of 7.6. BUN/creatinine 38 and 1.2 with slightly elevated anion gap. Ortho was consulted by ER. Admission was requested. 10/21 overnight patient was agitated and was given Ativan 1 mg this morning and also Dilaudid, he is now calm and resting. Tmax 99.8F. Leukocytosis down to 20,000 from 24,000, sodium 129, renal function stable, A1c 6.5. Discussed with Dr. Franklin from orthopedics 10/22. Patient is status post right below-knee amputation by Dr. Franklin for gangrene of left lower extremity and cellulitis, maggots and necrotic muscle to the knee were noted. Hemoglobin 8.6 down from 9.6 yesterday, WBC 20,000. Renal functions and electrolytes stable. Postoperatively patient was breathing hard and was placed on BiPAP which was discontinued overnight. Patient was agitated and was given Ativan and Dilaudid overnight and currently resting comfortably. Review of system Patient was agitated overnight and was given Ativan and Dilaudid, currently resting comfortably Physical examination Resting in bed, in no acute distress Normocephalic, atraumatic No scleral icterus, no conjunctival injection Mild end expiratory wheeze, no rhonchi, satting well on room air S1 and S2, sinus tachycardia, no murmurs heard Abdomen is soft and nontender Left lower extremity status post below-knee amputation. Dressing is clean dry and intact. Old right below-knee amputation, stump has healed. Patient was agitated this morning, currently calm after receiving benzodiazepine Assessment and plan Encephalopathy, multifactorial, in the setting of sepsis, alcohol and opioid withdrawal. Obtain CT head. Continue management for alcohol and opioid withdrawal Sepsis, patient with tachycardia of 132, leukocytosis of 25,000 and gangrenous left lower extremity Gangrene and cellulitis left lower extremity status post right below-knee amputation by Dr. Lawrence, on vancomycin Zosyn and clindamycin. Ortho following Cellulitis left lower leg, on empiric antibiotics Peripheral arterial disease status post stenting, CTA LLE with stenosis of popliteal artery, segmental occlusion of posterior tibial artery and complete occlusion of anterior tibial artery. Anemia status post 2 unit PRBC and hemoglobin 9.6 CAD/MO, no acute ischemia on EKG Hyponatremia, received IV fluids, resolved Polysubstance abuse, urine toxicology only positive for opioid Agitation, secondary to above Opioid dependence and withdrawal, on withdrawal protocol Alcohol dependence disorder and withdrawal, on CIWA protocol, multivitamin, thiamine, folic acid COPD, mild exacerbation, on DuoNebs Ongoing tobacco abuse, nicotine patch Diabetes mellitus 2, on insulin sliding scale, A!C 6.5 Hypertension, stable Hyperlipidemia, statin CKD, stable DVT prophylaxis in place Full code CC time 40 minutes Constitutional Vitals: Vital Signs Temp Pulse Resp BP Pulse Ox O2 Del Method O2 Flow Rate 97.8 F 102 H 32 H 136/67 94 Room Air 4 10/22/22 04:01 10/22/22 11:01 10/22/22 11:01 10/22/22 11:01 10/22/22 11:01 10/22/22 09:49 10/22/22 06:01 Period Temp Pulse Resp BP Sys/L[place]ell Pulse Ox O2 Del Method O2 Flow Rate Last 24 Hr 97.0 F-98.2 F 91-107 24-33 98-166/57-111 93-100 BiPAP-Room Air 4-40 Intake and Output 10/22/22 10/22/22 10/22/22 03:59 11:59 19:59 Intake Total 1600 100 Output Total 2140 360 Balance -540 -260 Weight 87.498 kg Intake & Output: Intake & Output 10/22/22 10/22/22 10/22/22 03:59 11:59 19:59 Intake Total 1600 100 Output Total 2140 360 Balance -540 -260 Weight 87.498 kg Intake: IV 1600 100 Sodium Chloride 0.9% 1,000 ml @ 1000 75 mls/hr IV .[id number] [facility] Rx#: [id number] Zosyn 4.5 gm In Dextrose 5% in 50 50 Water 50 ml @ 100 mls/hr IV Q6H [facility] Rx#:[id number] Vancomycin 1,500 mg In Sodium 500 Chloride 0.9% 500 ml @ 333.3 mls/hr IV Q12H [facility] Rx#: [id number] Output: Urine Catheter Amount 2140 360 Other: Percent of Meal Consumed 0% Urine Appearance Clear Clear Uretheral (Cook) Clear Urine Color Dark Yellow Dark Yellow Uretheral (Cook) Yellow Urine Odor Normal Normal OBJ DATA Labs 10/22/22 05:22 10/22/22 05:22 Labs: Abnormal Lab Results 10/22/22 10/22/22 10/21/22 05:22 05:22 18:59 WBC 20.0 H RBC 3.83 L Hgb 8.6 L Hct 29.5 L POC Hct MCV 77.0 L MCH 22.5 L MCHC 29.2 L RDW 17.4 H Plt Count 603 H Immature Gran % (Auto) 9.6 H Neut % (Auto) 79.2 H Lymph % (Auto) 5.5 L Lymph # (Auto) 1.11 L [place] # (Auto) Immature Gran # 1.93 H Absolute Neutrophils 15.82 H PT POC pH 7.32 L POC pCO2 45.2 H POC pO2 63 L POC ABG Base Excess -3.0 L ABG Lactic Acid < 0.3 L POC VBG pCO2 at Temp POC VBG HCO3 POC VBG Total CO2 POC VBG Base Excess Hgb O2 Saturation 90.0 L POC Sodium Sodium Carbon Dioxide POC Total CO2 POC BUN BUN Glucose 112 H POC Glucose Hemoglobin A1c Calcium 8.2 L POC WB Ioniz Calcium Direct Bilirubin 0.5 H GGT AST ALT Alkaline Phosphatase 243 H Albumin 2.1 L Globulin 5.8 H Albumin/Globulin Ratio 0.4 L 10/21/22 10/21/22 10/20/22 07:23 07:22 21:23 WBC 20.7 H RBC 4.12 L Hgb 9.6 L Hct 31.4 L POC Hct 28.0 L MCV 76.2 L MCH 23.3 L MCHC 30.6 L RDW 18.0 H Plt Count 554 H Immature Gran % (Auto) 10.6 H Neut % (Auto) Lymph % (Auto) 5.8 L Lymph # (Auto) 1.19 L [place] # (Auto) 0.98 H Immature Gran # 2.19 H Absolute Neutrophils 16.00 H PT POC pH POC pCO2 POC pO2 POC ABG Base Excess ABG Lactic Acid POC VBG pCO2 at Temp POC VBG HCO3 POC VBG Total CO2 POC VBG Base Excess Hgb O2 Saturation POC Sodium 130 L Sodium 129 L Carbon Dioxide 17 L POC Total CO2 21.0 L POC BUN 38 H BUN 26 H Glucose 117 H POC Glucose 110 H Hemoglobin A1c 6.5 H Calcium 8.1 L POC WB Ioniz Calcium 1.09 L Direct Bilirubin 0.5 H GGT 65 H AST 64 H ALT 48 H Alkaline Phosphatase 284 H Albumin 2.2 L Globulin 5.8 H Albumin/Globulin Ratio 0.4 L 10/20/22 10/20/22 10/20/22 21:23 21:05 21:05 WBC 24.9 H RBC 3.65 L Hgb 7.6 L Hct 26.2 L POC Hct MCV 71.8 L MCH 20.8 L MCHC 29.0 L RDW 16.2 H Plt Count 671 H Immature Gran % (Auto) 7.6 H Neut % (Auto) Lymph % (Auto) 8.3 L Lymph # (Auto) [place] # (Auto) 1.31 H Immature Gran # 1.90 H Absolute Neutrophils 19.26 H PT 15.0 H POC pH POC pCO2 POC pO2 POC ABG Base Excess ABG Lactic Acid POC VBG pCO2 at Temp 33.9 L POC VBG HCO3 21.7 L POC VBG Total CO2 23.0 L POC VBG Base Excess -3.0 L Hgb O2 Saturation POC Sodium Sodium Carbon Dioxide POC Total CO2 POC BUN BUN Glucose POC Glucose Hemoglobin A1c Calcium POC WB Ioniz Calcium Direct Bilirubin GGT AST ALT Alkaline Phosphatase Albumin Globulin Albumin/Globulin Ratio Meds: Medications Acetaminophen (Acetaminophen 325 Mg Tablet) 650 mg PO Q4-6HP PRN; Protocol PRN Reason: Per Pain Protocol/Fever > 101 Albuterol/Ipratropium (Ipratropium/Albuterol 3 Ml Ampul.Neb) 3 ml NEB Q6HRT PRN PRN Reason: Wheezing Albuterol/Ipratropium (Ipratropium/Albuterol 3 Ml Ampul.Neb) 3 ml NEB QID [facility] Last Admin: 10/22/22 12:48 Dose: 3 ml Clonidine HCl (Clonidine Hcl 0.1 Mg Tablet) 0.1 mg PO Q4HP PRN PRN Reason: ALC Dextrose (Dextrose 50% 50 Ml Syringe) 0 ml IV UD PRN PRN Reason: Hypoglycemia Diagnostic Test (Pha) (Accu-Chek 1 Each Strip) 1 each FS Q6 [facility] Last Admin: 10/22/22 05:25 Dose: 1 each Folic Acid (Folic Acid 1 Mg Tablet) 1 mg PO DAILY [facility] Haloperidol Lactate (Haloperidol Lactate 5 Mg/Ml Vial) 0.5 mg IM Q2HP PRN PRN Reason: Alcohol Withdrawal/Assess CIWA Last Admin: 10/21/22 01:05 Dose: 0.5 mg Hydromorphone HCl (Hydromorphone 0.5 Mg/0.5 Ml Syringe) 0.5 mg IV Q2HP PRN; P rotocol PRN Reason: Per Pain Protocol Last Admin: 10/22/22 03:57 Dose: 0.5 mg Piperacillin Sod/Tazobactam (Sod 4.5 gm/ Dextrose) 50 mls @ 100 mls/hr IV Q6H [facility]; Protocol Last Infusion: 10/22/22 05:57 Dose: Infused Thiamine HCl 100 mg/ Sodium (Chloride) 51 mls @ 50 mls/hr IV DAILY [facility] Last Admin: 10/22/22 09:44 Dose: 50 mls/hr Vancomycin HCl 1,500 mg/ (Sodium Chloride) 500 mls @ 333.3 mls/hr IV Q12H [facility] Last Admin: 10/22/22 09:44 Dose: 333.3 mls/hr CLINDAMYCIN IN 0.9 % SOD CHLOR (Clindamycin 600 Mg/50 Ml-Ns) 600 mg in 50 mls @ 50 mls/hr IV Q6H [facility] Last Infusion: 10/22/22 05:57 Dose: Infused Insulin Human Lispro (Insulin Lispro 1 Unit/0.01 Ml Unit) 0 unit SQ Q6 [facility]; Protocol Last Admin: 10/22/22 05:25 Dose: Not Given Iron Carb/Multivit/[place]/Folic Acid (Multivit,Ther Iron,Ca,Fa & Min 1 Tablet) 1 tab PO DAILY [facility] Lorazepam (Lorazepam 2 Mg/Ml Vial) 0 mg IV UD PRN; Protocol PRN Reason: Alcohol Withdrawal/Assess CIWA Last Admin: 10/22/22 02:47 Dose: 1 mg Lorazepam (Lorazepam 2 Mg/Ml Vial) 1 mg IV Q2HP PRN PRN Reason: ANXIETY/SEDATION Naloxone HCl (Naloxone Hcl 0.4 Mg/Ml Vial) 0.1 mg IV Q2MIN PRN PRN Reason: Opiate Reversal Nicotine (Nicotine 14 Mg Patch) 14 mg TOPICAL DAILY@1000 [facility] Last Admin: 10/22/22 09:44 Dose: 14 mg Ondansetron HCl (Ondansetron 4 Mg/2 Ml Vial) 4 mg IV Q4-6HP PRN; Protocol PRN Reason: Nausea And Vomiting Last Admin: 10/21/22 09:30 Dose: 4 mg Senna (Sennosides 1 Tablet) 2 tab PO HSP PRN PRN Reason: Constipation Sodium Chloride (0.9 % Sodium Chloride 10 Ml Syringe) 10 ml IV Q8 [facility] Last Admin: 10/22/22 09:45 Dose: 10 ml Sodium Chloride (0.9 % Sodium Chloride 10 Ml Syringe) 10 ml IV Q8 [facility] Last Admin: 10/22/22 05:13 Dose: 10 ml Sodium Chloride (0.9 % Sodium Chloride 10 Ml Syringe) 10 ml IV Q12 [facility] Last Admin: 10/22/22 09:45 Dose: 10 ml Sodium Chloride (0.9 % Sodium Chloride 10 Ml Syringe) 10 ml IV UD PRN PRN Reason: FLUSH Vancomycin HCl (Vancomycin Per Pharmacy) 1 order IV DAILY [facility]; Protocol Last Admin: 10/22/22 09:44 Dose: Not Given A/P Time Spent With Patient Time: Total time spent is greater than 50% in coordination of care (as documented) at patient's floor/unit and/or counseling patient: QUALITY Stroke Symptom Onset Unknown: No VTE Deep Vein Thrombosis/Pulmonary Embolism Present on Admission: Yes
--- NOTE | 2022-10-22 13:03 | Cat Scan Report ---
INDICATION: AMS COMPARISON: None. TECHNIQUE: Axial noncontrast-enhanced images through the brain. Sagittally and coronally reformatted images. FINDINGS: Cerebral hemispheres:Negative. No intra-axial abnormality. No intra-axial hematoma. No localized mass effect.Brain volume is within normal limits for age. Periventricular white matter is negative without significant attenuation abnormality. Brainstem and cerebellum:No intra-axial abnormality Extra-axial:No acute hemorrhage. No subdural or epidural hematoma. No subarachnoid hemorrhage. Basilar cisterns are normal Calvarial:No calvarial fracture. No lytic lesion Temporal bones are negative. No destructive lesions Soft tissue, orbits, sinuses:Orbits and visualized facial soft tissues and paranasal sinuses are negative IMPRESSION: Negative noncontrast brain CT scan The exam was performed using radiation dose optimization techniques including, but not limited to, automated exposure control, adjustment of the mA and/or kV according to patient size and use of iterative reconstruction technique. Interpreted and Authenticated by: Carl Tan 10/22/22
[2022-10-22] MEDS: HALOPERIDOL LACTATE 5 MG/ML VIAL IM PRN (20:04)
[2022-10-22] MEDS: MULTIVIT,THER IRON,CA,FA & MIN 1 TABLET PO SCH (20:11)
[2022-10-22] MEDS: FOLIC ACID 1 MG TABLET PO SCH (20:11)
--- NOTE | 2022-10-22 22:04 | Internal Med Progress Note ---
SUBJECTIVE Subjective Patient information: Note initiated : 10/22/22 at 10:03 pm Service Date, if different from initiated Date: [] Patient: Earle Magdaleno 57 y/o M admitted on 10/21/22 for GANGRENE. Chief Complaint: [] Additional PMFSH (Level 3 Only): Mr. 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 Patient had a chronic left lower extremity wound which had been getting worse so now he has a luis daniel in left lower extremity, his l eft foot does have autoamputated and fallen off. EMS crew noted patient has maggots on his leg and the house was unkempt. On presentation patient patient had tachycardia of 132, temperature of 99.5. Blood pressure stable. CBC showed leukocytosis of 25,000, anemia of 7.6. BUN/creatinine 38 and 1.2 with slightly elevated anion gap. Ortho was consulted by ER. Admission was requested. 10/21 overnight patient was agitated and was given Ativan 1 mg this morning and also Dilaudid, he is now calm and resting. Tmax 99.8F. Leukocytosis down to 20,000 from 24,000, sodium 129, renal function stable, A1c 6.5. Discussed with Dr. Franklin from orthopedics 10/22. Patient is status post Left AKA by Dr. Franklin for gangrene of left lower extremity and cellulitis, maggots and necrotic muscle to the knee were noted. Hemoglobin 8.6 down from 9.6 yesterday, WBC 20,000. Renal functions and electrolytes stable. Postoperatively patient was breathing hard and was placed on BiPAP which was discontinued overnight. Patient was agitated and was given Ativan and Dilaudid overnight and currently resting comfortably. 10/23. Pain control. Patient received Dilaudid and Ativan for withdrawal symptoms. Clarified with family and patient, he has been using fentanyl off the street. He has been prescribed 4 to 8 mg of Dilaudid every 3 hours as needed for opioid withdrawal. His leukocytosis is trending down to 15,000, hemoglobin low at 7.9. MRSA screen negative. Review of system 14 point review of system negative except mentioned above. Patient is currently calm, was agitated in the morning Physical examination Alert, sitting up, in no acute distress Normocephalic, atraumatic No scleral icterus, no conjunctival injection Mild scattered rales, no rhonchi, satting well on room air S1 and S2, sinus tachycardia, no murmurs heard Abdomen is soft and nontender Left lower extremity s/p LAKAn. Dressing is clean dry and intact. Old right below-knee amputation, stump has healed. Patient was agitated this morning, currently calm after receiving benzodiazepine Assessment and plan Encephalopathy, multifactorial, in the setting of sepsis, alcohol and opioid withdrawal. CT head no acute finding. Most likely opioid withdrawal. We will start on less than his home dose of Dilaudid 2 mg every 3 hours as needed. Cont inue to monitor. Sepsis, patient with tachycardia of 132, leukocytosis of 25,000 and gangrenous left lower extremity Gangrene and cellulitis left lower extremity status post left above-knee amputation by Dr. Lawrence, MRSA screen negative, discontinue vancomycin and clindamycin. Continue Zosyn follow cultures. Ortho following. Dietitian consult to improve protein intake to help wound healing Cellulitis left lower leg, on antibiotics Peripheral arterial disease status post stenting, CTA LLE with stenosis of popliteal artery, segmental occlusion of posterior tibial artery and complete occlusion of anterior tibial artery. Anemia status post 2 unit PRBC, hemoglobin trending down to 7.9. Will transfuse 1 unit in the setting of CAD. CAD/FL, no acute ischemia on EKG Hyponatremia, received IV fluids, resolved Polysubstance abuse, urine toxicology positive for opioid Agitation, secondary to above Opioid dependence and withdrawal, on withdrawal protocol Alcohol dependence disorder and withdrawal, on CIWA protocol, multivitamin, thiamine, folic acid COPD, mild exacerbation, on DuoNebs Ongoing tobacco abuse, nicotine patch Diabetes mellitus 2, on insulin sliding scale, A!C 6.5 Hypertension, stable Hyperlipidemia, statin CKD, stable DVT prophylaxis in place Full code CC time 40 minutes Can downgrade to PCU status Constitutional Vitals: Vital Signs Temp Pulse Resp BP Pulse Ox O2 Del Method O2 Flow Rate 97.8 F 107 H 29 H 119/66 96 Room Air 4 10/22/22 20:09 10/22/22 21:01 10/22/22 21:01 10/22/22 21:01 10/22/22 21:01 10/22/22 21:01 10/22/22 09:00 Period Temp Pulse Resp BP Sys/Lovell Pulse Ox O2 Del Method O2 Flow Rate Last 24 Hr 97.0 F-98.8 F 91-139 18-32 98-169/62-99 79-99 BiPAP-Room Air 4-40 Intake and Output 10/22/22 10/22/22 10/23/22 11:59 19:59 03:59 Intake Total 651 2000 Output Total 360 380 870 Balance 291 1620 -870 Weight 87.815 kg Patient Weight 10/23/22 03:59 Weight 87.815 kg Intake & Output: Intake & Output 10/22/22 10/22/22 10/23/22 11:59 19:59 03:59 Intake Total 651 1999 Output Total 360 380 870 Balance 291 1620 -870 Weight 87.815 kg Intake: Nourishment/Supplement quantity 480 (ml) IV 651 200 Zosyn 4.5 gm In Dextrose 5% in 50 100 Water 50 ml @ 100 mls/hr IV Q6H [facility] Rx#:[id number] Vitamin B1 100 mg In Sodium 51 Chloride 0.9% 50 ml @ 50 mls/hr IV DAILY [facility] Rx#:[id number] Vancomycin 1,500 mg In Sodium 500 Chloride 0.9% 500 ml @ 333.3 mls/hr IV Q12H [facility] Rx#: [id number] Oral 360 Tube Feeding 0 GI Tube Flush 960 Output: Urine Catheter Amount 360 380 870 Other: Meal Dinner Percent of Meal Consumed 0% 75% Feeding Ability Independent Nourishment/Supplement name glucerna Urine Appearance Clear Clear Clear Uretheral (Cook) Clear Clear Urine Color Dark Yellow Dark Yellow Yellow Uretheral (Cook) Bright Yellow Bright Yellow Urine Odor Normal Stool Size Moderate Stool Color Brown Stool Consistency Liquid OBJ DATA Labs 10/23/22 05:28 10/23/22 05:28 Labs: Abnormal Lab Results 10/22/22 10/22/22 10/21/22 05:22 05:22 18:59 WBC 20.0 H RBC 3.83 L Hgb 8.6 L Hct 29.5 L POC Hct MCV 77.0 L MCH 22.5 L MCHC 29.2 L RDW 17.4 H Plt Count 603 H Immature Gran % (Auto) 9.6 H Neut % (Auto) 79.2 H Lymph % (Auto) 5.5 L Lymph # (Auto) 1.11 L [place] # (Auto) Immature Gran # 1.93 H Absolute Neutrophils 15.82 H PT POC pH 7.32 L POC pCO2 45.2 H POC pO2 63 L POC ABG Base Excess -3.0 L ABG Lactic Acid < 0.3 L POC VBG pCO2 at Temp POC VBG HCO3 POC VBG Total CO2 POC VBG Base Excess Hgb O2 Saturation 90.0 L POC Sodium Sodium Carbon Dioxide POC Total CO2 POC BUN BUN Glucose 112 H POC Glucose Hemoglobin A1c Calcium 8.2 L POC WB Ioniz Calcium Direct Bilirubin 0.5 H GGT AST ALT Alkaline Phosphatase 243 H Albumin 2.1 L Globulin 5.8 H Albumin/Globulin Ratio 0.4 L 10/21/22 10/21/22 10/20/22 07:23 07:22 21:23 WBC 20.7 H RBC 4.12 L Hgb 9.6 L Hct 31.4 L POC Hct 28.0 L MCV 76.2 L MCH 23.3 L MCHC 30.6 L RDW 18.0 H Plt Count 554 H Immature Gran % (Auto) 10.6 H Neut % (Auto) Lymph % (Auto) 5.8 L Lymph # (Auto) 1.19 L [place] # (Auto) 0.98 H Immature Gran # 2.19 H Absolute Neutrophils 16.00 H PT POC pH POC pCO2 POC pO2 POC ABG Base Excess ABG Lactic Acid POC VBG pCO2 at Temp POC VBG HCO3 POC VBG Total CO2 POC VBG Base Excess Hgb O2 Saturation POC Sodium 130 L Sodium 129 L Carbon Dioxide 17 L POC Total CO2 21.0 L POC BUN 38 H BUN 26 H Glucose 117 H POC Glucose 110 H Hemoglobin A1c 6.5 H Calcium 8.1 L POC WB Ioniz Calcium 1.09 L Direct Bilirubin 0.5 H GGT 65 H AST 64 H ALT 48 H Alkaline Phosphatase 284 H Albumin 2.2 L Globulin 5.8 H Albumin/Globulin Ratio 0.4 L 10/20/22 10/20/22 10/20/22 21:23 21:05 21:05 WBC 24.9 H RBC 3.65 L Hgb 7.6 L Hct 26.2 L POC Hct MCV 71.8 L MCH 20.8 L MCHC 29.0 L RDW 16.2 H Plt Count 671 H Immature Gran % (Auto) 7.6 H Neut % (Auto) Lymph % (Auto) 8.3 L Lymph # (Auto) [place] # (Auto) 1.31 H Immature Gran # 1.90 H Absolute Neutrophils 19.26 H PT 15.0 H POC pH POC pCO2 POC pO2 POC ABG Base Excess ABG Lactic Acid POC VBG pCO2 at Temp 33.9 L POC VBG HCO3 21.7 L POC VBG Total CO2 23.0 L POC VBG Base Excess -3.0 L Hgb O2 Saturation POC Sodium Sodium Carbon Dioxide POC Total CO2 POC BUN BUN Glucose POC Glucose Hemoglobin A1c Calcium POC WB Ioniz Calcium Direct Bilirubin GGT AST ALT Alkaline Phosphatase Albumin Globulin Albumin/Globulin Ratio Meds: Medications Acetaminophen (Acetaminophen 325 Mg Tablet) 650 mg PO Q4-6HP PRN; Protocol PRN Reason: Per Pain Protocol/Fever > 101 Albuterol/Ipratropium (Ipratropium/Albuterol 3 Ml Ampul.Neb) 3 ml NEB Q6HRT PRN PRN Reason: Wheezing Albuterol/Ipratropium (Ipratropium/Albuterol 3 Ml Ampul.Neb) 3 ml NEB QID [facility] Last Admin: 10/22/22 20:45 Dose: Not Given Clonidine HCl (Clonidine Hcl 0.1 Mg Tablet) 0.1 mg PO Q4HP PRN PRN Reason: ALC Dextrose (Dextrose 50% 50 Ml Syringe) 0 ml IV UD PRN PRN Reason: Hypoglycemia Diagnostic Test (Pha) (Accu-Chek 1 Each Strip) 1 each FS Q6 [facility] Last Admin: 10/22/22 18:12 Dose: 1 each Folic Acid (Folic Acid 1 Mg Tablet) 1 mg PO DAILY [facility] Last Admin: 10/22/22 20:11 Dose: 1 mg Haloperidol Lactate (Haloperidol Lactate 5 Mg/Ml Vial) 0.5 mg IM Q2HP PRN PRN Reason: Alcohol Withdrawal/Assess CIWA Last Admin: 10/22/22 20:04 Dose: 0.5 mg Hydromorphone HCl (Hydromorphone 0.5 Mg/0.5 Ml Syringe) 0.5 mg IV Q2HP PRN; Protocol PRN Reason: Per Pain Protocol Last Admin: 10/22/22 19:07 Dose: 0.5 mg Piperacillin Sod/Tazobactam (Sod 4.5 gm/ Dextrose) 50 mls @ 100 mls/hr IV Q6H [facility]; Protocol Last Infusion: 10/22/22 19:05 Dose: Infused Thiamine HCl 100 mg/ Sodium (Chloride) 51 mls @ 50 mls/hr IV DAILY [facility] Last Infusion: 10/22/22 10:50 Dose: Infused Vancomycin HCl 1,500 mg/ (Sodium Chloride) 500 mls @ 333.3 mls/hr IV Q12H [facility] Last Infusion: 10/22/22 11:20 Dose: Infused CLINDAMYCIN IN 0.9 % SOD CHLOR (Clindamycin 600 Mg/50 Ml-Ns) 600 mg in 50 mls @ 50 mls/hr IV Q6H [facility] Last Infusion: 10/22/22 19:04 Dose: Infused Insulin Human Lispro (Insulin Lispro 1 Unit/0.01 Ml Unit) 0 unit SQ Q6 [facility]; Protocol Last Admin: 10/22/22 18:12 Dose: Not Given Iron Carb/Multivit/Utility Gelatin Maker/Folic Acid (Multivit,Ther Iron,Ca,Fa & Min 1 Tablet) 1 tab PO DAILY [facility] Last Admin: 10/22/22 20:11 Dose: 1 tab Lorazepam (Lorazepam 2 Mg/Ml Vial) 0 mg IV UD PRN; Protocol PRN Reason: Alcohol Withdrawal/Assess CIWA Last Admin: 10/22/22 19:46 Dose: 1 mg Lorazepam (Lorazepam 2 Mg/Ml Vial) 1 mg IV Q2HP PRN PRN Reason: ANXIETY/SEDATION Naloxone HCl (Naloxone Hcl 0.4 Mg/Ml Vial) 0.1 mg IV Q2MIN PRN PRN Reason: Opiate Reversal Nicotine (Nicotine 14 Mg Patch) 14 mg TOPICAL DAILY@1000 [facility] Last Admin: 10/22/22 09:44 Dose: 14 mg Ondansetron HCl (Ondansetron 4 Mg/2 Ml Vial) 4 mg IV Q4-6HP PRN; Protocol PRN Reason: Nausea And Vomiting Last Admin: 10/21/22 09:30 Dose: 4 mg Senna (Sennosides 1 Tablet) 2 tab PO HSP PRN PRN Reason: Constipation Sodium Chloride (0.9 % Sodium Chloride 10 Ml Syringe) 10 ml IV Q8 [facility] Last Admin: 10/22/22 13:44 Dose: 10 ml Sodium Chloride (0.9 % Sodium Chloride 10 Ml Syringe) 10 ml IV Q8 [facility] Last Admin: 10/22/22 13:44 Dose: Not Given Sodium Chloride (0.9 % Sodium Chloride 10 Ml Syringe) 10 ml IV Q12 [facility] Last Admin: 10/22/22 09:45 Dose: 10 ml Sodium Chloride (0.9 % Sodium Chloride 10 Ml Syringe) 10 ml IV UD PRN PRN Reason: FLUSH Vancomycin HCl (Vancomycin Per Pharmacy) 1 order IV DAILY [facility]; Protocol Last Admin: 10/22/22 09:44 Dose: Not Given A/P Time Spent With Patient Time: Total time spent is greater than 50% in coordination of care (as documented) at patient's floor/unit and/or counseling patient: QUALITY Stroke Symptom Onset Unknown: No VTE Deep Vein Thrombosis/Pulmonary Embolism Present on Admission: Yes
[2022-10-23] MEDS: LORazepam 2 MG/ML VIAL IV PRN ×2 (00:23→06:02)
[2022-10-23] MEDS: PIPERACILLIN SODIUM/TAZOBACTAM 4.5 GM in DEXTROSE 5% IN WATER 50 ML IV SCH ×5 (00:24→23:53)
[2022-10-23] MEDS: CLINDAMYCIN IN 0.9 % SOD CHLOR 600 MG/50 ML BAG IV SCH ×2 (00:25→05:20)
[2022-10-23] MEDS: INSULIN LISPRO 1 UNIT/0.01 ML UNIT SQ SCH ×4 (00:45→21:10)
[2022-10-23] MEDS: HYDROmorphone 0.5 MG/0.5 ML SYRINGE IV PRN ×9 (01:29→23:56)
[2022-10-23] MEDS: 0.9 % SODIUM CHLORIDE 10 ML SYRINGE IV SCH ×5 (05:31→21:03)
[2022-10-23 07:25] LABS: Basophils # (Auto) 0.08 K/mcL (0.00-0.30); Basophils % (Auto) 0.5 % (0.0-2.0); Eosinophils # (Auto) 0.25 K/mcL (0.00-0.70); Eosinophils % (Auto) 1.6 % (0.0-7.0); Hematocrit 27.3 % (40.1-51.0); Hemoglobin 7.9 g/dL (13.7-17.5); Lymphocytes # (Auto) 1.42 K/mcL (1.50-4.80); Lymphocytes % (Auto) 9.3 % (15.5-49.0); Mean Cell Volume 76.5 fL (80.0-100.0); Mean Corpuscular HGB Conc 28.9 g/dL (31.0-36.0); Mean Platelet Volume 9.3 fL (8.8-12.5); Monocytes # (Auto) 0.81 K/mcL (0.10-0.90); Monocytes % (Auto) 5.3 % (1.0-12.0); Neutrophils % (Auto) 73.2 % (38.0-78.0); Platelet Count 564 K/mcL (140-440); RBC 3.57 M/mcL (4.63-6.08); Red Cell Distribution Width 17.8 % (11.5-14.5); WBC 15.2 K/mcL (4.5-11.0)
[2022-10-23 07:53] LABS: ALT/SGPT 25 U/L (<40); AST/SGOT 26 U/L (<40); Albumin 2.1 gm/dL (3.2-5.2); Albumin/Globulin Ratio 0.4 (1.0-2.3); Alkaline Phosphatase 195 U/L (39-117); Bilirubin,Direct 0.2 mg/dL (<0.3); Bilirubin,Total 0.4 mg/dL (0.1-1.0); Blood Urea Nitrogen 13 mg/dL (6-20); Carbon Dioxide 22 mmol/L (22-30); Chloride 103 mmol/L (96-108); Globulin 5.3 gm/dL (2.2-3.7); Glomerular Filtration Rate 100; Glucose 101 mg/dL (70-105); Lactate Dehydrogenase 160 U/L (135-225); Phosphorous 2.5 mg/dL (2.5-4.5); Triglycerides 101 mg/dL (<150); Uric Acid 2.6 mg/dL (2.5-8.0)
[2022-10-23] MEDS: IPRATROPIUM/ALBUTEROL 3 ML AMPUL.NEB NEB SCH ×3 (08:06→20:46)
[2022-10-23] MEDS ORDERED: THIAMINE 100 MG TABLET PO SCH (09:00)
[2022-10-23] MEDS: NICOTINE 14 MG PATCH TOPICAL SCH (09:37)
[2022-10-23] MEDS: MULTIVIT,THER IRON,CA,FA & MIN 1 TABLET PO SCH ×2 (09:38→21:02)
[2022-10-23] MEDS: FOLIC ACID 1 MG TABLET PO SCH (09:38)
[2022-10-23] MEDS: VANCOMYCIN PER PHARMACY IV SCH (09:39)
[2022-10-23] MEDS ORDERED: NICOTINE 21 MG PATCH TOPICAL SCH (10:00)
[2022-10-23] MEDS: VANCOMYCIN 1,500 MG in 0.9 % SODIUM CHLORIDE 500 ML IV SCH (10:45)
--- NOTE | 2022-10-23 10:51 | Orthopedic Progress Note ---
SUBJECTIVE Subjective Patient information: Note initiated : 10/23/22 at 10:43 am Service Date, if different from initiated Date: [] Patient: Earle Magdaleno 57 y/o M admitted on 10/21/22 for GANGRENE. Chief Complaint: [Gangrene of left leg now with amputation he is waking to talk for a few minutes and does cough well] Principal diagnosis: Left leg AKA Constitutional Vitals: Vital Signs Temp Pulse Resp BP Pulse Ox O2 Del Method O2 Flow Rate 97.1 F 99 H 28 H 160/71 95 Room Air 4 10/23/22 07:30 10/23/22 09:01 10/23/22 09:01 10/23/22 09:01 10/23/22 09:01 10/23/22 08:09 10/22/22 09:00 Period Temp Pulse Resp BP Sys/Lovell Pulse Ox O2 Del Method O2 Flow Rate Last 24 Hr 97.1 F-98.8 F 91-139 18-32 98-169/50-99 79-99 Room Air-Room Air Intake and Output 10/22/22 10/23/22 10/23/22 19:59 03:59 11:59 Intake Total 2240 600 820 Output Total 380 2040 310 Balance 1860 -1440 510 Weight 193 lb 9.6 oz Intake & Output: Intake & Output 10/22/22 10/23/22 10/23/22 19:59 03:59 11:59 Intake Total 2240 600 820 Output Total 380 2040 310 Balance 1860 -1440 510 Weight 193 lb 9.6 oz Intake: Nourishment/Supplement quantity 480 (ml) IV 200 600 100 Zosyn 4.5 gm In Dextrose 5% in 100 50 50 Water 50 ml @ 100 mls/hr IV Q6H [facility] Rx#:[id number] Vancomycin 1,500 mg In Sodium 500 Chloride 0.9% 500 ml @ 333.3 mls/hr IV Q12H [facility] Rx#: [id number] Oral 600 720 Tube Feeding 0 0 0 GI Tube Flush 960 Output: Urine Catheter Amount 380 1440 310 Stool 600 Other: Meal Nourishment/Supplement Percent of Meal Consumed 75% Feeding Ability Independent Nourishment/Supplement name jello Urine Appearance Clear Clear Clear Uretheral (Cook) Clear Clear Clear Urine Color Dark Yellow Dark Yellow Yellow Uretheral (Cook) Bright Yellow Dark Yellow Dark Deana Urine Odor Normal Normal Normal Stool Size Large Stool Color Brown Brown Stool Consistency Watery Watery General appearance: disheveled and no acute distress OBJ DATA Labs 10/23/22 05:28 10/23/22 05:28 Labs: Abnormal Lab Results 10/23/22 10/23/22 10/22/22 05:28 05:28 05:22 WBC 15.2 H 20.0 H RBC 3.57 L 3.83 L Hgb 7.9 L 8.6 L Hct 27.3 L 29.5 L POC Hct MCV 76.5 L 77.0 L MCH 22.1 L 22.5 L MCHC 28.9 L 29.2 L RDW 17.8 H 17.4 H Plt Count 564 H 603 H Immature Gran % (Auto) 10.1 H 9.6 H Neut % (Auto) 79.2 H Lymph % (Auto) 9.3 L 5.5 L Lymph # (Auto) 1.42 L 1.11 L [place] # (Auto) Immature Gran # 1.53 H 1.93 H Absolute Neutrophils 11.10 H 15.82 H PT POC pH POC pCO2 POC pO2 POC ABG Base Excess ABG Lactic Acid POC VBG pCO2 at Temp POC VBG HCO3 POC VBG Total CO2 POC VBG Base Excess Hgb O2 Saturation POC Sodium Sodium Carbon Dioxide POC Total CO2 POC BUN BUN Glucose POC Glucose Hemoglobin A1c Calcium 8.0 L POC WB Ioniz Calcium Direct Bilirubin GGT AST ALT Alkaline Phosphatase 195 H Albumin 2.1 L Globulin 5.3 H Albumin/Globulin Ratio 0.4 L 10/22/22 10/21/22 10/21/22 05:22 18:59 07:23 WBC RBC Hgb Hct POC Hct MCV MCH MCHC RDW Plt Count Immature Gran % (Auto) Neut % (Auto) Lymph % (Auto) Lymph # (Auto) [place] # (Auto) Immature Gran # Absolute Neutrophils PT POC pH 7.32 L POC pCO2 45.2 H POC pO2 63 L POC ABG Base Excess -3.0 L ABG Lactic Acid < 0.3 L POC VBG pCO2 at Temp POC VBG HCO3 POC VBG Total CO2 POC VBG Base Excess Hgb O2 Saturation 90.0 L POC Sodium Sodium 129 L Carbon Dioxide 17 L POC Total CO2 POC BUN BUN 26 H Glucose 112 H 117 H POC Glucose Hemoglobin A1c 6.5 H Calcium 8.2 L 8.1 L POC WB Ioniz Calcium Direct Bilirubin 0.5 H 0.5 H GGT 65 H AST 64 H ALT 48 H Alkaline Phosphatase 243 H 284 H Albumin 2.1 L 2.2 L Globulin 5.8 H 5.8 H Albumin/Globulin Ratio 0.4 L 0.4 L 10/21/22 10/20/22 10/20/22 07:22 21:23 21:23 WBC 20.7 H RBC 4.12 L Hgb 9.6 L Hct 31.4 L POC Hct 28.0 L MCV 76.2 L MCH 23.3 L MCHC 30.6 L RDW 18.0 H Plt Count 554 H Immature Gran % (Auto) 10.6 H Neut % (Auto) Lymph % (Auto) 5.8 L Lymph # (Auto) 1.19 L [place] # (Auto) 0.98 H Immature Gran # 2.19 H Absolute Neutrophils 16.00 H PT POC pH POC pCO2 POC pO2 POC ABG Base Excess ABG Lactic Acid POC VBG pCO2 at Temp 33.9 L POC VBG HCO3 21.7 L POC VBG Total CO2 23.0 L POC VBG Base Excess -3.0 L Hgb O2 Saturation POC Sodium 130 L Sodium Carbon Dioxide POC Total CO2 21.0 L POC BUN 38 H BUN Glucose POC Glucose 110 H Hemoglobin A1c Calcium POC WB Ioniz Calcium 1.09 L Direct Bilirubin GGT AST ALT Alkaline Phosphatase Albumin Globulin Albumin/Globulin Ratio 10/20/22 10/20/22 21:05 21:05 WBC 24.9 H RBC 3.65 L Hgb 7.6 L Hct 26.2 L POC Hct MCV 71.8 L MCH 20.8 L MCHC 29.0 L RDW 16.2 H Plt Count 671 H Immature Gran % (Auto) 7.6 H Neut % (Auto) Lymph % (Auto) 8.3 L Lymph # (Auto) [place] # (Auto) 1.31 H Immature Gran # 1.90 H Absolute Neutrophils 19.26 H PT 15.0 H POC pH POC pCO2 POC pO2 POC ABG Base Excess ABG Lactic Acid POC VBG pCO2 at Temp POC VBG HCO3 POC VBG Total CO2 POC VBG Base Excess Hgb O2 Saturation POC Sodium Sodium Carbon Dioxide POC Total CO2 POC BUN BUN Glucose POC Glucose Hemoglobin A1c Calcium POC WB Ioniz Calcium Direct Bilirubin GGT AST ALT Alkaline Phosphatase Albumin Globulin Albumin/Globulin Ratio Meds: Medications Acetaminophen (Acetaminophen 325 Mg Tablet) 650 mg PO Q4-6HP PRN; Protocol PRN Reason: Per Pain Protocol/Fever > 101 Last Admin: 10/23/22 09:37 Dose: 650 mg Albuterol/Ipratropium (Ipratropium/Albuterol 3 Ml Ampul.Neb) 3 ml NEB Q6HRT PRN PRN Reason: Wheezing Albuterol/Ipratropium (Ipratropium/Albuterol 3 Ml Ampul.Neb) 3 ml NEB QID [facility] Last Admin: 10/23/22 08:06 Dose: 3 ml Clonidine HCl (Clonidine Hcl 0.1 Mg Tablet) 0.1 mg PO Q4HP PRN PRN Reason: ALC Last Admin: 10/23/22 09:37 Dose: 0.1 mg Dextrose (Dextrose 50% 50 Ml Syringe) 0 ml IV UD PRN PRN Reason: Hypoglycemia Diagnostic Test (Pha) (Accu-Chek 1 Each Strip) 1 each FS Q6 [facility] Last Admin: 10/23/22 05:30 Dose: 1 each Folic Acid (Folic Acid 1 Mg Tablet) 1 mg PO DAILY [facility] Last Admin: 10/23/22 09:38 Dose: 1 mg Haloperidol Lactate (Haloperidol Lactate 5 Mg/Ml Vial) 0.5 mg IM Q2HP PRN PRN Reason: Alcohol Withdrawal/Assess CIWA Last Admin: 10/22/22 20:04 Dose: 0.5 mg Hydromorphone HCl (Hydromorphone 0.5 Mg/0.5 Ml Syringe) 0.5 mg IV Q2HP PRN; Protocol PRN Reason: Per Pain Protocol Last Admin: 10/23/22 09:37 Dose: 0.5 mg Piperacillin Sod/Tazobactam (Sod 4.5 gm/ Dextrose) 50 mls @ 100 mls/hr IV Q6H [facility]; Protocol Last Infusion: 10/23/22 06:11 Dose: Infused Insulin Human Lispro (Insulin Lispro 1 Unit/0.01 Ml Unit) 0 unit SQ Q6 [facility]; Protocol Last Admin: 10/23/22 05:32 Dose: Not Given Iron Carb/Multivit/[place]/Folic Acid (Multivit,Ther Iron,Ca,Fa & Min 1 Tablet) 1 tab PO DAILY [facility] Last Admin: 10/23/22 09:38 Dose: 1 tab Lorazepam (Lorazepam 2 Mg/Ml Vial) 0 mg IV UD PRN; Protocol PRN Reason: Alcohol Withdrawal/Assess CIWA Last Admin: 10/23/22 06:02 Dose: 1 mg Lorazepam (Lorazepam 2 Mg/Ml Vial) 1 mg IV Q2HP PRN PRN Reason: ANXIETY/SEDATION Naloxone HCl (Naloxone Hcl 0.4 Mg/Ml Vial) 0.1 mg IV Q2MIN PRN PRN Reason: Opiate Reversal Nicotine (Nicotine 14 Mg Patch) 14 mg TOPICAL DAILY@1000 [facility] Last Admin: 10/23/22 09:37 Dose: 14 mg Nicotine (Nicotine 21 Mg Patch) 21 mg TOPICAL DAILY@1000 [facility] Last Admin: 10/23/22 09:37 Dose: 21 mg Ondansetron HCl (Ondansetron 4 Mg/2 Ml Vial) 4 mg IV Q4-6HP PRN; Protocol PRN Reason: Nausea And Vomiting Last Admin: 10/21/22 09:30 Dose: 4 mg Senna (Sennosides 1 Tablet) 2 tab PO HSP PRN PRN Reason: Constipation Sodium Chloride (0.9 % Sodium Chloride 10 Ml Syringe) 10 ml IV Q8 [facility] Last Admin: 10/23/22 05:31 Dose: 10 ml Sodium Chloride (0.9 % Sodium Chloride 10 Ml Syringe) 10 ml IV Q12 [facility] Last Admin: 10/23/22 09:39 Dose: 10 ml Sodium Chloride (0.9 % Sodium Chloride 10 Ml Syringe) 10 ml IV UD PRN PRN Reason: FLUSH Thiamine HCl (Thiamine 100 Mg Tablet) 100 mg PO DAILY [facility] Last Admin: 10/23/22 09:38 Dose: 100 mg A/P Assessment and plan (1) Sepsis: Plan: aka Status: Acute Qualifiers: Sepsis type: sepsis due to unspecified organism Qualified Code(s): A41.9 - Sepsis, unspecified organism; R65.20 - Severe sepsis without septic shock (2) ARF (acute renal failure): Plan: aka and fluid Status: Acute Qualifiers: Acute renal failure type: unspecified Qualified Code(s): N17.9 - Acute kidney failure, unspecified (3) Hypovolemic shock: Status: Acute Comment: AKA and fluid (4) Acute kidney injury superimposed on chronic kidney disease: Status: Acute Comment: AKA (5) Severe sepsis with acute organ dysfunction: Status: Acute Comment: XIOMARA (6) Gangrene: Status: Acute Comment: Shay (7) Acute diffuse ischemia of intestine: Status: Chronic Comment: SHAY (8) Cryoglobulinemia due to chronic hepatitis C: Status: Suspected Comment: aware Plan He needs protein to support pressure and and heal wound ie AKA Time Spent With Patient Time: Total time spent is greater than 50% in coordination of care (as documented) at patient's floor/unit and/or counseling patient: Subsequent: Total time with patient: Less than 25 minutes Critical Care Time: Yes Total Critical Care Time: 20
[2022-10-23] MEDS: HYDROmorphone 2 MG TABLET PO PRN ×3 (11:45→21:01)
[2022-10-23] MEDS ORDERED: 0.9 % SODIUM CHLORIDE 250 ML IV SCH (12:39)
--- NOTE | 2022-10-23 13:16 | Internal Med Progress Note ---
SUBJECTIVE Subjective Patient information: Note initiated : 10/23/22 at 1:09 pm Service Date, if different from initiated Date: [] Patient: Earle Magdaleno 57 y/o M admitted on 10/21/22 for GANGRENE. Chief Complaint: [] Principal diagnosis: Left leg AKA Interval history: Mr. 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 Patient had a chronic left lower extremity wound which had been getting worse so now he has a luis daniel in left lower extremity, his left foot does have autoamputated and fallen off. EMS crew noted patient has maggots on his leg and the house was unkempt. On presentation patient patient had tachycardia of 132, temperature of 99.5. Blood pressure stable. CBC showed leukocytosis of 25,000, anemia of 7.6. BUN/creatinine 38 and 1.2 with slightly elevated anion gap. Ortho was consulted by ER. Admission was requested. 10/21 overnight patient was agitated and was given Ativan 1 mg this morning and also Dilaudid, he is now calm and resting. Tmax 99.8F. Leukocytosis down to 20,000 from 24,000, sodium 129, renal function stable, A1c 6.5. Discussed with Dr. Franklin from orthopedics 10/22. Patient is status post Left AKA by Dr. Franklin for gangrene of left lower extremity and cellulitis, maggots and necrotic muscle to the knee were noted. Hemoglobin 8.6 down from 9.6 yesterday, WBC 20,000. Renal functions and electrolytes stable. Postoperatively patient was breathing hard and was placed on BiPAP which was discontinued overnight. Patient was agitated and was given Ativan and Dilaudid overnight and currently resting comfortably. 10/23. Pain control. Patient received Dilaudid and Ativan for withdrawal symptoms. Clarified with family and patient, he has been using fentanyl off the street. He has been prescribed 4 to 8 mg of Dilaudid every 3 hours as needed for opioid withdrawal. His leukocytosis is trending down to 15,000, hemoglobin low at 7.9. MRSA screen negative. 10/24 Review of Systems: denies headache/fever/chills/nausea/vomiting/chest or abdominal pain/cough/dyspnea/diarrhea. Otherwise see above. PHYSICAL EXAM General: Alert, Awake, No acute Distress Eyes/N/T: EOMI, no scleral icterus, Head/Neck: neck supple, full ROM, CV: RRR, No murmurs, Pulm: scatterd rales b/l, no wheezing, no respiratory distress Abd: soft, nontender, +BS x4 Ext: left AKA, dressings intact Neuro: Alert, , no focal deficits, moves all extremities, , sensations intact b/l upper/lower Psychiatric: Skin: warm/dry, normal color Constitutional Vitals: Vital Signs Temp Pulse Resp BP Pulse Ox O2 Del Method O2 Flow Rate 97.9 F 99 H 25 H 148/77 95 Room Air 4 10/23/22 11:01 10/23/22 12:57 10/23/22 12:57 10/23/22 12:26 10/23/22 12:57 10/23/22 12:57 10/23/22 12:57 Period Temp Pulse Resp BP Sys/Lovell Pulse Ox O2 Del Method O2 Flow Rate Last 24 Hr 97.1 F-98.8 F 95-139 12-32 98-163/50-106 79-100 Room Air-Room Air 4 Intake and Output 10/23/22 10/23/22 10/23/22 03:59 11:59 19:59 Intake Total 296 063 4903 Output Total 2040 310 400 Balance -1440 510 730 Weight 87.815 kg Intake & Output: Intake & Output 10/23/22 10/23/22 10/23/22 03:59 11:59 19:59 Intake Total 038 739 1353 Output Total 2040 310 400 Balance -1440 510 730 Weight 87.815 kg Intake: Nourishment/Supplement quantity 480 (ml) IV 600 100 50 Zosyn 4.5 gm In Dextrose 5% in 50 50 50 Water 50 ml @ 100 mls/hr IV Q6H [facility] Rx#:[id number] Vancomycin 1,500 mg In Sodium 500 Chloride 0.9% 500 ml @ 333.3 mls/hr IV Q12H [facility] Rx#: [id number] Oral 720 120 Tube Feeding 0 0 GI Tube Flush 480 Output: Urine Catheter Amount 1440 310 400 Stool 600 Other: Meal Breakfast Percent of Meal Consumed 75% Feeding Ability Assist with Tray Set Up Nourishment/Supplement name glucerna Urine Appearance Clear Clear Clear Uretheral (Cook) Clear Clear Urine Color Dark Yellow Yellow Yellow Uretheral (Cook) Dark Yellow Dark Deana Urine Odor Normal Normal Stool Color Brown Stool Consistency Watery OBJ DATA Labs 10/23/22 05:28 10/23/22 05:28 Labs: Abnormal Lab Results 10/23/22 10/23/22 10/22/22 05:28 05:28 05:22 WBC 15.2 H 20.0 H RBC 3.57 L 3.83 L Hgb 7.9 L 8.6 L Hct 27.3 L 29.5 L POC Hct MCV 76.5 L 77.0 L MCH 22.1 L 22.5 L MCHC 28.9 L 29.2 L RDW 17.8 H 17.4 H Plt Count 564 H 603 H Immature Gran % (Auto) 10.1 H 9.6 H Neut % (Auto) 79.2 H Lymph % (Auto) 9.3 L 5.5 L Lymph # (Auto) 1.42 L 1.11 L [place] # (Auto) Immature Gran # 1.53 H 1.93 H Absolute Neutrophils 11.10 H 15.82 H PT POC pH POC pCO2 POC pO2 POC ABG Base Excess ABG Lactic Acid POC VBG pCO2 at Temp POC VBG HCO3 POC VBG Total CO2 POC VBG Base Excess Hgb O2 Saturation POC Sodium Sodium Carbon Dioxide POC Total CO2 POC BUN BUN Glucose POC Glucose Hemoglobin A1c Calcium 8.0 L POC WB Ioniz Calcium Direct Bilirubin GGT AST ALT Alkaline Phosphatase 195 H Albumin 2.1 L Globulin 5.3 H Albumin/Globulin Ratio 0.4 L 10/22/22 10/21/22 10/21/22 05:22 18:59 07:23 WBC RBC Hgb Hct POC Hct MCV MCH MCHC RDW Plt Count Immature Gran % (Auto) Neut % (Auto) Lymph % (Auto) Lymph # (Auto) [place] # (Auto) Immature Gran # Absolute Neutrophils PT POC pH 7.32 L POC pCO2 45.2 H POC pO2 63 L POC ABG Base Excess -3.0 L ABG Lactic Acid < 0.3 L POC VBG pCO2 at Temp POC VBG HCO3 POC VBG Total CO2 POC VBG Base Excess Hgb O2 Saturation 90.0 L POC Sodium Sodium 129 L Carbon Dioxide 17 L POC Total CO2 POC BUN BUN 26 H Glucose 112 H 117 H POC Glucose Hemoglobin A1c 6.5 H Calcium 8.2 L 8.1 L POC WB Ioniz Calcium Direct Bilirubin 0.5 H 0.5 H GGT 65 H AST 64 H ALT 48 H Alkaline Phosphatase 243 H 284 H Albumin 2.1 L 2.2 L Globulin 5.8 H 5.8 H Albumin/Globulin Ratio 0.4 L 0.4 L 10/21/22 10/20/22 10/20/22 07:22 21:23 21:23 WBC 20.7 H RBC 4.12 L Hgb 9.6 L Hct 31.4 L POC Hct 28.0 L MCV 76.2 L MCH 23.3 L MCHC 30.6 L RDW 18.0 H Plt Count 554 H Immature Gran % (Auto) 10.6 H Neut % (Auto) Lymph % (Auto) 5.8 L Lymph # (Auto) 1.19 L [place] # (Auto) 0.98 H Immature Gran # 2.19 H Absolute Neutrophils 16.00 H PT POC pH POC pCO2 POC pO2 POC ABG Base Excess ABG Lactic Acid POC VBG pCO2 at Temp 33.9 L POC VBG HCO3 21.7 L POC VBG Total CO2 23.0 L POC VBG Base Excess -3.0 L Hgb O2 Saturation POC Sodium 130 L Sodium Carbon Dioxide POC Total CO2 21.0 L POC BUN 38 H BUN Glucose POC Glucose 110 H Hemoglobin A1c Calcium POC WB Ioniz Calcium 1.09 L Direct Bilirubin GGT AST ALT Alkaline Phosphatase Albumin Globulin Albumin/Globulin Ratio 10/20/22 10/20/22 21:05 21:05 WBC 24.9 H RBC 3.65 L Hgb 7.6 L Hct 26.2 L POC Hct MCV 71.8 L MCH 20.8 L MCHC 29.0 L RDW 16.2 H Plt Count 671 H Immature Gran % (Auto) 7.6 H Neut % (Auto) Lymph % (Auto) 8.3 L Lymph # (Auto) [place] # (Auto) 1.31 H Immature Gran # 1.90 H Absolute Neutrophils 19.26 H PT 15.0 H POC pH POC pCO2 POC pO2 POC ABG Base Excess ABG Lactic Acid POC VBG pCO2 at Temp POC VBG HCO3 POC VBG Total CO2 POC VBG Base Excess Hgb O2 Saturation POC Sodium Sodium Carbon Dioxide POC Total CO2 POC BUN BUN Glucose POC Glucose Hemoglobin A1c Calcium POC WB Ioniz Calcium Direct Bilirubin GGT AST ALT Alkaline Phosphatase Albumin Globulin Albumin/Globulin Ratio Meds: Medications Acetaminophen (Acetaminophen 325 Mg Tablet) 650 mg PO Q4-6HP PRN; Protocol PRN Reason: Per Pain Protocol/Fever > 101 Last Admin: 10/23/22 09:37 Dose: 650 mg Albuterol/Ipratropium (Ipratropium/Albuterol 3 Ml Ampul.Neb) 3 ml NEB Q6HRT PRN PRN Reason: Wheezing Albuterol/Ipratropium (Ipratropium/Albuterol 3 Ml Ampul.Neb) 3 ml NEB QID [facility] Last Admin: 10/23/22 12:54 Dose: 3 ml Clonidine HCl (Clonidine Hcl 0.1 Mg Tablet) 0.1 mg PO Q4HP PRN PRN Reason: ALC Last Admin: 10/23/22 09:37 Dose: 0.1 mg Dextrose (Dextrose 50% 50 Ml Syringe) 0 ml IV UD PRN PRN Reason: Hypoglycemia Diagnostic Test (Pha) (Accu-Chek 1 Each Strip) 1 each FS Q6 [facility] Last Admin: 10/23/22 12:35 Dose: 1 each Enoxaparin Sodium (Enoxaparin 40 Mg/0.4 Ml Syringe) 40 mg SQ DAILY [facility] Folic Acid (Folic Acid 1 Mg Tablet) 1 mg PO DAILY [facility] Last Admin: 10/23/22 09:38 Dose: 1 mg Haloperidol Lactate (Haloperidol Lactate 5 Mg/Ml Vial) 0.5 mg IM Q2HP PRN PRN Reason: Alcohol Withdrawal/Assess CIWA Last Admin: 10/22/22 20:04 Dose: 0.5 mg Hydromorphone HCl (Hydromorphone 0.5 Mg/0.5 Ml Syringe) 0.5 mg IV Q2HP PRN; Protocol PRN Reason: Per Pain Protocol Last Admin: 10/23/22 11:43 Dose: 0.5 mg Hydromorphone HCl (Hydromorphone 2 Mg Tablet) 2 mg PO Q3HP PRN; Protocol PRN Reason: Per Pain Protocol Last Admin: 10/23/22 11:45 Dose: 2 mg Piperacillin Sod/Tazobactam (Sod 4.5 gm/ Dextrose) 50 mls @ 100 mls/hr IV Q6H [facility]; Protocol Last Infusion: 10/23/22 12:37 Dose: Infused Sodium Chloride (Sodium Chloride 0.9%) 250 mls @ 20 mls/hr IV .[id number] [facility] Stop: 10/24/22 01:08 Insulin Human Lispro (Insulin Lispro 1 Unit/0.01 Ml Unit) 0 unit SQ Q6 [facility]; Protocol Last Admin: 10/23/22 12:36 Dose: Not Given Iron Carb/Multivit/Murray/Folic Acid (Multivit,Ther Iron,Ca,Fa & Min 1 Tablet) 1 tab PO DAILY [facility] Last Admin: 10/23/22 09:38 Dose: 1 tab Lorazepam (Lorazepam 2 Mg/Ml Vial) 0 mg IV UD PRN; Protocol PRN Reason: Alcohol Withdrawal/Assess CIWA Last Admin: 10/23/22 06:02 Dose: 1 mg Lorazepam (Lorazepam 2 Mg/Ml Vial) 1 mg IV Q2HP PRN PRN Reason: ANXIETY/SEDATION Naloxone HCl (Naloxone Hcl 0.4 Mg/Ml Vial) 0.1 mg IV Q2MIN PRN PRN Reason: Opiate Reversal Nicotine (Nicotine 14 Mg Patch) 14 mg TOPICAL DAILY@1000 [facility] Last Admin: 10/23/22 09:37 Dose: 14 mg Nicotine (Nicotine 21 Mg Patch) 21 mg TOPICAL DAILY@1000 [facility] Last Admin: 10/23/22 09:37 Dose: 21 mg Ondansetron HCl (Ondansetron 4 Mg/2 Ml Vial) 4 mg IV Q4-6HP PRN; Protocol PRN Reason: Nausea And Vomiting Last Admin: 10/21/22 09:30 Dose: 4 mg Senna (Sennosides 1 Tablet) 2 tab PO HSP PRN PRN Reason: Constipation Sodium Chloride (0.9 % Sodium Chloride 10 Ml Syringe) 10 ml IV Q8 [facility] Last Admin: 10/23/22 05:31 Dose: 10 ml Sodium Chloride (0.9 % Sodium Chloride 10 Ml Syringe) 10 ml IV Q12 [facility] Last Admin: 10/23/22 09:39 Dose: 10 ml Sodium Chloride (0.9 % Sodium Chloride 10 Ml Syringe) 10 ml IV UD PRN PRN Reason: FLUSH Thiamine HCl (Thiamine 100 Mg Tablet) 100 mg PO DAILY [facility] Last Admin: 10/23/22 09:38 Dose: 100 mg A/P Narrative A/P Narrative: Assessment and plan *Encephalopathy: multifactorial, in the setting of sepsis, alcohol and opioid withdrawal -CT head no acute finding. Most likely opioid withdrawal -We will start on less than his home dose of Dilaudid 2 mg every 3 hours as needed. Continue to monitor. *Sepsis: 2/2 gangrenous left lower extremity *Gangrene and cellulitis left lower extremity: s/p Left above-knee amputation by Dr. Lawrence (10/21) -Ortho following -MRSA screen negative, discontinue vancomycin and clindamycin -Continue Zosyn follow cultures -Dietitian consult to improve protein intake to help wound healing *Cellulitis left lower leg: as above -antibiotics *Peripheral arterial disease status post stenting: -CTA LLE withstenosis popliteal artery/segmental occlusion of post tibial artery & complete occlusion of anterior tibial artery *Anemia, acute: s/p 2-unit PRBC, hemoglobin trending down to 7.9. Will transfuse 1 unit in the setting of CAD. -monitor *h/o CAD/AK: no acute ischemia on EKG *Hyponatremia: received IV fluids, resolved *Polysubstance abuse: urine toxicology positive for opioid *Agitation:secondary to above *Opioid dependence and withdrawal, on withdrawal protocol *Alcohol dependence disorder and withdrawal, on CIWA protocol, multivitamin, thiamine, folic acid *COPD, mild exacerbation: on DuoNebs *Ongoing tobacco abuse: nicotine patch *Diabetes mellitus 2: on insulin sliding scale, A1C 6.5 *Hypertension/Hyperlipidemia: statin *CKD: stable *DVT prophylaxis: lovenox Time Spent With Patient Time: Total time spent is greater than 50% in coordination of care (as documented) at patient's floor/unit and/or counseling patient: QUALITY Stroke Symptom Onset Unknown: No VTE Deep Vein Thrombosis/Pulmonary Embolism Present on Admission: Yes
--- OUTSIDE RECORDS SUMMARY | 2022-10-23 16:49 | External Medical Summary | Continuity of Care Document ---
Author Name Unknown Organization [facility] Address [address] [place] [address] Phone Care Team Providers Care Roller Operator Name Role Phone Walker RUIZ, Rick Unavailable Unavailable Allergies, Adverse Reactions, Alerts Substance Reaction Status Criticality topiramate Active No Information HYDROMORPHONE HCL Active No Informa tion oxycodone Active No Information tramadol Active No Information gabapentin Active No Information hydrocodone Active No Information morphine Active No Information marijuana Active No Information Medications Medication Instructions Dosage Effective Dates (start - stop) Status Comments ipratropium-albutero l 0.5 mg-3 mg(2.5 mg base)/3 mL nebulization soln inhale 3 milliliter by nebulization route 4 times every day 3.00 milliliter - Active Aspir-81 81 mg tablet,delayed release take 1 tablet by oral route every day - Active atorvastatin 20 mg tablet take 1 tablet by oral route every day 20 MG - Active hydromorphone 8 mg tablet take 1 tablet by oral route every 6 hours as needed 8 MG - Active octreotide acetate 100 mcg/mL injection solution inject 1 milliliter by subcutaneous route 3 times every day 100 MCG - Active Ventolin HFA 90 mcg/actuation aerosol inhaler inhale 2 puff by inhalation route every 4 - 6 hours as needed - Active Lipitor (unknown strength) Not Available - Active Procedures Procedure Date Post Op Normal blood pressure reading documented , follow-u Post Op REPAIR BOWEL OPENING Rep initial incisnl/ventrl hernia, reduc ible Implantation Of Mesh Muscl Myocut/fasciocut Flap; T Muscl Myocut/fasciocut Flap; T REPAIR BOWEL OPENING Rep initial incisnl/ventrl hernia, reduc ible Implantation Of Mesh Normal blood pressure reading documented , follow-u New Patient Level 5 Exam Advance Directives Directive Yes / No Effective Date File Name No Information Encounters Encounter Description Practice Location Reason(s) For Visit Diagnoses Date Provider Providers Copied on Encounter [facility], [address], [place], [place], [id number] , tel: [phone] [facility] No Information [address] Walker Cabrera. [address], [place], [place], [address] , . tel: [phone] [facility], [address], [place], [place], [address] , [place] tel: [phone] [facility] Post-Op (chief complaint)O stomy in place (chief complaint) No Information 9 Walker Cabrera. [address], [place], [place], [address] , [place]. tel: [phone] Referring Provider: Kerry Williamson MD R, [address] [place] [address], [place], [id number]. tel:[phone] [facility], [address], [place], [place], [address] , tel: [phone] [facility] Post-Op (chief complaint)O stomy in place (chief complaint) No Information 9 Carroll Aggarwal. [address], [place], [place], [id number] , [place]. tel: [phone] Referring Provider: MD Iain Thurman, [address] [place] [address], [place], [id number]. tel:[phone] [facility], [address], [place], [place], [address] , [place] tel: [phone] [facility] Artificial opening status, unspecifiedIncisiona l hernia without obstruction or gangrene Walker Cabrera. [address], [place], [place], [id number] , [place]. tel: [phone] Referring Provider: MD Iain Thurman, [address] [place] [address], [place], [id number]. tel:[phone] [facility], [address], [place], [place], [address] , [place] tel: [phone] [facility] No Information Jay FraireCamelia [address], [place], [place], [address] , [place]. tel: [phone] Referring Provider: MD Iain Thurman, [address] [place] [address], [place], [id number]. tel:[phone] New Patient Level 5 Exam [facility], [address], [place], [place], [address] , [place] tel: [phone] [facility] Incisional hernia (chief complaint)O stomy in place (chief complaint) Ventral incisional herniaHistory of creation of ostomyCigarette nicotine dependence without complication 9 Walker Cabrera. [address], [place], [place], [address] , [place]. tel: [phone] Referring Provider: MD Iain Thurman, [address] [place] [address], [place], [id number]. tel:[phone] Family History Family Member Type Diagnosis Age At Onset No Information Payers Payer name Insurance type Covered libertarian [place] Authoriza tion(s) Medicare Part B [id number] [facility] [id number] Social History Type Description Quantity Date Captured Comments Alcohol Use Details Unknown Caffeine Use Details Unknown Tobacco Use Status Smoking Status No Information Sex Male Chief Complaint And Reason For Visit No Information Plan Of Treatment Date Type Action Status Goal Tobacco cessation counseling completed Patient Education Hernia Repair: Before Y our Child's Surg completed History Of Present Illness Encounter Date Complaint History Of Prese nt Illness No Information Instructions Date Instruction Additional Infor mation No Information Assessments Type Assessment Date No Information
[2022-10-23] MEDS ORDERED: HALOPERIDOL LACTATE 5 MG/ML VIAL IM PRN ×2 (18:45→21:00)
[2022-10-23] MEDS ORDERED: HALOPERIDOL LACTATE 5 MG/ML VIAL ONE (18:47)
[2022-10-23] MEDS ORDERED: HYDROmorphone 0.5 MG/0.5 ML SYRINGE ONE (18:47)
[2022-10-23] MEDS ORDERED: LORazepam 2 MG/ML VIAL IV PRN ×2 (18:50→18:52)
[2022-10-23] MEDS ORDERED: DEXTROSE 31 GM ORAL.SUSP PO PRN (18:54)
[2022-10-23] MEDS ORDERED: DEXTROSE 50% 50 ML VIAL IV PRN (18:54)
[2022-10-23] MEDS ORDERED: ONDANSETRON 4 MG/2 ML VIAL IV PRN (19:04)
[2022-10-23] MEDS ORDERED: ACETAMINOPHEN 325 MG TABLET PO PRN (19:05)
[2022-10-23] MEDS ORDERED: SENNOSIDES 1 TABLET PO PRN (19:06)
[2022-10-23] MEDS ORDERED: NALOXONE HCL 0.4 MG/ML VIAL IV PRN (19:07)
[2022-10-23] MEDS ORDERED: cloNIDine HCL 0.1 MG TABLET PO PRN (19:09)
[2022-10-23] MEDS ORDERED: 0.9 % SODIUM CHLORIDE 10 ML SYRINGE IV PRN (19:10)
[2022-10-23] MEDS ORDERED: IPRATROPIUM/ALBUTEROL 3 ML AMPUL.NEB NEB PRN (19:10)
[2022-10-24] MEDS: PIPERACILLIN SODIUM/TAZOBACTAM 4.5 GM in DEXTROSE 5% IN WATER 50 ML IV SCH ×4 (01:00→11:10)
[2022-10-24] MEDS: HYDROmorphone 2 MG TABLET PO PRN ×2 (03:24→08:32)
[2022-10-24] MEDS: NICOTINE 7 MG PATCH TOPICAL SCH ×2 (07:04→09:07)
[2022-10-24] MEDS: IPRATROPIUM/ALBUTEROL 3 ML AMPUL.NEB NEB SCH (07:38)
--- NOTE | 2022-10-24 07:59 | EKG ---
[facility] Test Date: 2022-10-21 Pat Name: Earle Magdaleno Department: ICU Room: 120C Gender: Male Special Effects Designer: WILMER : [id number] Requested By: Riley Aldridge Order Number: [id number] Reading MD: Carl Merritt M.D. Measurements Intervals [place] Rate: 111 P: 53 DE: 157 QRS: 78 QRSD: 92 T: 59 QT: 321 QTc: 437 Interpretive Statements Sinus tachycardia Minimal ST elevation, inferior leads Electronically Signed On 10-24-2022 7:59:30 PDT by Carl Merritt M.D. /[id number]
[2022-10-24] MEDS: INSULIN LISPRO 1 UNIT/0.01 ML UNIT SQ SCH ×2 (08:10→11:15)
--- NOTE | 2022-10-24 08:16 | Internal Med Progress Note ---
SUBJECTIVE Subjective Patient information: Note initiated : 10/24/22 at 8:12 am Service Date, if different from initiated Date: [] Patient: Earle Magdaleno 57 y/o M admitted on 10/21/22 for GANGRENE. Chief Complaint: [] Principal diagnosis: Left leg AKA Interval history: Mr. 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 Patient had a chronic left lower extremity wound which had been getting worse so now he has a luis daniel in left lower extremity, his left foot does have autoamputated and fallen off. EMS crew noted patient has maggots on his leg and the house was unkempt. On presentation patient patient had tachycardia of 132, temperature of 99.5. Blood pressure stable. CBC showed leukocytosis of 25,000, anemia of 7.6. BUN/creatinine 38 and 1.2 with slightly elevated anion gap. Ortho was consulted by ER. Admission was requested. 10/21 overnight patient was agitated and was given Ativan 1 mg this morning and also Dilaudid, he is now calm and resting. Tmax 99.8F. Leukocytosis down to 20,000 from 24,000, sodium 129, renal function stable, A1c 6.5. Discussed with Dr. Franklin from orthopedics 10/22. Patient is status post Left AKA by Dr. Franklin for gangrene of left lower extremity and cellulitis, maggots and necrotic muscle to the knee were noted. Hemoglobin 8.6 down from 9.6 yesterday, WBC 20,000. Renal functions and electrolytes stable. Postoperatively patient was breathing hard and was placed on BiPAP which was discontinued overnight. Patient was agitated and was given Ativan and Dilaudid overnight and currently resting comfortably. 10/23. Pain control. Patient received Dilaudid and Ativan for withdrawal symptoms. Clarified with family and patient, he has been using fentanyl off the street. He has been prescribed 4 to 8 mg of Dilaudid every 3 hours as needed for opioid withdrawal. His leukocytosis is trending down to 15,000, hemoglobin low at 7.9. MRSA screen negative. 10/24 No overnight event or new complaints. Leukocytosis of 15,000 yesterday but that is improved from 20,000 previous day. And looks like patient chronically elevated since 2019. Patient is afebrile nontoxic-appearing. Chronic anemia and did get a unit of blood yesterday because of history of CAD and he was 7.9. Follow-up pending. Review of Systems: denies headache/fever/chills/nausea/vomiting/chest or abdominal pain/cough/dyspnea/diarrhea. Otherwise see above. PHYSICAL EXAM General: Alert, Awake, No acute Distress Eyes/N/T: EOMI, no scleral icterus, Head/Neck: neck supple, full ROM, CV: RRR, No murmurs, Pulm: scatterd rales b/l, no wheezing, no respiratory distress Abd: soft, nontender, +BS x4 Ext: left AKA, dressings intact Neuro: Alert, , no focal deficits, moves all extremities, , sensations intact b/l upper/lower Psychiatric: Skin: warm/dry, normal color Constitutional Vitals: Vital Signs Temp Pulse Resp BP Pulse Ox O2 Del Method O2 Flow Rate 97.4 F 100 H 22 146/86 94 Room Air 4 10/24/22 00:01 10/24/22 07:38 10/24/22 07:38 10/24/22 06:01 10/24/22 06:01 10/24/22 07:38 10/23/22 12:57 Period Temp Pulse Resp BP Sys/[place] Pulse Ox O2 Del Method O2 Flow Rate Last 24 Hr 97.2 F-98.2 F 91-108 12-31 105-160/55-106 93-100 Room Air-Room Air 4 Intake and Output 10/23/22 10/24/22 10/24/22 19:59 03:59 11:59 Intake Total 1630 750 460 Output Total 1050 890 240 Balance 580 -140 220 Weight 87.679 kg Intake & Output: Intake & Output 10/23/22 10/24/22 10/24/22 19:59 03:59 11:59 Intake Total 1630 750 460 Output Total 1050 890 240 Balance 580 -140 220 Weight 87.679 kg Intake: Nourishment/Supplement quantity 480 240 (ml) IV 70 150 100 Sodium Chloride 0.9% 250 ml @ 20 20 mls/hr IV .[id number] [facility] Rx#: [id number] Zosyn 4.5 gm In Dextrose 5% in 50 150 100 Water 50 ml @ 100 mls/hr IV Q6H [facility] Rx#:[id number] Oral 600 360 360 GI Tube Flush 480 Output: Urine Catheter Amount 400 890 240 Stool 650 Other: Meal Breakfast Nourishment/Supplement Percent of Meal Consumed 100% Feeding Ability Assist with Tray Set Up Independent Nourishment/Supplement name magic cup milk Urine Appearance Clear Clear Clear Uretheral (Cook) Clear Urine Color Yellow Yellow Yellow Uretheral (Cook) Yellow Stool Size Copious Copious Stool Color Brown Brown Stool Consistency Liquid Loose # of times incontinent of 1 Bowels OBJ DATA Labs 10/24/22 08:29 10/23/22 05:28 Labs: Abnormal Lab Results 10/23/22 10/23/22 10/22/22 05:28 05:28 05:22 WBC 15.2 H 20.0 H RBC 3.57 L 3.83 L Hgb 7.9 L 8.6 L Hct 27.3 L 29.5 L MCV 76.5 L 77.0 L MCH 22.1 L 22.5 L MCHC 28.9 L 29.2 L RDW 17.8 H 17.4 H Plt Count 564 H 603 H Immature Gran % (Auto) 10.1 H 9.6 H Neut % (Auto) 79.2 H Lymph % (Auto) 9.3 L 5.5 L Lymph # (Auto) 1.42 L 1.11 L Immature Gran # 1.53 H 1.93 H Absolute Neutrophils 11.10 H 15.82 H POC pH POC pCO2 POC pO2 POC ABG Base Excess ABG Lactic Acid Hgb O2 Saturation Sodium Carbon Dioxide BUN Glucose Hemoglobin A1c Calcium 8.0 L Direct Bilirubin GGT AST ALT Alkaline Phosphatase 195 H Albumin 2.1 L Globulin 5.3 H Albumin/Globulin Ratio 0.4 L 10/22/22 10/21/22 10/21/22 05:22 18:59 07:23 WBC RBC Hgb Hct MCV MCH MCHC RDW Plt Count Immature Gran % (Auto) Neut % (Auto) Lymph % (Auto) Lymph # (Auto) Immature Gran # Absolute Neutrophils POC pH 7.32 L POC pCO2 45.2 H POC pO2 63 L POC ABG Base Excess -3.0 L ABG Lactic Acid < 0.3 L Hgb O2 Saturation 90.0 L Sodium 129 L Carbon Dioxide 17 L BUN 26 H Glucose 112 H 117 H Hemoglobin A1c 6.5 H Calcium 8.2 L 8.1 L Direct Bilirubin 0.5 H 0.5 H GGT 65 H AST 64 H ALT 48 H Alkaline Phosphatase 243 H 284 H Albumin 2.1 L 2.2 L Globulin 5.8 H 5.8 H Albumin/Globulin Ratio 0.4 L 0.4 L Meds: Medications Acetaminophen (Acetaminophen 325 Mg Tablet) 325 mg PO Q4-6HP PRN; Protocol PRN Reason: Per Pain Protocol Albuterol/Ipratropium (Ipratropium/Albuterol 3 Ml Ampul.Neb) 3 ml NEB QID [facility] Last Admin: 10/24/22 07:38 Dose: 3 ml Albuterol/Ipratropium (Ipratropium/Albuterol 3 Ml Ampul.Neb) 3 ml NEB Q6HP PRN PRN Reason: Wheezing Clonidine HCl (Clonidine Hcl 0.1 Mg Tablet) 0.1 mg PO Q4HP PRN PRN Reason: Alcohol Withdrawal/Assess CIWA Dextrose (Dextrose 50% 50 Ml Vial) 0 ml IV UD PRN PRN Reason: Per Sliding Scale Diagnostic Test (Pha) (Accu-Chek 1 Each Strip) 1 each FS ACHS [facility] Last Admin: 10/24/22 08:10 Dose: 1 each Enoxaparin Sodium (Enoxaparin 40 Mg/0.4 Ml Syringe) 40 mg SQ DAILY [facility] Folic Acid (Folic Acid 1 Mg Tablet) 1 mg PO DAILY [facility] Glucose (Dextrose 31 Gm Oral.Susp) 15 gm PO PRN PRN PRN Reason: Hypoglycemia Haloperidol Lactate (Haloperidol Lactate 5 Mg/Ml Vial) 0.5 mg IM Q2HP PRN PRN Reason: Alcohol Withdrawal/Assess CIWA Last Admin: 10/24/22 01:08 Dose: 0.5 mg Hydromorphone HCl (Hydromorphone 0.5 Mg/0.5 Ml Syringe) 0.5 mg IV Q2HP PRN; Protocol PRN Reason: Per Pain Protocol Last Admin: 10/23/22 23:56 Dose: 0.5 mg Hydromorphone HCl (Hydromorphone 2 Mg Tablet) 2 mg PO Q3HP PRN; Protocol PRN Reason: Per Pain Protocol Last Admin: 10/24/22 03:24 Dose: 2 mg Piperacillin Sod/Tazobactam (Sod 4.5 gm/ Dextrose) 50 mls @ 100 mls/hr IV Q6H [facility]; Protocol Last Infusion: 10/24/22 06:00 Dose: Infused Insulin Human Lispro (Insulin Lispro 1 Unit/0.01 Ml Unit) 0 unit SQ ACHS [facility]; Protocol Last Admin: 10/24/22 08:10 Dose: Not Given Iron Carb/Multivit/[place]/Folic Acid (Multivit,Ther Iron,Ca,Fa & Min 1 Tablet) 1 tab PO BID [facility] Last Admin: 10/23/22 21:02 Dose: 1 tab Lorazepam (Lorazepam 2 Mg/Ml Vial) 0 mg IV PRN PRN; Protocol PRN Reason: Alcohol Withdrawal/Assess CIWA Lorazepam (Lorazepam 2 Mg/Ml Vial) 1 mg IV Q2HP PRN PRN Reason: ANXIETY/SEDATION Last Admin: 10/23/22 21:55 Dose: 1 mg Naloxone HCl (Naloxone Hcl 0.4 Mg/Ml Vial) 0.1 mg IV Q2MIN PRN PRN Reason: Opiate Reversal Nicotine (Nicotine 21 Mg Patch) 21 mg TOPICAL DAILY@1000 [place] Nicotine (Nicotine 7 Mg Patch) 14 mg TOPICAL DAILY@1000 [place] Last Admin: 10/24/22 07:04 Dose: Not Given Ondansetron HCl (Ondansetron 4 Mg/2 Ml Vial) 4 mg IV Q4-6HP PRN PRN Reason: Nausea And Vomiting Senna (Sennosides 1 Tablet) 2 tab PO HSP PRN PRN Reason: Constipation Sodium Chloride (0.9 % Sodium Chloride 10 Ml Syringe) 10 ml IV Q12 [facility] Last Admin: 10/23/22 21:03 Dose: 10 ml Sodium Chloride (0.9 % Sodium Chloride 10 Ml Syringe) 10 ml IV UD PRN PRN Reason: FLUSH Thiamine HCl (Thiamine 100 Mg Tablet) 100 mg PO DAILY [place] A/P Narrative A/P Narrative: Assessment and plan *Encephalopathy: multifactorial, in the setting of sepsis, alcohol and opioid withdrawal -CT head no acute finding. Most likely opioid withdrawal -We will start on less than his home dose of Dilaudid 2 mg every 3 hours as needed. Continue to monitor. -resolved *Sepsis: 2/2 gangrenous left lower extremity. *Gangrene/Cellulitis left lower extremity: s/p Left above-knee amputation by Dr. Lawrence (10/21) -Ortho following -MRSA screen negative, discontinue vancomycin and clindamycin -Continue Zosyn follow cultures -Dietitian consult to improve protein intake to help wound healing *Cellulitis left lower leg: as above -antibiotics *Peripheral arterial disease status post stenting: -CTA LLE w/stenosis popliteal artery/segmental occlusion of post tibial artery & complete occlusion of anterior tibial artery *Leukocytosis, appears chronic since 2019: *Anemia, acute: s/p 2-unit PRBC, hemoglobin trending down to 7.9. Will transfuse 1 unit in the setting of CAD. -monitor *h/o CAD/AK: no acute ischemia on EKG *Hyponatremia: received IV fluids, resolved *Polysubstance abuse: urine toxicology positive for opioid *Agitation:secondary to above, resolved *Opioid dependence and withdrawal, on withdrawal protocol *Alcohol dependence disorder and withdrawal, on CIWA protocol, multivitamin, thiamine, folic acid *COPD, mild exacerbation: on DuoNebs *Ongoing tobacco abuse: nicotine patch *Diabetes mellitus 2: on insulin sliding scale, A1C 6.5 *Hypertension/Hyperlipidemia: statin *CKD: stable *DVT prophylaxis: lovenox Time Spent With Patient Time: Total time spent is greater than 50% in coordination of care (as documented) at patient's floor/unit and/or counseling patient: Subsequent: Total time with patient: 35 - 49 minutes QUALITY Stroke Symptom Onset Unknown: No VTE Deep Vein Thrombosis/Pulmonary Embolism Present on Admission: Yes
[2022-10-24] MEDS ORDERED: ACETAMINOPHEN 325 MG TABLET PO PRN (08:31)
[2022-10-24] MEDS: MULTIVIT,THER IRON,CA,FA & MIN 1 TABLET PO SCH (08:32)
[2022-10-24] MEDS: 0.9 % SODIUM CHLORIDE 10 ML SYRINGE IV SCH (08:34)
--- NOTE | 2022-10-24 08:40 | Operative Note ---
DATE OF OPERATION: 10/21/2022 DATE OF PROCEDURE: 10/21/2022 PREOPERATIVE DIAGNOSES: Sepsis and gangrene of left leg, up to the knee. POSTOPERATIVE DIAGNOSES: Sepsis and gangrene of left leg, up to the knee, with maggots through the wound. PROCEDURE: [id number] amputation. SURGEON: Ricardo Lawrence M.D. DRAPERY MAKER: Lopez Lawson PA-C. This providers expertise and technical skill were required throughout the case. The JUAN R assisted with preoperative coordination, intraoperative retraction, wound closure, and dressing and splint application, as well as postoperative documentation and care coordination. ANESTHESIA: General LMA anesthesia. IMPLANTS: None. SPECIMEN: Sent, and kept isolated from the wound. FINDINGS: He did have a contracture of the knee of about 50 degrees. DESCRIPTION OF PROCEDURE: The patient was brought to the operating room, put to sleep with general LMA anesthesia. Once asleep, the patient had the left leg sterilely prepped and draped in the usual sterile fashion, timeout being performed. We inflated the tourniquet and then made an incision approximately 5 inches above the knee. A fishmouth incision was made down to the bone. We elevated the extensor mechanism and then made the bony cut through the femur, which was about 4 fingerbreadths proximal to the articular surface. Once this was cut, the leg was then severed from the soft tissue posteriorly. We then identified the tibial artery,5 veins and the sciatic nerve. We then deflated the tourniquet after we controlled all bleeding. Once the tourniquet deflated at approximately 15 minutes we then were able to repair the deeper fascial layer together with Stratafix. We then closed the fascial layer around the skin edges with Stratafix and then we closed the skin layer with savannah. We had a good closure. This was a mouth equal anterior and posterior flaps given the patient's lack of tissue because of gangrene much of the muscle in the calf had and had to be removed. Once this was done, we then irrigated thoroughly. We lost about 300-400 mL blood. No blood products were given. No implants were placed. COMPLICATIONS: None. DISPOSITION: PACU. SPECIMENS: Sent for the foot--there were maggots throughout the foot. CHALINO:luis antonio Job ID: [id number] Doc ID: [id number] Ricardo Lawrence MD
[2022-10-24] MEDS: HYDROmorphone 0.5 MG/0.5 ML SYRINGE IV PRN (08:58)
[2022-10-24] MEDS ORDERED: ENOXAPARIN 40 MG/0.4 ML SYRINGE SQ SCH ×2 (09:00)
[2022-10-24] MEDS ORDERED: FOLIC ACID 1 MG TABLET PO SCH (09:00)
[2022-10-24] MEDS ORDERED: THIAMINE 100 MG TABLET PO SCH (09:00)
[2022-10-24 09:39] LABS: Hematocrit 31.4 % (40.1-51.0); Hemoglobin 9.3 g/dL (13.7-17.5)
[2022-10-24] MEDS ORDERED: NICOTINE 21 MG PATCH TOPICAL SCH (10:00)
[2022-10-24] MEDS ORDERED: NICOTINE 7 MG PATCH TOPICAL SCH (10:00)
--- NOTE | 2022-10-24 10:19 | Discharge Summary ---
Discharge Provider Provider IMPORTANT FOLLOW-UP INFORMATION FOR PCP: Patient information: Note initiated : 10/24/22 at 10:16 am Service Date, if different from initiated Date: [] Patient: Earle Magdaleno 57 y/o M admitted on 10/21/22 for GANGRENE. Chief Complaint: [] Date of admission: 10/21/22 01:15 Discharge date: 10/24/22 Primary care physician: Kerry Williamson Consults: 10/20/22 Consult to Physician [CONS] Stat Comment: Consulting Provider: Riley Aldridge Reason For Exam: Physician to Consult 10/21/22 08:39 Consult to Physician [CONS] Routine Comment: Consulting Provider: Ricardo Lawrence Reason For Exam: Physician to Consult COURSE Hospital Course Hospital course: Principal diagnosis: Left leg AKA Interval history: Mr. 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 Patient had a chronic left lower extremity wound which had been getting worse so now he has a luis daniel in left lower extremity, his left foot does have autoamputated and fallen off. EMS crew noted patient has maggots on his leg and the house was unkempt. On presentation patient patient had tachycardia of 132, temperature of 99.5. Blood pressure stable. CBC showed leukocytosis of 25,000, anemia of 7.6. BUN/creatinine 38 and 1.2 with slightly elevated anion gap. Ortho was consulted by ER. Admission was requested. 10/21 overnight patient was agitated and was given Ativan 1 mg this morning and also Dilaudid, he is now calm and resting. Tmax 99.8F. Leukocytosis down to 2 0,000 from 24,000, sodium 129, renal function stable, A1c 6.5. Discussed with Dr. Franklin from orthopedics 10/22. Patient is status post Left AKA by Dr. Franklin for gangrene of left lower extremity and cellulitis, maggots and necrotic muscle to the knee were noted. Hemoglobin 8.6 down from 9.6 yesterday, WBC 20,000. Renal functions and electrolytes stable. Postoperatively patient was breathing hard and was placed on BiPAP which was discontinued overnight. Patient was agitated and was given Ativan and Dilaudid overnight and currently resting comfortably. 10/23. Pain control. Patient received Dilaudid and Ativan for withdrawal symptoms. Clarified with family and patient, he has been using fentanyl off the street. He has been prescribed 4 to 8 mg of Dilaudid every 3 hours as needed f or opioid withdrawal. His leukocytosis is trending down to 15,000, hemoglobin low at 7.9. MRSA screen negative. 10/24 No overnight event or new complaints. Leukocytosis of 15,000 yesterday but that is improved from 20,000 previous day. And looks like patient chronically elevated since 2019. Patient is afebrile nontoxic-appearing. Chronic anemia and did get a unit of blood yesterday because of history of CAD and he was 7.9. Follow-up pending. We highly recommended discharge to longterm facility but patient refused. Assessment and plan *Encephalopathy: multifactorial, in the setting of sepsis, alcohol and opioid withdrawal *Sepsis: 2/2 gangrenous left lower extremity. *Gangrene/Cellulitis left lower extremity: s/p Left above-knee amputation by Dr. Lawrence (10/21) -Ortho following *Cellulitis left lower leg: source removed, neg blood cx's *Peripheral arterial disease status post stenting: -CTA LLE w/stenosis popliteal artery/segmental occlusion of post tibial artery & complete occlusion of anterior tibial artery *Leukocytosis, appears chronic since 2019: *Anemia, acute: *h/o CAD/MO: *Hyponatremia: *Polysubstance abuse: *Agitation:secondary to above, resolved *Opioid dependence and withdrawal, on withdrawal protocol *Alcohol dependence disorder and withdrawal, on CIWA protocol, multivitamin, thiamine, folic acid *COPD, mild exacerbation: *Ongoing tobacco abuse: nicotine patch *Diabetes mellitus 2: *Hypertension/Hyperlipidemia: statin *CKD: stable Discharge diagnosis: Sepsis from gangrenous left lower extremity and cellulitis status post ampu Secondary discharge diagnosis: Encephalopathy opioid withdrawal PAD chronic leukocytosis chronic anemia history of CAD hyponatremia polysubstance abuse alcohol dependence COPD tobacco abuse diabetes hypertension hyperlipidemia CKD Time Spent with Patient Time attestation: Total time spent providing and/or coordinating discharge services: Time spent: Greater than 30 minutes EXAM Constitutional Vitals: Temp Pulse Resp BP Pulse Ox O2 Del Method O2 Flow Rate 96.9 F L 99 H 23 H 123/55 98 Room Air 4 10/24/22 08:01 10/24/22 08:01 10/24/22 08:01 10/24/22 08:01 10/24/22 08:01 10/24/22 08:01 10/23/22 12:57 Discharge Data Data Completed and Pending Labs on day of discharge: Labs from last 24 hours 10/24/22 08:29 Hgb 9.3 L Hct 31.4 L Preliminary micro results at discharge 10/20/22 22:38 Blood Culture - Preliminary Blood 10/20/22 21:40 Blood Culture - Preliminary Blood Discharge Plan Patient/Caregiver Discharge Instructions Activity: increase activity as tolerated Diet: Consistent Carbohydrate Instructions: Sepsis (GEN), Diabetic Foot Ulcers (DC), Necrotizing Fasciitis (DC), Below the Knee Amputation (DC) Prescriptions: Continued (DME) insulin syringe-needle U-100 [BD Veo Insulin Syringe UF] 1 mL 31 gauge x 15/64" syringe See Rx Instructions .ROUTE .COMPLEX Qty: 100 9RF Dose Instruction: USE TO TAKE INSULIN 2 TIMES DAILY Rx Instructions: USE TO TAKE INSULIN 2 TIMES DAILY (DME) insulin syringe-needle U-100 [BD Veo Insulin Syringe UF] 1 mL 31 gauge x 15/64" syringe See Rx Instructions .ROUTE .COMPLEX Qty: 100 11RF Dose Instruction: USE DIRECTED Rx Instructions: Medication to be administered twice daily (two syringes per day) octreotide acetate 100 mcg/mL solution 100 mcg subcut BID 90 Days Qty: 180 6RF Rx Instructions: Patient has a lifelong condition and he will need this medications for the duration of his natural life ipratropium-albuterol 1 PUFF inhaler 2 puff INH BID hydromorphone 4 mg tablet 4 - 8 mg PO Q3HP PRN (Reason: pain) naloxone 4 mg/actuation spray,non-aerosol 1 spray intranasal DAILY PRN (Reason: Opioid Overdose) Other Ambulatory Orders: Transfer Board (ONCE) Location: None Selected Ordered By: Gary Loomis Follow Up Plan Patient Disposition: Home, Self-Care Prognosis: Undetermined Overall status at discharge: patient is progressing back to baseline Discharge Orders: Discharge Order (Routine); Ordered 10/24/22 Ordered By: Gary GARCIA VTE Deep Vein Thrombosis/Pulmonary Embolism Present on Admission: Yes
== END 2022-10-24 11:55 | disposition home or self-care (01) | DRG 853 ==
LOC: ED 20:59 → ICU 10-21 01:15
PROVIDERS: ADMIT Internal Medicine; ATTEND Internal Medicine